=== PATIENT | female | born 1950 | race Caucasian/White ===

== ENCOUNTER 2017-08-29 08:32 | Inpatient (IN) | payer MEDICARE ==
[~2017-08-29] VITALS: Ht 152.4 cm; Wt 88.5 kg
[2017-08-29 08:55] LABS: BASOPHILS # (AUTO) 0.1 (0.0-0.1); EOSINOPHILS # (AUTO) 0.2 (0.0-0.4); EOSINOPHILS % 1.9 % (0.0-6.0); HEMATOCRIT 36.6 % (34.2-44.1); HEMOGLOBIN 11.7 g/dL (12.0-16.0); LYMPHOCYTES # (AUTO) 2.5 (1.0-3.2); LYMPHOCYTES % 21.9 % (18.0-39.1); MEAN CORPUSCULAR HEMOGLOBIN 31.5 pg (28-32); MEAN CORPUSCULAR VOLUME 98.7 fL (81-99); MONOCYTES # (AUTO) 0.8 (0.2-0.8); NEUTROPHILS # (AUTO) 7.7 (2.1-6.9); NEUTROPHILS % 67.8 % (38.7-80.0); PLATELET COUNT 370 x10e3/uL (140-360); RED BLOOD COUNT 3.71 x10e6/uL (3.6-5.1); RED CELL DISTRIBUTION WIDTH 12.9 % (11.7-14.4)
[2017-08-29] MEDS ORDERED: LORAZEPAM INJ 2 MG/ML VIAL IV ONE (09:00)
[2017-08-29 09:03] LABS: INR 0.92; PROTHROMBIN TIME 12.8 seconds (11.9-14.5)
[2017-08-29] MEDS ORDERED: XARELTO15 MG PO (09:10)
[2017-08-29] MEDS ORDERED: OMEPRAZOLE40 MG PO (09:10)
[2017-08-29] MEDS ORDERED: CARVEDILOL6.25 MG PO (09:10)
[2017-08-29] MEDS ORDERED: LISINOPRIL40 MG PO (09:10)
[2017-08-29] MEDS ORDERED: FERROUS SULFAT325 MG PO (09:10)
[2017-08-29] MEDS ORDERED: AMIODARONE HCL200 MG PO (09:10)
[2017-08-29] MEDS ORDERED: NITROGLYCERIN0.4 MG PO (09:10)
[2017-08-29] MEDS ORDERED: LOW DOSE ASPIRI81 MG PO (09:10)
[2017-08-29] MEDS ORDERED: PRAVASTATIN SOD10 MG PO (09:10)
[2017-08-29] MEDS ORDERED: DIGOXIN125 MCG PO (09:10)
[2017-08-29] MEDS ORDERED: AMLODIPINE BESY10 MG PO (09:10)
[2017-08-29] MEDS ORDERED: TRAZODONE HCL50 MG PO (09:10)
[2017-08-29 09:12] LABS: ALBUMIN 3.4 g/dL (3.5-5.0); ANION GAP 13.2 mmol/L (8-16); CALCIUM 9.1 mg/dL (8.4-10.2); CREATININE, SERUM 1.16 mg/dL (0.57-1.11); MAGNESIUM 2.1 MG/DL (1.3-2.1); PHOSPHORUS 2.8 MG/DL (2.3-4.7); POTASSIUM 4.2 mmol/L (3.5-5.1)
[2017-08-29 09:18] LABS: TROPONIN I 0.012 ng/mL (0-0.300)
--- NOTE | 2017-08-29 09:23 | Diagnostic Imaging Report ---
PROCEDURE: X-RAY CHEST, TWO VIEWS COMPARISON: None. INDICATIONS: RIGHT CHEST PAIN FINDINGS: LUNGS: No consolidations or edema. Calcified upper lobe granuloma is best visualized on the lateral view. PLEURA: No pneumothorax. Focal eventration anteriorly of the right hemidiaphragm. HEART \T\ MEDIASTINUM: The heart is within normal size-limits. BONES \T\ SOFT TISSUES: No acute findings. CONCLUSION: No acute thoracic abnormality. Edouard Mendoza D.O. Dictated by: Edouard Mendoza D.O. on 08/29/2017 at 9:31 Electronically approved by: Edouard Mendoza D.O. on 08/29/2017 at 9:31
[2017-08-29] MEDS ORDERED: NITROGLYCERIN 0.4 MG SUBL SL PRN ×2 (11:00→17:45)
[2017-08-29] MEDS ORDERED: ONDANSETRON HCL INJ 2 MG/ML VIAL IV PRN (11:00)
[2017-08-29] MEDS ORDERED: ASPIRIN 81 MG CHEW TAB PO ONE (11:00)
[2017-08-29] MEDS: FAMOTIDINE 20 MG TAB PO SCH ×2 (11:39→20:32)
[2017-08-29 14:42] LABS: CREATINE KINASE MB 0.9 ng/mL (0.00-5.00)
[2017-08-29 16:38] VITALS: BP 157/72
[2017-08-29] MEDS: ALPRAZOLAM 0.5 MG TAB PO SCH (17:27)
--- NOTE | 2017-08-29 19:36 | History and Physical ---
CHIEF COMPLAINT: A 67-year-old female patient of mine who presented with a complaint of recurrent chest pain. HISTORY OF PRESENT ILLNESS: Ms. Geovanni Hurtado is a 67-year-old female patient with a past history of atrial fibrillation, coronary artery disease, COPD, chronic bronchitis, atrial fibrillation, gastritis, hiatal hernia. She presented to the emergency room with complaint of recurrent chest pain. The patient was recently admitted at [facility] for chest pain. The patient had a nuclear stress test done which was negative and she was discharged, and after discharge the patient continued to have pain. The patient was also taking nitroglycerin for pressure type of chest pain radiating to the jaw and nitroglycerin helped with the pain, but pain kept on recurring and sometimes the nitroglycerin was not helping. ALLERGIES: PENICILLIN, SULFA, CODEINE, MORPHINE, . SOCIAL HISTORY: Denies smoking, denies any alcohol. PAST MEDICAL HISTORY: As per history of present illness. REVIEW OF SYSTEMS: Chest pain, shortness of breath, chest tightness, jaw pain. MEDICATIONS: See from the list. PHYSICAL EXAMINATION GENERAL: She is an elderly female patient lying in the bed not in any acute distress. VITAL SIGNS: Temperature 99, pulse 88, respirations 20, blood pressure 110/80. HEENT: Normocephalic atraumatic. NECK: No JVD, no lymphadenopathy. LUNGS: Bilateral equal air entry; no rales, no rhonchi. HEART: S1, S2, regular, systolic murmur. ABDOMEN: Soft, bowel sounds present. No organomegaly. NEUROLOGIC: Nonfocal. No neurologic deficit, except the patient has neck tremors. ADMITTING IMPRESSION/DIAGNOSES 1. Chest pain. 2. Unstable angina. 3. Atrial fibrillation. 4. Chronic obstructive pulmonary disease. 5. Hypertension. 6. Hypertensive heart disease. 7. Arthritis. 8. Gastroesophageal reflux disease. 9. Anxiety. PLAN: The patient will be admitted with the above diagnosis. Will do serial EKGs, cardiac enzymes and cardiology consultation. Dr. Wiseman requested. The patient will probably undergo cardiac catheterization. Job#: [id number]
[2017-08-29 20:00] VITALS: BP 141/78
[2017-08-29 20:47] LABS: TROPONIN I 0.055 ng/mL (0-0.300)
[2017-08-29] MEDS ORDERED: TRAZODONE HCL 50 MG TAB PO PRN (21:00)
[2017-08-29] MEDS ORDERED: PRAVASTATIN 20 MG TAB PO SCH (21:00)
[2017-08-30] VITALS (8 sets, daily range): BP systolic 109–138; BP diastolic 55–79
[2017-08-30] MEDS: ACETAMINOPHEN 325 MG TAB PO PRN ×2 (03:14→04:25)
[2017-08-30 05:55] LABS: BASOPHILS # (AUTO) 0.1 (0.0-0.1); BASOPHILS % 0.8 % (0.0-1.0); EOSINOPHILS # (AUTO) 0.2 (0.0-0.4); EOSINOPHILS % 2.4 % (0.0-6.0); HEMATOCRIT 34.8 % (34.2-44.1); HEMOGLOBIN 11.2 g/dL (12.0-16.0); LYMPHOCYTES # (AUTO) 3.1 (1.0-3.2); LYMPHOCYTES % 31.4 % (18.0-39.1); MEAN CORPUSCULAR HEMOGLOBIN 31.9 pg (28-32); MEAN CORPUSCULAR HGB CONC 32.2 g/dL (31-35); MEAN CORPUSCULAR VOLUME 99.1 fL (81-99); MONOCYTES # (AUTO) 0.9 (0.2-0.8); MONOCYTES % 9.2 % (4.4-11.3); NEUTROPHILS # (AUTO) 5.5 (2.1-6.9); NEUTROPHILS % 55.9 % (38.7-80.0); PLATELET COUNT 291 x10e3/uL (140-360); RED BLOOD COUNT 3.51 x10e6/uL (3.6-5.1); RED CELL DISTRIBUTION WIDTH 13.1 % (11.7-14.4)
[2017-08-30 06:19] LABS: ANION GAP 10.6 mmol/L (8-16); CALCIUM 8.8 mg/dL (8.4-10.2); CHOL/HDL RATIO 3.7 (3.0-3.6); CREATININE, SERUM 1.1 mg/dL (0.57-1.11); POTASSIUM 4.6 mmol/L (3.5-5.1)
[2017-08-30 06:28] LABS: CREATINE KINASE MB 0.9 ng/mL (0.00-5.00); TROPONIN I 0.016 ng/mL (0-0.300)
[2017-08-30] MEDS ORDERED: RIVAROXABAN 15 MG TABLET PO SCH (09:00)
[2017-08-30] MEDS ORDERED: CARVEDILOL 3.125 MG TAB PO SCH (09:00)
[2017-08-30] MEDS ORDERED: LISINOPRIL 20 MG TAB PO SCH (09:00)
[2017-08-30] MEDS ORDERED: ENOXAPARIN SOD INJ 60 MG/0.6 ML SYR SC SCH (09:00)
[2017-08-30] MEDS ORDERED: ASPIRIN 81 MG ENTERIC COATED PO SCH (09:00)
[2017-08-30] MEDS ORDERED: NON-FORMULARY MEDICATION (Pravastatin Sodium 10 MG) PO SCH (09:00)
[2017-08-30] MEDS ORDERED: NON-FORMULARY MEDICATION (Carvedilol 6.25 MG) PO SCH (09:00)
[2017-08-30] MEDS ORDERED: NON-FORMULARY MEDICATION (Lisinopril 40 MG) PO SCH (09:00)
[2017-08-30] MEDS: CARVEDILOL 3.125 MG TAB PO SCH ×2 (09:42→20:39)
[2017-08-30] MEDS: AMIODARONE HCL 200 MG TAB PO SCH ×2 (09:42→17:13)
[2017-08-30] MEDS: ASPIRIN 81 MG ENTERIC COATED PO SCH (09:42)
[2017-08-30] MEDS: LISINOPRIL 20 MG TAB PO SCH (09:43)
[2017-08-30] MEDS: DIGOXIN 0.125 MG TAB PO SCH (09:43)
[2017-08-30] MEDS: AMLODIPINE BESYLATE 10 MG TAB PO SCH (09:43)
[2017-08-30] MEDS: FERROUS SULFATE 325 MG TAB PO SCH (09:43)
[2017-08-30] MEDS: ATORVASTATIN 20 MG TAB PO SCH (09:43)
[2017-08-30] MEDS: PANTOPRAZOLE SOD 40 MG TABEC PO SCH (09:44)
[2017-08-30] MEDS: ALPRAZOLAM 0.5 MG TAB PO SCH ×2 (09:44→17:13)
--- NOTE | 2017-08-30 10:36 | Consultation ---
DATE OF CONSULTATION: August 29, 2017 CARDIOLOGY CONSULTATION REASON FOR CONSULTATION: Chest pain. HISTORY OF PRESENT ILLNESS: Ms. Hurtado is a pleasant 67-year-old woman with a history of atrial fibrillation, COPD, chronic bronchitis, gastritis, who presents to [facility] via the emergency department with the complaints of chest pain. Episodes are intermittent radiating to the neck and right shoulder and partially relieved with nitroglycerin. She had recent visit to [facility] with noninvasive tests performed at the time there. She presents again to the hospital with recurrent episode of chest pain. Currently, chest pain free. REVIEW OF SYSTEMS: A 12-system negative except for as noted above. ALLERGIES: SULFA, CODEINE, MORPHINE, PROMETHAZINE. PAST MEDICAL HISTORY: As per HPI. EKG shows normal sinus rhythm with left ventricular hypertrophy, QRS widening and repolarization abnormality. Her first 2 sets of troponins have been negative. White count mildly elevated at 11.4. Chest x-ray with no acute thoracic abnormality. Possible right upper lobe granuloma. Focal infiltration anteriorly of the right hemidiaphragm. Heart within normal size limits. SOCIAL HISTORY: Denies recent smoking, alcohol or drugs. FAMILY HISTORY: Noncontributory. PHYSICAL EXAMINATION VITALS: Temperature 96.9, heart rate 76, respiratory rate 20, blood pressure 138/73, and O2 sat 95% on room air. GENERAL: No acute distress. Alert and cooperative. HEENT: Anicteric sclerae. CHEST: Clear to auscultation. CARDIOVASCULAR: Regular rate and rhythm. Normal S1 and S2. No S3. No S4. Systolic ejection murmur of 1/6. ABDOMEN: Soft. EXTREMITIES: No edema. Warm distal extremities. STUDIES: X-ray and EKG as described above. Cardiac enzymes negative times 3. White blood cells 11.3 and platelets 11,700. Glucose 370. INR 0.9. Creatinine 1.1, potassium 4.2, bicarbonate 25, glucose 101, magnesium 2.1. Normal transaminases. ASSESSMENT 1. Chest pain, recurrent: Concern for unstable angina. 2. Atrial fibrillation, paroxysmal. 3. Chronic obstructive pulmonary disease. 4. Hypertension. 5. Gastroesophageal reflux disease. 6. Anxiety. RECOMMENDATIONS: Will consider coronary angiography and possible intervention. Please hold Xarelto for possible coronary angiography early next week. No LA per serial enzymes so far. Continue antihypertensives, aspirin, beta carlos manuel, and statin therapy. Keep on telemetry and echo. Further recommendations to follow. Job#: [id number] ISAC
--- NOTE | 2017-08-30 12:00 | Consultation ---
DATE OF CONSULTATION: August 30, 2017 CARDIOLOGY CONSULTATION REASON FOR CONSULTATION: Is chest pain. HISTORY OF PRESENT ILLNESS: Ms. Hurtado is a 67-year-old female with a history of atrial fibrillation, coronary artery disease with remote history of coronary angiography, COPD, chronic bronchitis, hiatal hernia, who was recently at [facility] with atypical exertional angina. She has been using nitroglycerin almost on a daily basis for the last several weeks. She had a nuclear stress test done at [facility] which was negative. She was discharged home. However, her anginal symptoms continued. She denies palpitations. DRUG ALLERGIES: ARE MULTIPLE. INCLUDE PENICILLIN, SULFONAMIDE, ANTIBIOTICS, CODEINE, MORPHINE, PROMETHAZINE. PAST MEDICAL HISTORY: As listed above. SOCIAL HISTORY: Patient does not smoke or drink alcohol. REVIEW OF SYSTEMS: Negative except as dictated in the history of present illness. PHYSICAL EXAMINATION: VITALS: Afebrile. Heart rate 68. Blood pressure 135/79. O2 sats 96%. CARDIOVASCULAR: Regular rhythm. Systolic murmur. S4 gallop. LUNGS: Clear to auscultation bilaterally. ABDOMEN: Soft. Bowel sounds heard adequately. Hemoglobin is 11.2. Serum creatinine is normal. Potassium 4.6. BNP is 400. Echocardiogram is pending. Cardiac troponin was 0.055. ASSESSMENT: Non ST segment elevation myocardial infarction. RECOMMENDATION: Continued medical therapy. Coronary angiography. Risks, benefits and alternatives were discussed with the patient. We will perform this procedure on the 01 of September. I thank Dr. Harish De Jesus for this consultation. Job#: [id number] EV
[2017-08-30] MEDS: FAMOTIDINE 20 MG TAB PO SCH ×2 (12:43→20:39)
[2017-08-30 15:04] LABS: CREATINE KINASE MB 0.7 ng/mL (0.00-5.00); TROPONIN I 0.017 ng/mL (0-0.300)
[2017-08-31] VITALS (7 sets, daily range): BP systolic 107–141; BP diastolic 57–70
[2017-08-31 07:20] LABS: CHOL/HDL RATIO 3.4 (3.0-3.6)
[2017-08-31 07:31] LABS: ANION GAP 8.6 mmol/L (8-16); CALCIUM 9.1 mg/dL (8.4-10.2); CREATININE, SERUM 1.13 mg/dL (0.57-1.11); POTASSIUM 4.6 mmol/L (3.5-5.1)
[2017-08-31] MEDS: CARVEDILOL 3.125 MG TAB PO SCH ×2 (08:30→21:00)
[2017-08-31] MEDS: ATORVASTATIN 20 MG TAB PO SCH (08:30)
[2017-08-31] MEDS: FERROUS SULFATE 325 MG TAB PO SCH (08:30)
[2017-08-31] MEDS: ASPIRIN 81 MG ENTERIC COATED PO SCH (08:30)
[2017-08-31] MEDS: AMLODIPINE BESYLATE 10 MG TAB PO SCH (08:30)
[2017-08-31] MEDS: AMIODARONE HCL 200 MG TAB PO SCH ×2 (08:30→17:00)
[2017-08-31] MEDS: ALPRAZOLAM 0.5 MG TAB PO SCH (08:30)
[2017-08-31] MEDS: DIGOXIN 0.125 MG TAB PO SCH (08:30)
[2017-08-31] MEDS: PANTOPRAZOLE SOD 40 MG TABEC PO SCH (08:30)
[2017-08-31] MEDS: LISINOPRIL 20 MG TAB PO SCH (08:30)
[2017-08-31] MEDS: SODIUM CHLORIDE 0.9% 1000ML 1,000 ML IV SCH (10:58)
[2017-08-31] MEDS: FAMOTIDINE 20 MG TAB PO SCH ×2 (10:58→23:00)
--- NOTE | 2017-08-31 12:03 | Progress Note ---
DATE: August 31, 2017 CARDIOLOGY PROGRESS NOTE SUBJECTIVE: Ms. Hurtado has had no further chest pain. OBJECTIVE VITAL SIGNS: Afebrile. Heart rate 60. Blood pressure 141/68. CARDIOVASCULAR: Regular rhythm. Systolic murmur. LUNGS: Clear to auscultation bilaterally. MEDICATIONS: Reviewed. TELEMETRY: Sinus rhythm/sinus bradycardia. LABS: Creatinine is slightly elevated at 1.13. Echocardiogram was reviewed. The patient has asymmetric septal hypertrophy with systolic anterior motion of the mitral valve consistent with hypertrophic cardiomyopathy. ASSESSMENT 1. Hypertrophic cardiomyopathy. 2. Vsw-GZ-kftrstl elevation myocardial infarction. RECOMMENDATIONS: Coronary angiography as well as insertable loop recorder will be placed tomorrow. The patient has significant palpitations. She is at high risk for tachy arrhythmias owing to her hypertrophic cardiomyopathy, and close monitoring on an outpatient basis through insertable loop recorder will be an important aspect of her care. This was discussed with the patient. Anticoagulation will be reinitiated prior to discharge. I thank Dr. De Jesus for this consultation. Job#: [id number]
[2017-09-01] VITALS: BP 149/83
[2017-09-01 04:00] VITALS: BP 139/78
[2017-09-01] MEDS: SODIUM CHLORIDE 0.9% 1000ML 1,000 ML IV SCH ×2 (06:27→19:50)
[2017-09-01 07:01] LABS: BASOPHILS # (AUTO) 0.1 (0.0-0.1); BASOPHILS % 0.7 % (0.0-1.0); EOSINOPHILS # (AUTO) 0.4 (0.0-0.4); EOSINOPHILS % 4.1 % (0.0-6.0); HEMOGLOBIN 11.7 g/dL (12.0-16.0); LYMPHOCYTES # (AUTO) 2.6 (1.0-3.2); LYMPHOCYTES % 30.1 % (18.0-39.1); MEAN CORPUSCULAR HEMOGLOBIN 31.6 pg (28-32); MEAN CORPUSCULAR HGB CONC 32.5 g/dL (31-35); MEAN CORPUSCULAR VOLUME 97.3 fL (81-99); MONOCYTES # (AUTO) 0.8 (0.2-0.8); MONOCYTES % 9.1 % (4.4-11.3); NEUTROPHILS # (AUTO) 4.8 (2.1-6.9); NEUTROPHILS % 55.8 % (38.7-80.0); PLATELET COUNT 274 x10e3/uL (140-360); RED CELL DISTRIBUTION WIDTH 12.6 % (11.7-14.4)
[2017-09-01] MEDS ORDERED: NITROGLYCERIN/D5W 200 MCG/ML 250 ML ONE (07:15)
[2017-09-01] MEDS ORDERED: HEPARIN SOD/SOD CHLORIDE 0 ML ONE (07:15)
[2017-09-01] MEDS ORDERED: IOPAMIDOL 370 MG/ML 200 ML INFUS..BTL INJ ONE ×3 (07:15→09:14)
[2017-09-01] MEDS ORDERED: LIDOCAINE HCL 2% LOCAL 20 ML VIAL ONE ×2 (07:15→08:12)
[2017-09-01] MEDS ORDERED: SODIUM CHLORIDE 0.9% 1000ML 1,000 ML ONE (07:15)
[2017-09-01] MEDS ORDERED: HEPARIN SOD (PORCINE) 1000 UNIT/ML 30ML ONE (07:15)
[2017-09-01 07:38] LABS: ANION GAP 13.6 mmol/L (8-16); BLOOD UREA NITROGEN 22 mg/dL (7-26); BUN/CREATININE RATIO 26 (6-25); CARBON DIOXIDE 24 mmol/L (22-29); CHLORIDE 109 mmol/L (98-107); CREATININE, SERUM 0.86 mg/dL (0.57-1.11); EST GLOMERULAR FILTRATION RATE > 60 ML/MIN (60-); GLUCOSE 103 mg/dL (74-118); POTASSIUM 4.6 mmol/L (3.5-5.1); SODIUM 142 mmol/L (136-145)
[2017-09-01 08:06] VITALS: BP 188/86
[2017-09-01] MEDS ORDERED: HEPARIN SOD/SOD CHLORIDE 2,000 ML ONE (08:13)
[2017-09-01] MEDS ORDERED: LIDOCAINE 1% W/EPINEPHRINE 20 ML VIAL ONE (08:23)
[2017-09-01] MEDS ORDERED: FENTANYL CITRATE/PF 100MCG/2 ML INJ ONE ×2 (08:27→08:57)
[2017-09-01] MEDS ORDERED: MIDAZOLAM HCL 2 MG/2 ML VIAL ONE ×3 (08:27→08:57)
[2017-09-01] MEDS ORDERED: SODIUM CHLORIDE 0.9% 50ML 50 ML ONE (09:01)
[2017-09-01] MEDS ORDERED: BIVALIRUDIN 250 MG/VIAL IV ONE (09:01)
[2017-09-01] MEDS ORDERED: PRASUGREL 10 MG TAB ONE (09:26)
[2017-09-01] MEDS ORDERED: ASPIRIN 81 MG CHEW TAB ONE (10:02)
[2017-09-01] MEDS: ASPIRIN 81 MG ENTERIC COATED PO SCH (10:32)
[2017-09-01] MEDS: FERROUS SULFATE 325 MG TAB PO SCH (10:40)
[2017-09-01] MEDS: FAMOTIDINE 20 MG TAB PO SCH ×2 (10:40→22:04)
[2017-09-01] MEDS: LISINOPRIL 20 MG TAB PO SCH (10:40)
[2017-09-01] MEDS: PANTOPRAZOLE SOD 40 MG TABEC PO SCH (10:40)
[2017-09-01] MEDS: ALPRAZOLAM 0.5 MG TAB PO SCH ×2 (10:40→16:13)
[2017-09-01] MEDS: ATORVASTATIN 20 MG TAB PO SCH (10:40)
[2017-09-01] MEDS: AMIODARONE HCL 200 MG TAB PO SCH ×2 (10:40→16:13)
[2017-09-01] MEDS: AMLODIPINE BESYLATE 10 MG TAB PO SCH (10:40)
[2017-09-01] MEDS: DIGOXIN 0.125 MG TAB PO SCH (10:40)
[2017-09-01] MEDS: CARVEDILOL 3.125 MG TAB PO SCH ×2 (10:40→22:04)
[2017-09-01 11:47] VITALS: BP 175/95
[2017-09-01 15:43] VITALS: BP 139/79
[2017-09-01 20:00] VITALS: BP 137/66
[2017-09-02] VITALS: BP 155/72
[2017-09-02] MEDS: SODIUM CHLORIDE 0.9% 1000ML 1,000 ML IV SCH (02:30)
[2017-09-02 04:00] VITALS: BP 104/58
[2017-09-02 06:44] LABS: BASOPHILS # (AUTO) 0.1 (0.0-0.1); BASOPHILS % 0.8 % (0.0-1.0); EOSINOPHILS # (AUTO) 0.4 (0.0-0.4); EOSINOPHILS % 3.6 % (0.0-6.0); HEMATOCRIT 34.5 % (34.2-44.1); HEMOGLOBIN 11.3 g/dL (12.0-16.0); LYMPHOCYTES # (AUTO) 3.2 (1.0-3.2); LYMPHOCYTES % 30.1 % (18.0-39.1); MEAN CORPUSCULAR HGB CONC 32.8 g/dL (31-35); MEAN CORPUSCULAR VOLUME 97.7 fL (81-99); MONOCYTES % 9.6 % (4.4-11.3); NEUTROPHILS % 55.6 % (38.7-80.0); PLATELET COUNT 259 x10e3/uL (140-360); RED BLOOD COUNT 3.53 x10e6/uL (3.6-5.1); RED CELL DISTRIBUTION WIDTH 12.5 % (11.7-14.4)
[2017-09-02 07:05] LABS: ALANINE AMINOTRANSFERASE 14 IU/L (0-55); ALKALINE PHOSPHATASE 153 IU/L (40-150); ANION GAP 11.3 mmol/L (8-16); BLOOD UREA NITROGEN 20 mg/dL (7-26); BUN/CREATININE RATIO 22 (6-25); CALCIUM 8.8 mg/dL (8.4-10.2); CARBON DIOXIDE 26 mmol/L (22-29); CHLORIDE 106 mmol/L (98-107); CREATININE, SERUM 0.89 mg/dL (0.57-1.11); EST GLOMERULAR FILTRATION RATE > 60 ML/MIN (60-); GLUCOSE 94 mg/dL (74-118); POTASSIUM 4.3 mmol/L (3.5-5.1); SODIUM 139 mmol/L (136-145)
[2017-09-02 08:37] VITALS: BP 177/70
[2017-09-02] MEDS: FERROUS SULFATE 325 MG TAB PO SCH (08:38)
[2017-09-02] MEDS: DIGOXIN 0.125 MG TAB PO SCH (08:38)
[2017-09-02] MEDS: AMIODARONE HCL 200 MG TAB PO SCH (08:38)
[2017-09-02] MEDS: ASPIRIN 81 MG ENTERIC COATED PO SCH (08:38)
[2017-09-02] MEDS: ATORVASTATIN 20 MG TAB PO SCH (08:38)
[2017-09-02] MEDS: CARVEDILOL 3.125 MG TAB PO SCH (08:38)
[2017-09-02] MEDS: PANTOPRAZOLE SOD 40 MG TABEC PO SCH (08:39)
[2017-09-02] MEDS: LISINOPRIL 20 MG TAB PO SCH (08:39)
[2017-09-02] MEDS: ALPRAZOLAM 0.5 MG TAB PO SCH (08:39)
[2017-09-02] MEDS: AMLODIPINE BESYLATE 10 MG TAB PO SCH (08:39)
--- NOTE | 2017-09-02 10:27 | Discharge Summary ---
Patient is a 67-year-old female patient of [address] presented to the emergency room with chest pain. ADMITTING IMPRESSION/DIAGNOSES 1. Angina pectoris and chest pain. 2. History of atrial fibrillation. 3. Hypertension. 4. Chronic obstructive pulmonary disease. 5. Diabetic. 6. Hypertrophic cardiomyopathy. Presented to the emergency room with chest pain. Patient had a recent stress test done which was negative, but patient has continued to have chest pain. Patient was taken to the rn labor delivery and she has multivessel disease. Patient has a 90% RCA lesion. Angioplasty was done. Patient has LAD 90% lesion, but right side is dominant; so, right side angioplasty was done and left one will be done on a later date. Patient had internal cardiac loop recorder placed. Patient is in a sinus rhythm; so, Xarelto was stopped. Patient will be discharged home on Plavix, amiodarone, and digoxin. Patient will be followed up as an outpatient. Cardiac procedure was done by Dr. Herrera. Patient will follow up with and isidro as outpatient. FLYNN CHAMPAGNE MD Job#: [id number] CF CATHI
[2017-09-02] MEDS ORDERED: CLOPIDOGREL BISULFATE 75 MG TAB PO SCH (10:30)
[2017-09-02] MEDS: FAMOTIDINE 20 MG TAB PO SCH (10:43)
--- NOTE | 2017-09-02 17:02 | Progress Note ---
DATE: September 02, 2017 CARDIOLOGY PROGRESS NOTE SUBJECTIVE: Patient denies chest pain or shortness of breath. OBJECTIVE VITAL SIGNS: Temperature 97.5 degrees, pulse 58, respiratory rate 18, blood pressure 177/70, oxygen saturation 96% on room air. GENERAL: Awake, alert, in no acute distress. LUNGS: Clear to auscultation bilaterally. No wheezes or crackles. CARDIOVASCULAR: Normal rate, regular rhythm. No murmur. Normal S1 and S2. ABDOMEN: Soft, nontender. EXTREMITIES: No edema. CARDIAC MEDICATIONS 1. Plavix 75 mg p.o. daily. 2. Lisinopril 20 mg p.o. daily. 3. Amlodipine 10 mg p.o. daily. 4. Atorvastatin 40 mg p.o. daily. 5. Carvedilol 12.5 mg p.o. q.12 h. 6. Amiodarone 200 mg p.o. b.i.d. 7. Aspirin 81 mg p.o. q.a.m. 8. Digoxin 0.125 mg p.o. daily. LABS: WBC 10.7, hemoglobin 11.3, hematocrit 34.5, platelets 259. Sodium 139, potassium 4.3, chloride 106, CO2 26, BUN 20, creatinine 0.89. TELEMETRY: Normal sinus rhythm. IMPRESSION 1. Kys-PY-ofvojtgao myocardial infarction with stenosis of the right coronary artery and status post drug-eluting stent as well as stenosis of the left anterior descending. 2. Hypertrophic cardiomyopathy. 3. History of atrial fibrillation. 4. Chronic obstructive pulmonary disease. 5. Hypertension. 6. Gastroesophageal reflux disease. 7. Anxiety. RECOMMENDATIONS: Patient was strongly counseled on the importance of adherence to dual antiplatelet therapy and the risk of in-stent thrombosis if she were to miss doses of her antiplatelet therapy. Patient is status post implantable loop recorder. Will have patient set up with the office. Continue current cardiac medications otherwise. We will have the patient follow up with us in the office to discuss initiation of triple therapy given her history of paroxysmal atrial fibrillation. Thank you for this consult. We will continue to follow. Job#: [id number] EV
== END 2017-09-02 11:03 | disposition home or self-care (01) | DRG 247 ==
LOC: ER 08:32 → ERHOLD 15:46 → IMCU 15:50 → OBSVTOIN 08-31 11:44
PROVIDERS: ADMIT Internal Medicine; ATTEND Internal Medicine
PROC: 027034Z Dilation of Coronary Artery, One Artery with Drug-eluting Intraluminal Device, Percutaneous Approach (ICD-10-PCS; principal; 2017-09-01)
PROC: 4A023N7 Measurement of Cardiac Sampling and Pressure, Left Heart, Percutaneous Approach (ICD-10-PCS; 2017-09-01)
PROC: B2111ZZ Fluoroscopy of Multiple Coronary Arteries using Low Osmolar Contrast (ICD-10-PCS; 2017-09-01)
PROC: 0JH602Z Insertion of Monitoring Device into Chest Subcutaneous Tissue and Fascia, Open Approach (ICD-10-PCS; 2017-09-01)
DX: I21.4 Non-ST elevation (NSTEMI) myocardial infarction (principal); I43 Cardiomyopathy in diseases classified elsewhere; I11.9 Hypertensive heart disease without heart failure; I25.110 Atherosclerotic heart disease of native coronary artery with unstable angina pectoris; I48.0 Paroxysmal atrial fibrillation; J44.9 Chronic obstructive pulmonary disease, unspecified; K44.9 Diaphragmatic hernia without obstruction or gangrene; F41.9 Anxiety disorder, unspecified; M19.90 Unspecified osteoarthritis, unspecified site; Z79.82 Long term (current) use of aspirin; Z79.02 Long term (current) use of antithrombotics/antiplatelets; Z88.2 Allergy status to sulfonamides; Z88.0 Allergy status to penicillin; Z88.1 Allergy status to other antibiotic agents; Z88.5 Allergy status to narcotic agent; Z88.8 Allergy status to other drugs, medicaments and biological substances; J42 Unspecified chronic bronchitis; K29.70 Gastritis, unspecified, without bleeding
CPT/HCPCS: 33282; 36140; 36415; 37197; 71020; 80048; 80053; 80061; 82550; 82553; 83735; 83880; 84100; 84484; 85025; 85610; 93005; 93306; 93458; 99284; C1764; C1769; G0378; J0583; J1644; J2001; J2060; J2250; J7030; Q9967

== ENCOUNTER 2017-10-27 19:28 | Observation (INO) | payer MEDICARE ==
[~2017-10-27] VITALS: Ht 152.4 cm; Wt 88.5 kg
[~2017-10-27 19:28] MED LIST: AMIODARONE HCL200 MG PO; AMLODIPINE BESY10 MG PO; CARVEDILOL6.25 MG PO; DIGOXIN125 MCG PO; FERROUS SULFAT325 MG PO; LISINOPRIL40 MG PO; LOW DOSE ASPIRI81 MG PO; NITROGLYCERIN0.4 MG PO; OMEPRAZOLE40 MG PO; PRAVASTATIN SOD10 MG PO; TRAZODONE HCL50 MG PO; XARELTO15 MG PO
--- OUTSIDE RECORDS SUMMARY | 2017-10-27 19:30 | XMS REPORT ---
Author [facility] Address Unknown Phone Unavailable Care Team Providers Care Environmental Aide Name Role Phone SUSAN ALY Unavailable Unavailable Problems This patient has no known problems. Allergies, Adverse Reactions, Alerts This patient has no known allergies or adverse reactions. Medications This patient has no known medications. Results Test Description Test Time Test Comments Text Results Atomic Results Result Comments CHEST 2 VIEWS [place] [address] Patient Name: OZZIE ALLEN MR #: [id number] : 1950 Age/Sex: 67/F Req #: [id number] Adm Physician: Ordered by: SUSAN ALY MD Report #: [id number] Location: ER Room/Bed: Procedure: [id number] DX/CHEST 2 VIEWS Exam Date: 08/29/17 Exam Time: 09 REPORT STATUS: Signed PROCEDURE: X-RAY CHEST, TWO VIEWS COMPARISON: None. INDICATIONS: RIGHT CHEST PAIN FINDINGS: LUNGS : No consolidations or edema. Calcified upper lobe granuloma is best visualized on the lateral view. PLEURA: No pneumothorax. Focal eventration anteriorly of the right hemidiaphragm. HEART T MEDIASTINUM: The heart is within normal size-limits. BONES T SOFT TISSUES: No acute findings. CONCLUSION: No acute thoracic abnormality. Vj Dodson D.O. Dictated by: Vj Dodson D.O. on 08/29/2017 at 9:31 Electronically approved by: Vj Dodson D.O. on 08/29/2017 at 9:31 Dictated By: VJ DODSON DO 0 Transcribed By: ZACH on 08/29/17930 COPY TO: SUSAN ALY MD
[2017-10-27] MEDS ORDERED: PANTOPRAZOLE 40 MG 10ML VIAL IV STA (19:49)
[2017-10-27 19:58] LABS: BASOPHILS # (AUTO) 0.1 (0.0-0.1); BASOPHILS % 0.5 % (0.0-1.0); EOSINOPHILS % 0.3 % (0.0-6.0); HEMATOCRIT 35.6 % (34.2-44.1); HEMOGLOBIN 11.7 g/dL (12.0-16.0); LYMPHOCYTES # (AUTO) 1.9 (1.0-3.2); LYMPHOCYTES % 16.4 % (18.0-39.1); MEAN CORPUSCULAR HEMOGLOBIN 32.1 pg (28-32); MEAN CORPUSCULAR HGB CONC 32.9 g/dL (31-35); MEAN CORPUSCULAR VOLUME 97.8 fL (81-99); MONOCYTES # (AUTO) 0.4 (0.2-0.8); MONOCYTES % 3.2 % (4.4-11.3); NEUTROPHILS # (AUTO) 9.1 (2.1-6.9); NEUTROPHILS % 79.2 % (38.7-80.0); PLATELET COUNT 334 x10e3/uL (140-360); RED BLOOD COUNT 3.64 x10e6/uL (3.6-5.1); RED CELL DISTRIBUTION WIDTH 12.6 % (11.7-14.4)
[2017-10-27] MEDS ORDERED: NITROGLYCERIN 2% OINT 1 GM PKT TOP ONE (20:00)
[2017-10-27] MEDS ORDERED: ASPIRIN 81 MG CHEW TAB PO ONE (20:00)
[2017-10-27 20:03] LABS: BILIRUBIN,URINE NEGATIVE (NEGATIVE); CLARITY,URINE CLEAR (CLEAR); COLOR,URINE YELLOW (YELLOW); KETONES,URINE NEGATIVE (NEGATIVE); LEUKOCYTE ESTERASE ,URINE NEGATIVE (NEGATIVE); NITRITE,URINE NEGATIVE (NEGATIVE); PROTEIN,URINE DIPSTICK NEGATIVE (NEGATIVE); URINE UROBILINOGEN 0.2 mg/dL (0.2 - 1)
[2017-10-27 20:06] LABS: INR 0.98; PROTHROMBIN TIME 12.2 seconds (11.9-14.5)
[2017-10-27 20:07] LABS: PARTIAL THROMBOPLASTIN TIME 25.5 seconds (23.8-35.5)
[2017-10-27 20:17] LABS: ALANINE AMINOTRANSFERASE 19 IU/L (0-55); ALBUMIN 3.9 g/dL (3.5-5.0); ALBUMIN/GLOBULIN RATIO 1.1 (0.8-2.0); ALKALINE PHOSPHATASE 220 IU/L (40-150); ANION GAP 11.4 mmol/L (8-16); BLOOD UREA NITROGEN 29 mg/dL (7-26); BUN/CREATININE RATIO 28 (6-25); CALCIUM 8.9 mg/dL (8.4-10.2); CARBON DIOXIDE 24 mmol/L (22-29); CHLORIDE 112 mmol/L (98-107); CREATINE KINASE 46 IU/L (29-168); CREATININE, SERUM 1.04 mg/dL (0.57-1.11); EST GLOMERULAR FILTRATION RATE 53 ML/MIN (60-); GLUCOSE 140 mg/dL (74-118); LIPASE 11 U/L (8-78); MAGNESIUM 2.3 MG/DL (1.3-2.1); POTASSIUM 4.4 mmol/L (3.5-5.1); SODIUM 143 mmol/L (136-145)
[2017-10-27 20:25] LABS: EPITHELIAL CELLS,URINE RARE /LPF; MUCUS,URINE MANY (RARE); RBC,URINE 0-5 /HPF (0-5); WBC,URINE (MAN) 0-5 /HPF (0-5)
--- NOTE | 2017-10-27 20:47 | Diagnostic Imaging Report ---
EXAMINATION: CHEST 2 VIEWS INDICATION: \S\CP \S\[id number] \S\1999 COMPARISON: None FINDINGS: PA and lateral views TUBES and LINES: None. LUNGS: Lungs are moderately inflated. Lungs are clear. There is no evidence of pneumonia or pulmonary edema. PLEURA: No pleural effusion or pneumothorax. HEART AND MEDIASTINUM: The cardiomediastinal silhouette is unremarkable. Loop recorder projects over the chest. BONES AND SOFT TISSUES: No acute osseous lesion. Soft tissues are unremarkable. UPPER ABDOMEN: No free air under the diaphragm. Elevated right hemidiaphragm. Surgical clips projecting over the abdomen on lateral view may represent cholecystectomy clips. IMPRESSION: No acute thoracic abnormality. Signed by: DR. Sharan Alarcon MD on 10/27/2017 8:43 PM
[2017-10-27] MEDS ORDERED: HYDROMORPHONE 1MG/1ML INJ IV STA (20:56)
[2017-10-27] MEDS ORDERED: ONDANSETRON HCL INJ 2 MG/ML VIAL IV PRN ×2 (21:00→21:30)
[2017-10-27] MEDS ORDERED: HYDROMORPHONE 1MG/1ML INJ IV PRN (21:30)
[2017-10-27] MEDS ORDERED: PLAVIX75 MG PO (21:42)
[2017-10-27] MEDS ORDERED: AMLODIPINE BESY10 MG PO (21:42)
[2017-10-27] MEDS ORDERED: CARVEDILOL12.5 MG PO (21:42)
[2017-10-27] MEDS ORDERED: AMIODARONE HCL200 MG PO (21:42)
[2017-10-27] MEDS: FAMOTIDINE 20 MG/2 ML VIAL IV SCH (22:06)
[2017-10-27] MEDS: ENOXAPARIN SODIUM INJ 100 MG/ML SYR SC SCH (22:06)
[2017-10-28] MEDS ORDERED: ULTRAM50 MG PO (00:40)
[2017-10-28 00:59] VITALS: BP 170/80
[2017-10-28 04:00] VITALS: BP 142/65
[2017-10-28 06:49] LABS: BASOPHILS # (AUTO) 0.1 (0.0-0.1); BASOPHILS % 0.7 % (0.0-1.0); EOSINOPHILS # (AUTO) 0.1 (0.0-0.4); EOSINOPHILS % 0.9 % (0.0-6.0); HEMATOCRIT 32.9 % (34.2-44.1); HEMOGLOBIN 10.7 g/dL (12.0-16.0); LYMPHOCYTES # (AUTO) 4.4 (1.0-3.2); LYMPHOCYTES % 33.2 % (18.0-39.1); MEAN CORPUSCULAR HEMOGLOBIN 31.9 pg (28-32); MEAN CORPUSCULAR HGB CONC 32.5 g/dL (31-35); MEAN CORPUSCULAR VOLUME 98.2 fL (81-99); MONOCYTES # (AUTO) 1.2 (0.2-0.8); NEUTROPHILS # (AUTO) 7.3 (2.1-6.9); NEUTROPHILS % 55.7 % (38.7-80.0); PLATELET COUNT 289 x10e3/uL (140-360); RED BLOOD COUNT 3.35 x10e6/uL (3.6-5.1); RED CELL DISTRIBUTION WIDTH 12.7 % (11.7-14.4)
[2017-10-28 07:31] LABS: ALBUMIN 3.3 g/dL (3.5-5.0); ALBUMIN/GLOBULIN RATIO 1.1 (0.8-2.0); ANION GAP 10.3 mmol/L (8-16); CALCIUM 8.8 mg/dL (8.4-10.2); CHOL/HDL RATIO 2.7 (3.0-3.6); CREATININE, SERUM 1.02 mg/dL (0.57-1.11); POTASSIUM 4.3 mmol/L (3.5-5.1)
[2017-10-28 07:43] VITALS: BP 140/61
[2017-10-28] MEDS ORDERED: ALBUTEROL/IPRATROPIUM 3 ML NEB NEB PRN (08:15)
[2017-10-28] MEDS ORDERED: NITROGLYCERIN 0.4 MG SUBL SL PRN (08:15)
[2017-10-28] MEDS ORDERED: TRAMADOL HCL 50 MG TAB PO PRN (08:15)
[2017-10-28] MEDS ORDERED: ACETAMINOPHEN 325 MG TAB PO PRN (08:15)
[2017-10-28] MEDS ORDERED: HYDROMORPHONE 1MG/1ML INJ IV PRN (08:15)
[2017-10-28] MEDS ORDERED: TRAZODONE HCL 50 MG TAB PO PRN (08:15)
[2017-10-28] MEDS ORDERED: ONDANSETRON HCL INJ 2 MG/ML VIAL IV PRN (08:15)
--- NOTE | 2017-10-28 08:45 | History and Physical ---
PRESENTING COMPLAINT: Sudden onset of substernal chest pain for 1 day. HISTORY OF PRESENT ILLNESS: A 67-year-old female was admitted from ER. The patient was brought to the ER from home by EMS. The patient states she was feeling weakness with shortness of breath on exertion since yesterday morning. The patient had some food prepared at home and took a nap after that in the afternoon. Upon waking up from sleep, she felt complicit chest pain localized over her substernal area intermittent along with shortness of breath and nausea. The patient described the pain as complicit and moderate in intensity without any radiation. The patient did not have any similar episode since her last stent placement more than a month ago as per her statement. She was having these symptoms persistent for minutes at that time. EMS was called by her daughter who brought her to the hospital. The patient denies any chest pain right now. She still feels weak and shortness of breath on exertion as per her statement. The patient denies any fever. She had a mild nonproductive cough. Denies any vomiting, diarrhea or dysuria. REVIEW OF SYSTEMS CONSTITUTIONAL: No fever, chills or rigors. HEENT: No nasal congestion. No sore throat. CARDIOVASCULAR: Chest pain with shortness of breath as per HPI. No palpitations. PULMONARY: Mild nonproductive cough. No hemoptysis. GI: No abdominal pain. Mild nausea. No vomiting. No diarrhea. : No dysuria. No hematuria. MUSCULOSKELETAL: Negative for any particular joint pain. No joint swelling. SKIN: No rash. NEUROLOGICAL: No loss of consciousness, seizure or headache. PAST MEDICAL HISTORY: CAD, status post stenting, hypertrophic cardiomyopathy, CHF, paroxysmal atrial fibrillation, hypertension, COPD, type 2 diabetes mellitus, GERD, gastritis. PAST SURGICAL HISTORY: Ventral herniorrhaphy. ALLERGIES: PENICILLIN, SULFA, CODEINE, MORPHINE, PROMETHAZINE, FAMILY HISTORY: Not known. Positive for hypertension. HOME MEDICATIONS: As per medicine reconciliation sheet. SOCIAL HISTORY: The patient lives at home with her boyfriend. She is in contact with her daughter. HABITS: Denies smoking, drinking or substance abuse history. PHYSICAL EXAMINATION VITALS: BP 140/74, pulse 58-61, temp 97.9, respirations 20, SpO2 97% on room air. GENERAL: Alert and not in acute distress now. HEENT: NCAT. No pallor. No icterus. Pupils equal, round and reactive. Oral mucosa moist. NECK: No JVD. No carotid bruits. No lymphadenopathy. No thyromegaly. HEART: S1 and S2 regular. Systolic murmur present over mitral area. CHEST: Air entry equal on both sides. No crackles. No rhonchi. ABDOMEN: Soft and nontender. No palpable masses. Bowel sounds active in all quadrants. EXTREMITIES: No edema, cyanosis or clubbing. NEUROLOGICAL: Motor grossly equal on both sides. LAB DATA: CBC: WBC 11.55, hemoglobin 11, hematocrit 35, and platelets 334,000. MCV 97, RDW 12, neutrophils 79, lymphocytes 16. Chemistry panel: Sodium 143, potassium 4.4, chloride 102, CO2 24. Anion gap 7. BUN 29, creatinine 1.04, glucose 140. Calcium 8.9. Magnesium 2.3. Total bilirubin 0.3, AST 17, ALT 19, alk phos 220. CK 46, CK-MB 0.9, and troponin 0.001 and 0.005. BNP 162. Total protein 7.3, albumin 3.9, globulin 3.4, total cholesterol 44, triglycerides 133, LDL 64, HDL 53, lipase 11. PT 12.2, INR 0.98, and PTT 25.5. Digoxin level 0.58. Urinalysis negative for protein, glucose, ketones, nitrates, leukocyte esterase, wbcs 0-5, rbcs 0-5, bacteria none. RADIOLOGICAL DATA: X-ray of the chest single view with no acute thoracic abnormality. EKG tracing shows normal sinus rhythm at a rate of 62 beats per minute. LVH restrained pattern in lateral leads. No significant S/T changes. Interpretation is within normal limits. ASSESSMENT AND PLAN 1. Chest pain: The patient had similar episodes in the past. She had a cardiac catheterization in August 2017 as per electronic medical record. The patient was scheduled for re-evaluation by Dr. Herrera, sandblast operator as per the patient's statement. Dr. De Leon was consulted from the emergency room. Will follow his recommendations. The patient's troponin level is within normal limits. Two sets done. The patient is status post drug-eluting stent. She is on Plavix. Will continue medical management. Continue telemetry. 2. Dyspnea on exertion, likely due to unstable angina and congestive heart failure: BNP is borderline elevated. The patient also has a history of hypertrophic cardiomyopathy. Will follow with sandblast operator. Continue regular medications. 3. Paroxysmal atrial fibrillation: The patient's electrocardiogram shows sinus rhythm now. Continue the patient on her regular medications. She has also loop as per statement. 4. Hypertension: Continue with medications. 5. Hyperlipidemia: Continue regular medications. 6. Chronic obstructive pulmonary disease: Continue nebulizers p.r.n. The patient's pulse ox is normal now. 7. Deep venous thrombosis prophylaxis: Continue the patient on Lovenox started from the emergency room. Discharge plan will depend upon the patient's response to treatment and sandblast operator's recommendations. Job#: [id number] ISAC WINKLER
[2017-10-28] MEDS ORDERED: CLOPIDOGREL BISULFATE 75 MG TAB PO SCH (09:00)
[2017-10-28] MEDS ORDERED: ASPIRIN 325 MG TAB EC PO SCH (09:00)
[2017-10-28] MEDS ORDERED: NON-FORMULARY MEDICATION (Pravastatin Sodium 10 MG) PO SCH (09:00)
[2017-10-28] MEDS ORDERED: NON-FORMULARY MEDICATION (Lisinopril 40 MG) PO SCH (09:00)
[2017-10-28] MEDS ORDERED: ASPIRIN 81 MG ENTERIC COATED PO SCH (09:00)
[2017-10-28] MEDS: CEFTRIAXONE SOD 1 GM VIAL IV SCH (09:07)
[2017-10-28] MEDS: ASPIRIN 81 MG ENTERIC COATED PO SCH (09:07)
[2017-10-28] MEDS: AMIODARONE HCL 200 MG TAB PO SCH (09:07)
[2017-10-28] MEDS: AZITHROMYCIN 500MG/NS 250 ML 250 ML IV SCH (09:07)
[2017-10-28] MEDS: DIGOXIN 0.125 MG TAB PO SCH (09:08)
[2017-10-28] MEDS: AMLODIPINE BESYLATE 10 MG TAB PO SCH (09:08)
[2017-10-28] MEDS: CLOPIDOGREL BISULFATE 75 MG TAB PO SCH (09:08)
[2017-10-28] MEDS: ENOXAPARIN SODIUM INJ 100 MG/ML SYR SC SCH ×2 (09:08→21:30)
[2017-10-28] MEDS: FAMOTIDINE 20 MG/2 ML VIAL IV SCH ×2 (09:08→21:30)
[2017-10-28] MEDS: LISINOPRIL 20 MG TAB PO SCH (09:08)
[2017-10-28] MEDS: CARVEDILOL 12.5 MG TAB PO SCH ×3 (09:08→17:32)
[2017-10-28] MEDS ORDERED: CARVEDILOL 12.5 MG TAB PO NR (10:00)
[2017-10-28] MEDS ORDERED: FUROSEMIDE INJ 10 MG/ML 4 ML VIAL IV ONE (10:15)
--- NOTE | 2017-10-28 10:49 | Consultation ---
DATE OF CONSULTATION: October 28, 2017 CARDIOLOGY CONSULTATION REQUESTING PHYSICIAN: Dr. De Jesus. REASON FOR CONSULTATION: Chest pain. HISTORY OF PRESENT ILLNESS: This is a 67-year-old woman with history of atrial fibrillation, coronary artery disease, status post RCA stent and ILR insertion, with moderate asymmetric septal hypertrophy and severe systolic anterior motion of the mitral leaflet who presented with complaint of chest pain. The patient reports she had been in her usual state of health until the last few days, and she began to feel poorly. She did describe feeling tired with dyspnea on exertion at approximately 20 feet. In addition, she endorses symptoms consistent with orthopnea and PND for the last 3 days. Yesterday, she developed chest heaviness around 4 p.m. It was 10/10 in severity associated with nausea and shortness of breath. There was no diaphoresis. She called the office and was instructed to present to the ER for further evaluation. She, therefore, called EMS and was taken to [facility]. REVIEW OF SYSTEMS: Negative, except as per HPI. PAST MEDICAL HISTORY 1. Atrial fibrillation. 2. Coronary artery disease with RCA stent in August 2017 with plan for staged LAD PCI next week. 3. Moderate asymmetric septal hypertrophy with severe systolic anterior motion of the mitral leaflet. 4. COPD. 5. Chronic bronchitis. 6. Gastritis. ALLERGIES: PLEASE SEE EMR. MEDICATIONS: Please see medication list. SOCIAL HISTORY: No tobacco, alcohol, or drugs. FAMILY HISTORY: Noncontributory. PHYSICAL EXAMINATION VITAL SIGNS: Temperature 96.9 degrees, pulse 61, respiratory rate 18, blood pressure 140/61, oxygen saturation 98% on room air. GENERAL: Obese woman in no acute distress. Well-developed, well-nourished. HEENT: Normocephalic and atraumatic. Pupils are equal. No scleral icterus. NECK: Supple. No thyromegaly or cervical lymphadenopathy. No carotid bruit. LUNGS: Clear to auscultation bilaterally. No wheezes or crackles. CARDIOVASCULAR: Normal rate, regular rhythm. Normal S1 and S2. Systolic murmur is noted. ABDOMEN: Soft. Nontender. EXTREMITIES: She has trace edema of bilateral lower extremities. NEURO: Nonfocal exam. CARDIAC MEDICATIONS 1. Lisinopril 40 mg p.o. daily. 2. Digoxin 0.125 mg p.o. daily. 3. Plavix 75 mg p.o. daily. 4. Carvedilol 12.5 mg p.o. b.i.d. 5. Amlodipine 10 mg p.o. daily. 6. Aspirin 81 mg p.o. daily. 7. Amiodarone 200 mg p.o. daily. LABS: WBC 13.17, hemoglobin 10.7, hematocrit 32.9, platelets 289. Sodium 143, potassium 4.2, chloride 111, CO2 26, BUN 28, creatinine 1.02. Troponin 0.005. BNP 162. Cholesterol 144, triglycerides 133, LDL 64, HDL 53. EKG: Sinus rhythm with left bundle-branch block. IMPRESSION 1. Chest pain. 2. Suspect fmvuf-os-vhbtjgm diastolic heart failure. 3. Coronary artery disease, status post right coronary artery stent, pending staged percutaneous coronary intervention of the left anterior descending. 4. Asymmetric septal thickening with severe systolic anterior motion of the mitral leaflet. 5. Atrial fibrillation. 6. Hypertension. 7. Diabetes mellitus. 8. Chronic obstructive pulmonary disease. 9. Gastritis. RECOMMENDATIONS: Trend cardiac enzymes. The patient has not had any evidence of myocardial infarction thus far. Suspect the patient's dyspnea on exertion is related to ocbul-ax-zfizdhj diastolic heart failure in the setting of hypertrophic cardiomyopathy. Blood pressure and heart rate control. Gentle diuresis. Continue monitoring the patient on telemetry. The patient also endorsed right lower extremity asymmetric swelling the day prior to her symptoms starting. Obtain venous Doppler as well as CTA of the chest. Thank you for this consult. We will continue to follow. Job#: [id number]
[2017-10-28 11:31] VITALS: BP 140/61
[2017-10-28 14:21] LABS: CREATINE KINASE 33 IU/L (29-168)
[2017-10-28 15:41] VITALS: BP 126/53
--- NOTE | 2017-10-28 16:23 | Diagnostic Imaging Report ---
Ventilation /Perfusion Lung Study Reason for exam: 67 F with acute onset SOB; history of PE 5 years ago. Report: Xenon-133 gas 12 mCi was administered via in relation. Dynamic images of the lungs in the posterior projection were obtained through single breath, equilibrium and washout phases. Distribution of tracer activity is irregular throughout the lungs. No segmental ventilation defects are present. Washout is diffusely delayed without air trapping Following intravenous administration of Tc-99m MAA 6.6 mCi, perfusion images of the lungs were obtained in multiple projections. Distribution of tracer activity appears physiologic throughout the lungs. No segmental perfusion defects are seen. The cardiomediastinal silhouette is unremarkable. Impression 1. Scan findings represent a VERY LOW probability for acute PE. 2. No lung infarcts are seen. 3. Scan findings are consistent with significant obstructive lung disease. Signed by: Dr. Daisy Champion M.D. on 10/28/2017 4:20 PM
[2017-10-28 20:00] VITALS: BP 147/69
[2017-10-28] MEDS ORDERED: PRAVASTATIN 20 MG TAB PO SCH (21:00)
[2017-10-29] VITALS: BP 120/65
[2017-10-29 04:00] VITALS: BP 168/71
[2017-10-29 06:51] LABS: BASOPHILS # (AUTO) 0.1 (0.0-0.1); BASOPHILS % 0.8 % (0.0-1.0); EOSINOPHILS # (AUTO) 0.4 (0.0-0.4); EOSINOPHILS % 3.2 % (0.0-6.0); HEMATOCRIT 36.3 % (34.2-44.1); HEMOGLOBIN 11.6 g/dL (12.0-16.0); LYMPHOCYTES % 37.2 % (18.0-39.1); MEAN CORPUSCULAR HEMOGLOBIN 31.4 pg (28-32); MEAN CORPUSCULAR VOLUME 98.1 fL (81-99); MONOCYTES % 9.3 % (4.4-11.3); NEUTROPHILS # (AUTO) 5.3 (2.1-6.9); NEUTROPHILS % 48.9 % (38.7-80.0); PLATELET COUNT 291 x10e3/uL (140-360); RED CELL DISTRIBUTION WIDTH 12.5 % (11.7-14.4)
[2017-10-29 07:13] LABS: ALBUMIN 3.2 g/dL (3.5-5.0); ANION GAP 11.3 mmol/L (8-16); CALCIUM 9.1 mg/dL (8.4-10.2); CREATININE, SERUM 0.97 mg/dL (0.57-1.11); POTASSIUM 4.3 mmol/L (3.5-5.1)
[2017-10-29] MEDS: AZITHROMYCIN 500MG/NS 250 ML 250 ML IV SCH ×3 (08:11→08:45)
[2017-10-29] MEDS: CEFTRIAXONE SOD 1 GM VIAL IV SCH (08:11)
[2017-10-29 08:19] VITALS: BP 159/65
[2017-10-29] MEDS: FAMOTIDINE 20 MG/2 ML VIAL IV SCH (08:27)
[2017-10-29] MEDS ORDERED: AZITHROMYCIN250 MG PO (08:30)
[2017-10-29] MEDS ORDERED: COREG12.5 MG PO (08:31)
[2017-10-29] MEDS: AMIODARONE HCL 200 MG TAB PO SCH (08:38)
[2017-10-29] MEDS: DIGOXIN 0.125 MG TAB PO SCH (08:38)
[2017-10-29] MEDS: ENOXAPARIN SODIUM INJ 100 MG/ML SYR SC SCH (08:39)
[2017-10-29] MEDS: LISINOPRIL 20 MG TAB PO SCH (08:46)
[2017-10-29] MEDS: CLOPIDOGREL BISULFATE 75 MG TAB PO SCH (08:46)
[2017-10-29] MEDS: AMLODIPINE BESYLATE 10 MG TAB PO SCH (08:46)
[2017-10-29] MEDS: CARVEDILOL 12.5 MG TAB PO SCH (08:46)
[2017-10-29] MEDS: ASPIRIN 81 MG ENTERIC COATED PO SCH (08:46)
--- NOTE | 2017-10-29 08:55 | Discharge Summary ---
CORRECTIONAL CASE MANAGER: Dr. Londono, chief legal officer. FINAL DIAGNOSIS: Anginal chest pain, ruled out acute myocardial infarction with serial cardiac enzymes and troponin. OTHER DIAGNOSES 1. Coronary artery disease, status post drug-eluting stenting by history. 2. Dyspnea on exertion, resolved. 3. Hypertrophic cardiomyopathy by history. 4. Paroxysmal atrial fibrillation. 5. Hypertension. 6. Hyperlipidemia. 7. Chronic obstructive pulmonary disease. 8. Leukocytosis, improved. 9. Mild normocytic anemia. HOSPITAL COURSE: This 67-year-old female was admitted from the ER with unremitting substernal chest pain with shortness of breath for 1 day. The patient had coronary artery stenting in the recent past by Dr. Herrera, chief legal officer. The patient's EKG was negative for any acute change. Troponin level was normal. The patient was kept on telemetry. Dr. Herrera was consulted. Dr. Londono was covering. She cleared the patient for discharge upon negative troponin level. The patient did not have any recurrence of chest pain. She has mildly elevated BNP level. The patient had also V/Q which had low probability of pulmonary embolism. The patient was cleared by the chief legal officer for discharge. She was to go home today. The patient had leukocytosis of 13,000, which came down to 10.8 today. She does not have any evidence of infection. The patient was empirically kept on IV ceftriaxone and azithromycin. Will give the patient oral azithromycin for 5 more days. The patient is hemodynamically stable at discharge. EXAM: Vitals: BP 160/71, pulse 56, temperature 96.5, respirations 20, SPO2 97% on room air. General: Not in acute distress. HEENT: No pallor. No icterus. Neck: No JVD. No carotid bruit. No lymphadenopathy. No thyromegaly. Heart: S1 and S2 regular. Systolic murmur about the mitral area. Lungs are clear to auscultation. Abdomen is soft and nontender. No palpable mass. Extremities: No edema, cyanosis or clubbing. Neurologic: Motor grossly equal on both sides. LAB DATA: CBC: WBC 10.86, hemoglobin 11.6, hematocrit 36, platelets 291, MCV 98, RDW 12, neutrophils 48, lymphocytes 37. PT 12.2, INR 0.9, PTT 25.5. Chemistry panel: Sodium 141, potassium 4.3, chloride 105, CO2 29, anion gap 7, BUN 27, creatinine 0.97, glucose 93, lactic acid 7.8, calcium 9.1, magnesium 2.3, total bilirubin 0.6, AST 17, ALT 17, alk phos 185. Troponin I 0.005 two sets. BNP 162. Total protein 6.4, albumin 3.2, globulin 3.2. Triglycerides 133, total cholesterol 144, LDL 64, HDL 53. Lipase 11. Urinalysis negative for protein, glucose, ketones, leukocyte esterase, WBCs 0-5, RBCs 0-5. Digoxin level 0.58. Blood cultures: No growth reported. RADIOLOGICAL DATA: X-ray of chest, single view: No abnormality detected. V/Q scan: Low probability of pulmonary embolism. Venous Doppler of lower extremities: Official report pending. Preliminary report: No DVT. MEDICATIONS AT DISCHARGE: Please refer to the medication reconciliation sheet. DIET: Heart healthy diet. ACTIVITY: As tolerated. INSTRUCTIONS AT DISCHARGE: Continue medications as per discharge recommendations. Follow up with cardiology as available. Follow up with PCP, Dr. Harish De Jesus, in 1 week. CBC and CMP in 1 week. Monitor BP and pulse at home. GUILLAUME YANES MD Job#: [id number]
[2017-10-29] MEDS ORDERED: FUROSEMIDE INJ 10 MG/ML 4 ML VIAL IV SCH (10:45)
[2017-10-29 11:01] VITALS: BP 159/65
[2017-10-29 11:56] VITALS: BP 135/60
--- NOTE | 2017-10-29 19:25 | Progress Note ---
DATE: October 29, 2017 CARDIOLOGY PROGRESS NOTE SUBJECTIVE: Patient denies chest pain. However, she does continue to endorse shortness of breath with exertion. In addition, she is short of breath with lying down for any significant amount of time. OBJECTIVE VITAL SIGNS: Temperature 96.9 degrees, pulse 54, respiratory rate 20, blood pressure 159/65, oxygen saturation 93% on room air. GENERAL: Awake, alert, in no acute distress. LUNGS: Clear to auscultation bilaterally. No wheezes or crackles. CARDIOVASCULAR: Normal rate, regular rhythm. Normal S1 and S2. Systolic murmur is present. ABDOMEN: Soft. EXTREMITIES: Trace edema. CARDIAC MEDICATIONS 1. Carvedilol 25 mg p.o. b.i.d. 2. Lisinopril 40 mg p.o. daily. 3. Aspirin 81 mg p.o. daily. 4. Plavix 75 mg p.o. daily. 5. Amlodipine 10 mg p.o. daily. 6. Digoxin 0.125 mg p.o. daily. 7. Amiodarone 200 mg p.o. daily. LABS: WBC 10.86, hemoglobin 11.6, hematocrit 36.3, platelets 291. Sodium 141, potassium 4.3, chloride 105, CO2 29, BUN 27, creatinine 0.97. TELEMETRY: Sinus bradycardia. IMPRESSION 1. Suspect [id number] diastolic heart failure. 2. Coronary artery disease, status post right coronary artery stent, pending staged percutaneous coronary intervention of the left anterior descending. 3. Asymmetric septal thickening with severe systolic anterior motion of the mitral leaflet. 4. Atrial fibrillation. 5. Hypertension. 6. Diabetes mellitus. 7. Chronic obstructive pulmonary disease. 8. Gastritis. RECOMMENDATIONS: The patient ruled out for myocardial infarction with serial cardiac biomarkers. V/Q scan and right lower extremity venous Doppler were without evidence of pulmonary embolism or DVT respectively. I increased carvedilol to improve blood pressure control, given the patient's asymmetric left ventricular hypertrophy. Give IV Lasix times 1 for diuresis given the patient's [id number] diastolic heart failure. Please have the patient follow up with us in the office. Thank you for this consult. We will continue to follow. Job#: [id number]
== END 2017-10-29 12:08 | disposition home or self-care (01) ==
LOC: ER 19:28 → ERHOLD 21:37 → IMCU 23:01 → MED/SURG 10-28 17:48
PROVIDERS: ADMIT Internal Medicine; ATTEND Internal Medicine
DX: I20.9 Angina pectoris, unspecified (principal); I25.10 Atherosclerotic heart disease of native coronary artery without angina pectoris; I11.0 Hypertensive heart disease with heart failure; I50.9 Heart failure, unspecified; I48.0 Paroxysmal atrial fibrillation; I42.2 Other hypertrophic cardiomyopathy; E78.5 Hyperlipidemia, unspecified; D64.9 Anemia, unspecified; D72.829 Elevated white blood cell count, unspecified; J44.9 Chronic obstructive pulmonary disease, unspecified; E11.9 Type 2 diabetes mellitus without complications; K29.70 Gastritis, unspecified, without bleeding; Z79.82 Long term (current) use of aspirin; Z79.02 Long term (current) use of antithrombotics/antiplatelets; Z95.5 Presence of coronary angioplasty implant and graft; Z82.49 Family history of ischemic heart disease and other diseases of the circulatory system
CPT/HCPCS: 36415 ×3; 71046; 78582; 80053 ×3; 80061; 80162; 81001; 82550 ×2; 82553 ×2; 83605; 83690; 83735; 83880; 84484 ×2; 85025 ×3; 85610; 85730; 87040; 93005; 93971; 99284; A9540; A9558; G0378 ×3; J0456 ×2; J0696 ×2; J1170; J1650 ×2; J1940 ×2

== ENCOUNTER 2018-01-29 11:10 | Observation (INO) | payer MEDICARE ==
[~2018-01-29] VITALS: Ht 152.4 cm; Wt 90.8 kg
[~2018-01-29 11:10] MED LIST changes: +AZITHROMYCIN250 MG PO; +CARVEDILOL12.5 MG PO; +COREG12.5 MG PO; +PLAVIX75 MG PO; +ULTRAM50 MG PO
[2018-01-29 11:59] VITALS: BP 151/64
[2018-01-29 12:19] LABS: BASOPHILS # (AUTO) 0.1 (0.0-0.1); BASOPHILS % 0.8 % (0.0-1.0); EOSINOPHILS # (AUTO) 0.2 (0.0-0.4); EOSINOPHILS % 2.2 % (0.0-6.0); HEMATOCRIT 35.5 % (34.2-44.1); HEMOGLOBIN 11.3 g/dL (12.0-16.0); LYMPHOCYTES # (AUTO) 3.4 (1.0-3.2); LYMPHOCYTES % 32.4 % (18.0-39.1); MEAN CORPUSCULAR HEMOGLOBIN 31.4 pg (28-32); MEAN CORPUSCULAR HGB CONC 31.8 g/dL (31-35); MEAN CORPUSCULAR VOLUME 98.6 fL (81-99); MONOCYTES % 9.3 % (4.4-11.3); NEUTROPHILS # (AUTO) 5.9 (2.1-6.9); NEUTROPHILS % 55.1 % (38.7-80.0); PLATELET COUNT 285 x10e3/uL (140-360); RED CELL DISTRIBUTION WIDTH 12.6 % (11.7-14.4)
[2018-01-29] MEDS ORDERED: DIATRIZOATE MEGL/DIATRIZOA SOD 30 ML BTL PO ONE (12:23)
[2018-01-29 12:28] LABS: INR 1.13; PROTHROMBIN TIME 13.6 seconds (11.9-14.5)
[2018-01-29 12:29] LABS: PARTIAL THROMBOPLASTIN TIME 28.6 seconds (23.8-35.5)
--- NOTE | 2018-01-29 12:36 | Diagnostic Imaging Report ---
PROCEDURE: A single AP view of the chest. COMPARISON: None. INDICATIONS: ABDOMINAL PAIN. NAUSEA FINDINGS: Lines/tubes: None. Lungs: Interval increase in elevation of the right hemidiaphragm when compared to the prior exam. Bibasilar subsegmental atelectasis. Pleura: There is no significant pleural effusion or pneumothorax. Heart and mediastinum: Enlarged cardiomediastinal silhouette on this AP view. Bones: No acute bony abnormality. IMPRESSION: Interval increase in elevation of the right hemidiaphragm when compared to the prior exam and decreased right lung volume. Bibasilar subsegmental atelectasis. Dictated by: Ron Perez M.D. on 01/29/2018 at 12:40 Electronically approved by: Ron Perez M.D. on 01/29/2018 at 12:40
[2018-01-29 12:37] LABS: ALBUMIN 3.4 g/dL (3.5-5.0); ALBUMIN/GLOBULIN RATIO 1.2 (0.8-2.0); ANION GAP 10.5 mmol/L (8-16); CALCIUM 9.3 mg/dL (8.4-10.2); CREATININE, SERUM 1.33 mg/dL (0.57-1.11); POTASSIUM 4.5 mmol/L (3.5-5.1)
[2018-01-29 12:57] LABS: THYROID STIMULATING HORMONE 2.879 uIU/mL (0.350-4.940)
[2018-01-29 13:10] VITALS: BP 151/64
[2018-01-29] MEDS: AMIODARONE HCL 200 MG TAB PO SCH (14:00)
[2018-01-29] MEDS: FUROSEMIDE 40 MG TAB PO SCH (14:00)
[2018-01-29] MEDS ORDERED: DIGOXIN 0.125 MG TAB PO SCH (14:00)
[2018-01-29] MEDS: LISINOPRIL 20 MG TAB PO SCH (14:00)
[2018-01-29] MEDS ORDERED: CLOPIDOGREL BISULFATE 75 MG TAB PO SCH (14:00)
[2018-01-29] MEDS: METRONIDAZOLE 500MG/NS 100ML 100 ML IV SCH ×2 (14:00→21:56)
[2018-01-29] MEDS: LEVOFLOXACIN 500MG/D5W 100ML 100 ML IV SCH (14:52)
[2018-01-29] MEDS: SODIUM CHLORIDE 0.9% 1000ML 1,000 ML IV SCH (14:52)
[2018-01-29 16:27] VITALS: BP 125/59
[2018-01-29] MEDS: CARVEDILOL 12.5 MG TAB PO SCH (16:53)
[2018-01-29] MEDS: HYDRALAZINE HCL 100 MG TABLET PO SCH (16:54)
[2018-01-29] MEDS ORDERED: TRAMADOL HCL 50 MG TAB PO PRN (17:30)
--- NOTE | 2018-01-29 17:32 | Consultation ---
DATE OF CONSULTATION: January 29, 2018 CARDIOLOGY CONSULTATION REQUESTING PHYSICIAN: Dr. Harish De Jesus. REASON FOR CONSULTATION: Coronary artery disease. HISTORY OF PRESENT ILLNESS: This is a 67-year-old woman with history of coronary artery disease, status post RCA and LAD PCI most recently performed November 04, 2017, history of atrial fibrillation, and COPD who was admitted by her primary care physician, Dr. De Jesus, due to GI bleeding. The patient reports she has been having abdominal pain and bloating for the last 4 or 5 days. She had significant stomach cramps yesterday followed by diarrhea. She took some Imodium with improvement in her diarrhea; however, later that afternoon she began to have the urge to defecate, but when went to the bathroom she defecated blood and mucus instead. She had multiple episodes of this and subsequently went to see Dr. De Jesus this morning who admitted her to the hospital for further evaluation. She denied any chest pain or shortness of breath, but does endorse lightheadedness and diaphoresis since yesterday evening. REVIEW OF SYSTEMS: Negative except for HPI. PAST MEDICAL HISTORY: 1. Coronary artery disease status post RCA and LAD PCI, most recent November 04, 2017. 2. History of atrial fibrillation. 3. COPD. 4. Gastritis. ALLERGIES: PLEASE SEE EMR. MEDICATIONS: Please see medication list. SOCIAL HISTORY: No tobacco, alcohol or drugs. FAMILY HISTORY: Noncontributory. PHYSICAL EXAMINATION VITAL SIGNS: Temperature 97.5 degrees, pulse 47, respiratory rate 16, blood pressure 151/64, oxygen saturation 98% on 2 liters nasal cannula. GENERAL: A well-nourished, well-developed woman in no acute distress. HEENT: Normocephalic, atraumatic. Pupils are equal. No scleral icterus. NECK: Supple. No thyromegaly or cervical lymphadenopathy. No carotid bruits. LUNGS: Clear to auscultation bilaterally. No wheezes or crackles. CARDIOVASCULAR: Normal rate, regular rhythm. Normal S1 and S2. Systolic murmur. ABDOMEN: Soft and nontender. EXTREMITIES: No edema. NEUROLOGIC: Nonfocal exam. LABORATORY DATA: WBC 10.62, hemoglobin 11.3, hematocrit 35.5, platelet count 285,000, sodium 140, potassium 4.5, chloride 107, CO2 of 27, BUN 34, creatinine 1.33. EKG sinus rhythm with 1st-degree AV block and PACs, left bundle branch block. IMPRESSION: 1. Gastrointestinal bleeding. 2. Acute kidney injury. 3. History of atrial fibrillation. 4. Diabetes mellitus. 5. Hypertension. 6. Chronic obstructive pulmonary disease. 7. Gastritis. RECOMMENDATIONS: Continue the patient's home cardiac medications including dual anti-platelet therapy as the patient only had her most recent stent placed less than 3 months prior. Gentle fluid challenge given acute bleeding as well as acute kidney injury. Given bradycardia, we will discontinue digoxin. Continue home cardiac medications otherwise. Thank you for this consult. We will continue to follow. Job#: [id number]
[2018-01-29 18:44] LABS: BILIRUBIN,URINE NEGATIVE (NEGATIVE); CLARITY,URINE CLEAR (CLEAR); COLOR,URINE YELLOW (YELLOW); KETONES,URINE NEGATIVE (NEGATIVE); LEUKOCYTE ESTERASE ,URINE NEGATIVE (NEGATIVE); NITRITE,URINE NEGATIVE (NEGATIVE); PROTEIN,URINE DIPSTICK NEGATIVE (NEGATIVE); URINE UROBILINOGEN 0.2 mg/dL (0.2 - 1)
--- NOTE | 2018-01-29 18:51 | Diagnostic Imaging Report ---
EXAM: CT Abdomen and Pelvis WITH contrast INDICATION: \S\GI BLEED \S\[id number] \S\1821 \S\Y COMPARISON: CT dated 12/16/2013 TECHNIQUE: Abdomen and pelvis were scanned utilizing a multidetector helical scanner from the lung base to the pubic symphysis after administration of IV contrast. Coronal and sagittal reformations were obtained. Routine protocol was performed. Scan was performed when during portal venous phase. IV CONTRAST: 100 mL of Isovue-370 ORAL CONTRAST: Gastroview COMPLICATIONS: None RADIATION DOSE: Total DLP: 791.56 mGy*cm Estimated effective dose: (DLP x 0.015 x size factor) mSv CTDIvol has been reviewed. It is below the limits set by the Radiation Protocol Committee (RPC). FINDINGS: LINES and TUBES: None. LOWER THORAX: Unremarkable. Posterior right base calcified granuloma. HEPATOBILIARY: No focal hepatic lesions. Intra and extrahepatic biliary dilatation. Common bile duct measures up to 1.4 cm. GALLBLADDER: Surgically absent. SPLEEN: No splenomegaly. PANCREAS: No focal masses or ductal dilatation. ADRENALS: No adrenal nodules KIDNEYS/URETERS: Kidneys enhance symmetrically. No hydronephrosis. No renal mass. 2.4 cm right upper pole cyst. 3.3 cm posterior left upper pole cyst with internal attenuation greater than simple fluid, likely hemorrhagic cyst. No stones. GI TRACT: No abnormal distention, wall thickening, or evidence of bowel obstruction. There are diverticula within the colon without evidence of diverticulitis. Small paraesophageal hernia. Appendix is normal. PELVIC ORGANS/BLADDER: Hysterectomy. A nondependent air bubble within bladder, could be due to recent instrumentation. LYMPH NODES: No lymphadenopathy. VESSELS: Unremarkable. PERITONEUM / RETROPERITONEUM: No free air or fluid. BONES: Unremarkable. SOFT TISSUES: Small fat-containing supraumbilical ventral 1hernias. Mildly elevated right hemidiaphragm. IMPRESSION: 1. No acute inflammatory process in the abdomen/pelvis. 2. Colonic diverticulosis without evidence of diverticulitis. 3. No CT evidence of GI bleeding. Please note that CT is not a sensitive modality to detect GI bleeding. Nuclear medicine tagged RBC scan is more sensitive to detect GI bleeding. 4. Intra extrahepatic biliary dilatation could be partially due to postcholecystectomy reservoir effect. If clinically indicated, MRCP can be obtained for further evaluation. Signed by: Dr. Ron Perez MD on 01/29/2018 6:48 PM
[2018-01-29 18:56] LABS: BACTERIA,URINE MODERATE /HPF; EPITHELIAL CELLS,URINE MODERATE /LPF; HYALINE CASTS 0-1 (0-1); MUCUS,URINE FEW (RARE); TRANSITIONAL EPI CELLS,URINE FEW
[2018-01-29] MEDS ORDERED: SODIUM CHLORIDE 0.9% 50ML 50 ML ONE (19:02)
[2018-01-29] MEDS ORDERED: IOPAMIDOL 370 MG/ML 200 ML INFUS..BTL INJ ONE (19:03)
[2018-01-29 20:00] VITALS: BP 121/57
[2018-01-29] MEDS: PRAVASTATIN 20 MG TAB PO SCH (21:56)
[2018-01-29 23:21] VITALS: BP 121/57
[2018-01-30] VITALS (8 sets, daily range): BP systolic 120–141; BP diastolic 53–65
[2018-01-30] MEDS ORDERED: ONDANSETRON HCL INJ 2 MG/ML VIAL IV STA (02:43)
[2018-01-30] MEDS ORDERED: ONDANSETRON HCL INJ 2 MG/ML VIAL IV PRN (02:45)
[2018-01-30] MEDS ORDERED: BISACODYL 5 MG TAB EC PO ONE ×4 (03:30→10:15)
[2018-01-30] MEDS: SODIUM CHLORIDE 0.9% 1000ML 1,000 ML IV SCH (03:40)
[2018-01-30] MEDS ORDERED: PANTOPRAZOLE 40 MG 10ML VIAL IV STA (04:25)
[2018-01-30] MEDS ORDERED: CITRATE OF MAGNESIA 300ML BOTTLE PO ONE (05:00)
[2018-01-30] MEDS ORDERED: PANTOPRAZOLE 40 MG 10ML VIAL ONE (05:12)
[2018-01-30] MEDS ORDERED: SODIUM CHLORIDE 0.9% 250ML 250 ML ONE (05:13)
[2018-01-30] MEDS: METRONIDAZOLE 500MG/NS 100ML 100 ML IV SCH ×3 (05:27→21:10)
[2018-01-30] MEDS: PANTOPRAZOL 40MG/SOD CHL 0.9% 250 ML IV SCH (06:22)
[2018-01-30 06:26] LABS: BASOPHILS # (AUTO) 0.1 (0.0-0.1); BASOPHILS % 0.7 % (0.0-1.0); EOSINOPHILS # (AUTO) 0.1 (0.0-0.4); EOSINOPHILS % 1.1 % (0.0-6.0); HEMATOCRIT 34.7 % (34.2-44.1); HEMOGLOBIN 11.1 g/dL (12.0-16.0); LYMPHOCYTES # (AUTO) 1.3 (1.0-3.2); LYMPHOCYTES % 17.8 % (18.0-39.1); MEAN CORPUSCULAR HEMOGLOBIN 31.8 pg (28-32); MEAN CORPUSCULAR VOLUME 99.4 fL (81-99); MONOCYTES # (AUTO) 0.6 (0.2-0.8); MONOCYTES % 7.8 % (4.4-11.3); NEUTROPHILS # (AUTO) 5.4 (2.1-6.9); NEUTROPHILS % 72.3 % (38.7-80.0); PLATELET COUNT 246 x10e3/uL (140-360); RED BLOOD COUNT 3.49 x10e6/uL (3.6-5.1); RED CELL DISTRIBUTION WIDTH 12.5 % (11.7-14.4)
[2018-01-30 06:42] LABS: ALBUMIN 3.1 g/dL (3.5-5.0); ALBUMIN/GLOBULIN RATIO 1.1 (0.8-2.0); ANION GAP 11.4 mmol/L (8-16); CALCIUM 8.7 mg/dL (8.4-10.2); CREATININE, SERUM 1.02 mg/dL (0.57-1.11); POTASSIUM 4.4 mmol/L (3.5-5.1)
[2018-01-30] MEDS: LISINOPRIL 20 MG TAB PO SCH (09:00)
[2018-01-30] MEDS: HYDRALAZINE HCL 100 MG TABLET PO SCH ×2 (09:00→17:00)
[2018-01-30] MEDS: CARVEDILOL 12.5 MG TAB PO SCH ×3 (09:00→20:09)
[2018-01-30] MEDS: FUROSEMIDE 40 MG TAB PO SCH (09:00)
[2018-01-30] MEDS: AMIODARONE HCL 200 MG TAB PO SCH ×2 (09:00→20:09)
[2018-01-30] MEDS ORDERED: METOCLOPRAMIDE HCL 10 MG/2ML VIAL IV NR (10:30)
[2018-01-30] MEDS ORDERED: BISACODYL 5 MG TAB EC PO NR (11:20)
--- NOTE | 2018-01-30 11:44 | Progress Note ---
DATE: January 30, 2018 CARDIOLOGY PROGRESS NOTE SUBJECTIVE: Patient denies chest pain or shortness of breath. She, however, reports that she is throwing up. GI plans to perform an EGD and colonoscopy later this afternoon. OBJECTIVE VITAL SIGNS: Temperature 96.9 degrees, pulse 65, respiratory rate 18, blood pressure 135/64, oxygen saturation 91% on room air. GENERAL: Awake, alert, in no acute distress. LUNGS: Clear to auscultation bilaterally. No wheezes or crackles. CARDIOVASCULAR: Normal rate, regular rhythm. Normal S1 and S2. Systolic murmur. ABDOMEN: Soft and nontender. EXTREMITIES: No edema. CARDIAC MEDICATIONS 1. Carvedilol 12.5 mg p.o. b.i.d. 2. Lisinopril 40 mg p.o. daily. 3. Furosemide 40 mg p.o. daily. 4. Amiodarone 100 mg p.o. daily. LABS: WBC 7.42, hemoglobin 11.1, hematocrit 34.7, platelets 246. Sodium 138, potassium 4.4, chloride 108, CO2 of 23, BUN 25, creatinine 1.02. AST 224, ALT 139, alk phos 314. TELEMETRY: Normal sinus rhythm. IMPRESSION 1. Gastrointestinal bleeding. 2. Acute kidney injury, improved. 3. History of atrial fibrillation. 4. Diabetes mellitus. 5. Hypertension. 6. Chronic obstructive pulmonary disease. 7. Gastritis. 8. Coronary artery disease, status post recent left anterior descending and right coronary artery percutaneous coronary intervention. RECOMMENDATIONS: Continue the current cardiac medications. Add back aspirin as the patient had both stents placed quite recently, with last stent to the LAD placed less than 3 months prior. Monitor the patient on telemetry for any evidence of atrial fibrillation. Further evaluation of the patient's bleeding and nausea per GI. Thank you for this consult. We will continue to follow. Job#: [id number]
[2018-01-30] MEDS ORDERED: D5.45%NS/KCL 20MEQ 1,000 ML IV ONE (12:15)
[2018-01-30] MEDS: METOCLOPRAMIDE HCL 10 MG/2ML VIAL IV SCH ×2 (12:43→18:32)
[2018-01-30] MEDS: LEVOFLOXACIN 500MG/D5W 100ML 100 ML IV SCH (12:43)
--- NOTE | 2018-01-30 13:38 | History and Physical ---
PATIENT LOCATION: Room 289. PRESENTING COMPLAINT: Rectal bleeding with nausea, vomiting for 1 day. HISTORY OF PRESENT ILLNESS: A 67-year-old female with past medical history of hypertension, CAD status post recent drug-eluting stenting was admitted directly from the office of Dr. Harish De Jesus, her PCP, for complaints of rectal bleeding with nausea and vomiting. Patient tells that she had midabdominal diffuse pain along with this is a fresh bleeding with stool for 1 day. She also had nausea and vomiting. Since she came to the hospital, did not have any rectal bleeding but her nausea, vomiting is persisting. She had more than 2 times vomiting this morning. Vomitus did not contain any blood. Patient denied any similar episode in the past. She had coronary angiography with drug-eluting stenting by Dr. Herrera, her regular hazardous materials waste technician, less than 3 months ago as per her statement. Patient denied any chest pain, shortness of breath, palpitation, fever at the present time. REVIEW OF SYSTEMS CONSTITUTIONAL: No fever, chills, rigor. ENT: No nasal congestion, no sore throat. CARDIOVASCULAR: No chest pain, shortness of breath, palpitation. PULMONARY: No cough, no hemoptysis. GI: Diffuse upper abdominal pain with rectal bleeding as per HPI. Nausea, vomiting today. No passage of blood with vomitus. : No dysuria, no hematuria. MUSCULOSKELETAL, SKIN, LYMPHORETICULAR: No joint pain. No joint swelling. No skin rash. No swollen glands. NEUROLOGICAL: No loss of consciousness, seizure or headache. HISTORY OF PAST MEDICAL ILLNESS: CAD status post recent drug-eluting stenting, hypertrophic cardiomyopathy, CHF, paroxysmal atrial fibrillation, hypertension, COPD, type 2 diabetes mellitus, GERD, gastritis. HISTORY OF PAST SURGERY: Ventral herniorrhaphy. Coronary artery stenting, drug-eluting stent less than 3 months ago. Cholecystectomy. ALLERGIES: TO PENICILLIN, SULFA, CODEINE, MORPHINE, PROMETHAZINE. EXACT REACTION NOT KNOWN. SOCIAL HISTORY: Patient lives at home with her boyfriend. She is in contact with her daughter. FAMILY HISTORY: Positive for hypertension. HABITS: No smoking, drinking, substance abuse history. HOME MEDICATION: As per reconciliation medication. Patient was on Plavix, estrogen. She was not on any NSAID as per her statement. VITALS TODAY: BP 126/61, pulse 65, temp 97.4, respiration 18, SpO2 91% to 98% at room air. PHYSICAL EXAMINATION GENERAL: Alert, not in acute distress now. Complains of nausea. HENT: No pallor. No icterus. NECK: No JVD, no carotid bruits. HEART: S1 and S2 regular. No murmur. LUNGS: Clear to auscultation. ABDOMEN: Soft. Mild diffuse tenderness. No rebound tenderness. No palpable mass. Bowel sounds active in all quadrants. EXTREMITIES: No edema, cyanosis or clubbing. NEUROLOGICAL: Motor grossly equal on both sides. LAB DATA: CBC: WBC 7.4, hemoglobin 11.4, hematocrit 34.7, platelet 246, MCV 99, RDW 12.5, neutrophils 72, lymphocytes 17. PT 13.6, INR 1.13, PTT 28.6. Chemistry panel: Sodium 138, potassium 4.4, chloride 108, CO2 23, anion gap 7, BUN 25, creatinine 1.02, glucose 90, calcium 8.7. Total bilirubin 1.0, AST 224, ALT 139, alk phos 314. Total protein 5.3, albumin 3.1, globulin 2.7. TSH 2.87. Lipase 7, amylase 27. Urinalysis negative for glucose, ketone, protein, leukocyte esterase, WBC 0, RBC 0. MICROBIOLOGICAL DATA: Urine culture in progress. RADIOLOGICAL DATA: X-ray of chest, single view: Bibasilar subsegmental atelectasis. CT abdomen and pelvis with contrast: No acute inflammatory process in the abdomen or pelvis. Colonic diverticulosis without evidence of diverticulitis. No evidence of GI bleeding. Intrahepatic biliary dilatation due to post cholecystectomy. EKG: Sinus bradycardia with a rate of 55 beats per minute. First-degree AV block and left bundle branch block. No significant ST-T changes. ASSESSMENT AND PLAN 1. Rectal bleeding. Exact etiology not clear. Patient was on dual antiplatelet medication for drug-eluting stenting. She did not have any history of rectal bleeding. Patient had a colonoscopy in the remote past as per her statement. She also denied any history of upper GI bleeding in the past. Would continue patient on PPI. Get GI consult as requested with Dr. Sarah. Patient did not have any significant drop in her hemoglobin/hematocrit. Monitor hemoglobin/hematocrit and follow up gastroenterology recommendation. She is scheduled for EGD and colonoscopy as per nursing report. 2. Status post recent coronary angiography with a drug-eluting stent. Continue dual antiplatelet therapy as per hazardous materials waste technician's recommendation. Dr. Londono had evaluated the patient yesterday, recommended continuation of medication in view of her risk and benefit. 3. Paroxysmal atrial fibrillation by history. Continue patient on telemetry. Patient's EKG shows sinus bradycardia now. 4. Hypertension. Continue regular medication. 5. Hyperlipidemia. Continue regular medication. 6. Chronic obstructive pulmonary disease by history. Patient does not have any shortness of breath. Monitor for now. DISCHARGE PLAN: Would depend upon patient's response to treatment and her hospital course. ADVANCED DIRECTIVE: Patient is full code. Job#: [id number] EV
[2018-01-30] MEDS: ATORVASTATIN 20 MG TAB PO SCH (20:55)
[2018-01-30] MEDS: PRAVASTATIN 20 MG TAB PO SCH (20:56)
[2018-01-31] VITALS (7 sets, daily range): BP systolic 116–178; BP diastolic 61–70
[2018-01-31] MEDS ORDERED: BISACODYL 5 MG TAB EC PO ONE ×3 (00:15→01:00)
[2018-01-31] MEDS: METOCLOPRAMIDE HCL 10 MG/2ML VIAL IV SCH ×5 (00:38→23:25)
[2018-01-31] MEDS ORDERED: CLOPIDOGREL BISULFATE 75 MG TAB PO ONE (02:45)
[2018-01-31] MEDS: PANTOPRAZOL 40MG/SOD CHL 0.9% 250 ML IV SCH (02:51)
[2018-01-31] MEDS: METRONIDAZOLE 500MG/NS 100ML 100 ML IV SCH ×3 (05:46→22:03)
[2018-01-31 06:47] LABS: BASOPHILS % 0.4 % (0.0-1.0); EOSINOPHILS # (AUTO) 0.1 (0.0-0.4); EOSINOPHILS % 0.9 % (0.0-6.0); HEMATOCRIT 34.5 % (34.2-44.1); HEMOGLOBIN 11.2 g/dL (12.0-16.0); LYMPHOCYTES # (AUTO) 2.1 (1.0-3.2); LYMPHOCYTES % 22.5 % (18.0-39.1); MEAN CORPUSCULAR HEMOGLOBIN 31.3 pg (28-32); MEAN CORPUSCULAR HGB CONC 32.5 g/dL (31-35); MEAN CORPUSCULAR VOLUME 96.4 fL (81-99); MONOCYTES # (AUTO) 0.7 (0.2-0.8); MONOCYTES % 7.6 % (4.4-11.3); NEUTROPHILS # (AUTO) 6.3 (2.1-6.9); NEUTROPHILS % 68.2 % (38.7-80.0); PLATELET COUNT 228 x10e3/uL (140-360); RED BLOOD COUNT 3.58 x10e6/uL (3.6-5.1)
[2018-01-31 07:05] LABS: ALBUMIN 3.2 g/dL (3.5-5.0); ALBUMIN/GLOBULIN RATIO 1.2 (0.8-2.0); ANION GAP 12.9 mmol/L (8-16); CREATININE, SERUM 0.98 mg/dL (0.57-1.11); POTASSIUM 3.9 mmol/L (3.5-5.1)
[2018-01-31 07:29] LABS: FERRITIN 87.31 ng/mL (4.63-204.00)
[2018-01-31 07:42] LABS: FOLATE 17.8 ng/mL (7.0-15.4)
[2018-01-31] MEDS: FUROSEMIDE 40 MG TAB PO SCH (09:00)
[2018-01-31] MEDS: LISINOPRIL 20 MG TAB PO SCH (09:00)
[2018-01-31] MEDS ORDERED: BISACODYL 5 MG TAB EC PO SCH (09:00)
[2018-01-31] MEDS: ASPIRIN 81 MG ENTERIC COATED PO SCH (09:00)
[2018-01-31] MEDS: HYDRALAZINE HCL 100 MG TABLET PO SCH ×2 (09:00→17:00)
[2018-01-31] MEDS: CLOPIDOGREL BISULFATE 75 MG TAB PO SCH (12:00)
[2018-01-31] MEDS: LEVOFLOXACIN 500MG/D5W 100ML 100 ML IV SCH (12:41)
[2018-01-31] MEDS ORDERED: PANTOPRAZOL 40MG/SOD CHL 0.9% 50 ML IV SCH (15:00)
[2018-01-31] MEDS ORDERED: PANTOPRAZOL 40MG/SOD CHL 0.9% 250 ML IV SCH (15:00)
[2018-01-31] MEDS: PANTOPRAZOL 40MG/SOD CHL 0.9% 50 ML IV SCH (16:00)
[2018-01-31] MEDS ORDERED: LIDOCAINE HCL 2% LOCAL INJ 5 ML SDV VIAL INJ ONE (17:37)
[2018-01-31] MEDS ORDERED: PROPOFOL IV EMULSION 10 MG/ML 50 ML VIAL ONE (17:37)
[2018-01-31] MEDS: ATORVASTATIN 20 MG TAB PO SCH (21:00)
[2018-01-31 21:19] LABS: WBC,FECAL (FECAL LACTOFERRIN) NEGATIVE (NEGATIVE)
[2018-01-31] MEDS: PRAVASTATIN 20 MG TAB PO SCH (22:03)
[2018-01-31] MEDS: CARVEDILOL 12.5 MG TAB PO SCH (22:03)
--- NOTE | 2018-01-31 23:54 | Progress Note ---
DATE: January 31, 2018 CARDIOLOGY PROGRESS NOTE SUBJECTIVE: Patient denies chest pain or shortness of breath. She reports she did not get her EGD and colonoscopy yesterday and scheduled for the procedures today instead. OBJECTIVE: VITAL SIGNS: Temperature 99.4 degrees, pulse 70, respiratory rate 18, blood pressure 116/64, oxygen saturation 94% on room air. GENERAL: Awake and alert, in no acute distress. LUNGS: Clear to auscultation bilaterally. No wheezes or crackles. CARDIOVASCULAR: Normal rate, regular rhythm. Normal S1 and S2. Systolic murmur. ABDOMEN: Soft, nontender. EXTREMITIES: No edema. CARDIAC MEDICATIONS: 1. Plavix 75 mg p.o. daily. 2. Carvedilol 12.5 mg p.o. b.i.d. 3. Amiodarone 100 mg p.o. daily. 4. Atorvastatin 20 mg p.o. nightly. 5. Aspirin 81 mg p.o. daily. 6. Lisinopril 40 mg p.o. daily. 7. Furosemide 40 mg p.o. daily. LABS: WBC 9.18, hemoglobin 11.2, hematocrit 34.5, platelets 228,000. Sodium 141, potassium 3.9, chloride 108, CO2 24, BUN 19, creatinine 0.98. BNP 693. TELEMETRY: Normal sinus rhythm. IMPRESSION: 1. Gastrointestinal bleeding. 2. Acute kidney injury, improved. 3. History of atrial fibrillation. 4. Diabetes mellitus. 5. Hypertension. 6. Chronic obstructive pulmonary disease. 7. Gastritis. 8. Coronary artery disease, status post recent left anterior descending artery and right coronary artery stent. RECOMMENDATIONS: Continue current cardiac medications, specifically dual antiplatelet therapy. Her stents were placed very recently with stent to the LAD placed less than 3 months prior. Monitor patient on telemetry for any evidence of atrial fibrillation. Evaluation of patient's bleeding and nausea per GI. Given elevated BNP, will change to intravenous furosemide after EGD and colonoscopy are done. Thank you for this consult. We will continue to follow. Job#: [id number]
[2018-02-01] VITALS (8 sets, daily range): BP systolic 106–184; BP diastolic 60–79
--- NOTE | 2018-02-01 06:02 | Operative Report ---
DATE OF PROCEDURE: January 31, 2018 PROCEDURES PERFORMED: Esophagogastroduodenoscopy with biopsies and a colonoscopy. REFERRING PHYSICIAN: Dr. Hank Champagne INDICATIONS FOR EGD: Upper abdominal pain, nausea. INDICATIONS FOR COLONOSCOPY: Rectal bleeding. MEDICATION: Patient was done under MAC. Please see anesthesiologist note. PROCEDURE IN DETAIL: With the patient in left lateral decubitus position, flexible fiberoptic Olympus gastroscope was introduced into the esophagus under direct visualization without any difficulty. There was some patchy erythema noted in distal esophagus. The scope was then advanced with ease into her stomach traversing a small hiatal hernia. Mucosa overlying the antrum and the body revealed some diffuse erythema and mild to moderate edema, and biopsies were obtained and sent to stain for H. pylori. Pylorus appeared to be of normal contour and shape. It was intubated with ease and the scope was advanced all the way to the second portion of the duodenum. The scope was then withdrawn slowly. Mucosa overlying the proximal second portion and the duodenal bulb appeared to be within normal limits. The scope was then withdrawn back into the stomach and retroflexed, and previously described hiatal hernia was also noted in the retroflexed position. Mucosa overlying the fundus grossly appeared to be within normal limits. The scope was then straightened out. The stomach was decompressed. The scope was subsequently withdrawn. Patient tolerated the procedure well. IMPRESSION: 1. Distal esophagitis. 2. Hiatal hernia. 3. Gastritis, biopsied. Biopsy sent to stain for Helicobacter pylori. PLAN: Follow up histology. Continue PPI therapy. Patient was then turned around, and after adequate lubrication of the anal canal, flexible fiberoptic Olympus colonoscope was inserted into the rectum with ease and advanced all the way to the cecum. The ileocecal valve was intubated and the scope was advanced into her terminal ileum. Biopsies were obtained. The scope was then withdrawn back into the colon. It was then withdrawn slowly. Mucosa overlying the ascending and the transverse revealed some patchy mild erythema. The mucosa overlying the left colon revealed some patchy mild inflammatory changes. Multiple random biopsies were obtained. Diverticular disease was noted to involve the sigmoid colon. One polyp was hot biopsied from the rectum. The scope was then retroflexed into the distal rectum and small internal hemorrhoids were noted, none of which was actively bleeding. The scope was then straightened out. The scope was subsequently withdrawn after securing an adequate stool specimen that was sent for the appropriate stool studies. Patient tolerated the procedure well. IMPRESSION: 1. Colitis, primarily left-sided, random biopsies obtained. 2. Diverticulosis. 3. Rectal polyp. 4. Internal hemorrhoids, none actively bleeding. PLAN: Follow up histology. Follow up stool studies. Initiate GI soft diet. Patient might benefit from a followup colonoscopy in 3 to 5 years. Job#: [id number] cc:FLYNN CHAMPAGNE MD
[2018-02-01] MEDS: METRONIDAZOLE 500MG/NS 100ML 100 ML IV SCH ×3 (06:10→22:40)
[2018-02-01] MEDS: METOCLOPRAMIDE HCL 10 MG/2ML VIAL IV SCH ×3 (06:10→17:15)
[2018-02-01 06:55] LABS: BASOPHILS # (AUTO) 0.1 (0.0-0.1); BASOPHILS % 0.5 % (0.0-1.0); EOSINOPHILS # (AUTO) 0.1 (0.0-0.4); EOSINOPHILS % 1.4 % (0.0-6.0); HEMATOCRIT 33.3 % (34.2-44.1); HEMOGLOBIN 11.1 g/dL (12.0-16.0); LYMPHOCYTES % 20.3 % (18.0-39.1); MEAN CORPUSCULAR HEMOGLOBIN 31.4 pg (28-32); MEAN CORPUSCULAR HGB CONC 33.3 g/dL (31-35); MEAN CORPUSCULAR VOLUME 94.1 fL (81-99); MONOCYTES # (AUTO) 1.1 (0.2-0.8); NEUTROPHILS # (AUTO) 6.6 (2.1-6.9); NEUTROPHILS % 66.4 % (38.7-80.0); PLATELET COUNT 229 x10e3/uL (140-360); RED BLOOD COUNT 3.54 x10e6/uL (3.6-5.1); RED CELL DISTRIBUTION WIDTH 12.3 % (11.7-14.4)
[2018-02-01 07:25] LABS: ALANINE AMINOTRANSFERASE 72 IU/L (0-55); ALBUMIN 3.1 g/dL (3.5-5.0); ALBUMIN/GLOBULIN RATIO 1.1 (0.8-2.0); ALKALINE PHOSPHATASE 275 IU/L (40-150); ANION GAP 12.4 mmol/L (8-16); BLOOD UREA NITROGEN 10 mg/dL (7-26); BUN/CREATININE RATIO 12 (6-25); CALCIUM 8.9 mg/dL (8.4-10.2); CARBON DIOXIDE 26 mmol/L (22-29); CHLORIDE 107 mmol/L (98-107); CREATININE, SERUM 0.83 mg/dL (0.57-1.11); EST GLOMERULAR FILTRATION RATE > 60 ML/MIN (60-); GLUCOSE 93 mg/dL (74-118); POTASSIUM 3.4 mmol/L (3.5-5.1); SODIUM 142 mmol/L (136-145)
[2018-02-01] MEDS ORDERED: POTASSIUM CHLORIDE 20 MEQ TAB CR PO NR (09:00)
[2018-02-01] MEDS: HYDRALAZINE HCL 100 MG TABLET PO SCH (09:00)
[2018-02-01] MEDS: FUROSEMIDE 40 MG TAB PO SCH (09:42)
[2018-02-01] MEDS: CARVEDILOL 12.5 MG TAB PO SCH ×2 (09:42→17:15)
[2018-02-01] MEDS: AMIODARONE HCL 200 MG TAB PO SCH (09:42)
[2018-02-01] MEDS: ASPIRIN 81 MG ENTERIC COATED PO SCH (09:42)
[2018-02-01] MEDS: LISINOPRIL 20 MG TAB PO SCH (09:43)
[2018-02-01] MEDS: CLOPIDOGREL BISULFATE 75 MG TAB PO SCH (09:43)
[2018-02-01] MEDS: LEVOFLOXACIN 500MG/D5W 100ML 100 ML IV SCH (12:09)
[2018-02-01 14:10] LABS: C DIFFICILE TOXIN A&B AMP PROB NEGATIVE (NEGATIVE)
[2018-02-01] MEDS: PANTOPRAZOL 40MG/SOD CHL 0.9% 50 ML IV SCH (17:14)
[2018-02-01] MEDS: PRAVASTATIN 20 MG TAB PO SCH (20:30)
[2018-02-01] MEDS: ATORVASTATIN 20 MG TAB PO SCH (20:30)
[2018-02-01] MEDS: AMLODIPINE BESYLATE 10 MG TAB PO SCH (20:30)
--- NOTE | 2018-02-01 21:30 | Progress Note ---
DATE: February 01, 2018 CARDIOLOGY PROGRESS NOTE SUBJECTIVE: The patient denies chest pain or shortness of breath. She is upset she is unable to go home due to low-grade fever overnight. OBJECTIVE: VITAL SIGNS: Temperature 97.5 degrees, pulse 62, respiratory rate 18, blood pressure 184/79, oxygen saturation 97%. GENERAL: Awake, alert, in no acute distress. LUNGS: Clear to auscultation bilaterally. No wheezes or crackles. CARDIOVASCULAR: Normal rate, regular rhythm. Normal S1, S2. Systolic murmur. ABDOMEN: Soft, nontender. EXTREMITIES: No edema. CARDIAC MEDICATIONS: 1. Carvedilol 25 mg p.o. b.i.d. 2. Plavix 75 mg p.o. daily. 3. Aspirin 81 mg p.o. daily. 4. Lisinopril 40 mg p.o. daily. 5. Furosemide 40 mg p.o. daily. 6. Amiodarone 100 mg p.o. daily. 7. Atorvastatin 20 mg p.o. nightly. 8. Amlodipine 10 mg p.o. daily. LABS: WBC 10, hemoglobin 11.1, hematocrit 33.3, platelets 229,000. Sodium 142, potassium 3.4, chloride 107, CO2 26, BUN 10, creatinine 0.83. AST 49, ALT 72, alk phos 275. TELEMETRY: Normal sinus rhythm. EGD: Revealed distal esophagitis, hiatal hernia, gastritis, left-sided colitis, diverticulosis, internal hemorrhoids without active bleeding and a rectal polyp. IMPRESSION: 1. Gastrointestinal bleeding. 2. Acute kidney injury, improved. 3. History of atrial fibrillation. 4. Diabetes mellitus. 5. Hypertension. 6. Chronic obstructive pulmonary disease. 7. Coronary artery disease, status post recent left anterior descending artery and right coronary artery stent. RECOMMENDATIONS: Continue current cardiac medications including dual antiplatelet therapy. Monitor patient on telemetry for any evidence of atrial fibrillation. Evaluation of bleeding and nausea per GI. Now that colonoscopy is done, will change patient to intravenous furosemide while she is admitted. Thank you for this consult. We will continue to follow. Job#: [id number]
[2018-02-01] MEDS ORDERED: SODIUM CHLORIDE 0.9% 500ML 500 ML ONE (22:29)
[2018-02-02] MEDS: METOCLOPRAMIDE HCL 10 MG/2ML VIAL IV SCH ×2 (00:24→05:38)
[2018-02-02 01:38] VITALS: BP 118/64
[2018-02-02 05:20] VITALS: BP 126/58
[2018-02-02] MEDS: METRONIDAZOLE 500MG/NS 100ML 100 ML IV SCH (05:38)
[2018-02-02 06:10] LABS: BASOPHILS # (AUTO) 0.1 (0.0-0.1); BASOPHILS % 0.7 % (0.0-1.0); EOSINOPHILS # (AUTO) 0.2 (0.0-0.4); EOSINOPHILS % 2.1 % (0.0-6.0); HEMATOCRIT 34.7 % (34.2-44.1); HEMOGLOBIN 11.5 g/dL (12.0-16.0); LYMPHOCYTES # (AUTO) 2.2 (1.0-3.2); LYMPHOCYTES % 25.5 % (18.0-39.1); MEAN CORPUSCULAR HEMOGLOBIN 31.7 pg (28-32); MEAN CORPUSCULAR HGB CONC 33.1 g/dL (31-35); MEAN CORPUSCULAR VOLUME 95.6 fL (81-99); MONOCYTES % 11.6 % (4.4-11.3); NEUTROPHILS # (AUTO) 5.1 (2.1-6.9); NEUTROPHILS % 59.7 % (38.7-80.0); PLATELET COUNT 204 x10e3/uL (140-360); RED BLOOD COUNT 3.63 x10e6/uL (3.6-5.1); RED CELL DISTRIBUTION WIDTH 12.5 % (11.7-14.4)
[2018-02-02 06:35] LABS: ALANINE AMINOTRANSFERASE 51 IU/L (0-55); ALBUMIN 3.1 g/dL (3.5-5.0); ALBUMIN/GLOBULIN RATIO 1.1 (0.8-2.0); ALKALINE PHOSPHATASE 236 IU/L (40-150); ANION GAP 12.3 mmol/L (8-16); BLOOD UREA NITROGEN 11 mg/dL (7-26); BUN/CREATININE RATIO 12 (6-25); CARBON DIOXIDE 29 mmol/L (22-29); CHLORIDE 105 mmol/L (98-107); CREATININE, SERUM 0.89 mg/dL (0.57-1.11); EST GLOMERULAR FILTRATION RATE > 60 ML/MIN (60-); GLUCOSE 108 mg/dL (74-118); MAGNESIUM 1.3 MG/DL (1.3-2.1); POTASSIUM 3.3 mmol/L (3.5-5.1); SODIUM 143 mmol/L (136-145)
[2018-02-02 08:00] VITALS: BP 140/77
[2018-02-02] MEDS ORDERED: MAGNESIUM SULFATE 2GM/50ML 50 ML IV ONE (08:15)
[2018-02-02] MEDS ORDERED: POTASSIUM CHLORIDE 20 MEQ TAB CR PO NR (08:30)
[2018-02-02] MEDS: AMLODIPINE BESYLATE 10 MG TAB PO SCH (08:32)
[2018-02-02] MEDS: LISINOPRIL 20 MG TAB PO SCH (08:32)
[2018-02-02] MEDS: CLOPIDOGREL BISULFATE 75 MG TAB PO SCH (08:32)
[2018-02-02] MEDS: ASPIRIN 81 MG ENTERIC COATED PO SCH (08:42)
[2018-02-02] MEDS: CARVEDILOL 12.5 MG TAB PO SCH (08:42)
[2018-02-02] MEDS: AMIODARONE HCL 200 MG TAB PO SCH (08:42)
[2018-02-02] MEDS ORDERED: MAGNESIUM SULF 1GRAM/DEXTROSE 200 ML IV ONE (08:45)
[2018-02-02] MEDS ORDERED: FUROSEMIDE INJ 10 MG/ML 4 ML VIAL IV SCH (09:00)
[2018-02-02 11:07] VITALS: BP 140/77
[2018-02-02] MEDS ORDERED: PANTOPRAZOLE SO40 MG PO (12:59)
[2018-02-02] MEDS ORDERED: METRONIDAZOLE500 MG PO (12:59)
[2018-02-02] MEDS ORDERED: FUROSEMIDE40 MG PO (13:00)
--- NOTE | 2018-02-02 15:05 | Progress Note ---
DATE: February 02, 2018 CARDIOLOGY PROGRESS NOTE SUBJECTIVE: The patient denies chest pain or shortness of breath. She is waiting to be discharged. OBJECTIVE VITAL SIGNS: Temperature 97.6 degrees, pulse 61, respiratory rate 18, blood pressure 140/77, oxygen saturation 95% on 2 L nasal cannula. GENERAL: Awake, alert, in no acute distress. LUNGS: Clear to auscultation bilaterally. No wheezes or crackles. CARDIOVASCULAR: Normal rate, regular rhythm. Normal S1, S2. Systolic murmur. ABDOMEN: Soft, nontender. EXTREMITIES: No edema. CARDIAC MEDICATIONS 1. Furosemide 40 mg IV daily. 2. Carvedilol 25 mg p.o. b.i.d. 3. Aspirin 81 mg p.o. daily. 4. Amiodarone 100 mg p.o. daily. 5. Amlodipine 10 mg p.o. daily. 6. Plavix 75 mg p.o. daily. 7. Lisinopril 40 mg p.o. daily. 8. Atorvastatin 20 mg p.o. nightly. LABS: WBC 8.46, hemoglobin 11.5, hematocrit 34.7, platelets 204. Sodium 143, potassium 3.3, chloride 105, CO2 29, BUN 11, creatinine 0.89. TELEMETRY: Normal sinus rhythm. IMPRESSION 1. Gastrointestinal bleeding. 2. Distal esophagitis, gastritis, diverticulosis, left-sided colitis and internal hemorrhoids without active bleeding. 3. Acute kidney injury, improved. 4. History of atrial fibrillation. 5. Diabetes mellitus. 6. Hypertension. 7. Chronic obstructive pulmonary disease. 8. Coronary artery disease, status post recent left anterior descending artery and right coronary artery stents. RECOMMENDATIONS: Continue current cardiac medications including dual antiplatelet therapy. Monitor on telemetry for any evidence of atrial fibrillation. Monitor for signs and symptoms of bleeding now that aspirin and Plavix have been restarted. Please have the patient follow up with us in the office in 1 to 2 weeks. Thank you for this consult. We will continue to follow. Job#: [id number]
--- NOTE | 2018-02-02 17:11 | Discharge Summary ---
[address] Londono, environmental services tech. 2. Dr. Morris Sarah, lan specialist. PROCEDURE: Colonoscopy done by Dr. Sarah on 01/31/2018. FINAL DIAGNOSIS: Rectal bleeding due to colitis, resolved. OTHER DIAGNOSES 1. Internal hemorrhoids. 2. Diverticulosis. 3. Gastritis. 4. Coronary artery disease status post drug-eluting stenting less than 3 months ago. 5. Paroxysmal atrial fibrillation by history. 6. Hypertension. 7. Hyperlipidemia. 8. Chronic obstructive pulmonary disease. 9. Hyperkalemia, depleted. 10. Hypomagnesemia, repleted. 11. Abnormal liver function test, improved. BRIEF HOSPITAL COURSE: A 67-year-old female was admitted directly by her PCP, Dr. Harish De Jesus, for rectal bleeding. Patient was on double antiplatelet medication for drug-eluting stenting as per her environmental services tech's recommendation. Patient did not have any significant drop in hemoglobin or hematocrit. She was monitored for bleeding. She did not have any occurrence of bleeding. Pneumatic System Conveyor Operator, Dr. Londono, consulted. She recommended continuation of double antiplatelet medication. Dr. Sarah, lan specialist, was consulted. He did a colonoscopy after bowel preparation which showed patient has mild colitis affecting ascending colon. Patient was continued on levofloxacin/metronidazole. She did not have any diarrhea. Patient is clear by the lan specialist and environmental services tech for discharge. She is continued on Plavix and estrogen. Patient has stable hemoglobin and hematocrit. She will be discharged with instructions and followup with lan specialist and environmental services tech. VITALS TODAY: BP 140/77, pulse 61, temp 97.6, respirations 18, SPO2 95% on room air. PHYSICAL EXAMINATION GENERAL: Alert, not in acute distress. HEENT: No pallor. No icterus. NECK: No JVD. No carotid bruit. HEART: S1, S2 regular. No murmur. LUNGS: Clear to auscultation. ABDOMEN: Soft, nontender. No palpable mass. EXTREMITIES: No edema, cyanosis or clubbing. NEUROLOGIC: Motor grossly equal on both sides. LABS: CBC, WBC 8.46, hemoglobin 11, hematocrit 34, platelets 204. MCV 95, RDW 12, neutrophil 59, lymphocytes 25. PT 13.6, INR 1.2, PTT 28.6. Chemistry panel, sodium 143, potassium 3.3, chloride 105, CO2 29, anion gap 9, BUN 11, creatinine 0.89, glucose 108, calcium 9.0, magnesium 1.3, iron 72, TIBC 281, ferritin 87, total bilirubin 0.6, AST 27, ALT 51, alk phos 236. BNP 690. Total protein 5.3, albumin 3.9, globulin 2.7. Vitamin B12 486. Folate 17.8. TSH 2.87. Lipase 7, amylase 27. Urinalysis negative for glucose, ketones, protein. Leukocyte esterase negative. WBC none, RBC none. Stool for lactoferrin negative. Hepatitis C antibody negative. Hepatitis B core antibody IgM negative. Hepatitis B surface antigen negative. Stool for C-diff negative to sample. MICROBIOLOGICAL DATA: Urine culture mixed priscilla. Stool for ova and parasite pending. RADIOLOGICAL DATA: CT of the abdomen and pelvis done at presentation with contrast, no acute inflammatory process, colonic diverticulosis without evidence of diverticulitis. No CT venous evidence of GI bleeding and hepatic biliary dilatation could be partially related to post cholecystectomy effect. X-RAY OF CHEST: Single view done at presentation, elevation of the right hemidiaphragm when compared to the prior exam, decreased right lung volume, bibasilar subsegmental atelectasis. No infiltrate or effusion. MEDICATIONS AT DISCHARGE: Please refer to the medication reconciliation sheet. DIET: Heart healthy diet. ACTIVITY: As tolerated. INSTRUCTIONS AT DISCHARGE: Continue medication as per discharge recommendations. Monitor BP, pulse at home. Resume Plavix and aspirin. Follow up with environmental services tech and lan specialist as available. Follow up with PCP, Dr. Harish De Jesus in 1 week. Repeat CBC and CMP in 1 week. GUILLAUME YANES MD Job#: [id number] VLAD
== END 2018-02-02 14:40 | disposition home or self-care (01) ==
LOC: INTOOBSV 11:10 → MED/SURG3 11:10
PROVIDERS: ADMIT Internal Medicine; ATTEND Internal Medicine
DX: K51.511 Left sided colitis with rectal bleeding (principal); I25.10 Atherosclerotic heart disease of native coronary artery without angina pectoris; I10 Essential (primary) hypertension; Z95.5 Presence of coronary angioplasty implant and graft; I48.0 Paroxysmal atrial fibrillation; E78.5 Hyperlipidemia, unspecified; J44.9 Chronic obstructive pulmonary disease, unspecified; Z88.5 Allergy status to narcotic agent; Z88.0 Allergy status to penicillin; Z88.2 Allergy status to sulfonamides; Z88.8 Allergy status to other drugs, medicaments and biological substances; E11.9 Type 2 diabetes mellitus without complications; K21.0 Gastro-esophageal reflux disease with esophagitis; K44.9 Diaphragmatic hernia without obstruction or gangrene; K29.70 Gastritis, unspecified, without bleeding; K57.30 Diverticulosis of large intestine without perforation or abscess without bleeding; K62.1 Rectal polyp; K64.8 Other hemorrhoids; N17.9 Acute kidney failure, unspecified; D64.9 Anemia, unspecified; E87.6 Hypokalemia
CPT/HCPCS: 36415; 43239; 45380; 71045; 74177; 80053; 81001; 82150; 82607; 82728; 82746; 82948; 83540; 83630; 83690; 83735; 83880; 83993; 84080; 84443; 84466; 85025; 85610; 85730; 87045; 87086; 87177; 87328; 87493; 88305; 88312; 93005; G0378; J1940; J1956; J2001; J2405; J2765; J3475; J7030; J7040; J7050; Q9967

== ENCOUNTER 2018-02-13 07:18 | Observation (INO) | payer MEDICARE ==
[~2018-02-13] VITALS: Ht 152.4 cm; Wt 91.0 kg
[~2018-02-13 07:18] MED LIST changes: +FUROSEMIDE40 MG PO; +METRONIDAZOLE500 MG PO; +PANTOPRAZOLE SO40 MG PO
[2018-02-13] MEDS ORDERED: NITROGLYCERIN 0.4 MG SUBL SL PRN ×2 (07:45→10:45)
[2018-02-13 08:16] LABS: BASOPHILS # (AUTO) 0.1 (0.0-0.1); BASOPHILS % 0.9 % (0.0-1.0); EOSINOPHILS # (AUTO) 0.2 (0.0-0.4); EOSINOPHILS % 2.2 % (0.0-6.0); HEMATOCRIT 38.3 % (34.2-44.1); HEMOGLOBIN 12.6 g/dL (12.0-16.0); LYMPHOCYTES # (AUTO) 3.2 (1.0-3.2); MEAN CORPUSCULAR HEMOGLOBIN 31.7 pg (28-32); MEAN CORPUSCULAR HGB CONC 32.9 g/dL (31-35); MEAN CORPUSCULAR VOLUME 96.2 fL (81-99); MONOCYTES % 9.2 % (4.4-11.3); NEUTROPHILS # (AUTO) 6.1 (2.1-6.9); NEUTROPHILS % 57.4 % (38.7-80.0); PLATELET COUNT 337 x10e3/uL (140-360); RED BLOOD COUNT 3.98 x10e6/uL (3.6-5.1); RED CELL DISTRIBUTION WIDTH 12.7 % (11.7-14.4)
[2018-02-13] MEDS: SODIUM CHLORIDE 0.9% 1000ML 1,000 ML IV SCH ×2 (08:17→13:41)
[2018-02-13] MEDS ORDERED: ONDANSETRON HCL INJ 2 MG/ML VIAL IV STA (08:19)
[2018-02-13 08:25] LABS: INR 0.97; PROTHROMBIN TIME 12.1 seconds (11.9-14.5)
[2018-02-13 08:26] LABS: PARTIAL THROMBOPLASTIN TIME 28.6 seconds (23.8-35.5)
[2018-02-13 08:35] LABS: ALANINE AMINOTRANSFERASE 14 IU/L (0-55); ALBUMIN 3.7 g/dL (3.5-5.0); ALBUMIN/GLOBULIN RATIO 1.1 (0.8-2.0); ALKALINE PHOSPHATASE 158 IU/L (40-150); ANION GAP 13.6 mmol/L (8-16); BLOOD UREA NITROGEN 24 mg/dL (7-26); BUN/CREATININE RATIO 23 (6-25); CALCIUM 9.9 mg/dL (8.4-10.2); CARBON DIOXIDE 25 mmol/L (22-29); CHLORIDE 105 mmol/L (98-107); CREATINE KINASE 37 IU/L (29-168); CREATININE, SERUM 1.05 mg/dL (0.57-1.11); EST GLOMERULAR FILTRATION RATE 52 ML/MIN (60-); GLUCOSE 100 mg/dL (74-118); POTASSIUM 4.6 mmol/L (3.5-5.1); SODIUM 139 mmol/L (136-145)
[2018-02-13] MEDS ORDERED: KETOROLAC TROMETHAMINE 30 MG/ML VIAL IV STA (08:43)
--- NOTE | 2018-02-13 08:45 | Diagnostic Imaging Report ---
PROCEDURE: CHEST SINGLE (PORTABLE) COMPARISON: 01/29/2018. INDICATIONS: CHEST PAIN, SHORTNESS OF BREATH FINDINGS: Unchanged right hemidiaphragmatic elevation. Linear opacity in the lung bases compatible with subsegmental atelectasis. No new consolidation, pleural effusion, or pneumothorax. Stable cardiomediastinal contour with mild tortuosity of the thoracic aorta. No osseous structure lesions. CONCLUSION: Bibasilar atelectasis. Otherwise no acute cardiopulmonary abnormality. Dictated by: Nolan Tamez M.D. on 02/13/2018 at 8:49 Electronically approved by: Nolan Tamez M.D. on 02/13/2018 at 8:49
[2018-02-13] MEDS ORDERED: SODIUM CHLORIDE FLUSH 10 ML SYR INJ PRN (10:45)
[2018-02-13] MEDS ORDERED: ONDANSETRON HCL INJ 2 MG/ML VIAL IV PRN (10:45)
[2018-02-13] MEDS: NITROGLYCERIN 2% OINT 1 GM PKT TOP SCH ×2 (11:10→18:24)
[2018-02-13] MEDS: FAMOTIDINE 20 MG TAB PO SCH ×2 (11:10→16:38)
[2018-02-13 12:35] VITALS: BP 107/59
[2018-02-13 12:53] VITALS: BP 107/59
[2018-02-13 15:59] LABS: CREATINE KINASE 29 IU/L (29-168)
[2018-02-13 16:32] VITALS: BP 116/62
--- NOTE | 2018-02-13 17:23 | Diagnostic Imaging Report ---
EXAM: CT Chest WITH contrast 02/13/2018 1:53 PM INDICATION: \S\DYSPNEA \[id number] \S\[id number] COMPARISON: Ventilation/perfusion scan dated 10/28/2017 TECHNIQUE: Chest was scanned utilizing a multidetector helical scanner from the lung apex through the level of the adrenal glands without administration of IV contrast. Coronal and sagittal reformations were obtained. PE protocol was performed. IV CONTRAST: 100 mL of Isovue-370 COMPLICATIONS: None RADIATION DOSE: Total DLP: 494.87 mGy*cm Estimated effective dose: (DLP x 0.014 x size factor) mSv CTDIvol has been reviewed. It is below the limits set by the Radiation Protocol Committee (RPC). FINDINGS: LINES/ TUBES: None. LUNGS AND AIRWAYS: No filling defects visualized within pulmonary arteries to the subsegmental level. Evaluation of the lungs are limited by respiratory motion. Posterior right base calcified granuloma. There is also anterior left upper lobe calcified granuloma. Airways are normal. PLEURA: The pleural spaces are clear. HEART AND MEDIASTINUM: The thyroid gland is normal. No mediastinal, hilar or axillary lymphadenopathy. Nonspecific subcentimeter mediastinal and bilateral axillary lymph nodes. Mild cardiomegaly. There is no pericardial effusion. Main pulmonary artery measures 2.7 cm. Atherosclerotic calcification of coronary arteries. UPPER ABDOMEN: Cholecystectomy. Fat-containing supraumbilical ventral hernia. Small hiatal hernia. Partially imaged probably left renal cyst. BONES: The visualized bony thorax is within normal limits. SOFT TISSUES: Unremarkable. IMPRESSION: No evidence of pulmonary embolism. Ancillary findings as above. Signed by: Dr. Ron Perez MD on 02/13/2018 5:19 PM
[2018-02-13] MEDS ORDERED: KETOROLAC TROMETHAMINE 30 MG/ML VIAL IV PRN (17:45)
[2018-02-13] MEDS ORDERED: NITROGLYCERIN 0.4 MG SUBL SL SCH (17:45)
--- NOTE | 2018-02-13 17:50 | Consultation ---
DATE OF CONSULTATION: February 13, 2018 REQUESTING PHYSICIAN: Dr. De Jesus. REASON FOR CONSULTATION: Chest pain. HISTORY OF PRESENT ILLNESS: This is a 67-year-old woman with history of atrial fibrillation, coronary artery disease, status post RCA and LAD stents, COPD, and gastritis who presented with complaints of chest pain and shortness of breath. She indicates that she woke up this morning 4 a.m. with shortness of breath and chest heaviness that radiated to the back. This is associated with nausea and lightheadedness. The pain was 10/10 in severity and lasted several hours. There was no improvement with sublingual nitroglycerin, but improved with Toradol. Of note, she indicates this pain is different from the pain she had before her prior stent insertion. REVIEW OF SYSTEMS: Negative except as per HPI. PAST MEDICAL HISTORY: Coronary artery disease, status post RCA and LAD PCI, most recent October 2017, history of atrial fibrillation, COPD, gastritis. ALLERGIES: PLEASE SEE EMR. MEDICATIONS: Please see medication list. SOCIAL HISTORY: No tobacco, alcohol or drugs. FAMILY HISTORY: Noncontributory. PHYSICAL EXAMINATION VITAL SIGNS: Temperature 96.3 degrees, pulse 50, respiratory rate 22, blood pressure 144/71, oxygen saturation 100% on 3 liters nasal cannula. GENERAL: Awake, alert and in no acute distress. A well-nourished, well-developed woman. HEENT: Normocephalic, atraumatic. Pupils equal with no scleral icterus. NECK: Supple. No thyromegaly or cervical lymphadenopathy. No carotid bruits. LUNGS: Clear to auscultation bilaterally. No wheezes or crackles. CARDIOVASCULAR: Normal rate, regular rhythm. Normal S1 and S2. A systolic murmur. ABDOMEN: Soft and nontender. EXTREMITIES: No edema. NEUROLOGIC: Nonfocal exam. LABORATORY DATA: WBC 10.68, hemoglobin 12.6, hematocrit 38.3, platelets 337,000, sodium 139, potassium 4.6, chloride 105, CO2 of 25, BUN 24, creatinine 1.05, BNP 237, troponin less than 0.001. EKG: Sinus bradycardia, left axis deviation, incomplete left bundle branch block. LVH with repolarization abnormality. Chest x-ray: Bibasilar atelectasis, otherwise no acute cardiopulmonary abnormality. IMPRESSION 1. Chest pain. 2. Dyspnea. 3. Atrial fibrillation. 4. Coronary artery disease, status post recent LAD and RCA PCI. 5. Hypertension. 6. Diabetes mellitus. 7. Recent gastrointestinal bleeding. 8. Chronic obstructive pulmonary disease. RECOMMENDATIONS: Trend cardiac enzymes to rule out myocardial infarction, although her symptoms are different from prior cardiac chest pain. The patient's echo from the office was reviewed with normal LV function. order CTA of the chest for further evaluation in order to rule out PE. Continue current cardiac medications otherwise. Monitor on telemetry. Thank you for this consult. We will continue to follow. Job#: [id number] GH CATHI
[2018-02-13 17:55] LABS: AMYLASE 29 U/L (25-125); LIPASE 8 U/L (8-78)
[2018-02-13] MEDS ORDERED: SODIUM CHLORIDE 0.9% 50ML 50 ML ONE (18:00)
[2018-02-13] MEDS ORDERED: IOPAMIDOL 370 MG/ML 200 ML INFUS..BTL INJ ONE (18:00)
--- NOTE | 2018-02-13 18:11 | History and Physical ---
She is a 67-year-old female patient that presented to the emergency room with the complaint of retrosternal chest tightness. HISTORY OF PRESENT ILLNESS: Ms. Hurtado is a 67-year-old female patient with significant history of acute coronary syndrome, recent angioplasty 3-4 months ago, who was admitted here with chest pain. The patient had an angioplasty done by Dr. Herrera. The patient was complaining of retrosternal chest tightness that is going to the back. The patient has a feeling more like a heaviness in the chest, and also feeling shortness of breath and difficulty with breathing. The patient stated that she woke up like that. The patient denies having any abdominal pain, nausea, vomiting. The patient was also recently admitted with colitis in January. PAST MEDICAL HISTORY: The patient had a RCA stent placed in August of 2017, and then 2nd stent was put in LAD. Significant medical history is chronic bronchitis, chronic gastritis, AFib, GERD. ALLERGIES: THE PATIENT IS ALLERGIC TO PENICILLIN, SULFA, CODEINE, HYDRALAZINE, MILK, MORPHINE, MUSHROOMS, PROMETHAZINE. MEDICATIONS: See from the list. SOCIAL HISTORY: Denies smoking. Denies using alcohol. FAMILY HISTORY: Hypertension and diabetes mellitus. REVIEW OF SYSTEMS: As per history of present illness. Chest tightness, chest pressure, pain, and shortness of breath. PHYSICAL EXAMINATION GENERAL: She is a middle-aged female patient lying in bed. She is anxious, apprehensive and not in any acute distress, but complains of chest tightness and pain. VITALS: Temperature 98, pulse rate 88, respirations 15, blood pressure 130/80 mmHg. HEENT: Normocephalic and atraumatic. No JVD. No lymphadenopathy. LUNGS: Bilateral fair equal air entry. HEART: S1 and S2 regular. Systolic murmur present. ABDOMEN: Soft. Bowel sounds are present. NEUROLOGICAL: No focal neurological deficit. ADMITTING IMPRESSION/DIAGNOSES 1. Unstable angina: Rule out myocardial infarction. 2. Chest pain. 3. Coronary artery disease with recent 2 stents to left anterior descending and right coronary artery. 4. Atrial fibrillation. 5. Hypertension. 6. Chronic bronchitis. 7. Chronic gastritis. 8. Gastroesophageal reflux disease. 9. Hyperlipidemia. PLAN: The patient will be admitted with the above diagnoses. Will do serial EKGs, cardiac enzymes and cardiology evaluation with Dr. Javier. Treat the patient with nitro, Toradol and beta carlos manuel. Will monitor the patient in the observation unit. Further treatment course depends on the results of the testing. Job#: [id number] ISAC
[2018-02-13 20:00] VITALS: BP 140/65
[2018-02-13] MEDS: PRAVASTATIN 20 MG TAB PO SCH (22:09)
[2018-02-14] VITALS (7 sets, daily range): BP systolic 114–158; BP diastolic 58–65
[2018-02-14] MEDS: SODIUM CHLORIDE 0.9% 1000ML 1,000 ML IV SCH (00:30)
[2018-02-14] MEDS: NITROGLYCERIN 2% OINT 1 GM PKT TOP SCH ×4 (05:49→18:10)
[2018-02-14 07:37] LABS: BASOPHILS # (AUTO) 0.1 (0.0-0.1); BASOPHILS % 0.6 % (0.0-1.0); EOSINOPHILS # (AUTO) 0.3 (0.0-0.4); EOSINOPHILS % 2.6 % (0.0-6.0); HEMATOCRIT 34.5 % (34.2-44.1); HEMOGLOBIN 11.1 g/dL (12.0-16.0); LYMPHOCYTES # (AUTO) 2.4 (1.0-3.2); LYMPHOCYTES % 24.3 % (18.0-39.1); MEAN CORPUSCULAR HEMOGLOBIN 31.6 pg (28-32); MEAN CORPUSCULAR HGB CONC 32.2 g/dL (31-35); MEAN CORPUSCULAR VOLUME 98.3 fL (81-99); MONOCYTES # (AUTO) 0.8 (0.2-0.8); MONOCYTES % 7.7 % (4.4-11.3); NEUTROPHILS # (AUTO) 6.3 (2.1-6.9); NEUTROPHILS % 64.5 % (38.7-80.0); PLATELET COUNT 287 x10e3/uL (140-360); RED BLOOD COUNT 3.51 x10e6/uL (3.6-5.1); RED CELL DISTRIBUTION WIDTH 12.9 % (11.7-14.4)
[2018-02-14 07:54] LABS: CHOL/HDL RATIO 3.8 (3.0-3.6)
[2018-02-14 07:58] LABS: ALBUMIN 3.2 g/dL (3.5-5.0); ALBUMIN/GLOBULIN RATIO 1.1 (0.8-2.0); ANION GAP 10.5 mmol/L (8-16); CREATININE, SERUM 1.02 mg/dL (0.57-1.11); POTASSIUM 4.5 mmol/L (3.5-5.1)
[2018-02-14] MEDS: FAMOTIDINE 20 MG TAB PO SCH ×2 (08:00→17:30)
[2018-02-14] MEDS: CARVEDILOL 12.5 MG TAB PO SCH ×2 (08:05→17:00)
[2018-02-14] MEDS: AMLODIPINE BESYLATE 10 MG TAB PO SCH (08:05)
[2018-02-14] MEDS: ASPIRIN 81 MG ENTERIC COATED PO SCH (08:05)
[2018-02-14] MEDS: AMIODARONE HCL 200 MG TAB PO SCH (08:05)
[2018-02-14] MEDS: CLOPIDOGREL BISULFATE 75 MG TAB PO SCH (08:05)
[2018-02-14] MEDS: PANTOPRAZOLE SOD 40 MG TABEC PO SCH (08:05)
[2018-02-14] MEDS: DIGOXIN 0.125 MG TAB PO SCH (08:05)
[2018-02-14] MEDS: LISINOPRIL 20 MG TAB PO SCH (08:05)
[2018-02-14 08:09] LABS: CREATINE KINASE 23 IU/L (29-168)
[2018-02-14] MEDS ORDERED: CLOPIDOGREL BISULFATE 75 MG TAB PO SCH ×2 (09:00→10:15)
[2018-02-14] MEDS ORDERED: NON-FORMULARY MEDICATION (Lisinopril 40 MG) PO SCH (09:00)
[2018-02-14] MEDS ORDERED: ASPIRIN 81 MG ENTERIC COATED PO SCH (09:00)
[2018-02-14] MEDS ORDERED: NON-FORMULARY MEDICATION (Pravastatin Sodium 10 MG) PO SCH (09:00)
--- NOTE | 2018-02-14 10:55 | Progress Note ---
DATE: February 14, 2018 CARDIOLOGY PROGRESS NOTE: SUBJECTIVE: Patient denies any shortness of breath, chest pain or palpitations. She states that she feels a lot better compared to yesterday. However, she does endorse a cough that is new this morning. OBJECTIVE VITAL SIGNS: Temperature 96.2, pulse 68, respiratory rate 20. Blood pressure 148/65, oxygen saturation 98% on 2 liters nasal cannula. CARDIOVASCULAR MEDICATIONS 1. Lisinopril 40 mg p.o. daily. 2. Digoxin 0.125 mg p.o. daily. 3. Coreg 25 p.o. b.i.d. 4. Amlodipine 10 p.o. daily. 5. Amiodarone 100 p.o. daily. LABS: WBC 9.69, hemoglobin 11.1, hematocrit 34.5, platelets 287. Sodium 140, potassium 4.5, BUN 27, creatinine 1.02. AST 15, ALT 11, alkaline phosphatase 33. CT scan of the chest from yesterday with no evidence of pulmonary emboli. Chest x-ray with bibasilar atelectasis, otherwise no cardiopulmonary abnormalities noted. TELEMETRY: Sinus rhythm. PHYSICAL EXAMINATION GENERAL: Alert and oriented times 3, resting comfortably in bed, does not appear to be in any acute distress. CARDIOVASCULAR: Regular rate and rhythm. Systolic murmur noted, 3/6. LUNGS: Clear to auscultation throughout. No wheezing. No rhonchi or crackles. ABDOMEN: Rounded, soft, nontender. LOWER EXTREMITIES: No edema, 2+ pedal pulses. IMPRESSION 1. Atypical chest pain. 2. Dyspnea. 3. Atrial fibrillation, paroxysmal. 4. Coronary artery disease, status post recent left anterior descending and right coronary artery percutaneous coronary intervention. 5. Hypertension. 6. Diabetes mellitus. 7. Recent gastrointestinal bleed. 8. Chronic obstructive pulmonary disease. RECOMMENDATIONS AND PLAN: Cardiac enzymes have ruled out myocardial infarction. On loop recorder monitoring in the office, patient was noted to go into AFib around the same time that she started having symptoms that brought her in. However, the patient has been in normal sinus rhythm during the hospitalization. Due to recent GI bleed, unable to anticoagulate for now. Initiate aspirin for now. Will discuss the case with GI. Refer to EP for PVI given history of symptomatic paroxysmal atrial fibrillation. We will continue to monitor this patient closely. Dictated by Yumi Ojeda NP. Job#: [id number] MANUELA
[2018-02-14] MEDS: PRAVASTATIN 20 MG TAB PO SCH (20:15)
[2018-02-15] VITALS: BP 130/64
[2018-02-15 04:00] VITALS: BP 140/74
[2018-02-15 06:08] LABS: BASOPHILS # (AUTO) 0.1 (0.0-0.1); BASOPHILS % 0.8 % (0.0-1.0); EOSINOPHILS # (AUTO) 0.3 (0.0-0.4); EOSINOPHILS % 2.6 % (0.0-6.0); HEMOGLOBIN 10.8 g/dL (12.0-16.0); LYMPHOCYTES # (AUTO) 2.8 (1.0-3.2); LYMPHOCYTES % 26.7 % (18.0-39.1); MEAN CORPUSCULAR HEMOGLOBIN 31.7 pg (28-32); MEAN CORPUSCULAR HGB CONC 32.7 g/dL (31-35); MEAN CORPUSCULAR VOLUME 96.8 fL (81-99); MONOCYTES # (AUTO) 0.9 (0.2-0.8); MONOCYTES % 8.6 % (4.4-11.3); NEUTROPHILS # (AUTO) 6.3 (2.1-6.9); PLATELET COUNT 276 x10e3/uL (140-360); RED BLOOD COUNT 3.41 x10e6/uL (3.6-5.1); RED CELL DISTRIBUTION WIDTH 12.6 % (11.7-14.4)
[2018-02-15 06:27] LABS: ANION GAP 10.4 mmol/L (8-16); CALCIUM 9.2 mg/dL (8.4-10.2); CREATININE, SERUM 0.96 mg/dL (0.57-1.11); POTASSIUM 4.4 mmol/L (3.5-5.1)
[2018-02-15] MEDS: NITROGLYCERIN 2% OINT 1 GM PKT TOP SCH ×3 (06:28→12:00)
[2018-02-15 06:50] LABS: FREE T4 (FREE THYROXINE) 1.01 ng/dL (0.9-1.8); THYROID STIMULATING HORMONE 1.112 uIU/mL (0.350-4.940)
[2018-02-15 08:00] VITALS: BP 136/73
[2018-02-15] MEDS: AMLODIPINE BESYLATE 10 MG TAB PO SCH (09:00)
[2018-02-15] MEDS: ASPIRIN 81 MG ENTERIC COATED PO SCH (09:18)
[2018-02-15] MEDS: CLOPIDOGREL BISULFATE 75 MG TAB PO SCH (09:18)
[2018-02-15] MEDS: AMIODARONE HCL 200 MG TAB PO SCH (09:18)
[2018-02-15] MEDS: DIGOXIN 0.125 MG TAB PO SCH (09:18)
[2018-02-15] MEDS: FAMOTIDINE 20 MG TAB PO SCH (09:18)
[2018-02-15] MEDS: CARVEDILOL 12.5 MG TAB PO SCH (09:18)
[2018-02-15] MEDS: PANTOPRAZOLE SOD 40 MG TABEC PO SCH (09:22)
[2018-02-15] MEDS: LISINOPRIL 20 MG TAB PO SCH (09:23)
--- NOTE | 2018-02-15 10:21 | Progress Note ---
DATE: February 15, 2018 CARDIOLOGY PROGRESS NOTE SUBJECTIVE: Patient is without any complaint this morning. She denies any chest pain, shortness of breath or palpitations. OBJECTIVE VITAL SIGNS: Temperature 97.7, pulse 66, respiratory rate 16. Blood pressure 136/73, oxygen saturation 96% on room air. CARDIOVASCULAR MEDICATIONS 1. Nitroglycerin 1 gram topical q.6 h. 2. Lisinopril 40 mg p.o. daily. 3. Plavix 75 p.o. daily. 4. Digoxin 0.125 p.o. daily. 5. Amlodipine 10 mg p.o. daily. 6. Amiodarone 100 p.o. daily. 7. Coreg 25 p.o. b.i.d. LABS: WBC 10.29, hemoglobin 10.8, hematocrit 33.0, platelets 276, sodium 143, potassium 4.4, BUN 25, creatinine 0.96, GFR 56, BNP 291.8. PHYSICAL EXAMINATION GENERAL: Alert and oriented times 3, resting comfortably in bed, does not appear to be in any acute distress. NECK: Supple. No JVD noted. CARDIOVASCULAR: Regular rate and rhythm. Systolic murmur 3/6 noted. LUNGS: Clear to auscultation throughout. No wheezing, rhonchi or crackles. ABDOMEN: Rounded, soft, nontender. LOWER EXTREMITIES: No edema, 2+ pedal pulses. IMPRESSION 1. Atypical chest pain. 2. Dyspnea with cough. 3. Paroxysmal atrial fibrillation. 4. Coronary artery disease, status post left anterior descending and right coronary artery percutaneous coronary intervention. Right coronary artery stent placed in October 2017. 5. Hypertension. 6. Diabetes mellitus. 7. Recent positive occult stool; however, colonoscopy done approximately 3 weeks ago with no internal bleeding noted. Colitis only noted. 8. Chronic obstructive pulmonary disease. RECOMMENDATIONS: Cardiac enzymes have been negative so far. Symptoms that brought the patient in coincide with atrial fibrillation noted on loop recorder in office monitoring. For now, reinitiate anticoagulation with Xarelto. Continue aspirin as outpatient. Discontinue Plavix at this point. Monitor hemoglobin closely. We will see this patient in the coming weeks as outpatient and evaluate for possible PVI. Okay to discharge from a cardiology standpoint. Dictated by Yumi Ojeda NP. Job#: [id number]
[2018-02-15 12:00] VITALS: BP 164/72
[2018-02-15] MEDS ORDERED: XARELTO20 MG PO (14:08)
[2018-02-15] MEDS ORDERED: RIVAROXABAN 20 MG TABLET PO SCH (17:00)
== END 2018-02-15 14:58 | disposition home or self-care (01) ==
LOC: ER 07:18 → ERHOLD 10:53 → IMCU 12:10
PROVIDERS: ADMIT Internal Medicine; ATTEND Internal Medicine
DX: R07.89 Other chest pain (principal); R06.00 Dyspnea, unspecified; I25.10 Atherosclerotic heart disease of native coronary artery without angina pectoris; J44.9 Chronic obstructive pulmonary disease, unspecified; Z95.5 Presence of coronary angioplasty implant and graft; I48.0 Paroxysmal atrial fibrillation; Z79.02 Long term (current) use of antithrombotics/antiplatelets; Z79.82 Long term (current) use of aspirin; I10 Essential (primary) hypertension; E78.5 Hyperlipidemia, unspecified; K21.9 Gastro-esophageal reflux disease without esophagitis; K29.50 Unspecified chronic gastritis without bleeding; Z88.2 Allergy status to sulfonamides; Z88.5 Allergy status to narcotic agent; Z91.018 Allergy to other foods; Z88.0 Allergy status to penicillin; Z91.011 Allergy to milk products; Z88.8 Allergy status to other drugs, medicaments and biological substances
CPT/HCPCS: 36415 ×3; 71045; 71260; 80048; 80053 ×2; 80061; 80162; 82150; 82550 ×2; 82553 ×2; 83690; 83880 ×2; 84439; 84443; 84484 ×2; 85025 ×3; 85379; 85610; 85730; 93005; 99285; G0378 ×3; J1885; J2405; J7030; Q9967; S0164 ×2

== ENCOUNTER 2018-06-23 13:43 | Observation (INO) | payer MEDICARE ==
[2018-06-22 15:04] LABS: BASOPHILS # (AUTO) 0.1 (0.0-0.1); EOSINOPHILS # (AUTO) 0.3 (0.0-0.4); EOSINOPHILS % 4.1 % (0.0-6.0); HEMATOCRIT 39.6 % (34.2-44.1); HEMOGLOBIN 12.6 g/dL (12.0-16.0); LYMPHOCYTES # (AUTO) 3.2 (1.0-3.2); LYMPHOCYTES % 41.8 % (18.0-39.1); MEAN CORPUSCULAR HEMOGLOBIN 31.5 pg (28-32); MEAN CORPUSCULAR HGB CONC 31.8 g/dL (31-35); MONOCYTES # (AUTO) 0.7 (0.2-0.8); MONOCYTES % 8.5 % (4.4-11.3); NEUTROPHILS # (AUTO) 3.4 (2.1-6.9); NEUTROPHILS % 44.2 % (38.7-80.0); PLATELET COUNT 294 x10e3/uL (140-360); RED CELL DISTRIBUTION WIDTH 12.6 % (11.7-14.4)
[2018-06-22 15:17] LABS: INR 0.85; PROTHROMBIN TIME 12.4 seconds (11.9-14.5)
[2018-06-22 15:24] LABS: ANION GAP 15.5 mmol/L (8-16); CALCIUM 9.9 mg/dL (8.4-10.2); CREATININE, SERUM 1.37 mg/dL (0.57-1.11); POTASSIUM 4.5 mmol/L (3.5-5.1)
[~2018-06-23] VITALS: Ht 152.4 cm; Wt 88.9 kg
[~2018-06-23 13:43] MED LIST changes: +XARELTO20 MG PO
[2018-06-23] MEDS ORDERED: BACITRACIN 50,000 UNIT VIAL ONE (17:47)
[2018-06-23] MEDS ORDERED: SODIUM CHLORIDE 0.9% 500ML 500 ML ONE (17:48)
[2018-06-23] MEDS ORDERED: SODIUM CHLORIDE 0.9% 1000ML 1,000 ML ONE ×2 (17:48→17:49)
[2018-06-23] MEDS ORDERED: LIDOCAINE HCL 2% LOCAL 20 ML VIAL ONE (17:49)
[2018-06-23] MEDS ORDERED: FENTANYL CITRATE/PF 100MCG/2 ML INJ ONE (17:49)
[2018-06-23] MEDS ORDERED: MIDAZOLAM HCL 2 MG/2 ML VIAL ONE ×5 (17:49→20:37)
[2018-06-23] MEDS ORDERED: ONDANSETRON HCL INJ 2 MG/ML VIAL ONE (19:24)
[2018-06-23 21:36] VITALS: BP 151/71
[2018-06-23 21:43] VITALS: BP 151/71
[2018-06-23] MEDS ORDERED: NITROGLYCERIN 0.4 MG SUBL SL PRN (22:00)
[2018-06-23] MEDS ORDERED: TRAMADOL HCL 50 MG TAB PO PRN (22:00)
[2018-06-23] MEDS ORDERED: MORPHINE SULFATE 2 MG/ML SYR IV PRN (22:00)
[2018-06-23] MEDS ORDERED: ZOLPIDEM TARTRATE 5 MG TAB PO PRN (22:00)
--- NOTE | 2018-06-23 23:06 | Diagnostic Imaging Report ---
EXAMINATION: CHEST SINGLE (PORTABLE) INDICATION: ^post pacemaker placement ^[id number] ^[id number] COMPARISON: Chest CT 02/13/2018 FINDINGS: AP view TUBES and LINES: Left chest wall cardiac pacer with lead tips overlying the right atrium and right ventricle. LUNGS: Lungs are well inflated. Central pulmonary venous congestion. There is no evidence of pneumonia. PLEURA: Mild blunting of the right costophrenic sulcus. No left pleural effusion. No pneumothorax. HEART AND MEDIASTINUM: The cardiomediastinal silhouette is unremarkable. BONES AND SOFT TISSUES: No acute osseous lesion. Soft tissues are unremarkable. UPPER ABDOMEN: No free air under the diaphragm. IMPRESSION: Interval placement of a cardiac pacer. No pneumothorax. Central pulmonary venous congestion and small right pleural effusion. Signed by: DR. Sharan Alarcon MD on 06/23/2018 11:03 PM
[2018-06-24] VITALS: BP 111/53
--- NOTE | 2018-06-24 00:16 | Operative Report ---
DATE OF PROCEDURE: June 23, 2018 PREPROCEDURE DIAGNOSES: 1. Sick sinus syndrome, symptomatic bradycardia with sinus pauses, on loop recorder. 2. Presence of loop recorder. POSTPROCEDURE DIAGNOSES: 1. Sick sinus syndrome, symptomatic bradycardia with sinus pauses, on loop recorder. 2. Presence of loop recorder. ESTIMATED BLOOD LOSS: 5 mL. COMPLICATIONS: None. PROCEDURES PERFORMED: 1. Dual-chamber pacemaker placement. 2. Removal of a loop recorder. 3. Moderate sedation. Moderate conscious sedation was provided under my direct supervision by a sedation-trained nurse. Sedation approximate time 30 minutes, Versed and Fentanyl. There were no complications. See report for details. DESCRIPTION OF PROCEDURE: After informed consent was obtained, patient was brought to the electrophysiology laboratory in a fasting, nonsedated state. Area over her chest was prepped and draped in the usual sterile fashion. Moderate sedation and prophylactic antibiotic were given, 1% lidocaine was used as a local anesthetic, and a 3-cm skin incision was made in the left subclavicular area. Electrocautery, sharp and blunt dissection were used to reach the muscular fascia, and a pocket was created for eventual implantation of the device. Vascular access was obtained x2 in the left axillary vein using the modified Seldinger technique under fluoroscopic guidance. Two 6-Slovenian sheaths were placed. The ventricular lead was advanced to the RV apex, R-wave 18, pacing 0.4 at 0.5, impedance 1200; the atrial lead to the right atrial appendage, P-wave 2.7, pacing 0.5 at 0.5, impedance 700. The sheaths were removed from the body. Leads were secured to fascia using #0 silk. Pocket was irrigated with antibiotic solution using the pulse camp cook. Hemostasis was meticulous. Leads were connected to the device, and entire pacemaker system placed in the pocket. Incision was closed using Vicryl and Dermabond. Patient tolerated the procedure well. Procedure was deemed complete. SUMMARY OF HARDWARE IMPLANTED: 1. The new pacemaker is [employer], model #L311, [id number]. 2. The atrial lead is [employer], 7790, [id number]. 3. Ventricular lead is [employer], 7741, [id number]. We then prepped and draped the area of the loop recorder. 1% lidocaine was used as a local anesthetic. A 1-cm skin incision was made and the loop recorder was removed from the body using the hemostat. The incision was closed using Vicryl and Dermabond. Patient tolerated the procedure well. Procedure was deemed complete. IMPRESSION: 1. Successful dual-chamber pacemaker implant via left axillary vein. 2. Successful removal of a loop recorder. PLAN: 1. Routine postoperative monitoring on telemetry bed. 2. Chest x-ray. 3. Follow up in 2 weeks. Job#: [id number]
[2018-06-24 06:25] VITALS: BP 127/60
[2018-06-24] MEDS: ONDANSETRON HCL INJ 2 MG/ML VIAL IV PRN ×2 (08:03→11:08)
[2018-06-24] MEDS ORDERED: HYDROMORPHONE 2MG/ML 2 MG/ML ML IV ONE (08:10)
[2018-06-24 08:28] VITALS: BP 115/56
[2018-06-24] MEDS ORDERED: AMIODARONE HCL 200 MG TAB PO SCH (09:00)
[2018-06-24] MEDS ORDERED: PANTOPRAZOLE SOD 40 MG TABEC PO SCH (09:00)
[2018-06-24] MEDS ORDERED: CLOPIDOGREL BISULFATE 75 MG TAB PO SCH (09:00)
[2018-06-24] MEDS ORDERED: AMLODIPINE BESYLATE 10 MG TAB PO SCH (09:00)
[2018-06-24 09:46] VITALS: BP 115/56
[2018-06-24] MEDS ORDERED: MINOCYCLINE HCL50 MG PO (10:20)
[2018-06-24] MEDS ORDERED: ULTRAM50 MG PO (10:20)
[2018-06-24 12:27] VITALS: BP 114/54
== END 2018-06-24 12:34 | disposition home or self-care (01) ==
LOC: CATH LAB 13:43 → MED/SURG 18:24 → CATH LAB 20:03
PROVIDERS: ADMIT Internal Medicine; ATTEND Internal Medicine
DX: I48.0 Paroxysmal atrial fibrillation (principal); I42.0 Dilated cardiomyopathy; Z95.818 Presence of other cardiac implants and grafts; I25.118 Atherosclerotic heart disease of native coronary artery with other forms of angina pectoris; I49.5 Sick sinus syndrome; Z88.5 Allergy status to narcotic agent; Z88.0 Allergy status to penicillin; Z88.2 Allergy status to sulfonamides; Z88.8 Allergy status to other drugs, medicaments and biological substances; Z79.01 Long term (current) use of anticoagulants; Z01.812 Encounter for preprocedural laboratory examination; Z01.811 Encounter for preprocedural respiratory examination
CPT/HCPCS: 33208; 33284; 36415; 71045; 80048; 85025; 85610; C1785; C1898 ×2; G0378 ×2; J1170; J2001; J2250; J2405 ×2; J7030; J7040; S0164

== ENCOUNTER → 2019-10-11 | Outpatient (CLI) | payer MEDICARE ==
[~2019-10-11] MED LIST changes: +ASPIRIN81 MG PO; +DICYCLOMINE HCL10 MG PO; +LASIX20 MG PO; +METOPROLOL SUCC25 MG PO; +MINOCYCLINE HCL50 MG PO; +SUCRALFATE1 GM PO; +ZESTORETIC 20-1 EAC1 PO
== END ==
LOC: MAMMO 11:36
PROVIDERS: ATTEND Internal Medicine
DX: Z12.31 Encounter for screening mammogram for malignant neoplasm of breast (principal)
CPT/HCPCS: 77067

== ENCOUNTER 2019-10-12 13:36 | Observation (INO) | payer MEDICARE ==
[~2019-10-12] VITALS: Ht 152.4 cm; Wt 77.6 kg
[~2019-10-12 13:36] MED LIST changes: -ASPIRIN81 MG PO; -DICYCLOMINE HCL10 MG PO; -LASIX20 MG PO; -METOPROLOL SUCC25 MG PO; -SUCRALFATE1 GM PO; -ZESTORETIC 20-1 EAC1 PO
[2019-10-12] MEDS ORDERED: ASPIRIN 325 MG TAB PO ONE (13:45)
--- NOTE | 2019-10-12 14:20 | Diagnostic Imaging Report ---
Exam: Chest one view Comparison: June 23, 2018 Clinical history: Pressure in chest Findings: There is no evidence of pulmonary consolidation, pleural effusion, or pneumothorax. The cardiac size is within normal limits. The left subclavian dual-lead transvenous pacemaker is again noted without interval change in position. The regional osseous structures are unremarkable. Impression: 1. No radiographic evidence of acute cardiorespiratory disease. Signed by: Dr. Mauri Cobos MD on 10/12/2019 2:17 PM
[2019-10-12 14:29] LABS: CLARITY,URINE CLEAR (CLEAR); COLOR,URINE YELLOW (YELLOW); LEUKOCYTE ESTERASE ,URINE NEGATIVE (NEGATIVE); NITRITE,URINE NEGATIVE (NEGATIVE); PROTEIN,URINE DIPSTICK NEGATIVE (NEGATIVE)
[2019-10-12 14:30] LABS: BILIRUBIN,URINE NEGATIVE (NEGATIVE); KETONES,URINE NEGATIVE (NEGATIVE); URINE UROBILINOGEN 0.2 mg/dL (0.2 - 1)
[2019-10-12 14:52] LABS: EPITHELIAL CELLS,URINE RARE /LPF
[2019-10-12 14:56] LABS: BASOPHILS # (AUTO) 0.1 (0.0-0.1); BASOPHILS % 0.5 % (0.0-1.0); EOSINOPHILS # (AUTO) 0.4 (0.0-0.4); EOSINOPHILS % 3.2 % (0.0-6.0); HEMATOCRIT 35.3 % (34.2-44.1); HEMOGLOBIN 11.3 g/dL (12.0-16.0); LYMPHOCYTES # (AUTO) 4.7 (1.0-3.2); LYMPHOCYTES % 36.4 % (18.0-39.1); MONOCYTES # (AUTO) 1.2 (0.2-0.8); MONOCYTES % 9.1 % (4.4-11.3); NEUTROPHILS # (AUTO) 6.5 (2.1-6.9); NEUTROPHILS % 50.4 % (38.7-80.0); PLATELET COUNT 339 x10e3/uL (140-360); RED BLOOD COUNT 3.64 x10e6/uL (3.6-5.1); RED CELL DISTRIBUTION WIDTH 13.2 % (11.7-14.4)
[2019-10-12 15:05] LABS: INR 2.35; PARTIAL THROMBOPLASTIN TIME 37.4 seconds (23.8-35.5); PROTHROMBIN TIME 27.5 seconds (11.9-14.5)
[2019-10-12 15:16] LABS: ALBUMIN 3.7 g/dL (3.5-5.0); ALBUMIN/GLOBULIN RATIO 1.2 (0.8-2.0); ANION GAP 10.5 mmol/L (8-16); CREATININE, SERUM 1.26 mg/dL (0.57-1.11); POTASSIUM 4.5 mmol/L (3.5-5.1)
[2019-10-12 15:35] LABS: CREATINE KINASE MB 1.6 ng/mL (0-5.0); THYROID STIMULATING HORMONE 1.673 uIU/mL (0.350-4.940)
[2019-10-12] MEDS ORDERED: MORPHINE SULFATE 2 MG/ML SYR 1ML IV PRN (16:15)
[2019-10-12] MEDS ORDERED: SODIUM CHLORIDE FLUSH 10 ML SYR INJ PRN (16:15)
[2019-10-12] MEDS ORDERED: NITROGLYCERIN 0.4 MG SUBL SL PRN (16:15)
[2019-10-12] MEDS ORDERED: ASPIRIN 81 MG CHEW TAB PO ONE (16:15)
[2019-10-12] MEDS: FAMOTIDINE 20 MG/2 ML VIAL IV SCH (17:00)
[2019-10-12 17:30] VITALS: BP 96/54
[2019-10-12 18:18] VITALS: BP 96/54
[2019-10-12] MEDS ORDERED: XARELTO15 MG PO (18:28)
[2019-10-12] MEDS ORDERED: LASIX20 MG PO (18:34)
[2019-10-12] MEDS ORDERED: SUCRALFATE1 GM PO (18:34)
[2019-10-12] MEDS ORDERED: OMEPRAZOLE40 MG PO (18:34)
[2019-10-12] MEDS ORDERED: ASPIRIN81 MG PO (18:34)
[2019-10-12] MEDS ORDERED: ZESTORETIC 20-1 EAC1 PO (18:34)
[2019-10-12] MEDS ORDERED: DICYCLOMINE HCL10 MG PO (18:34)
[2019-10-12] MEDS ORDERED: METOPROLOL SUCC25 MG PO (18:34)
[2019-10-12 18:50] VITALS: BP 96/54
--- NOTE | 2019-10-12 19:00 | NUR ---
Received the patient in report.lyeing in the bed.no pain voiced.no resp.distress.stable condition.aaox3.ambulates independently.bed locked an din lowest position.phone and call light within reach.instructed to call for assistance as needed.
[2019-10-12 20:00] VITALS: BP 119/81
[2019-10-12 20:22] VITALS: BP 119/81
[2019-10-12 21:02] LABS: CREATINE KINASE MB 1.3 ng/mL (0-5.0)
[2019-10-12 21:22] LABS: ANISOCYTOSIS SLIGHT; EOSINOPHILS % (MANUAL) 3 % (0-7); HYPOCHROMASIA SLIGHT; LYMPHOCYTES % (MANUAL) 40 % (19-48); MONOCYTES % (MANUAL) 8 % (3.4-9.0); NEUTROPHILS % (MANUAL) 42 % (40-74); PLATELET ESTIMATE ADEQUATE; RBC MORPHOLOGY COMMENT NORMAL
[2019-10-12 21:23] LABS: PLATELET MORPHOLOGY COMMENT NORMAL
[2019-10-13] VITALS (11 sets, daily range): BP systolic 95–122; BP diastolic 51–56
[2019-10-13] MEDS: FAMOTIDINE 20 MG/2 ML VIAL IV SCH ×2 (05:21→17:15)
[2019-10-13 05:46] LABS: BASOPHILS # (AUTO) 0.1 (0.0-0.1); BASOPHILS % 0.5 % (0.0-1.0); EOSINOPHILS # (AUTO) 0.4 (0.0-0.4); EOSINOPHILS % 4.3 % (0.0-6.0); HEMATOCRIT 31.9 % (34.2-44.1); HEMOGLOBIN 10.1 g/dL (12.0-16.0); LYMPHOCYTES # (AUTO) 3.9 (1.0-3.2); LYMPHOCYTES % 38.5 % (18.0-39.1); MEAN CORPUSCULAR HEMOGLOBIN 30.6 pg (28-32); MEAN CORPUSCULAR HGB CONC 31.7 g/dL (31-35); MEAN CORPUSCULAR VOLUME 96.7 fL (81-99); MONOCYTES % 9.7 % (4.4-11.3); NEUTROPHILS # (AUTO) 4.7 (2.1-6.9); NEUTROPHILS % 46.7 % (38.7-80.0); PLATELET COUNT 286 x10e3/uL (140-360); RED CELL DISTRIBUTION WIDTH 13.2 % (11.7-14.4)
[2019-10-13 06:11] LABS: CREATINE KINASE MB 3.4 ng/mL (0-5.0)
[2019-10-13 06:25] LABS: ANION GAP 9.7 mmol/L (8-16); CALCIUM 8.8 mg/dL (8.4-10.2); CHOL/HDL RATIO 3.5 (3.0-3.6); CREATININE, SERUM 1.21 mg/dL (0.57-1.11); PHOSPHORUS 3.8 MG/DL (2.3-4.7); POTASSIUM 4.7 mmol/L (3.5-5.1)
--- NOTE | 2019-10-13 07:00 | NUR ---
BED SIDE SHIFT REPORT GIVEN TO ONCOMING RN.STABLE CONDITION.
[2019-10-13] MEDS ORDERED: ASPIRIN 325 MG TAB EC PO SCH (09:00)
[2019-10-13] MEDS ORDERED: NITROGLYCERIN 0.4 MG SUBL SL SCH (10:30)
[2019-10-13] MEDS ORDERED: DICYCLOMINE HCL 10 MG CAP PO PRN (10:30)
[2019-10-13] MEDS ORDERED: LEVALBUTEROL 15 GM AERO IH PRN (10:30)
--- NOTE | 2019-10-13 11:59 | NUR ---
Nutrition Screen Note RD Recommendation for Physician: -Continue current diet per MD. Plan of Care: RD following, monitoring for tolerance and adequacy. Pt verified her allergy to broccoli, mushrooms and intolerance to lactose (she can self select) Nutrition reason for involvement: (MST- 4 and allergies) Primary Diagnose(s): Chest pain PMH: Hypertension Asthma WI A-Fib Anemia Ht: 60 in Wt: 171 lb BMI:33.4kg/m2 IBW: [address] Assessment: (10/13): 69 YOF admitted for chest pain with PMH listed above. The pt was seen resting in bed. She reported her appetite was jeremías poor and she reported losing about 6 lbs in the past couple of days. Pt appeared well-nourished. Pt denied N/V/C/D/chewing or swallowing issues. Pt confirmed her allergies and intolerance and stated she can self-select from the menu. They are documented within and [employer]. Pt denied education and ONS. Pt had no other questions or concerns. Chart reviewed. Labs and meds reviewed. Pt is consuming 75% of her meals per FS. Pt was here in 2018 where she was 196 lbs at that time suggesting a 13% weight loss within 2 years which is not significant enough to meet ASPEN criteria, fluid fluctuations may also be a cause of weight loss. Will continue to monitor. Current Diet: cardiac Malnutrition Evaluation 10/13 The patient does not meet criteria for a specified degree of malnutrition at this time. Will re-evaluate at follow-up as appropriate. Diet Education Needs Assessment: Diet education indicated, pt denied. Diet Adequacy: (Meeting calorie needs, Meeting protein needs Nutrition Care Level: low Signed: Mari Parham, RICHELLE, LD
[2019-10-13] MEDS: FUROSEMIDE 20 MG TAB PO SCH (13:02)
[2019-10-13 15:13] LABS: CREATINE KINASE MB 2.9 ng/mL (0-5.0)
[2019-10-13] MEDS ORDERED: LISINOPRIL PO SCH (17:00)
[2019-10-13] MEDS ORDERED: [UNRECOGNIZED DRUG - OTHER] PO SCH (17:00)
[2019-10-13] MEDS: GUAIFENESIN 600MG/DEXTROMETHORPHAN 30MG TABSR PO SCH ×2 (17:00→17:16)
[2019-10-13] MEDS ORDERED: RIVAROXABAN 15 MG TABLET PO SCH (17:00)
[2019-10-13] MEDS: HYDROCHLOROTHIAZIDE 25 MG TAB PO SCH (17:00)
[2019-10-13] MEDS ORDERED: HYDROCHLOROTHIAZIDE PO SCH (17:00)
[2019-10-13] MEDS ORDERED: METOPROLOL SUCCINATE 25 MG TAB XL PO SCH (17:00)
[2019-10-13] MEDS ORDERED: LISINOPRIL 20 MG TAB PO SCH (17:00)
[2019-10-13] MEDS: ASPIRIN 81 MG CHEW TAB PO SCH (17:13)
[2019-10-13] MEDS: SUCRALFATE 1 GM TAB PO SCH (17:13)
[2019-10-13] MEDS: PANTOPRAZOLE SOD 40 MG TABEC PO SCH (17:13)
--- NOTE | 2019-10-13 19:10 | NUR ---
Received the patient in report.ambulates independently.no pain voiced.no resp.distress.allert oriented.bed locked and in lowest position.refused to put bed alarm on.phone and call light within reach.instructed to call for assistance as needed.
--- NOTE | 2019-10-13 19:14 | Consultation ---
DATE OF CONSULTATION: Cardiology consultation. REASON FOR CONSULTATION: Chest pain. HISTORY OF PRESENT ILLNESS: This is a 69-year-old woman with a history of diverticulitis and multiple abdominal comorbidities, coronary artery disease, status post prior percutaneous coronary intervention, permanent pacemaker implantation due to sick sinus syndrome, who presented to the emergency department with chest pain. The patient states that she has been treated for bronchitis however prior to admission, she developed severe chest discomfort, located throughout the precordium that lasted 2 hours, relieved with nitroglycerin, not worse with deep inspiration or cough, worse than her prior coronary episodes. Upon arrival here, she was noted to be hemodynamically stable with negative troponins. She is currently feeling better. REVIEW OF SYSTEMS: A 12-point review of system was conducted, is negative except as stated above in the HPI. PAST MEDICAL HISTORY: As stated above in the HPI. PAST SURGICAL HISTORY: Percutaneous coronary intervention and permanent pacemaker. PAST FAMILY HISTORY: Noncontributory to current illness. ALLERGIES: MULTIPLE, SEE CHART. MEDICATIONS: See medications reconciliation form. SOCIAL HISTORY: No illicit drug, alcohol, or tobacco use. PHYSICAL EXAMINATION: VITAL SIGNS: Temperature is 97.9, heart rate 71, respirations are 18, blood pressure is 115/56, oxygen saturation 97% on room air. GENERAL: Well appearing, no apparent distress. Alert and orient x3. HEAD: Normocephalic and atraumatic. EYES: Extraocular muscles intact, conjunctivae clear. NECK: No JVD. No bruits. CARDIOVASCULAR: She has regular rate and rhythm. Systolic murmur at the left sternal border and apex. LUNGS: Clear to auscultation. ABDOMEN: Soft, nontender, nondistended. EXTREMITIES: No clubbing, cyanosis, edema. VASCULAR: 2+ pulses. SKIN: Warm, dry, intact. NEUROLOGIC: No focal deficits noted. LABORATORY DATA: Reviewed, creatinine 1.2. Cardiac enzymes negative x3. BNP is 329. A 12-lead electrocardiogram showed normal sinus rhythm, anterior infarct, age undetermined, left ventricular hypertrophy with QRS widening and repolarization abnormalities. Chest x-ray shows no acute cardiopulmonary abnormality. IMPRESSION: 1. Precordial pain. 2. Abnormal electrocardiogram. 3. Coronary artery disease, status post prior percutaneous coronary intervention. 4. History of sick sinus syndrome status post permanent pacemaker. 5. Diverticulitis. 6. Hypertension. 7. Paroxysmal atrial fibrillation. 8. Chronic kidney disease. RECOMMENDATIONS: The patient is ruled out for acute myocardial infarction. Her symptoms are concerning due to the fact that they are more severe than prior episodes and they were completely relieved with nitroglycerin. She has an abnormal electrocardiogram. We will check a 2D echocardiogram and a cardiac stress test. Otherwise, resume all other home cardiovascular medications. DO EUNICE Luque/KECIAL /[id number]
--- NOTE | 2019-10-13 20:10 | History and Physical ---
This is a 69-year-old female patient, presented to the emergency room with a complaint of chest pain. HISTORY OF PRESENT ILLNESS: Ms. Bryant Galarza is a 69-year-old female patient, who has a frequent emergency room visit and hospitalization. The patient stated she woke up last night with chest pain and anterior chest wall pain. The patient had to get out of bed and then the patient was also feeling short of breath and the patient was unsteady and so subsequently, the patient had called ambulance and came to the emergency room. In the emergency room, the patient was evaluated and then was admitted. REVIEW OF SYSTEMS: The patient has cough, chest pain, shortness of breath, wheezing, and mucoid phlegm. PAST MEDICAL HISTORY: The patient has a history of asthma, hypertensive heart disease, PA, atrial fibrillation, anemia, coronary artery disease, permanent pacemaker placement, AICD placement, angioplasty, and stent placement. PAST SURGICAL HISTORY: The patient had multiple surgeries. The patient had cholecystectomy, appendectomy, hysterectomy, pacemaker, AICD placement, and five times hernia repair, and right knee laparoscopic surgery. ALLERGIES: THE PATIENT IS ALLERGIC TO PENICILLIN, SULFA, CODEINE, HYDRALAZINE, MORPHINE, MUSHROOM, AND PROMETHAZINE. REVIEW OF SYSTEMS: As per history of present illness. SOCIAL HISTORY: Denies smoking. Denies using alcohol. FAMILY HISTORY: Hypertension. LABORATORY DATA: Laboratory exam and imaging examination had been reviewed. The patient had a BNP of 329 and creatinine of 1.56. ADMITTING IMPRESSION DIAGNOSES: Chest pain, unstable angina, rule out myocardial infarction, acute asthma exacerbation acceleration, bronchitis, coronary artery disease, permanent pacemaker placement, permanent atrial fibrillation, and congestive heart failure. The patient has a diastolic and mild systolic congestive heart failure, which is [id number] and present on admission. PLAN: The patient will be admitted with above diagnosis. We will do serial EKG cardiac enzymes and obtain Cardiology consultation, Dr. Herrera, he is primary wall taper helper. We will also give the patient IV Solu-Medrol and Mucinex and bronchodilator for her asthma. MD JEFFREY Garsia/ASHLEY /[id number]
[2019-10-13] MEDS: METHYLPREDNISOLONE SOD SUCC 125 MG/2ML VIAL IV SCH (20:48)
[2019-10-13] MEDS ORDERED: PRAVASTATIN 20 MG TAB PO SCH (21:00)
[2019-10-13] MEDS ORDERED: NON-FORMULARY MEDICATION (Pravastatin Sodium 10 MG) PO SCH (21:00)
--- NOTE | 2019-10-14 00:08 | NUR ---
Npo advised.consent signed for stress test.
[2019-10-14 01:18] VITALS: BP 111/67
[2019-10-14 05:18] VITALS: BP 107/64
[2019-10-14] MEDS: FAMOTIDINE 20 MG/2 ML VIAL IV SCH (05:33)
[2019-10-14 06:20] LABS: BASOPHILS % 0.1 % (0.0-1.0); HEMATOCRIT 37.3 % (34.2-44.1); HEMOGLOBIN 11.8 g/dL (12.0-16.0); LYMPHOCYTES # (AUTO) 1.4 (1.0-3.2); LYMPHOCYTES % 18.2 % (18.0-39.1); MEAN CORPUSCULAR HEMOGLOBIN 30.5 pg (28-32); MEAN CORPUSCULAR HGB CONC 31.6 g/dL (31-35); MEAN CORPUSCULAR VOLUME 96.4 fL (81-99); MONOCYTES # (AUTO) 0.1 (0.2-0.8); MONOCYTES % 0.7 % (4.4-11.3); NEUTROPHILS % 80.6 % (38.7-80.0); PLATELET COUNT 314 x10e3/uL (140-360); RED BLOOD COUNT 3.87 x10e6/uL (3.6-5.1)
[2019-10-14 06:48] LABS: ALBUMIN 3.6 g/dL (3.5-5.0); ALBUMIN/GLOBULIN RATIO 1.1 (0.8-2.0); ANION GAP 9.6 mmol/L (8-16); CALCIUM 9.4 mg/dL (8.4-10.2); CREATININE, SERUM 1.16 mg/dL (0.57-1.11); POTASSIUM 4.6 mmol/L (3.5-5.1)
--- NOTE | 2019-10-14 06:55 | NUR ---
BED SIDE SHIFT REPORT GIVEN TO ONCOMING RN.STABLE CONDITION.
[2019-10-14] MEDS: SUCRALFATE 1 GM TAB PO SCH ×2 (08:00→17:19)
[2019-10-14] MEDS: PANTOPRAZOLE SOD 40 MG TABEC PO SCH ×2 (08:00→17:18)
[2019-10-14 08:20] VITALS: BP 115/56
[2019-10-14 08:37] VITALS: BP 115/56
[2019-10-14] MEDS: GUAIFENESIN 600MG/DEXTROMETHORPHAN 30MG TABSR PO SCH ×2 (08:46→17:19)
[2019-10-14] MEDS: ASPIRIN 81 MG CHEW TAB PO SCH (08:46)
[2019-10-14] MEDS: HYDROCHLOROTHIAZIDE 25 MG TAB PO SCH (08:46)
[2019-10-14] MEDS: FUROSEMIDE 20 MG TAB PO SCH (08:46)
[2019-10-14] MEDS: METHYLPREDNISOLONE SOD SUCC 125 MG/2ML VIAL IV SCH (08:47)
[2019-10-14] MEDS ORDERED: REGADENOSON 0.4 MG/5 ML SYR IV ONE (09:02)
[2019-10-14 16:57] VITALS: BP 114/57
[2019-10-14] MEDS ORDERED: XOPENEX0.31 MG/3 (17:52)
[2019-10-14] MEDS ORDERED: PREDNISONE10 MG PO (17:53)
--- NOTE | 2019-10-14 18:26 | Progress Note ---
DATE: Cardiology Progress Note SUBJECTIVE: The patient is feeling better. Denies any chest pain. OBJECTIVE: VITAL SIGNS: Temperature is 96.3, heart rate is 81, respirations are 18, blood pressure is 115/56, ox saturation 96% on room air. GENERAL: Well appearing, no apparent distress. CARDIOVASCULAR: Regular rate and rhythm. LUNGS: Clear to auscultation. ABDOMEN: Soft, nontender, nondistended. EXTREMITIES: No clubbing, cyanosis, or edema. CARDIOVASCULAR MEDICATIONS: Reviewed. LABORATORY DATA: Reviewed. Stress test showed normal myocardial perfusion imaging. Echocardiogram showed normal left ventricular systolic function. IMPRESSION: 1. Precordial pain. 2. Abnormal electrocardiogram. 3. Coronary artery disease. 4. History of sick sinus syndrome, status post permanent pacemaker. 5. Hypertension. 6. Paroxysmal atrial fibrillation. 7. Coronary artery disease. RECOMMENDATIONS: The patient ruled out for acute myocardial infarction. Her echocardiogram and nuclear stress test were both normal. Resume cardiac home medications. She may be discharged from a cardiovascular standpoint. Brian Sandoval DO BM/MODL /[id number]
--- NOTE | 2019-10-15 16:31 | Discharge Summary ---
IDENTIFICATION: This is a 69-year-old female patient presented to the emergency room with a complaint of chest pain and shortness of breath. ADMITTING IMPRESSION DIAGNOSES: 1. Chest pain and unstable angina, rule out myocardial infarction. 2. Bronchial asthma with exacerbation. 3. Shortness of breath. 4. Coronary artery disease. The patient has a chronic atrial fibrillation. The patient has a permanent pacemaker placement. HOSPITAL COURSE SUMMARY: The patient was admitted with the above diagnosis. A chest x-ray was done which was negative. The patient has nuclear stress test done by Cardiology and 2D echocardiogram was done. The patient was monitored in the telemetry unit. The patient was also given IV Solu-Medrol for her bronchial asthma. Now upon stabilization, the patient is being discharged home and the patient will be followed up as an outpatient. The patient was advised to continue her metoprolol, lisinopril, pravastatin, Xarelto, and Lasix and also given a prescription for the Xopenex inhaler. The patient was advised to follow up with me as well as Cardiology as outpatient. DISCHARGE DIAGNOSES: 1. Chest pain. 2. Unstable angina, myocardial infarction ruled out. 3. Coronary artery disease. 4. Bronchial asthma with exacerbation. 5. Hypertension. 6. Chronic atrial fibrillation and permanent pacemaker placement. MD JEFFREY Garsia/KECIAL /[id number]
== END 2019-10-14 18:17 | disposition home or self-care (01) ==
LOC: ER 13:36 → ERHOLD 16:12 → MED/SURG 17:30
PROVIDERS: ADMIT Internal Medicine; ATTEND Internal Medicine
DX: I11.0 Hypertensive heart disease with heart failure (principal); I50.43 Acute on chronic combined systolic (congestive) and diastolic (congestive) heart failure; J45.901 Unspecified asthma with (acute) exacerbation; I48.21 Permanent atrial fibrillation; N18.9 Chronic kidney disease, unspecified; K57.92 Diverticulitis of intestine, part unspecified, without perforation or abscess without bleeding; I25.110 Atherosclerotic heart disease of native coronary artery with unstable angina pectoris; Z98.61 Coronary angioplasty status; Z95.810 Presence of automatic (implantable) cardiac defibrillator; Z88.0 Allergy status to penicillin; Z88.2 Allergy status to sulfonamides; Z88.8 Allergy status to other drugs, medicaments and biological substances; Z88.5 Allergy status to narcotic agent
CPT/HCPCS: 36415 ×3; 71045; 78452; 80048; 80053 ×2; 80061; 81001; 82550 ×2; 82553 ×2; 83735; 83880; 84100; 84443; 84484 ×2; 85025 ×3; 85610; 85730; 87086; 93005; 93017; 93306; 99284; A9502; G0378 ×3; J2785; J2930; S0164 ×2

== ENCOUNTER 2019-12-04 11:42 | Inpatient (IN) | payer MEDICARE ==
[~2019-12-04] VITALS: Ht 152.4 cm; Wt 80.9 kg
[~2019-12-04 11:42] MED LIST changes: +ASPIRIN81 MG PO; +DICYCLOMINE HCL10 MG PO; +LASIX20 MG PO; +METOPROLOL SUCC25 MG PO; +PREDNISONE10 MG PO; +SUCRALFATE1 GM PO; +XOPENEX0.31 MG/3; +ZESTORETIC 20-1 EAC1 PO
--- OUTSIDE RECORDS SUMMARY | 2019-12-04 11:48 | XMS REPORT ---
Author Author [facility] Organization [facility] Address Unknown Phone Unavailable Care Team Providers Care Prints And Drawings Curator Name Role Phone Gardenia CHAMPAGNE MD PP Gardenia CHAMPAGNE Unavailable Unavailable CECILIA MEZA Unavailable Unavailable Jeniffer ALY Unavailable Unavailable Payers Payer Name Policy Type Policy Number Effective Date Expiration Date [facility] [id number] 2019 00:00:00 [facility] [id number] 2019 00:00:00 [facility] [id number] 2017 00:00:00 [employer] [id number] 2017 00:00:00 [employer] [id number] 2017 00:00:00 [employer] [id number] 2017 00:00:00 Problems Condition Name Condition Details Condition Category Status Onset Date Resolution Date Last Treatment Date Treating Clinician Comments Chest pain in adult Chest pain in adult Problem Active Unstable angina pectoris Unstable angina Problem Active Allergies, Adverse Reactions, Alerts Allergy Name Allergy Type Status Severity Reaction(s) Onset Date Inactive Date Treating Clinician Comments Penicillins DA Active 2019-09-21 00:00:00 Sulfa (Sulfonamide Antibiotics) DA Active OK 2019-09-21 00:00:00 morphine DA Active U 2019-09-21 00:00:00 codeine DA Active 2019-09-21 00:00:00 hydrochlorothiazide DA Active 2019-09-21 00:00:00 sulfamethoxazole DA Active 2019-09-21 00:00:00 promethazine DA Active OK 2019-09-21 00:00:00 hydralazine DA Active U 2019-09-21 00:00:00 Penicillins DA Active 2019-04-07 00:00:00 Sulfa (Sulfonamide Antibiotics) DA Active OK 2019-04-07 00:00:00 morphine DA Active U 2019-04-07 00:00:00 codeine DA Active 2019-04-07 00:00:00 hydrochlorothiazide DA Active 2019-04-07 00:00:00 sulfamethoxazole DA Active 2019-04-07 00:00:00 promethazine DA Active OK 2019-04-07 00:00:00 hydralazine DA Active U 2019-04-07 00:00:00 Penicillins DA Active 2019-02-10 00:00:00 Sulfa (Sulfonamide Antibiotics) DA Active OK 2019-02-10 00:00:00 morphine DA Active U 2019-02-10 00:00:00 codeine DA Active 2019-02-10 00:00:00 hydrochlorothiazide DA Active 2019-02-10 00:00:00 sulfamethoxazole DA Active 2019-02-10 00:00:00 promethazine DA Active OK 2019-02-10 00:00:00 hydralazine DA Active U 2019-02-10 00:00:00 codeine DA Active 2018-11-27 00:00:00 hydrochlorothiazide DA Active 2018-11-27 00:00:00 Penicillins DA Active 2018-09-06 00:00:00 Sulfa (Sulfonamide Antibiotics) DA Active OK 2018-09-06 00:00:00 morphine DA Active U 2018-09-06 00:00:00 codeine DA Active OK 2018-09-06 00:00:00 sulfamethoxazole DA Active 2018-09-06 00:00:00 promethazine DA Active OK 2018-09-06 00:00:00 hydralazine DA Active U 2018-09-06 00:00:00 Penicillins DA Active 2018-08-12 00:00:00 Sulfa (Sulfonamide Antibiotics) DA Active OK 2018-08-12 00:00:00 morphine DA Active U 2018-08-12 00:00:00 codeine DA Active OK 2018-08-12 00:00:00 sulfamethoxazole DA Active 2018-08-12 00:00:00 promethazine DA Active OK 2018-08-12 00:00:00 hydralazine DA Active U 2018-08-12 00:00:00 Penicillins DA Active 2018-08-07 00:00:00 Sulfa (Sulfonamide Antibiotics) DA Active OK 2018-08-07 00:00:00 morphine DA Active U 2018-08-07 00:00:00 codeine DA Active OK 2018-08-07 00:00:00 sulfamethoxazole DA Active 2018-08-07 00:00:00 promethazine DA Active OK 2018-08-07 00:00:00 hydralazine DA Active U 2018-08-07 00:00:00 Hydralazine Propensity to adverse reactions Active Unknown VOMITING, ABDOMINAL CRAMPS, SYNCOPE 2018-02-01 00:00:00 broccoli Allergy to Substance Active Unknown 2018-01-29 00:00:00 Milk Allergy to Substance Active Unknown 2017-08-31 00:00:00 mushroom Allergy to Substance Active Unknown 2017-08-31 00:00:00 Penicillin Allergy to Substance Active Severe THROAT CLOSES 2017-08-29 00:00:00 Sulfa (Sulfonamide Antibiotics) Allergy to Substance Active Moderate ITCHING 2017-08-29 00:00:00 Morphine Allergy to Substance Active Unknown ITCHING 2017-08-29 00:00:00 Codeine Propensity to adverse reactions Active Moderate VOMITING 2017-08-29 00:00:00 Promethazine Allergy to Substance Active Moderate SHAKING 2017-08-29 00:00:00 Penicillins DA Active SV 2017-02-17 00:00:00 Sulfa (Sulfonamide Antibiotics) DA Active OK 2017-02-17 00:00:00 morphine DA Active U 2017-02-17 00:00:00 codeine DA Active OK 2017-02-17 00:00:00 sulfamethoxazole DA Active SV 2017-02-17 00:00:00 promethazine DA Active OK 2017-02-17 00:00:00 Medications Ordered Medication Name Filled Medication Name Start Date Stop Date Current Medication? Ordering Clinician Indication Dosage Frequency Signature (SIG) Comments Components Aspirin 81 Mg Tab.chew Aspirin 81 Mg Tab.chew Yes 81 Daily@1700 Dicyclomine Hcl 10 Mg Capsule Dicyclomine Hcl 10 Mg Capsule Yes 10 Three Times A Day as needed for Abdominal Pain Furosemide (Lasix) 20 Mg Tablet Furosemide (Lasix) 20 Mg Tablet Yes 20 Daily Levalbuterol Hcl (Xopenex) 0.31 Mg/3 Ml Vial.neb Levalbuterol Hcl (Xopenex) 0.31 Mg/3 Ml Vial.neb Yes Lisinopril/Hydrochlorothiazide (Zestoretic 20-25 Mg Tablet) 1 Each Tablet Lisinopril/Hydrochlorothiazide (Zestoretic 20-25 Mg Tablet) 1 Each Tablet Yes 1 Daily@1700 Metoprolol Succinate 25 Mg Tab.er.24h Metoprolol Succinate 25 Mg Tab.er.24h Yes 25 Daily@1700 Nitroglycerin 0.4 Mg Tab.subl Nitroglycerin 0.4 Mg Tab.subl Yes .4 As Needed Omeprazole 40 Mg Capsule. Omeprazole 40 Mg Capsule. Yes 40 Twice Daily With Meals Pravastatin Sodium 10 Mg Tablet Pravastatin Sodium 10 Mg Tablet Yes 10 Bedtime Prednisone 10 Mg Tab Prednisone 10 Mg Tab Yes 10 Twice A Day Rivaroxaban (Xarelto) 15 Mg Tablet Rivaroxaban (Xarelto) 15 Mg Tablet Yes 15 Daily@1700 Sucralfate 1 Gm Tablet Sucralfate 1 Gm Tablet Yes 1 Twice Daily With Meals Amiodarone Hcl 200 Mg Tablet, 100 Mg Oral Amiodarone Hcl 200 Mg Tablet, 100 Mg Oral 2019-10-12 00:00:00 No 100 Daily Amlodipine Besylate 10 Mg Tablet, 10 Mg Oral Amlodipine Besylate 10 Mg Tablet, 10 Mg Oral 2019-10-12 00:00:00 No 10 Daily Clopidogrel Bisulfate (Plavix) 75 Mg Tablet, 75 Mg Oral Clopidogrel Bisulfate (Plavix) 75 Mg Tablet, 75 Mg Oral 2019-10-12 00:00:00 No 75 Daily Lisinopril 40 Mg Tablet, 40 Mg Oral Lisinopril 40 Mg Tablet, 40 Mg Oral 2019-10-12 00:00:00 No 40 Daily Minocycline Hcl 50 Mg Capsule, 100 Mg Oral Minocycline Hcl 50 Mg Capsule, 100 Mg Oral 2019-10-12 00:00:00 No 100 Twice A Day Pantoprazole Sodium (Protonix) 40 Mg Tablet.dr, 40 Mg Oral Pantoprazole Sodium (Protonix) 40 Mg Tablet.dr, 40 Mg Oral 2019-10-12 00:00:00 No 40 Daily Rivaroxaban (Xarelto) 20 Mg Tablet, 20 Mg Oral Rivaroxaban (Xarelto) 20 Mg Tablet, 20 Mg Oral 2019-10-12 00:00:00 No 20 Daily Tramadol Hcl (Ultram) 50 Mg Tablet, 50 Mg Oral Tramadol Hcl (Ultram) 50 Mg Tablet, 50 Mg Oral 2019-10-12 00:00:00 No 50 As Needed as needed for Pain Tramadol Hcl (Ultram) 50 Mg Tablet, 50 Mg Oral Tramadol Hcl (Ultram) 50 Mg Tablet, 50 Mg Oral 2019-10-12 00:00:00 No 50 Every 8 Hours as needed for Pain Aspirin (Low Dose Aspirin Ec) 81 Mg Tablet.dr, 8 Mg Oral Aspirin (Low Dose Aspirin Ec) 81 Mg Tablet.dr, 8 Mg Oral 2018-06-22 00:00:00 No 8 Daily Carvedilol (Coreg) 12.5 Mg Tab, 25 Mg Oral Carvedilol (Coreg) 12.5 Mg Tab, 25 Mg Oral 2018-06-22 00:00:00 No 25 Twice A Day Digoxin 125 Mcg Tablet, 125 Mcg Oral Digoxin 125 Mcg Tablet, 125 Mcg Oral 2018-06-22 00:00:00 No 125 Daily Azithromycin (Z-Jonathan) 250 Mg Tablet, 500 Mg Oral Azithromycin (Z-Jonathan) 250 Mg Tablet, 500 Mg Oral 2018-02-13 00:00:00 No 500 Daily Furosemide 40 Mg Tablet, 20 Mg Oral Furosemide 40 Mg Tablet, 20 Mg Oral 2018-02-13 00:00:00 No 20 Daily Metronidazole 500 Mg Tablet, 500 Mg Oral Metronidazole 500 Mg Tablet, 500 Mg Oral 2018-02-13 00:00:00 No 500 Three Times A Day Tramadol Hcl (Ultram) 50 Mg Tablet, 50 Mg Oral Tramadol Hcl (Ultram) 50 Mg Tablet, 50 Mg Oral 2018-02-13 00:00:00 No 50 Three Times A Day as needed for Pain Trazodone Hcl 50 Mg Tablet, 50 Mg Oral Trazodone Hcl 50 Mg Tablet, 50 Mg Oral 2018-02-13 00:00:00 No 50 Bedtime as needed for Insomnia Carvedilol 12.5 Mg Tablet, 12.5 Mg Oral Carvedilol 12.5 Mg Tablet, 12.5 Mg Oral 2017-10-29 00:00:00 No 12.5 Twice A Day Amiodarone Hcl 200 Mg Tablet, 200 Mg Oral Amiodarone Hcl 200 Mg Tablet, 200 Mg Oral 2017-10-27 00:00:00 No 200 Every 12 Hours Amlodipine Besylate 10 Mg Tablet, 10 Mg Oral Amlodipine Besylate 10 Mg Tablet, 10 Mg Oral 2017-10-27 00:00:00 No 10 Daily Carvedilol 6.25 Mg Tablet, 6.25 Mg Oral Carvedilol 6.25 Mg Tablet, 6.25 Mg Oral 2017-10-27 00:00:00 No 6.25 Twice A Day Ferrous Sulfate 325 Mg Tablet, 325 Mg Oral Ferrous Sulfate 325 Mg Tablet, 325 Mg Oral 2017-10-27 00:00:00 No 325 Daily Omeprazole 40 Mg Capsule.dr, 40 Mg Oral Omeprazole 40 Mg Capsule.dr, 40 Mg Oral 2017-10-27 00:00:00 No 40 Daily Rivaroxaban (Xarelto) 15 Mg Tablet, 15 Mg Oral Rivaroxaban (Xarelto) 15 Mg Tablet, 15 Mg Oral 2017-09-02 00:00:00 No 15 Daily Encounters Start Date/Time End Date/Time Encounter Type Admission Type Attending [facility] Care Facility Care Department Encounter ID 2019-10-12 16:12:00 2019-10-14 18:17:00 Discharged Inpatient (obs) 1 FLYNN CHAMPAGNE [facility] [id number] 2019-10-11 11:36:00 2019-10-11 11:36:00 Registered Clinic 3 FLYNN CHAMPAGNE [facility] [id number] 2018-02-13 10:53:00 2018-02-15 14:58:00 Discharged Inpatient (obs) 1 MAHI FLYNN [facility] [id number] 2018-01-29 11:10:00 2018-02-02 14:40:00 Discharged Inpatient (obs) 3 FLYNN CHAMPAGNE [facility] [id number] 2017-10-27 21:37:00 2017-10-29 12:08:00 Discharged Inpatient (obs) ER FLYNN CHAMPAGNE [facility] [id number] 2017-08-31 11:44:00 2017-09-02 11:03:00 Discharged Inpatient ER SUSAN ALY [facility] [id number] Results Test Description Test Time Test Comments Text Results Atomic Results Result Comments - XR CHEST 2 V 2019-11-13 10:29:00 FAX: Eric Steele MD [place]: [place] [address]: PRE Name: OZZIE ALLEN [facility] FSED : 1950 Age/S: 69/F [address] Unit #: [id number] [facility] Phys: Eric Steele MD [place], [place] [address] Acct: [id number] Dis Date: Status: PRE ER PHONE #: Exam Date: 11/13/2019 1027 FAX #: Reason: cough EXAMS: CPT CODE: [id number] XR CHEST 2 V 27096 HISTORY: Cough. COMPARISON: September 21, 2019. Location: . AP and lateral view of the chest: Left ICD is un changed. No acute infiltrates, effusion or congestion. Cardiac silhouette is mildly enlarged. DJD of the dorsal spine. IMPRESSION: No acute infiltrates, effusion or congestion. at 1029 Reported and signed by: Ike Hopper M.D. CC: Eric Steele MD Technologist: SANDIP CALIX(R)(CT) Trnscrd Date/Time/By: 11/13/2019 (1029) : By: [email or web address] Orig Print D/T: S: 11/13/2019 (9274) PAGE 1 Signed Report Stress Test - Treadmill ONLY 2019-10-21 11:16:00 [place] [address] Patient Name : OZZIE ALLEN MR #: [id number] : 1950 Age/Sex: 69/F Adm Physician : FLYNN CHAMPAGNE MD Admit Date : 10/12/19 Location : MED/SURG Room/Bed : [facility] _ REPORT: Myoview Stress Test DATE OF STUDY: 10/13/2019 12:03:00 Stress Test - Treadmill ONLY PROCEDURE TITLE: Rest/stress single isotope SPECT imaging with pharmacologic stress and gated SPECT imaging. INDICATION: Chest pain. PROCEDURE IN DETAIL: Pharmacologic stress testing was performed with regadenoson per protocol. The heart rate was 82 beats per minute at rest and increased to 117 beats per minute during regadenoson infusion. The resting blood pressure was 135/75 mmHg and decreased to 103/73 mmHg, which was a normal response. The resting electrocardiogram demonstrated normal sinus rhythm. There were no ST-segment changes suggestive of myocardial ischemia. PVCs were observed during recovery. Next, myocardial perfusion imaging was performed at rest following the injection of 10.7 mCi of tetrofosmin. At peak pharmacologic effect, the patient was injected with 27 mCi of tetrofosmin. Gated post- stress tomographic imaging was performed. FINDINGS: The overall quality of study is fair. Left ventricular cavity is noted to be normal size on the rest and stress studies. Gated SPECT imaging reveals a small mild perfusion defect in the basal inferior wall and gated SPECT imaging reveals normal myocardial thickening and wall motion. Left ventricular ejection fraction was greater than 50% by visual estimate. IMPRESSION: Myocardial perfusion imaging is abnormal. There is a small mild area of ischemia in the inferior wall, cannot rule out attenuation artifact. Overall left ventricular systolic function was normal without regional wall motion abnormalities. Renee Washington MD ABS/ASHLEY /[id number] Signature Date Dictated By: RENEE WASHINGTON MD Transcribed By: ASHLEY on 10/21/19 <Electronically signed by RENEE WASHINGTON MD><<Signature on File>>11/16/19 3378 COPY TO: Sodium Level 2019-10-14 06:49:00 Sodium Level (test btag=9193-1) 134 136-145 Potassium Vbdpc8875-20-99 06:49:00* Test Item Value Reference Range Comments Potassium Level (test wwbl=3216-2) 4.6 3.5-5.1 Chloride Kykrr6672-23-70 06:49:00* Test Item Value Reference Range Comments Chloride Level (test mllv=2881-7) 102 98-107 Carbon Dioxide Efmdf4269-57-18 06:49:00* Test Item Value Reference Range Comments Carbon Dioxide Level (test avrt=5910-1) 27 22-29 Anion Zwc2338-93-79 06:49:00* Test Item Value Reference Range Comments Anion Gap (test euar=68306-2) 9.6 8-16 Blood Urea Ufhnncdj1323-03-28 06:49:00* Test Item Value Reference Range Comments Blood Urea Nitrogen (test mknx=3335-4) 41 7-26 Mjtaalmedh2956-02-39 06:49:00* Test Item Value Reference Range Comments Creatinine (test xfsx=0165-9) 1.16 0.57-1.11 BUN/Creatinine Tiupl4154-06-35 06:49:00* Test Item Value Reference Range Comments BUN/Creatinine Ratio (test rizg=8316-1) 35 6-25 Estimat Glomerular Filtration Yqoo7508-98-53 06:49:00* Test Item Value Reference Range Comments Estimat Glomerular Filtration Rate (test fhqa=093484178) 46 >60 Ranges were taken from the National Kidney Disease Education Program and the [facility] Kidney Foundation literature.Reference ranges:60 or greater: Yjjtfo27-96 ( for 3 consecutive months): Chronic kidney disease 15 or less: Kidney failure Glucose Adozm3990-38-43 06:49:00* Test Item Value Reference Range Comments Glucose Level (test topl=YEQ1295) 169 74-118 Calcium Pzjfi9889-28-80 06:49:00* Test Item Value Reference Range Comments Calcium Level (test vlrl=91685-0) 9.4 8.4-10.2 Total Ngtdjopxx7552-64-10 06:49:00* Test Item Value Reference Range Comments Total Bilirubin (test itfm=0751-6) 0.3 0.2-1.2 Aspartate Amino Transf (AST/SGOT)2019-10-14 06:49:00* Test Item Value Reference Range Comments Aspartate Amino Transf (AST/SGOT) (test code=Aspartate Amino Transf (AST/SGOT)) 12 5-34 Alanine Aminotransferase (ALT/SGPT)2019-10-14 06:49:00* Test Item Value Reference Range Comments Alanine Aminotransferase (ALT/SGPT) (test avle=1787-6) 10 0-55 Total Slcjzuo3776-50-49 06:49:00* Test Item Value Reference Range Comments Total Protein (test hlxf=0375-6) 6.8 6.5-8.1 Yumhxzm1095-17-27 06:49:00* Test Item Value Reference Range Comments Albumin (test bbfo=8066-9) 3.6 3.5-5.0 Igxgbbbr4839-13-69 06:49:00* Test Item Value Reference Range Comments Globulin (test wtub=57519-6) 3.2 2.3-3.5 Albumin/Globulin Oseau3604-18-85 06:49:00* Test Item Value Reference Range Comments Albumin/Globulin Ratio (test bvvk=3403-6) 1.1 0.8-2.0 Alkaline Siqialfjgwa2753-35-50 06:49:00* Test Item Value Reference Range Comments Alkaline Phosphatase (test cauk=7834-8) 122 40-150 White Blood Ysrha6551-64-03 06:20:00* Test Item Value Reference Range Comments White Blood Count (test liok=7384-9) 7.41 4.8-10.8 Red Blood Vuxtd3591-31-28 06:20:00* Test Item Value Reference Range Comments Red Blood Count (test xxtg=421-2) 3.87 3.6-5.1 Qcajvuiubq6277-10-93 06:20:00* Test Item Value Reference Range Comments Hemoglobin (test xhuh=87147-1) 11.8 12.0-16.0 Xsdhkixfui7943-23-54 06:20:00* Test Item Value Reference Range Comments Hematocrit (test btqz=0500-0) 37.3 34.2-44.1 Mean Corpuscular Fulhxv1643-13-76 06:20:00* Test Item Value Reference Range Comments Mean Corpuscular Volume (test gckp=017-8) 96.4 81-99 Mean Corpuscular Purvtdamln3202-75-66 06:20:00* Test Item Value Reference Range Comments Mean Corpuscular Hemoglobin (test lmsc=949-2) 30.5 28-32 Mean Corpuscular Hemoglobin Cfjrbos9901-86-82 06:20:00* Test Item Value Reference Range Comments Mean Corpuscular Hemoglobin Concent (test veoy=070-0) 31.6 31-35 Red Cell Distribution Fjbxz3085-72-18 06:20:00* Test Item Value Reference Range Comments Red Cell Distribution Width (test xfbk=49120-9) 13.0 11.7-14.4 Platelet Wxhxt1332-95-88 06:20:00* Test Item Value Reference Range Comments Platelet Count (test rkod=785-1) 314 140-360 Neutrophils (%) (Auto)2019-10-14 06:20:00* Test Item Value Reference Range Comments Neutrophils (%) (Auto) (test epjf=99950-6) 80.6 38.7-80.0 Lymphocytes (%) (Auto)2019-10-14 06:20:00* Test Item Value Reference Range Comments Lymphocytes (%) (Auto) (test epkw=772-3) 18.2 18.0-39.1 Monocytes (%) (Auto)2019-10-14 06:20:00* Test Item Value Reference Range Comments Monocytes (%) (Auto) (test bczy=9786-5) 0.7 4.4-11.3 Eosinophils (%) (Auto)2019-10-14 06:20:00* Test Item Value Reference Range Comments Eosinophils (%) (Auto) (test ewhy=109-4) 0.0 0.0-6.0 Basophils (%) (Auto)2019-10-14 06:20:00* Test Item Value Reference Range Comments Basophils (%) (Auto) (test mzki=458-4) 0.1 0.0-1.0 IM GRANULOCYTES %2019-10-14 06:20:00* Test Item Value Reference Range Comments IM GRANULOCYTES % (test code=IM GRANULOCYTES %) 0.4 0.0-1.0 Neutrophils # (Auto)2019-10-14 06:20:00* Test Item Value Reference Range Comments Neutrophils # (Auto) (test qang=029-8) 6.0 2.1-6.9 Lymphocytes # (Auto)2019-10-14 06:20:00* Test Item Value Reference Range Comments Lymphocytes # (Auto) (test bthd=51101-6) 1.4 1.0-3.2 Monocytes # (Auto)2019-10-14 06:20:00* Test Item Value Reference Range Comments Monocytes # (Auto) (test prwa=471-7) 0.1 0.2-0.8 Eosinophils # (Auto)2019-10-14 06:20:00* Test Item Value Reference Range Comments Eosinophils # (Auto) (test exny=663-6) 0.0 0.0-0.4 Basophils # (Auto)2019-10-14 06:20:00* Test Item Value Reference Range Comments Basophils # (Auto) (test mtvr=192-5) 0.0 0.0-0.1 Absolute Immature Granulocyte (hllg3348-32-58 06:20:00* Test Item Value Reference Range Comments Absolute Immature Granulocyte (auto (test code=Absolute Immature Granulocyte (auto) 0.03 0-0.1 Creatine Kinase TJ8601-17-33 15:14:00* Test Item Value Reference Range Comments Creatine Kinase MB (test ebpy=64761-1) 2.90 0-5.0 Troponin D7877-81-95 15:14:00* Test Item Value Reference Range Comments Troponin I (test oahl=IWV1832) 0.009 0-0.300 Creatine Pupeuc3057-70-92 15:04:00* Test Item Value Reference Range Comments Creatine Kinase (test kxao=1106-4) 26 29-168 Phosphorus Sfyzj2098-41-14 06:26:00* Test Item Value Reference Range Comments Phosphorus Level (test zdul=EQV5039) 3.8 2.3-4.7 Magnesium Izyxb9001-50-74 06:26:00* Test Item Value Reference Range Comments Magnesium Level (test luky=41343-9) 2.0 1.3-2.1 Triglycerides Flljp1482-47-96 06:26:00* Test Item Value Reference Range Comments Triglycerides Level (test shde=0036-0) 137 0-149 Cholesterol Wfgmb3345-53-91 06:26:00* Test Item Value Reference Range Comments Cholesterol Level (test gdoc=2821-6) 145 0-199 Less than 200 mg/dL Low Hxep894 - 239 mg/dL Borderline Aeud360 m g/dl and greater High Risk LDL Didmhpdkaos0757-62-93 06:26:00* Test Item Value Reference Range Comments LDL Cholesterol (test jwir=2953-7) 77 60-130 HDL Znwmoopgvri6988-92-92 06:26:00* Test Item Value Reference Range Comments HDL Cholesterol (test vuqa=0077-0) 41 40-60 Cholesterol/HDL Qbmub6701-42-62 06:26:00* Test Item Value Reference Range Comments Cholesterol/HDL Ratio (test ftmx=0237-2) 3.5 3.0-3.6 Differential Total Cells Qqxdvhj8170-76-90 21:23:00* Test Item Value Reference Range Comments Differential Total Cells Counted (test code=Differential Total Cells Counted) 100 Neutrophils % (Manual)2019-10-12 21:23:00* Test Item Value Reference Range Comments Neutrophils % (Manual) (test uygq=76452-4) 42 40-74 Lymphocytes % (Manual)2019-10-12 21:23:00* Test Item Value Reference Range Comments Lymphocytes % (Manual) (test zhep=551-7) 40 19-48 Monocytes % (Manual)2019-10-12 21:23:00* Test Item Value Reference Range Comments Monocytes % (Manual) (test wytz=932-0) 8 3.4-9.0 Eosinophils % (Manual)2019-10-12 21:23:00* Test Item Value Reference Range Comments Eosinophils % (Manual) (test jpkt=461-4) 3 0-7 Basophils % (Manual)2019-10-12 21:23:00* Test Item Value Reference Range Comments Basophils % (Manual) (test lgob=95334-1) 1 0-1.5 Reactive Okcftgpzver3348-49-18 21:23:00* Test Item Value Reference Range Comments Reactive Lymphocytes (test sgje=93899-4) 6 Platelet Nkjnhvri6231-98-09 21:23:00* Test Item Value Reference Range Comments Platelet Estimate (test cslc=03885-3) ADEQUATE Platelet Morphology Brckaxr0908-20-65 21:23:00* Test Item Value Reference Range Comments Platelet Morphology Comment (test zhul=07462-7) NORMAL Ybvgmoszpefct3569-54-23 21:23:00* Test Item Value Reference Range Comments Hypochromasia (test khwk=032-3) SLIGHT Yelpxiskngpt1795-27-98 21:23:00* Test Item Value Reference Range Comments Anisocytosis (test hbed=546-1) SLIGHT Red Cell Morphology Modzezj8162-19-70 21:23:00* Test Item Value Reference Range Comments Red Cell Morphology Comment (test qucb=0542-1) NORMAL Thyroid Stimulating Hormone (TSH)2019-10-12 15:36:00* Test Item Value Reference Range Comments Thyroid Stimulating Hormone (TSH) (test jpuc=89327-2) 1.673 0.350-4.940 B-Type Natriuretic Ycfgcgc2481-81-92 15:21:00* Test Item Value Reference Range Comments B-Type Natriuretic Peptide (test rfdn=00685-4) 329.0 0-100 Prothrombin Akjj3045-91-12 15:07:00* Test Item Value Reference Range Comments Prothrombin Time (test mzmy=2683-9) 27.5 11.9-14.5 Prothromb Time International Ggpww0739-60-90 15:07:00* Test Item Value Reference Range Comments Prothromb Time International Ratio (test mzoo=9325-4) 2.35 Oral Anticoagulant Therapy INR Values:1. Low Intensity Therapy 1.5 - 2.02 . Moderate Intensity Therapy 2.0 - 3.03. High Intensity Therapy(1) 2.5 - 3. 54. High Intensity Therapy(2) 3.0 - 4.05. Panic Value INR > 5.0 Activated Partial Thromboplast Jaxi4206-15-10 15:07:00* Test Item Value Reference Range Comments Activated Partial Thromboplast Time (test oqgb=21872-3) 37.4 23.8-35.5 Urine BJM3399-72-00 14:52:00* Test Item Value Reference Range Comments Urine WBC (test zzev=5400-5) NONE 0-5 Urine RFW7707-73-34 14:52:00* Test Item Value Reference Range Comments Urine RBC (test mlpo=55724-1) NONE 0-5 Urine Efjsytmd2210-08-28 14:52:00* Test Item Value Reference Range Comments Urine Bacteria (test ticj=29581-8) NONE NONE Urine Epithelial Enrzx7055-60-37 14:52:00* Test Item Value Reference Range Comments Urine Epithelial Cells (test mtqz=26820-4) RARE NONE Urine Bcfyq1234-01-43 14:30:00* Test Item Value Reference Range Comments Urine Color (test thxk=4659-2) YELLOW YELLOW Urine Ghrckwh8370-34-34 14:30:00* Test Item Value Reference Range Comments Urine Clarity (test suqg=59750-8) CLEAR CLEAR Urine Specific Oaohiyg2320-53-07 14:30:00* Test Item Value Reference Range Comments Urine Specific [place] (test czyo=9034-3) 1.025 1.010-1.025 Urine bH6926-71-63 14:30:00* Test Item Value Reference Range Comments Urine pH (test tcgx=80054-5) 7 5-7 Urine Leukocyte Klgeufcw7216-44-93 14:30:00* Test Item Value Reference Range Comments Urine Leukocyte Esterase (test qgou=3798-5) NEGATIVE NEGATIVE Urine Ncptxkp0428-79-86 14:30:00* Test Item Value Reference Range Comments Urine Nitrite (test oyfl=93958-8) NEGATIVE NEGATIVE Urine Vdclqht0495-70-03 14:30:00* Test Item Value Reference Range Comments Urine Protein (test rrgw=4102-7) NEGATIVE NEGATIVE Urine Glucose (UA)2019-10-12 14:30:00* Test Item Value Reference Range Comments Urine Glucose (UA) (test ybwx=4470-6) NEGATIVE NEGATIVE Urine Tvirtrz6287-89-39 14:30:00* Test Item Value Reference Range Comments Urine Ketones (test cpqb=93566-1) NEGATIVE NEGATIVE Urine Auhtwgyxifzz0698-05-01 14:30:00* Test Item Value Reference Range Comments Urine Urobilinogen (test eura=69199-9) 0.2 0.2-1 Urine Npbawoxwr5762-62-49 14:30:00* Test Item Value Reference Range Comments Urine Bilirubin (test cisb=1336-9) NEGATIVE NEGATIVE Urine [id number] 14:30:00* Test Item Value Reference Range Comments Urine Blood (test cbba=96513-8) NEGATIVE NEGATIVE CHEST SINGLE (PORTABLE)2019-10-12 14:16:00 [place] [address] Patient Name: OZZIE ALLEN MR #: [id number] : 1950 Age/Sex: 69/F Req #: [id number] Adm Physician: Ordered by: DOM MARTINS 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 The cardiac size is within normal limits. The left subclavian dual-lead transvenous pacemaker is again noted without interva l change in position. The regional osseous structures are unremarkable. I mpression: 1. No radiographic evidence of acute cardiorespiratory disease. Signed by: Dr. Mauri Cobos MD on 10/12/2019 2:17 PM Dictated By: OSCAR COBOS MD 16 Trans cribed By: KATARINA on 10/12/191416 COPY TO: DOM MARTINS NP MAMMOGRAPHY DIGITAL SCR [id number] 12:39:00 [place] [address] Patient Name: OZZIE ALLEN MR #: [id number] : 1950 Age/Sex: 69/F Req #: [id number] Adm Physician: Ordered by: FLYNN CHAMPAGNE MD Report #: [id number] Location: MAMMO Room/Bed: Procedure: [id number] MG/LINA MOGRAPHY DIGITAL SCR BILAT Exam Date: 10/11/19 Exam Time: 1142 REPORT STATUS: Signed #[id number] - [id number] #BILATERAL FIRST EVER DIGITAL SCREENING MAMMOGRAM WITH CAD: 10/11/2019 CLINICAL: Routine screening. Baseline exam. No p rior exams were available for comparison. The tissue of both breasts is pred ominantly fatty. Current study was also evaluated with a Computer Aided Dete ction (CAD) system. There is an oval equal density mass with a circumscribed margin in the left breast at 1 o'clock middle depth. Scattered bilateral va scular calcifications. No other significant masses, calcifications, or other f indings are seen in either breast. IMPRESSION: INCOMPLETE: NEEDS ADDITION AL IMAGING EVALUATION The oval equal density mass in the left breast is indete rminate. Additional views as well as an ultrasound are recommended. T he patient will be contacted by the Mammography Department to schedule this appo intment. THERESA RODRIGUEZ M.D. kw/:10/19/2019 11:31:51 Imag ing Technologist: Daisy VALENZUELA)([place]), [facility] letter sent: Additional Imaging Needed Mammogram BI-RADS: 0 Indeterminate Dictated By: THERESA RODRIGUEZ MD 1131 Transcribed By: ROGELIO on 10/19/19 1131 COPY TO: FLYNN CHAMPAGNE MD [id number] 15:35:00* Test Item Value Reference Range Comments GLYCOSYLATED HEMOGLOBIN (HA1C) (test code=GLYHGB) 5.4 % HbA1 SUGGESTED DIAGNOSIS: HbA1C (%) Diabetic >6.4Prediabetes 5.7 - 6.4Normal <5.7 ESTIMATED AVERAGE GLUCOSE (test code=EAG) 108 MG/DL LIPID PROFILE (CORONARY RISK)2019-09-22 14:01:00* Test Item Value Reference Range Comments TRIGLYCERIDES (test code=TRIG) 81 mg/dL 20-150 CHOLESTEROL (test code=CHOL) 150 mg/dL 0-200 CHOLESTEROL/HDL RATIO (test code=CHOLHDL) 2.0 RATIO 0-4.9 RISK ASSOCIATED WITH CHOL/HDL RATIOS: Risk Male Female1/2 AVERAGE 3.43 3.27AVERAGE 4.97 4.442X AVERAGE 9.55 7.053X AVERAGE 23.39 11.04 REFERENCE VALUE IS RELATED TO RISK LEVELS ASRECOMMENDED BY THE [facility]. HEART, LUNG, AND BLOOD INST. HDL CHOLESTEROL (test code=HDL) 56 mg/dL 40-60 LIPOPROTEIN LDL (test code=LDL) 81 mg/dL 100-129 Reference Interval: mg/dL mmol/L Optimal <100 <2.6Near/above optimal 100-129 2.6- 3.3Borderline High 130-159 3.4-4.1High 160-189 4.1-4.9Very High >=190 >=4.9=========This LDL result is a direct measurement.========= THYROID STIMULATING [id number] 14:01:00* Test Item Value Reference Range Comments THYROID STIMULATING HORMONE (test code=TSH) 0.925 uIU/mL 0.36-3.74 TSH REFERENCE RANGES: EUTHYROID: 0.35 - 4.3 mIU/mL HYPO : > 5.5 mIU/mL HYPER : < 0.35 mIU/mL [id number] 11:56:00* Test Item Value Reference Range Comments TROPONIN-I (test code=TROPI) <0.015 ng/mL 0-0.045 COMMENTS TO ARC TRIMMER: COLLECT 3 HOURS AFTER PREVIOUS [id number] 10:59:00* Test Item Value Reference Range Comments TROPONIN-I (test code=TROPI) <0.015 ng/mL 0-0.045 COMMENTS TO ARC TRIMMER: COLLECT 3 HOURS AFTER PREVIOUS SAMPLEURINALYSIS [id number] 00:31:00* Test Item Value Reference Range Comments UA COLOR (test code=COLU) YELLOW YELLOW UA APPEARANCE (test code=APPU) SLIGHT HAZY CLEAR UA GLUCOSE DIPSTICK (test code=DGLUU) NEGATIVE mg/dL NEGATIVE UA BILIRUBIN DIPSTICK (test code=BILU) NEGATIVE NEGATIVE UA KETONE DIPSTICK (test code=KETU) NEGATIVE mg/dL NEGATIVE UA SPECIFIC GRAVITY (test code=SGU) 1.010 1.001-1.035 UA BLOOD DIPSTICK (test code=KARO) NEGATIVE NEGATIVE UA PH DIPSTICK (test code=JOEL) 6.0 5.0-8.0 UA PROTEIN DIPSTICK (test code=PROU) NEGATIVE mg/dL Neg-15 UA UROBILINIOGEN DIPSTICK (test code=URO) 0.2 mg/dL 0.0-0.2 UA NITRITE DIPSTICK (test code=KARLEY) POSITIVE NEGATIVE UA LEUKOCYTE ESTERASE DIPSTICK (test code=LEUU) TRACE uL NEGATIVE UA MICROSCOPIC NEEDED? (test code=UAMICRO) YES UA WBC (test code=WBCU) 10-20 per HPF 0-5 UA RBC (test code=RBCU) 0-3 per HPF 0-5 UA EPITHELIAL CELLS (test code=EPIU) Few (2-5/hpf) per HPF Few UA BACTERIA (test code=BACU) MODERATE per HPF NONE Urine Source? Clean CatchURINALYSIS [id number] 00:27:00* Test Item Value Reference Range Comments UA COLOR (test code=COLU) YELLOW YELLOW UA APPEARANCE (test code=APPU) SLIGHT HAZY CLEAR UA GLUCOSE DIPSTICK (test code=DGLUU) NEGATIVE mg/dL NEGATIVE UA BILIRUBIN DIPSTICK (test code=BILU) NEGATIVE NEGATIVE UA KETONE DIPSTICK (test code=KETU) NEGATIVE mg/dL NEGATIVE UA SPECIFIC GRAVITY (test code=SGU) 1.010 1.001-1.035 UA BLOOD DIPSTICK (test code=KARO) NEGATIVE NEGATIVE UA PH DIPSTICK (test code=JOEL) 6.0 5.0-8.0 UA PROTEIN DIPSTICK (test code=PROU) NEGATIVE mg/dL Neg-15 UA UROBILINIOGEN DIPSTICK (test code=URO) 0.2 mg/dL 0.0-0.2 UA NITRITE DIPSTICK (test code=KARLEY) POSITIVE NEGATIVE UA LEUKOCYTE ESTERASE DIPSTICK (test code=LEUU) TRACE uL NEGATIVE UA MICROSCOPIC NEEDED? (test code=UAMICRO) UA WBC (test code=WBCU) per HPF 0-5 UA RBC (test code=RBCU) per HPF 0-5 UA EPITHELIAL CELLS (test code=EPIU) per HPF Few UA BACTERIA (test code=BACU) per HPF NONE Urine Source? Clean CatchLACTIC [id number] 22:16:00* Test Item Value Reference Range Comments LACTIC ACID (test code=LACT) 0.8 MMOL/L 0.4-1.9 COMPREHENSIVE METABOLIC [id number] 22:12:00* Test Item Value Reference Range Comments SODIUM (test code=NA) 141 mmol/L 128-145 POTASSIUM (test code=K) 3.6 mmol/L 3.5-5.1 CHLORIDE (test code=CL) 105.0 mmol/L 98-107 CARBON DIOXIDE (test code=CO2) 27.5 mmol/L 22-29 ANION GAP (test code=GAP) 12 mmol/L 10-20 GLUCOSE (test code=GLU) 106 mg/dL 70-110 BLOOD UREA NITROGEN (test code=BUN) 24 mg/dL 7-22 CREATININE (test code=CREAT) 1.14 mg/dL 0.55-1.3 BUN/CREATININE RATIO (test code=BUN/CREA) 21.1 10-20 TOTAL PROTEIN (test code=PROT) 6.8 gram/dL 6.1-7.8 ALBUMIN (test code=ALB) 3.2 g/dL 3.3-4.4 GLOBULIN (test code=GLOB) 3.6 G/DL 1-10 ALBUMIN/GLOBULIN RATIO (test code=A/G) 0.9 0.75-1.50 CALCIUM (test code=CA) 8.8 mg/dL 8.0-10.5 BILIRUBIN TOTAL (test code=BILT) 0.30 mg/dL 0.2-1.2 SGOT/AST (test code=AST) 13 U/L 10-39 SGPT/ALT (test code=ALT) 29 U/L 10-69 ALKALINE PHOSPHATASE TOTAL (test code=ALKP) 148 U/L 50-139 COMPREHENSIVE METABOLIC [id number] 22:07:00* Test Item Value Reference Range Comments SODIUM (test code=NA) 141 mmol/L 128-145 POTASSIUM (test code=K) 3.6 mmol/L 3.5-5.1 CHLORIDE (test code=CL) 105.0 mmol/L 98-107 CARBON DIOXIDE (test code=CO2) 27.5 mmol/L 22-29 ANION GAP (test code=GAP) 12 mmol/L 10-20 GLUCOSE (test code=GLU) 106 mg/dL 70-110 BLOOD UREA NITROGEN (test code=BUN) 24 mg/dL 7-22 CREATININE (test code=CREAT) 1.14 mg/dL 0.55-1.3 BUN/CREATININE RATIO (test code=BUN/CREA) 21.1 10-20 TOTAL PROTEIN (test code=PROT) gram/dL 6.4-8.2 ALBUMIN (test code=ALB) g/dL 3.4-5.0 GLOBULIN (test code=GLOB) G/DL 1-10 ALBUMIN/GLOBULIN RATIO (test code=A/G) 0.75-1.50 CALCIUM (test code=CA) 8.8 mg/dL 8.0-10.5 BILIRUBIN TOTAL (test code=BILT) mg/dL 0.0-1.0 SGOT/AST (test code=AST) IUnit/L 15-37 SGPT/ALT (test code=ALT) IUnit/L 12-78 ALKALINE PHOSPHATASE TOTAL (test code=ALKP) IUnit/L 45-117 CBC W/AUTO [id number] 21:57:00* Test Item Value Reference Range Comments WHITE BLOOD CELL (test code=WBC) 12.8 K/mm3 4.5-12.5 RED BLOOD CELL (test code=RBC) 3.51 mill/mm3 3.7-5.2 HEMOGLOBIN (test code=HGB) 10.7 gram/dL 11.5-15.5 HEMATOCRIT (test code=HCT) 33.8 % 36.0-46.0 MEAN CELL VOLUME (test code=MCV) 96.3 fL 80-98 MEAN CELL HGB (test code=MCH) 30.5 picogram 27.0-33.0 MEAN CELL HGB CONCETRATION (test code=MCHC) 31.7 gram/dL 33.0-36.0 RED CELL DISTRIBUTION WIDTH (test code=RDW) 12.9 % 11.6-16.2 RED CELL DISTRIBUTION WIDTH SD (test code=RDW-SD) 46.5 fL 37.0-51.0 PLATELET COUNT (test code=PLT) 292 K/mm3 150-450 MEAN PLATELET VOLUME (test code=MPV) 9.9 fL 6.7-11.0 NEUTROPHIL % (test code=NT%) 64.3 % 39.0-69.0 LYMPHOCYTE % (test code=LY%) 22.4 % 25.0-55.0 MONOCYTE % (test code=MO%) 9.1 % 0.0-10.0 EOSINOPHIL % (test code=EO%) 3.5 % 0.0-5.0 BASOPHIL % (test code=BA%) 0.5 % 0.0-1.0 NEUTROPHIL # (test code=NT#) 8.22 K/mm3 1.8-7.7 LYMPHOCYTE # (test code=LY#) 2.87 K/mm3 1.0-5.0 MONOCYTE # (test code=MO#) 1.17 K/mm3 0-0.8 EOSINOPHIL # (test code=EO#) 0.45 K/mm3 0.0-0.5 BASOPHIL # (test code=BA#) 0.07 K/mm3 0.0-0.2 MANUAL DIFF REQUIRED (test code=MDIFF) NO - XR CHEST 2 [id number] 21:54:00 FAX: Yasir Munson MD [phone] [place]: [place] St: REG Name: [facility] : [birth year] Age/S: 69/F [address] [facility] [address] Unit #: [id number] Loc: [facility] [address] Phys: Yasir Mcclellan MD [place], [place] [address] Acct: [id number] Dis Date: Status: REG ER PHONE #: Exam Date: 09/21/2019 2146 FAX #: Reason: infection?? EXAMS: CPT CODE: [id number] XR CHEST 2 V [id number] REASON FOR EXAM: infection?? Exam Order Date: 09/21/2019 9:36 PM Ordering: Yasir Mcclellan MD Attending:Yasir Mcclellan MD Location:[facility] ROCEDURE: - XR CHEST 2 V COMPARISON: 04/07/2019 FIND INGS: PA and lateral views of the chest show clear lungs without evidence of consolidation. No evidence of effusion. The heart size is minimally en larged. Stable appearance of the left subclavian pacemaker. Pulmonary vas culatures are unremarkable. The osseous structures are grossly intact. IMPRESSION: No active disease. at 2153 Reported and signed by: Jose Juarez M.D. CC: Yasir Mcclellan MD Technologist: Sandy Ybarra Trnscrd Date/Time/By: 09/21/2019 (2153) : By: CalvinVTL Orig Print D/T: S: 09/21/2019 (2156) PAGE 1 Signed Report FECES OVA [id number] 09:09:00* Test Item Value Reference Range Comments CONCENTRATE RESULT (test code=CONC) Final report () These results were obtained using wet preparation(s) andtrichrome stained smear. This test does not include testingfor Cryptosporidium parvum, Cyclospora, or Microsporidia. TRICHROME RESULT (test code=TRIC) SOURCE: STOOLSPECIMEN DESCRIPTION: RANDOMFECES OVA [id number] 09:09:00* Test Item Value Reference Range Comments CONCENTRATE RESULT (test code=CONC) Final report () These results were obtained using wet preparation(s) andtrichrome stained smear. This test does not include testingfor Cryptosporidium parvum, Cyclospora, or Microsporidia. TRICHROME RESULT (test code=TRIC) () No ova, cysts, or parasites seen.One negative specimen does not rule out the possibility ofa parasitic infection.Performed At: [facility] [address] [place], [place] [id number] Manolo Roberts MD Ph:[phone] SOURCE: STOOLSPECIMEN DESCRIPTION: RANDOMCOMPREHENSIVE METABOLIC PANEL 2019-05-12 14:22:00* Test Item Value Reference Range Comments SODIUM (test code=NA) 140 mmol/L 136-145 POTASSIUM (test code=K) 4.3 mmol/L 3.5-5.1 CHLORIDE (test code=CL) 107.0 mmol/L 98-107 CARBON DIOXIDE (test code=CO2) 26.0 mmol/L 21-32 ANION GAP (test code=GAP) 11.3 10-20 GLUCOSE (test code=GLU) 120 mg/dL 74-106 BLOOD UREA NITROGEN (test code=BUN) 24 mg/dL 7-18 GLOMERULAR FILTRATION RATE (test code=GFR) > 60 mL/min >=60 Estimated GFR by using Modified MDRD formula.Chronic kidney disease is defined as either kidney damageor GFR <60 mL/min/1.73 m2 for >3 months. CREATININE (test code=CREAT) 0.90 mg/dL 0.55-1.02 Note change in reference range due to change in reagent. BUN/CREATININE RATIO (test code=BUN/CREA) 26.0 10-20 TOTAL PROTEIN (test code=PROT) 7.3 gram/dL 6.4-8.2 ALBUMIN (test code=ALB) 3.5 g/dL 3.4-5.0 GLOBULIN (test code=GLOB) 3.8 gram/dL 2.7-4.2 ALBUMIN/GLOBULIN RATIO (test code=A/G) 0.9 0.75-1.50 CALCIUM (test code=CA) 9.5 mg/dL 8.5-10.1 BILIRUBIN TOTAL (test code=BILT) 0.40 mg/dL 0.0-1.0 SGOT/AST (test code=AST) 41 IUnit/L 15-37 SGPT/ALT (test code=ALT) 199 IUnit/L 12-78 ALKALINE PHOSPHATASE TOTAL (test code=ALKP) 450 IUnit/L 45-117 Note change in reference range due to change in reagent. PT LEONOR BRAR [id number] METABOLIC [id number] 14:12:00 * Test Item Value Reference Range Comments SODIUM (test code=NA) 140 mmol/L 136-145 POTASSIUM (test code=K) 4.3 mmol/L 3.5-5.1 CHLORIDE (test code=CL) 107.0 mmol/L 98-107 CARBON DIOXIDE (test code=CO2) mmol/L 21-32 ANION GAP (test code=GAP) 10-20 GLUCOSE (test code=GLU) mg/dL 74-106 BLOOD UREA NITROGEN (test code=BUN) mg/dL 7-18 GLOMERULAR FILTRATION RATE (test code=GFR) mL/min >=60 CREATININE (test code=CREAT) mg/dL 0.55-1.02 BUN/CREATININE RATIO (test code=BUN/CREA) 10-20 TOTAL PROTEIN (test code=PROT) gram/dL 6.4-8.2 ALBUMIN (test code=ALB) g/dL 3.4-5.0 GLOBULIN (test code=GLOB) gram/dL 2.7-4.2 ALBUMIN/GLOBULIN RATIO (test code=A/G) 0.75-1.50 CALCIUM (test code=CA) mg/dL 8.5-10.1 BILIRUBIN TOTAL (test code=BILT) mg/dL 0.0-1.0 SGOT/AST (test code=AST) IUnit/L 15-37 SGPT/ALT (test code=ALT) IUnit/L 12-78 ALKALINE PHOSPHATASE TOTAL (test code=ALKP) IUnit/L 45-117 PT LEONOR BRAR [id number] [id number] 13:10:00* Test Item Value Reference Range Comments LACTIC ACID (test code=LACT) 0.7 mmol/L 0.4-1.9 HEPATITIS C BY [id number] 13:10:00* Test Item Value Reference Range Comments HEPATITIS C RNA BY PCR (QUAL) (test code=HCVRNAPCR) Negative Negative Negative: HCV RNA Not DetectedPerformed At: [facility] [id number] Parra MD Ph:[phone] HEPATITIS B [id number] 05:09:00* Test Item Value Reference Range Comments AB HEPATITIS B SURFACE (test code=HBSAB) Reactive () Non Reactive: Inconsistent with immunity, less than 10 mIU/mL Reactive: Consistent with immunity, greater than 9.9 mIU/mLPerformed At: [facility] [address] [id number] Roberts MD Ph:[phone] At: [facility] [id number] Parra MD P h:[phone] AG HEPAT B SURF (test code=HBSAG) Negative Negative HEPATITIS B CORE ANTIBODY,TOT (test code=HBCAB) Negative Negative HEPATITIS B CORE ANTIBODY,IGM (test code=HBCMAB) Negative Negative AG HEPATITIS BE (test code=HBEAG) Negative Negative AB HEPATITIS BE (test code=HBEAB) Negative Negative CBC W/O [id number] 13:34:00* Test Item Value Reference Range Comments WHITE BLOOD CELL (test code=WBC) 11.2 K/mm3 4.5-12.5 RED BLOOD CELL (test code=RBC) 4.00 mill/mm3 3.7-5.2 HEMOGLOBIN (test code=HGB) 12.3 gram/dL 11.5-15.5 HEMATOCRIT (test code=HCT) 37.9 % 36.0-46.0 MEAN CELL VOLUME (test code=MCV) 94.8 fL 80-98 MEAN CELL HGB (test code=MCH) 30.8 picogram 27.0-33.0 MEAN CELL HGB CONCETRATION (test code=MCHC) 32.5 gram/dL 33.0-36.0 RED CELL DISTRIBUTION WIDTH (test code=RDW) 13.2 % 11.6-16.2 PLATELET COUNT (test code=PLT) 314 K/mm3 150-450 MEAN PLATELET VOLUME (test code=MPV) 10.7 fL 6.7-11.0 COMPREHENSIVE METABOLIC [id number] 18:00:00* Test Item Value Reference Range Comments SODIUM (test code=NA) 143 mmol/L 136-145 POTASSIUM (test code=K) 3.8 mmol/L 3.5-5.1 CHLORIDE (test code=CL) 109.0 mmol/L 98-107 CARBON DIOXIDE (test code=CO2) 23.0 mmol/L 21-32 ANION GAP (test code=GAP) 14.8 10-20 GLUCOSE (test code=GLU) 123 mg/dL 74-106 BLOOD UREA NITROGEN (test code=BUN) 22 mg/dL 7-18 RESULT VERIFIED BY REPEAT ANALYSIS GLOMERULAR FILTRATION RATE (test code=GFR) 40 mL/min >=60 Estimated GFR by using Modified MDRD formula.Chronic kidney disease is defined as either kidney damageor GFR <60 mL/min/1.73 m2 for >3 months. CREATININE (test code=CREAT) 1.30 mg/dL 0.55-1.02 Note change in reference range due to change in reagent. BUN/CREATININE RATIO (test code=BUN/CREA) 16.9 10-20 TOTAL PROTEIN (test code=PROT) 6.2 gram/dL 6.4-8.2 ALBUMIN (test code=ALB) 3.3 g/dL 3.4-5.0 GLOBULIN (test code=GLOB) 2.9 gram/dL 2.7-4.2 ALBUMIN/GLOBULIN RATIO (test code=A/G) 1.1 0.75-1.50 CALCIUM (test code=CA) 9.4 mg/dL 8.5-10.1 BILIRUBIN TOTAL (test code=BILT) 0.40 mg/dL 0.0-1.0 SGOT/AST (test code=AST) 141 IUnit/L 15-37 SGPT/ALT (test code=ALT) 367 IUnit/L 12-78 ALKALINE PHOSPHATASE TOTAL (test code=ALKP) 539 IUnit/L 45-117 Note change in reference range due to change in reagent. COMPREHENSIVE METABOLIC [id number] 17:45:00* Test Item Value Reference Range Comments SODIUM (test code=NA) 143 mmol/L 136-145 POTASSIUM (test code=K) 3.8 mmol/L 3.5-5.1 CHLORIDE (test code=CL) 109.0 mmol/L 98-107 CARBON DIOXIDE (test code=CO2) mmol/L 21-32 ANION GAP (test code=GAP) 10-20 GLUCOSE (test code=GLU) mg/dL 74-106 BLOOD UREA NITROGEN (test code=BUN) mg/dL 7-18 GLOMERULAR FILTRATION RATE (test code=GFR) mL/min >=60 CREATININE (test code=CREAT) mg/dL 0.55-1.02 BUN/CREATININE RATIO (test code=BUN/CREA) 10-20 TOTAL PROTEIN (test code=PROT) gram/dL 6.4-8.2 ALBUMIN (test code=ALB) g/dL 3.4-5.0 GLOBULIN (test code=GLOB) gram/dL 2.7-4.2 ALBUMIN/GLOBULIN RATIO (test code=A/G) 0.75-1.50 CALCIUM (test code=CA) mg/dL 8.5-10.1 BILIRUBIN TOTAL (test code=BILT) mg/dL 0.0-1.0 SGOT/AST (test code=AST) IUnit/L 15-37 SGPT/ALT (test code=ALT) IUnit/L 12-78 ALKALINE PHOSPHATASE TOTAL (test code=ALKP) IUnit/L 45-117 COMPREHENSIVE METABOLIC [id number] 12:52:00* Test Item Value Reference Range Comments SODIUM (test code=NA) 142 mmol/L 136-145 POTASSIUM (test code=K) 4.0 mmol/L 3.5-5.1 CHLORIDE (test code=CL) 108.0 mmol/L 98-107 CARBON DIOXIDE (test code=CO2) 27.0 mmol/L 21-32 ANION GAP (test code=GAP) 11.0 10-20 GLUCOSE (test code=GLU) 129 mg/dL 74-106 BLOOD UREA NITROGEN (test code=BUN) 18 mg/dL 7-18 GLOMERULAR FILTRATION RATE (test code=GFR) 55 mL/min >=60 Estimated GFR by using Modified MDRD formula.Chronic kidney disease is defined as either kidney damageor GFR <60 mL/min/1.73 m2 for >3 months. CREATININE (test code=CREAT) 1.00 mg/dL 0.55-1.02 Note change in reference range due to change in reagent. BUN/CREATININE RATIO (test code=BUN/CREA) 17.5 10-20 TOTAL PROTEIN (test code=PROT) 6.4 gram/dL 6.4-8.2 ALBUMIN (test code=ALB) 3.3 g/dL 3.4-5.0 GLOBULIN (test code=GLOB) 3.1 gram/dL 2.7-4.2 ALBUMIN/GLOBULIN RATIO (test code=A/G) 1.1 0.75-1.50 CALCIUM (test code=CA) 9.4 mg/dL 8.5-10.1 BILIRUBIN TOTAL (test code=BILT) 0.40 mg/dL 0.0-1.0 SGOT/AST (test code=AST) 179 IUnit/L 15-37 SGPT/ALT (test code=ALT) 407 IUnit/L 12-78 ALKALINE PHOSPHATASE TOTAL (test code=ALKP) 594 IUnit/L 45-117 Note change in reference range due to change in reagent. PT WAS A HARD STICK NOTIFIED NURSE MARIA FERNANDA-[id number] V.LAB.05/10/19 1057 COMPREHENSIVE METABOLIC [id number] 12:44:00* Test Item Value Reference Range Comments SODIUM (test code=NA) 142 mmol/L 136-145 POTASSIUM (test code=K) 4.0 mmol/L 3.5-5.1 CHLORIDE (test code=CL) 108.0 mmol/L 98-107 CARBON DIOXIDE (test code=CO2) mmol/L 21-32 ANION GAP (test code=GAP) 10-20 GLUCOSE (test code=GLU) mg/dL 74-106 BLOOD UREA NITROGEN (test code=BUN) mg/dL 7-18 GLOMERULAR FILTRATION RATE (test code=GFR) mL/min >=60 CREATININE (test code=CREAT) mg/dL 0.55-1.02 BUN/CREATININE RATIO (test code=BUN/CREA) 10-20 TOTAL PROTEIN (test code=PROT) gram/dL 6.4-8.2 ALBUMIN (test code=ALB) g/dL 3.4-5.0 GLOBULIN (test code=GLOB) gram/dL 2.7-4.2 ALBUMIN/GLOBULIN RATIO (test code=A/G) 0.75-1.50 CALCIUM (test code=CA) mg/dL 8.5-10.1 BILIRUBIN TOTAL (test code=BILT) mg/dL 0.0-1.0 SGOT/AST (test code=AST) IUnit/L 15-37 SGPT/ALT (test code=ALT) IUnit/L 12-78 ALKALINE PHOSPHATASE TOTAL (test code=ALKP) IUnit/L 45-117 PT WAS A HARD STICK NOTIFIED NURSE MARIA [id number] V.LAB.05/10/19 1057 COMPREHENSIVE METABOLIC [id number] 14:41:00* Test Item Value Reference Range Comments SODIUM (test code=NA) 139 mmol/L 136-145 POTASSIUM (test code=K) 3.7 mmol/L 3.5-5.1 CHLORIDE (test code=CL) 106.0 mmol/L 98-107 CARBON DIOXIDE (test code=CO2) 23.0 mmol/L 21-32 ANION GAP (test code=GAP) 13.7 10-20 GLUCOSE (test code=GLU) 146 mg/dL 74-106 BLOOD UREA NITROGEN (test code=BUN) 16 mg/dL 7-18 GLOMERULAR FILTRATION RATE (test code=GFR) > 60 mL/min >=60 Estimated GFR by using Modified MDRD formula.Chronic kidney disease is defined as either kidney damageor GFR <60 mL/min/1.73 m2 for >3 months. CREATININE (test code=CREAT) 0.90 mg/dL 0.55-1.02 Note change in reference range due to change in reagent. BUN/CREATININE RATIO (test code=BUN/CREA) 16.9 10-20 TOTAL PROTEIN (test code=PROT) 7.0 gram/dL 6.4-8.2 ALBUMIN (test code=ALB) 3.3 g/dL 3.4-5.0 GLOBULIN (test code=GLOB) 3.7 gram/dL 2.7-4.2 ALBUMIN/GLOBULIN RATIO (test code=A/G) 0.9 0.75-1.50 CALCIUM (test code=CA) 9.3 mg/dL 8.5-10.1 BILIRUBIN TOTAL (test code=BILT) 0.50 mg/dL 0.0-1.0 SGOT/AST (test code=AST) 521 IUnit/L 15-37 SGPT/ALT (test code=ALT) 639 IUnit/L 12-78 ALKALINE PHOSPHATASE TOTAL (test code=ALKP) 688 IUnit/L 45-117 Note change in reference range due to change in reagent. COMPREHENSIVE METABOLIC [id number] 14:32:00* Test Item Value Reference Range Comments SODIUM (test code=NA) 139 mmol/L 136-145 POTASSIUM (test code=K) 3.7 mmol/L 3.5-5.1 CHLORIDE (test code=CL) 106.0 mmol/L 98-107 CARBON DIOXIDE (test code=CO2) mmol/L 21-32 ANION GAP (test code=GAP) 10-20 GLUCOSE (test code=GLU) mg/dL 74-106 BLOOD UREA NITROGEN (test code=BUN) mg/dL 7-18 GLOMERULAR FILTRATION RATE (test code=GFR) mL/min >=60 CREATININE (test code=CREAT) mg/dL 0.55-1.02 BUN/CREATININE RATIO (test code=BUN/CREA) 10-20 TOTAL PROTEIN (test code=PROT) gram/dL 6.4-8.2 ALBUMIN (test code=ALB) g/dL 3.4-5.0 GLOBULIN (test code=GLOB) gram/dL 2.7-4.2 ALBUMIN/GLOBULIN RATIO (test code=A/G) 0.75-1.50 CALCIUM (test code=CA) mg/dL 8.5-10.1 BILIRUBIN TOTAL (test code=BILT) mg/dL 0.0-1.0 SGOT/AST (test code=AST) IUnit/L 15-37 SGPT/ALT (test code=ALT) IUnit/L 12-78 ALKALINE PHOSPHATASE TOTAL (test code=ALKP) IUnit/L 45-117 COMPREHENSIVE METABOLIC [id number] 11:50:00* Test Item Value Reference Range Comments SODIUM (test code=NA) 141 mmol/L 136-145 POTASSIUM (test code=K) 3.7 mmol/L 3.5-5.1 CHLORIDE (test code=CL) 109.0 mmol/L 98-107 CARBON DIOXIDE (test code=CO2) 24.0 mmol/L 21-32 ANION GAP (test code=GAP) 11.7 10-20 GLUCOSE (test code=GLU) 92 mg/dL 74-106 BLOOD UREA NITROGEN (test code=BUN) 18 mg/dL 7-18 GLOMERULAR FILTRATION RATE (test code=GFR) > 60 mL/min >=60 Estimated GFR by using Modified MDRD formula.Chronic kidney disease is defined as either kidney damageor GFR <60 mL/min/1.73 m2 for >3 months. CREATININE (test code=CREAT) 0.80 mg/dL 0.55-1.02 Note change in reference range due to change in reagent. BUN/CREATININE RATIO (test code=BUN/CREA) 21.9 10-20 TOTAL PROTEIN (test code=PROT) 6.4 gram/dL 6.4-8.2 ALBUMIN (test code=ALB) 3.1 g/dL 3.4-5.0 GLOBULIN (test code=GLOB) 3.3 gram/dL 2.7-4.2 ALBUMIN/GLOBULIN RATIO (test code=A/G) 0.9 0.75-1.50 CALCIUM (test code=CA) 9.2 mg/dL 8.5-10.1 BILIRUBIN TOTAL (test code=BILT) 0.60 mg/dL 0.0-1.0 SGOT/AST (test code=AST) 562 IUnit/L 15-37 SGPT/ALT (test code=ALT) 630 IUnit/L 12-78 ALKALINE PHOSPHATASE TOTAL (test code=ALKP) 658 IUnit/L 45-117 Note change in reference range due to change in reagent. [id number] 11:50:00* Test Item Value Reference Range Comments MAGNESIUM (test code=MAG) 2.0 mg/dL 1.8-2.4 COMPREHENSIVE METABOLIC [id number] 11:45:00* Test Item Value Reference Range Comments SODIUM (test code=NA) 141 mmol/L 136-145 POTASSIUM (test code=K) 3.7 mmol/L 3.5-5.1 CHLORIDE (test code=CL) 109.0 mmol/L 98-107 CARBON DIOXIDE (test code=CO2) mmol/L 21-32 ANION GAP (test code=GAP) 10-20 GLUCOSE (test code=GLU) mg/dL 74-106 BLOOD UREA NITROGEN (test code=BUN) mg/dL 7-18 GLOMERULAR FILTRATION RATE (test code=GFR) mL/min >=60 CREATININE (test code=CREAT) mg/dL 0.55-1.02 BUN/CREATININE RATIO (test code=BUN/CREA) 10-20 TOTAL PROTEIN (test code=PROT) gram/dL 6.4-8.2 ALBUMIN (test code=ALB) g/dL 3.4-5.0 GLOBULIN (test code=GLOB) gram/dL 2.7-4.2 ALBUMIN/GLOBULIN RATIO (test code=A/G) 0.75-1.50 CALCIUM (test code=CA) mg/dL 8.5-10.1 BILIRUBIN TOTAL (test code=BILT) mg/dL 0.0-1.0 SGOT/AST (test code=AST) IUnit/L 15-37 SGPT/ALT (test code=ALT) IUnit/L 12-78 ALKALINE PHOSPHATASE TOTAL (test code=ALKP) IUnit/L 45-117 [id number] 11:45:00* Test Item Value Reference Range Comments MAGNESIUM (test code=MAG) mg/dL 1.8-2.4 CBC W/AUTO [id number] 11:21:00* Test Item Value Reference Range Comments WHITE BLOOD CELL (test code=WBC) 7.9 K/mm3 4.5-12.5 RED BLOOD CELL (test code=RBC) 3.50 mill/mm3 3.7-5.2 HEMOGLOBIN (test code=HGB) 10.8 gram/dL 11.5-15.5 HEMATOCRIT (test code=HCT) 33.6 % 36.0-46.0 MEAN CELL VOLUME (test code=MCV) 96.0 fL 80-98 MEAN CELL HGB (test code=MCH) 30.9 picogram 27.0-33.0 MEAN CELL HGB CONCETRATION (test code=MCHC) 32.1 gram/dL 33.0-36.0 RED CELL DISTRIBUTION WIDTH (test code=RDW) 13.0 % 11.6-16.2 RED CELL DISTRIBUTION WIDTH SD (test code=RDW-SD) 46.0 fL 37.0-51.0 PLATELET COUNT (test code=PLT) 251 K/mm3 150-450 RESULT VERIFIED BY REPEAT ANALYSIS MEAN PLATELET VOLUME (test code=MPV) 10.8 fL 6.7-11.0 NEUTROPHIL % (test code=NT%) 65.9 % 39.0-69.0 IMMATURE GRANULOCYTE % (test code=IG%) 0.4 % 0.0-5.0 LYMPHOCYTE % (test code=LY%) 21.1 % 25.0-55.0 MONOCYTE % (test code=MO%) 7.7 % 0.0-10.0 EOSINOPHIL % (test code=EO%) 4.0 % 0.0-5.0 BASOPHIL % (test code=BA%) 0.9 % 0.0-1.0 NUCLEATED RBC % (test code=NRBC%) 0.0 % 0-0 NEUTROPHIL # (test code=NT#) 5.23 K/mm3 1.8-7.7 IMMATURE GRANULOCYTE # (test code=IG#) 0.03 x10 3/uL 0-0.03 LYMPHOCYTE # (test code=LY#) 1.67 K/mm3 1.0-5.0 MONOCYTE # (test code=MO#) 0.61 K/mm3 0-0.8 EOSINOPHIL # (test code=EO#) 0.32 K/mm3 0.0-0.5 BASOPHIL # (test code=BA#) 0.07 K/mm3 0.0-0.2 NUCLEATED RBC # (test code=NRBC#) 0.00 K/mm3 0.0-0.1 MANUAL DIFF REQUIRED (test code=MDIFF) NO HEPATIC FUNCTION [id number] 09:43:00* Test Item Value Reference Range Comments TOTAL PROTEIN (test code=PROT) 6.2 gram/dL 6.4-8.2 ALBUMIN (test code=ALB) 3.1 g/dL 3.4-5.0 GLOBULIN (test code=GLOB) 3.1 gram/dL 2.7-4.2 ALBUMIN/GLOBULIN RATIO (test code=A/G) 1.0 0.75-1.50 BILIRUBIN TOTAL (test code=BILT) 0.80 mg/dL 0.0-1.0 BILIRUBIN DIRECT (test code=BILD) 0.43 mg/dL 0.0-0.20 SGOT/AST (test code=AST) 1393 IUnit/L 15-37 SGPT/ALT (test code=ALT) 793 IUnit/L 12-78 ALKALINE PHOSPHATASE TOTAL (test code=ALKP) 690 IUnit/L 45-117 Note change in reference range due to change in reagent. [id number] 09:30:00* Test Item Value Reference Range Comments ACETAMINOPHEN (test code=ACET) < 10 mcg/mL 10-30 A RANGE OF 10-30 mcg/mL IS A THERAPEUTIC RANGE. TOXIC CONCENTRATIONS: >150 mcg/mL AT 4 HOURS AFTER INGESTION >=50 mcg/mL AT 12 HOURS AFTER INGESTION LACTIC [id number] 09:29:00* Test Item Value Reference Range Comments LACTIC ACID (test code=LACT) 0.7 mmol/L 0.4-1.9 HEPATITIS C BY [id number] 09:29:00* Test Item Value Reference Range Comments HEPATITIS C RNA BY PCR (QUAL) (test code=HCVRNAPCR) Notdetected PROTHROMBIN [id number] 08:52:00* Test Item Value Reference Range Comments PROTHROMBIN TIME PATIENT (test code=PTP) 11.4 seconds 9.0-14.0 INTERNATIONAL NORMAL RATIO (test code=INR) 1.0 0.8-1.2 The therapeutic range for oral anticoagulant therapy formost indications is an international normalized ratio (INR)of between 2.0 and 3.0. The recommended therapeutic INRrange for various clinical situations is listed below: Clinical Situation INR range Pulmonary e mbolism treatment (2.0-3.0)Venous thrombosis treatmentVenous thrombosis prophylaxis (high risk surgery)Prevention of systemic embolism from: Acute myocardial infarction Valvular heart disease Atrial fibrillation Mechanical prosthetic heart valves (2.5-3.5) IS PATIENT ON ANTICOAGULANTS? YLIST ANTICOAGULANTS New PROTHROMBIN TIME 2019-05-08 00:24:00* Test Item Value Reference Range Comments PROTHROMBIN TIME PATIENT (test code=PTP) 9.8 seconds 9.0-14.0 INTERNATIONAL NORMAL RATIO (test code=INR) 1.0 0.8-1.2 The therapeutic range for oral anticoagulant therapy formost indications is an international normalized ratio (INR)of between 2.0 and 3.0. The recommended therapeutic INRrange for various clinical situations is listed below: Clinical Situation INR range Pulmonary e mbolism treatment (2.0-3.0)Venous thrombosis treatmentVenous thrombosis prophylaxis (high risk surgery)Prevention of systemic embolism from: Acute myocardial infarction Valvular heart disease Atrial fibrillation Mechanical prosthetic heart valves (2.5-3.5) IS PATIENT ON ANTICOAGULANTS? NTHROMBOPLASTIN TIME [id number] 00:24:00* Test Item Value Reference Range Comments THROMBOPLASTIN TIME PARTIAL (test code=PTT) 24.6 seconds 25.0-36.5 IS PATIENT ON ANTICOAGULANTS? N- CT ABD PELVIS [id number] 21:05:00 Name: OZZIE ALLEN [facility] FSED : 1950 Age/S: 69 / F [address] [facility] [address] Unit #: [id number] Loc: [address] Phys: Christopher Moon MD [place], [place] [address] Acct: [id number] Di s Date: Status: REG ER PHONE #: Exam Date: 05/07/20192046 FAX #: Reason: abd pain EXAMS: CPT CODE: [id number] CT ABD PELVIS W/CONT 81941 REASON FOR EXAM: abd pain EXAM ORDER DATE: 05/07/2019 7:40 PM Ordering MKatrin: Rikki Moon MD PROCEDURE: - CT ABD PELVIS W/CONT COMPARISON: FINDINGS: CT images of the abdomen and pelvis were obtained with IV and without oral contrast at 5mm. Dose modulation, i terative reconstruction, and/or weight based adjustment of the MA/KV was utilized to reduce the radiation dose to as low as reasonably achieva ble. Intravenous contrast: 100cc of Omnipaque 370. The liver, spleen, pancreas are grossly within normal limits. The patient is status post cholecystectomy Bilateral renal cysts (3.5 cm) The urinary bladder is unremarkable. The colon, small bowel, and sto mach are within normal limits without evidence of obstruction. 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 The patient is status post hysterectomy IMPRESSION: 2 small midline ventral hernias with herniation of mesenteric fat through the he rnia neck. No evidence of bowel entrapment or obstruction E lectronically Signed by David Juarez on 05/07/2019 at 2105 Reported and signed by: Jose Juarez M.D. PAGE 1 Signed Report (CONTINUED) Name: OZZIE ALLEN [facility] FSED : 1950 Age/S: 69 / F [address] [facility] [address] Unit #: [id number] Loc: [address] Phys: Rikki Moon MD [place], [facility] [address] Acct: [id number] Dis Date: Status: REG ER PHONE #: Exam Date: 572 6 FAX #: Reason: abd pain EXAMS: CPT CODE: [id number] CT ABD PELVIS W/CONT 62935 <Continued> CC: Rikki Moon MD Technologist:Misha Cardenas CTDI: DLP: Trnscb Date/Time: 05/07/2019 (2104) [email or web address] Orig Print D/T: S: 05/07/2019 (2107) PAGE 2 Signed Report BASIC METABOLIC PANEL 2019-05-07 20:02:00* Test Item Value Reference Range Comments SODIUM (test code=NA) 143 mmol/L 128-145 POTASSIUM (test code=K) 4.1 mmol/L 3.5-5.1 CHLORIDE (test code=CL) 107.0 mmol/L 98-107 CARBON DIOXIDE (test code=CO2) 27.8 mmol/L 22-29 ANION GAP (test code=GAP) 12 mmol/L 10-20 GLUCOSE (test code=GLU) 104 mg/dL 70-110 BLOOD UREA NITROGEN (test code=BUN) 28 mg/dL 7-22 GLOMERULAR FILTRATION RATE (test code=GFR) 46 mL/min >=60 Estimated GFR by using Modified MDRD formula.Chronic kidney disease is defined as either kidney damageor GFR <60 mL/min/1.73 m2 for >3 months. CREATININE (test code=CREAT) 1.16 mg/dL 0.55-1.3 BUN/CREATININE RATIO (test code=BUN/CREA) 24.1 10-20 CALCIUM (test code=CA) 9.3 mg/dL 8.0-10.5 HEPATIC FUNCTION [id number] 20:02:00* Test Item Value Reference Range Comments TOTAL PROTEIN (test code=PROT) 7.5 gram/dL 6.1-7.8 ALBUMIN (test code=ALB) 3.6 g/dL 3.3-4.4 GLOBULIN (test code=GLOB) 3.9 G/DL 1-10 ALBUMIN/GLOBULIN RATIO (test code=A/G) 0.9 0.75-1.50 BILIRUBIN TOTAL (test code=BILT) 1.10 mg/dL 0.2-1.2 BILIRUBIN DIRECT (test code=BILD) 0.80 mg/dL 0.0-0.30 SGOT/AST (test code=AST) 901 U/L 10-39 SGPT/ALT (test code=ALT) 359 U/L 10-69 ALKALINE PHOSPHATASE TOTAL (test code=ALKP) 681 U/L 50-139 [id number] 20:02:00* Test Item Value Reference Range Comments LIPASE (test code=LIP) 47 Unit/L 144-286 BASIC METABOLIC [id number] 19:58:00* Test Item Value Reference Range Comments SODIUM (test code=NA) 143 mmol/L 128-145 POTASSIUM (test code=K) 4.1 mmol/L 3.5-5.1 CHLORIDE (test code=CL) 107.0 mmol/L 98-107 CARBON DIOXIDE (test code=CO2) 27.8 mmol/L 22-29 ANION GAP (test code=GAP) 12 mmol/L 10-20 GLUCOSE (test code=GLU) 104 mg/dL 70-110 BLOOD UREA NITROGEN (test code=BUN) 28 mg/dL 7-22 GLOMERULAR FILTRATION RATE (test code=GFR) 46 mL/min >=60 Estimated GFR by using Modified MDRD formula.Chronic kidney disease is defined as either kidney damageor GFR <60 mL/min/1.73 m2 for >3 months. CREATININE (test code=CREAT) 1.16 mg/dL 0.55-1.3 BUN/CREATININE RATIO (test code=BUN/CREA) 24.1 10-20 CALCIUM (test code=CA) 9.3 mg/dL 8.0-10.5 HEPATIC FUNCTION [id number] 19:58:00* Test Item Value Reference Range Comments TOTAL PROTEIN (test code=PROT) gram/dL 6.4-8.2 ALBUMIN (test code=ALB) g/dL 3.4-5.0 GLOBULIN (test code=GLOB) G/DL 1-10 ALBUMIN/GLOBULIN RATIO (test code=A/G) 0.75-1.50 BILIRUBIN TOTAL (test code=BILT) mg/dL 0.0-1.0 BILIRUBIN DIRECT (test code=BILD) mg/dL 0.0-0.20 SGOT/AST (test code=AST) IUnit/L 15-37 SGPT/ALT (test code=ALT) IUnit/L 12-78 ALKALINE PHOSPHATASE TOTAL (test code=ALKP) IUnit/L 45-117 [id number] 19:58:00* Test Item Value Reference Range Comments LIPASE (test code=LIP) U/L 73.0-393.0 URINALYSIS [id number] 19:55:00* Test Item Value Reference Range Comments UA COLOR (test code=COLU) YELLOW YELLOW UA APPEARANCE (test code=APPU) HAZY CLEAR UA GLUCOSE DIPSTICK (test code=DGLUU) NEGATIVE mg/dL NEGATIVE UA BILIRUBIN DIPSTICK (test code=BILU) 1+ (Small 0.5-1.0) NEGATIVE UA KETONE DIPSTICK (test code=KETU) NEGATIVE mg/dL NEGATIVE UA SPECIFIC GRAVITY (test code=SGU) 1.020 1.001-1.035 UA BLOOD DIPSTICK (test code=KARO) 1+ (Small) NEGATIVE UA PH DIPSTICK (test code=JOEL) 6.0 5.0-8.0 UA PROTEIN DIPSTICK (test code=PROU) TRACE (15) mg/dL Neg-15 UA UROBILINIOGEN DIPSTICK (test code=URO) 0.2 mg/dL 0.0-0.2 UA NITRITE DIPSTICK (test code=KARLEY) NEGATIVE NEGATIVE UA LEUKOCYTE ESTERASE DIPSTICK (test code=LEUU) 1+ uL NEGATIVE UA MICROSCOPIC NEEDED? (test code=UAMICRO) YES UA WBC (test code=WBCU) 10-20 per HPF 0-5 UA RBC (test code=RBCU) 0-3 per HPF 0-5 UA EPITHELIAL CELLS (test code=EPIU) Moderate (5-10/hpf) per HPF Few UA BACTERIA (test code=BACU) MANY per HPF NONE Urine Source? Clean CatchURINALYSIS [id number] 19:48:00* Test Item Value Reference Range Comments UA COLOR (test code=COLU) YELLOW YELLOW UA APPEARANCE (test code=APPU) HAZY CLEAR UA GLUCOSE DIPSTICK (test code=DGLUU) NEGATIVE mg/dL NEGATIVE UA BILIRUBIN DIPSTICK (test code=BILU) 1+ (Small 0.5-1.0) NEGATIVE UA KETONE DIPSTICK (test code=KETU) NEGATIVE mg/dL NEGATIVE UA SPECIFIC GRAVITY (test code=SGU) 1.020 1.001-1.035 UA BLOOD DIPSTICK (test code=KARO) 1+ (Small) NEGATIVE UA PH DIPSTICK (test code=JOEL) 6.0 5.0-8.0 UA PROTEIN DIPSTICK (test code=PROU) TRACE (15) mg/dL Neg-15 UA UROBILINIOGEN DIPSTICK (test code=URO) 0.2 mg/dL 0.0-0.2 UA NITRITE DIPSTICK (test code=KARLEY) NEGATIVE NEGATIVE UA LEUKOCYTE ESTERASE DIPSTICK (test code=LEUU) 1+ uL NEGATIVE UA MICROSCOPIC NEEDED? (test code=UAMICRO) UA WBC (test code=WBCU) per HPF 0-5 UA RBC (test code=RBCU) per HPF 0-5 UA EPITHELIAL CELLS (test code=EPIU) per HPF Few UA BACTERIA (test code=BACU) per HPF NONE Urine Source? Clean CatchCBC W/O [id number] 19:43:00* Test Item Value Reference Range Comments WHITE BLOOD CELL (test code=WBC) 11.9 K/mm3 4.5-12.5 RED BLOOD CELL (test code=RBC) 4.06 mill/mm3 3.7-5.2 HEMOGLOBIN (test code=HGB) 12.4 gram/dL 11.5-15.5 HEMATOCRIT (test code=HCT) 38.4 % 36.0-46.0 MEAN CELL VOLUME (test code=MCV) 94.6 fL 80-98 MEAN CELL HGB (test code=MCH) 30.5 picogram 27.0-33.0 MEAN CELL HGB CONCETRATION (test code=MCHC) 32.3 gram/dL 33.0-36.0 RED CELL DISTRIBUTION WIDTH (test code=RDW) 12.9 % 11.6-16.2 RED CELL DISTRIBUTION WIDTH SD (test code=RDW-SD) 45.6 fL 37.0-51.0 PLATELET COUNT (test code=PLT) 324 K/mm3 150-450 MEAN PLATELET VOLUME (test code=MPV) 10.1 fL 6.7-11.0 CBC W/AUTO [id number] 19:50:00* Test Item Value Reference Range Comments WHITE BLOOD CELL (test code=WBC) 9.5 K/mm3 4.5-12.5 RED BLOOD CELL (test code=RBC) 3.09 mill/mm3 3.7-5.2 HEMOGLOBIN (test code=HGB) 9.7 gram/dL 11.5-15.5 HEMATOCRIT (test code=HCT) 29.8 % 36.0-46.0 MEAN CELL VOLUME (test code=MCV) 96.4 fL 80-98 MEAN CELL HGB (test code=MCH) 31.4 picogram 27.0-33.0 MEAN CELL HGB CONCETRATION (test code=MCHC) 32.6 gram/dL 33.0-36.0 RED CELL DISTRIBUTION WIDTH (test code=RDW) 12.6 % 11.6-16.2 RED CELL DISTRIBUTION WIDTH SD (test code=RDW-SD) 44.4 fL 37.0-51.0 PLATELET COUNT (test code=PLT) 304 K/mm3 150-450 RESULT VERIFIED BY REPEAT ANALYSIS MEAN PLATELET VOLUME (test code=MPV) 10.3 fL 6.7-11.0 NEUTROPHIL % (test code=NT%) 61.0 % 39.0-69.0 IMMATURE GRANULOCYTE % (test code=IG%) 0.7 % 0.0-5.0 LYMPHOCYTE % (test code=LY%) 25.6 % 25.0-55.0 MONOCYTE % (test code=MO%) 9.6 % 0.0-10.0 EOSINOPHIL % (test code=EO%) 2.6 % 0.0-5.0 BASOPHIL % (test code=BA%) 0.5 % 0.0-1.0 NUCLEATED RBC % (test code=NRBC%) 0.0 % 0-0 NEUTROPHIL # (test code=NT#) 5.76 K/mm3 1.8-7.7 IMMATURE GRANULOCYTE # (test code=IG#) 0.07 x10 3/uL 0-0.03 LYMPHOCYTE # (test code=LY#) 2.42 K/mm3 1.0-5.0 MONOCYTE # (test code=MO#) 0.91 K/mm3 0-0.8 EOSINOPHIL # (test code=EO#) 0.25 K/mm3 0.0-0.5 BASOPHIL # (test code=BA#) 0.05 K/mm3 0.0-0.2 NUCLEATED RBC # (test code=NRBC#) 0.00 K/mm3 0.0-0.1 CBC W/AUTO [id number] 04:58:00* Test Item Value Reference Range Comments WHITE BLOOD CELL (test code=WBC) 8.8 K/mm3 4.5-12.5 RED BLOOD CELL (test code=RBC) 2.88 mill/mm3 3.7-5.2 HEMOGLOBIN (test code=HGB) 8.8 gram/dL 11.5-15.5 HEMATOCRIT (test code=HCT) 27.6 % 36.0-46.0 MEAN CELL VOLUME (test code=MCV) 95.8 fL 80-98 MEAN CELL HGB (test code=MCH) 30.6 picogram 27.0-33.0 MEAN CELL HGB CONCETRATION (test code=MCHC) 31.9 gram/dL 33.0-36.0 RED CELL DISTRIBUTION WIDTH (test code=RDW) 12.5 % 11.6-16.2 RED CELL DISTRIBUTION WIDTH SD (test code=RDW-SD) 44.1 fL 37.0-51.0 PLATELET COUNT (test code=PLT) 243 K/mm3 150-450 MEAN PLATELET VOLUME (test code=MPV) 10.6 fL 6.7-11.0 NEUTROPHIL % (test code=NT%) 53.7 % 39.0-69.0 IMMATURE GRANULOCYTE % (test code=IG%) 0.3 % 0.0-5.0 LYMPHOCYTE % (test code=LY%) 31.5 % 25.0-55.0 MONOCYTE % (test code=MO%) 9.6 % 0.0-10.0 EOSINOPHIL % (test code=EO%) 4.3 % 0.0-5.0 BASOPHIL % (test code=BA%) 0.6 % 0.0-1.0 NUCLEATED RBC % (test code=NRBC%) 0.0 % 0-0 NEUTROPHIL # (test code=NT#) 4.71 K/mm3 1.8-7.7 IMMATURE GRANULOCYTE # (test code=IG#) 0.03 x10 3/uL 0-0.03 LYMPHOCYTE # (test code=LY#) 2.77 K/mm3 1.0-5.0 MONOCYTE # (test code=MO#) 0.84 K/mm3 0-0.8 EOSINOPHIL # (test code=EO#) 0.38 K/mm3 0.0-0.5 BASOPHIL # (test code=BA#) 0.05 K/mm3 0.0-0.2 NUCLEATED RBC # (test code=NRBC#) 0.00 K/mm3 0.0-0.1 MANUAL DIFF REQUIRED (test code=MDIFF) NO - XR FOREARM 2 VIEWS [id number] 14:19:00 FAX: Mason Diego MD [phone] [place]: St: [facility] FAX: Owen Carson [phone] Name: OZZIE ALLEN [facility] : 1950 Age/S: 68/F [address] [facility] [address] #: [id number] Loc: V[address] [place] [address] Phys: Owen Carosn MD Acct: [id number] Dis Date: Status: ADM IN PHONE #: [phone] Exam Date: 04/13/2019 1350 FAX #: [phone] Reason: PAIN EXAMS: CPT CODE: [id number] XR FOREARM [address] [place] [id number] REASON FOR EXAM: wrist swelling EXAM ORDER DATE: 04/13/2019 1:27 PM Ordering M.D.: Owen Carson MD PROCEDURE: - XR WRIST 3 + V LT, - XR FOREARM 2 VIEWS LT Comp arison:None FINDINGS: No evidence of fracture. The joint spaces are maintained and the arcs of Gilula are intact. The carpal and metacarpal bones are unremarkable. There is normal alignment of the radiocarpal joint space. The visualized bones o f the hand are within normal limits. Soft tissues are within normal limit s. Elbow joint appear appropriately aligned with no joint effusion . IMPRESSION: No fracture or malalignment in the visualized left upper extremity. at 1411 Reported and signed by: Stuart Yanez MD CC: Mason Diego MD; Owen Carson MD Tech nologist: Leandra Zazueta RT(R) Trnscrd Date/Ti me/By: 04/13/2019 (9846) : By: [email or web address] Orig Print D/T: S: 04/13/2019 (6187) PAGE 1 Signed Report - XR WRIST 3 + V [id number] 14:19:00 FAX: Mason Diego MD [phone] [place]: St: ADM FAX: Owen Carson [phone] Name: OZZIE ALLEN [facility] : 1950 Age/S: 68/F [address] [facility] Unit #: [id number] Loc: [place] [address] Phys: Owen Carson MD Acct: [id number] Dis Date: Status: ADM IN PHONE #: [phone] Exam Date: 04/13/2019 1345 FAX #: [phone] Reason: wrist swelling EXAMS: CPT CODE: [id number] XR WRIST 3 + [place] [address] REASON FOR EXAM: wrist swelling EXAM ORDER DATE: 04/13/2019 1:27 PM Ordering M.DAdbon: Owen Carson MD PROCEDURE: - XR WRIST 3 + V LT, - XR FOREARM 2 VIEWS LT Comp arison:None FINDINGS: No evidence of fracture. The joint spaces are maintained and the arcs of Gilula are intact. The carpal and metacarpal bones are unremarkable. There is normal alignment of the radiocarpal joint space. The visualized bones o f the hand are within normal limits. Soft tissues are within normal limit s. Elbow joint appear appropriately aligned with no joint effusion . IMPRESSION: No fracture or malalignment in the visualized left upper extremity. at 1419 Reported and signed by: Stuart Yanez MD CC: Mason Diego MD; Owen Carson MD Tech nologist: Leandra Zazueta RT(R) Trnscrd Date/Ti me/By: 04/13/2019 (7024) : By: [email or web address] Orig Print D/T: S: 04/13/2019 (8829) PAGE 1 Signed Report BASIC METABOLIC [id number] 06:00:00* Test Item Value Reference Range Comments SODIUM (test code=NA) 145 mmol/L 136-145 POTASSIUM (test code=K) 3.6 mmol/L 3.5-5.1 CHLORIDE (test code=CL) 112.0 mmol/L 98-107 CARBON DIOXIDE (test code=CO2) 25.0 mmol/L 21-32 ANION GAP (test code=GAP) 11.6 10-20 GLUCOSE (test code=GLU) 99 mg/dL 74-106 BLOOD UREA NITROGEN (test code=BUN) 9 mg/dL 7-18 GLOMERULAR FILTRATION RATE (test code=GFR) > 60 mL/min >=60 Estimated GFR by using Modified MDRD formula.Chronic kidney disease is defined as either kidney damageor GFR <60 mL/min/1.73 m2 for >3 months. CREATININE (test code=CREAT) 0.80 mg/dL 0.55-1.02 Note change in reference range due to change in reagent. BUN/CREATININE RATIO (test code=BUN/CREA) 11.2 10-20 CALCIUM (test code=CA) 8.9 mg/dL 8.5-10.1 HEPATIC FUNCTION [id number] 06:00:00* Test Item Value Reference Range Comments TOTAL PROTEIN (test code=PROT) 5.4 gram/dL 6.4-8.2 ALBUMIN (test code=ALB) 2.4 g/dL 3.4-5.0 GLOBULIN (test code=GLOB) 3.0 gram/dL 2.7-4.2 ALBUMIN/GLOBULIN RATIO (test code=A/G) 0.8 0.75-1.50 BILIRUBIN TOTAL (test code=BILT) 0.30 mg/dL 0.0-1.0 BILIRUBIN DIRECT (test code=BILD) 0.11 mg/dL 0.0-0.20 SGOT/AST (test code=AST) 16 IUnit/L 15-37 SGPT/ALT (test code=ALT) 26 IUnit/L 12-78 ALKALINE PHOSPHATASE TOTAL (test code=ALKP) 165 IUnit/L 45-117 Note change in reference range due to change in reagent. [id number] 06:00:00* Test Item Value Reference Range Comments AMYLASE (test code=KARRIE) 20 Unit/L 25-115 [id number] 06:00:00* Test Item Value Reference Range Comments LIPASE (test code=LIP) 51 U/L 73.0-393.0 BASIC METABOLIC [id number] 05:49:00* Test Item Value Reference Range Comments SODIUM (test code=NA) 145 mmol/L 136-145 POTASSIUM (test code=K) 3.6 mmol/L 3.5-5.1 CHLORIDE (test code=CL) 112.0 mmol/L 98-107 CARBON DIOXIDE (test code=CO2) mmol/L 21-32 ANION GAP (test code=GAP) 10-20 GLUCOSE (test code=GLU) mg/dL 74-106 BLOOD UREA NITROGEN (test code=BUN) mg/dL 7-18 GLOMERULAR FILTRATION RATE (test code=GFR) mL/min >=60 CREATININE (test code=CREAT) mg/dL 0.55-1.02 BUN/CREATININE RATIO (test code=BUN/CREA) 10-20 CALCIUM (test code=CA) mg/dL 8.5-10.1 HEPATIC FUNCTION [id number] 05:49:00* Test Item Value Reference Range Comments TOTAL PROTEIN (test code=PROT) gram/dL 6.4-8.2 ALBUMIN (test code=ALB) g/dL 3.4-5.0 GLOBULIN (test code=GLOB) gram/dL 2.7-4.2 ALBUMIN/GLOBULIN RATIO (test code=A/G) 0.75-1.50 BILIRUBIN TOTAL (test code=BILT) mg/dL 0.0-1.0 BILIRUBIN DIRECT (test code=BILD) mg/dL 0.0-0.20 SGOT/AST (test code=AST) IUnit/L 15-37 SGPT/ALT (test code=ALT) IUnit/L 12-78 ALKALINE PHOSPHATASE TOTAL (test code=ALKP) IUnit/L 45-117 [id number] 05:49:00* Test Item Value Reference Range Comments AMYLASE (test code=KARRIE) Unit/L 25-115 [id number] 05:49:00* Test Item Value Reference Range Comments LIPASE (test code=LIP) U/L 73.0-393.0 CBC W/AUTO [id number] 05:33:00* Test Item Value Reference Range Comments WHITE BLOOD CELL (test code=WBC) 7.5 K/mm3 4.5-12.5 RED BLOOD CELL (test code=RBC) 3.00 mill/mm3 3.7-5.2 HEMOGLOBIN (test code=HGB) 9.2 gram/dL 11.5-15.5 HEMATOCRIT (test code=HCT) 29.1 % 36.0-46.0 MEAN CELL VOLUME (test code=MCV) 97.0 fL 80-98 MEAN CELL HGB (test code=MCH) 30.7 picogram 27.0-33.0 MEAN CELL HGB CONCETRATION (test code=MCHC) 31.6 gram/dL 33.0-36.0 RED CELL DISTRIBUTION WIDTH (test code=RDW) 12.5 % 11.6-16.2 RED CELL DISTRIBUTION WIDTH SD (test code=RDW-SD) 43.8 fL 37.0-51.0 PLATELET COUNT (test code=PLT) 211 K/mm3 150-450 MEAN PLATELET VOLUME (test code=MPV) 10.9 fL 6.7-11.0 NEUTROPHIL % (test code=NT%) 53.7 % 39.0-69.0 IMMATURE GRANULOCYTE % (test code=IG%) 0.3 % 0.0-5.0 LYMPHOCYTE % (test code=LY%) 27.0 % 25.0-55.0 MONOCYTE % (test code=MO%) 12.3 % 0.0-10.0 EOSINOPHIL % (test code=EO%) 5.9 % 0.0-5.0 BASOPHIL % (test code=BA%) 0.8 % 0.0-1.0 NUCLEATED RBC % (test code=NRBC%) 0.0 % 0-0 NEUTROPHIL # (test code=NT#) 4.00 K/mm3 1.8-7.7 IMMATURE GRANULOCYTE # (test code=IG#) 0.02 x10 3/uL 0-0.03 LYMPHOCYTE # (test code=LY#) 2.01 K/mm3 1.0-5.0 MONOCYTE # (test code=MO#) 0.92 K/mm3 0-0.8 EOSINOPHIL # (test code=EO#) 0.44 K/mm3 0.0-0.5 BASOPHIL # (test code=BA#) 0.06 K/mm3 0.0-0.2 NUCLEATED RBC # (test code=NRBC#) 0.00 K/mm3 0.0-0.1 MANUAL DIFF REQUIRED (test code=MDIFF) NO BASIC METABOLIC [id number] 07:08:00* Test Item Value Reference Range Comments SODIUM (test code=NA) 143 mmol/L 136-145 POTASSIUM (test code=K) 3.7 mmol/L 3.5-5.1 CHLORIDE (test code=CL) 113.0 mmol/L 98-107 CARBON DIOXIDE (test code=CO2) 24.0 mmol/L 21-32 ANION GAP (test code=GAP) 9.7 10-20 GLUCOSE (test code=GLU) 87 mg/dL 74-106 BLOOD UREA NITROGEN (test code=BUN) 11 mg/dL 7-18 GLOMERULAR FILTRATION RATE (test code=GFR) > 60 mL/min >=60 Estimated GFR by using Modified MDRD formula.Chronic kidney disease is defined as either kidney damageor GFR <60 mL/min/1.73 m2 for >3 months. CREATININE (test code=CREAT) 0.80 mg/dL 0.55-1.02 Note change in reference range due to change in reagent. BUN/CREATININE RATIO (test code=BUN/CREA) 14.2 10-20 CALCIUM (test code=CA) 8.9 mg/dL 8.5-10.1 CBC W/O [id number] 06:47:00* Test Item Value Reference Range Comments WHITE BLOOD CELL (test code=WBC) 7.0 K/mm3 4.5-12.5 RED BLOOD CELL (test code=RBC) 2.92 mill/mm3 3.7-5.2 HEMOGLOBIN (test code=HGB) 9.1 gram/dL 11.5-15.5 HEMATOCRIT (test code=HCT) 28.5 % 36.0-46.0 MEAN CELL VOLUME (test code=MCV) 97.6 fL 80-98 MEAN CELL HGB (test code=MCH) 31.2 picogram 27.0-33.0 MEAN CELL HGB CONCETRATION (test code=MCHC) 31.9 gram/dL 33.0-36.0 RED CELL DISTRIBUTION WIDTH (test code=RDW) 12.5 % 11.6-16.2 PLATELET COUNT (test code=PLT) 199 K/mm3 150-450 MEAN PLATELET VOLUME (test code=MPV) 10.8 fL 6.7-11.0 - CT ABD PELVIS [id number] 21:19:00 Name: OZZIE ALLEN [facility] : 1950 Age/S: 68 / F [address] [facility] Unit #: [id number] Loc: [place] [address] Phys: Derek Noe MD Acct: [id number] Dis Date: Status: ADM IN PHONE #: [phone] Exam Date: 04/10/2019 1755 FAX #: [phone] Reason: ABDOMINAL PAIN EXAMS: CPT CODE: [id number] CT ABD PELVIS W/CONT [id number] HISTORY: Abdominal pain. COMPARISON: Scan from April 07, 2019. CT of abdomen and pelvis with IV contrast: 100 mL of Isovue- 370. Automated exposure control. CT of abdomen: The lung bases demonstrating small bibasal effusions and scarring. Dependent changes. Calcified granuloma on the right side. The liver is enhancing homogeneously without parenchymal mass or nodules. Patient is post cholecystectomy. Prominent intra and extrahepatic ducts likely sequela of cholecystectomy. Liver measured 18.7 cm in length. Spleen is not enlarged. The stomach distended incompletely but it is normal in appearance. Dilated and thickened esophagus. Pancreas is enhancing homogeneously. Unremarkable adrenals. Kidneys are free from hydroureteronephrosis. Homogeneous enhancement. Bilateral excretion is noted. Bosniak 1 lesion in the right upper pole Bosniak 2 lesion measuring 2.5 cm in the left lower pole with average Hounsfield unit measurement ranging up to 21. No pathologic adenopathy. Unremarkable well-opacified abdominal and pelvic vasculature. No bowel obstruction or colitis or diverticulitis or enteritis. CT PELVIS: Appendix is not visible but no inflammatory changes are noted. Sigmoid diverticulitis noted again with circumferential wall thickening. Pericolonic inflammation. This pattern appears unchanged. No diverticular abscess is visible. Unremarkable urinary bladder. Patient is post hysterectomy. No free fluid or free air. Subcutaneous tissues and the musculature are n ormal in appearance. Scattered mesenteric fat herniation into the anterio r abdominal wall PAGE 1 Signed Report (CONTINUED) Name: OZZIE ALLEN [facility] : 1950 Age/S: 68 / F [address] [facility] #: [id number] Loc: [place] [address] Phys: Derek Noe MD Acct: [id number] Dis Date: Status: ADM IN PHONE #: [phone] Exam Date: 04/10/2019 175 FAX #: [phone] Reason: ABDOMINAL PAIN EXAMS: CPT CODE: [id number] CT ABD PELVIS W/CONT [id number] <Continued> in the supraumbilical location. No incarceration and no loops of bowel noted. No lytic or blastic lesions are noted within the bony skelet on. DJD. IMPRESSION: Diverticulitis of the si gmoid colon demonstrating no change. Persistent inflammation without ab scess or free fluid or free air. at 2118 Reported and signed by: Raul Hopper M.D. CC: Mason Diego MD; Derek Navarrete MD Technologist:Norma Salas RT(R),CT; CTDI: DLP: Trnscb Date/Time: 04/10/2019 (2118) [email or web address] Orig Print D/T: S: 04/10/2019 (2121) PAGE 2 Signed Report BLOOD UREA [id number] 07:15:00* Test Item Value Reference Range Comments BLOOD UREA NITROGEN (test code=BUN) 17 mg/dL 7-18 [id number] 07:15:00* Test Item Value Reference Range Comments CREATININE (test code=CREAT) 0.90 mg/dL 0.55-1.02 Note change in reference range due to change in reagent. CBC W/AUTO [id number] 07:01:00* Test Item Value Reference Range Comments WHITE BLOOD CELL (test code=WBC) 8.4 K/mm3 4.5-12.5 RED BLOOD CELL (test code=RBC) 3.00 mill/mm3 3.7-5.2 HEMOGLOBIN (test code=HGB) 9.3 gram/dL 11.5-15.5 HEMATOCRIT (test code=HCT) 29.4 % 36.0-46.0 MEAN CELL VOLUME (test code=MCV) 98.0 fL 80-98 MEAN CELL HGB (test code=MCH) 31.0 picogram 27.0-33.0 MEAN CELL HGB CONCETRATION (test code=MCHC) 31.6 gram/dL 33.0-36.0 RED CELL DISTRIBUTION WIDTH (test code=RDW) 12.9 % 11.6-16.2 RED CELL DISTRIBUTION WIDTH SD (test code=RDW-SD) 46.3 fL 37.0-51.0 PLATELET COUNT (test code=PLT) 171 K/mm3 150-450 MEAN PLATELET VOLUME (test code=MPV) 11.3 fL 6.7-11.0 NEUTROPHIL % (test code=NT%) 63.9 % 39.0-69.0 IMMATURE GRANULOCYTE % (test code=IG%) 0.4 % 0.0-5.0 LYMPHOCYTE % (test code=LY%) 20.8 % 25.0-55.0 MONOCYTE % (test code=MO%) 9.8 % 0.0-10.0 EOSINOPHIL % (test code=EO%) 4.5 % 0.0-5.0 BASOPHIL % (test code=BA%) 0.6 % 0.0-1.0 NUCLEATED RBC % (test code=NRBC%) 0.0 % 0-0 NEUTROPHIL # (test code=NT#) 5.39 K/mm3 1.8-7.7 IMMATURE GRANULOCYTE # (test code=IG#) 0.03 x10 3/uL 0-0.03 LYMPHOCYTE # (test code=LY#) 1.75 K/mm3 1.0-5.0 MONOCYTE # (test code=MO#) 0.83 K/mm3 0-0.8 EOSINOPHIL # (test code=EO#) 0.38 K/mm3 0.0-0.5 BASOPHIL # (test code=BA#) 0.05 K/mm3 0.0-0.2 NUCLEATED RBC # (test code=NRBC#) 0.00 K/mm3 0.0-0.1 MANUAL DIFF REQUIRED (test code=MDIFF) NO BLOOD UREA [id number] 07:00:00* Test Item Value Reference Range Comments BLOOD UREA NITROGEN (test code=BUN) 17 mg/dL 7-18 [id number] 07:00:00* Test Item Value Reference Range Comments CREATININE (test code=CREAT) mg/dL 0.55-1.02 CBC W/O [id number] 06:20:00* Test Item Value Reference Range Comments WHITE BLOOD CELL (test code=WBC) 12.4 K/mm3 4.5-12.5 RED BLOOD CELL (test code=RBC) 2.89 mill/mm3 3.7-5.2 HEMOGLOBIN (test code=HGB) 9.1 gram/dL 11.5-15.5 RESULT VERIFIED BY REPEAT ANALYSIS HEMATOCRIT (test code=HCT) 29.5 % 36.0-46.0 MEAN CELL VOLUME (test code=MCV) 102.1 fL 80-98 MEAN CELL HGB (test code=MCH) 31.5 picogram 27.0-33.0 MEAN CELL HGB CONCETRATION (test code=MCHC) 30.8 gram/dL 33.0-36.0 RED CELL DISTRIBUTION WIDTH (test code=RDW) 13.2 % 11.6-16.2 PLATELET COUNT (test code=PLT) 185 K/mm3 150-450 RESULT VERIFIED BY REPEAT ANALYSIS MEAN PLATELET VOLUME (test code=MPV) 11.3 fL 6.7-11.0 BASIC METABOLIC [id number] 06:09:00* Test Item Value Reference Range Comments SODIUM (test code=NA) 143 mmol/L 136-145 POTASSIUM (test code=K) 4.3 mmol/L 3.5-5.1 CHLORIDE (test code=CL) 112.0 mmol/L 98-107 CARBON DIOXIDE (test code=CO2) 24.0 mmol/L 21-32 ANION GAP (test code=GAP) 11.3 10-20 GLUCOSE (test code=GLU) 86 mg/dL 74-106 BLOOD UREA NITROGEN (test code=BUN) 29 mg/dL 7-18 GLOMERULAR FILTRATION RATE (test code=GFR) 44 mL/min >=60 Estimated GFR by using Modified MDRD formula.Chronic kidney disease is defined as either kidney damageor GFR <60 mL/min/1.73 m2 for >3 months. CREATININE (test code=CREAT) 1.20 mg/dL 0.55-1.02 Note change in reference range due to change in reagent. BUN/CREATININE RATIO (test code=BUN/CREA) 24.2 10-20 CALCIUM (test code=CA) 8.2 mg/dL 8.5-10.1 BASIC METABOLIC [id number] 06:02:00* Test Item Value Reference Range Comments SODIUM (test code=NA) 143 mmol/L 136-145 POTASSIUM (test code=K) 4.3 mmol/L 3.5-5.1 CHLORIDE (test code=CL) 112.0 mmol/L 98-107 CARBON DIOXIDE (test code=CO2) mmol/L 21-32 ANION GAP (test code=GAP) 10-20 GLUCOSE (test code=GLU) mg/dL 74-106 BLOOD UREA NITROGEN (test code=BUN) mg/dL 7-18 GLOMERULAR FILTRATION RATE (test code=GFR) mL/min >=60 CREATININE (test code=CREAT) mg/dL 0.55-1.02 BUN/CREATININE RATIO (test code=BUN/CREA) 10-20 CALCIUM (test code=CA) mg/dL 8.5-10.1 COMPREHENSIVE METABOLIC [id number] 03:11:00* Test Item Value Reference Range Comments SODIUM (test code=NA) 148 mmol/L 136-145 RESULT VERIFIED BY REPEAT ANALYSIS POTASSIUM (test code=K) 4.3 mmol/L 3.5-5.1 CHLORIDE (test code=CL) 118.0 mmol/L 98-107 CARBON DIOXIDE (test code=CO2) 21.0 mmol/L 21-32 ANION GAP (test code=GAP) 13.3 10-20 GLUCOSE (test code=GLU) 97 mg/dL 74-106 BLOOD UREA NITROGEN (test code=BUN) 39 mg/dL 7-18 GLOMERULAR FILTRATION RATE (test code=GFR) 32 mL/min >=60 Estimated GFR by using Modified MDRD formula.Chronic kidney disease is defined as either kidney damageor GFR <60 mL/min/1.73 m2 for >3 months. CREATININE (test code=CREAT) 1.60 mg/dL 0.55-1.02 Note change in reference range due to change in reagent. BUN/CREATININE RATIO (test code=BUN/CREA) 24.4 10-20 TOTAL PROTEIN (test code=PROT) 5.3 gram/dL 6.4-8.2 ALBUMIN (test code=ALB) 2.4 g/dL 3.4-5.0 GLOBULIN (test code=GLOB) 2.9 gram/dL 2.7-4.2 ALBUMIN/GLOBULIN RATIO (test code=A/G) 0.8 0.75-1.50 CALCIUM (test code=CA) 8.1 mg/dL 8.5-10.1 BILIRUBIN TOTAL (test code=BILT) 0.50 mg/dL 0.0-1.0 SGOT/AST (test code=AST) 115 IUnit/L 15-37 SGPT/ALT (test code=ALT) 83 IUnit/L 12-78 ALKALINE PHOSPHATASE TOTAL (test code=ALKP) 273 IUnit/L 45-117 Note change in reference range due to change in reagent. CBC W/O [id number] 02:47:00* Test Item Value Reference Range Comments WHITE BLOOD CELL (test code=WBC) 18.3 K/mm3 4.5-12.5 RED BLOOD CELL (test code=RBC) 3.62 mill/mm3 3.7-5.2 HEMOGLOBIN (test code=HGB) 11.2 gram/dL 11.5-15.5 RESULT VERIFIED BY REPEAT ANALYSIS HEMATOCRIT (test code=HCT) 35.9 % 36.0-46.0 MEAN CELL VOLUME (test code=MCV) 99.2 fL 80-98 MEAN CELL HGB (test code=MCH) 30.9 picogram 27.0-33.0 MEAN CELL HGB CONCETRATION (test code=MCHC) 31.2 gram/dL 33.0-36.0 RED CELL DISTRIBUTION WIDTH (test code=RDW) 13.0 % 11.6-16.2 PLATELET COUNT (test code=PLT) 237 K/mm3 150-450 RESULT VERIFIED BY REPEAT ANALYSIS MEAN PLATELET VOLUME (test code=MPV) 11.3 fL 6.7-11.0 CBC W/MANUAL [id number] 21:38:00* Test Item Value Reference Range Comments WHITE BLOOD CELL (test code=WBC) 14.8 K/mm3 4.5-12.5 RED BLOOD CELL (test code=RBC) 4.62 mill/mm3 3.7-5.2 HEMOGLOBIN (test code=HGB) 14.2 gram/dL 11.5-15.5 RESULT VERIFIED BY REPEAT ANALYSIS HEMATOCRIT (test code=HCT) 44.6 % 36.0-46.0 MEAN CELL VOLUME (test code=MCV) 96.5 fL 80-98 MEAN CELL HGB (test code=MCH) 30.7 picogram 27.0-33.0 MEAN CELL HGB CONCETRATION (test code=MCHC) 31.8 gram/dL 33.0-36.0 RED CELL DISTRIBUTION WIDTH (test code=RDW) 13.0 % 11.6-16.2 RED CELL DISTRIBUTION WIDTH SD (test code=RDW-SD) 46.3 fL 37.0-51.0 PLATELET COUNT (test code=PLT) 380 K/mm3 150-450 RESULT VERIFIED BY REPEAT ANALYSIS MEAN PLATELET VOLUME (test code=MPV) 11.3 fL 6.7-11.0 IMMATURE GRANULOCYTE % (test code=IG%) 0.5 % 0.0-5.0 NUCLEATED RBC % (test code=NRBC%) 0.0 % 0-0 NEUTROPHIL # (test code=NT#) 9.54 K/mm3 1.8-7.7 IMMATURE GRANULOCYTE # (test code=IG#) 0.08 x10 3/uL 0-0.03 LYMPHOCYTE # (test code=LY#) 4.36 K/mm3 1.0-5.0 MONOCYTE # (test code=MO#) 0.35 K/mm3 0-0.8 EOSINOPHIL # (test code=EO#) 0.40 K/mm3 0.0-0.5 BASOPHIL # (test code=BA#) 0.10 K/mm3 0.0-0.2 NUCLEATED RBC # (test code=NRBC#) 0.00 K/mm3 0.0-0.1 MANUAL DIFF REQUIRED (test code=MDIFF) YES STAIN ACCEPTABILITY (test code=STN ACCEPTABLE) STAIN ACCEPTABLE TOTAL CELLS COUNTED (test code=TCC) 112 #CELLS SEGMENTED NEUTROPHILS (test code=SEG) 61.4 % 39-69 BAND NEUTROPHIL (test code=BAND) 0 % 0-10 LYMPHOCYTE (test code=LYMPH) 34.2 % 25-55 REACTIVE LYMPH (test code=RELYMPH) 0 % MONOCYTE (test code=MON) 1.7 % 0-10 EOSINOPHIL (test code=EOS) 0.9 % 0.0-5.0 BASOPHIL (test code=BASO) 0.9 % 0-1.0 METAMYELOCYTE (test code=META) 0.9 % 0-0 MYELOCYTE (test code=MYELO) 0 % 0.0-0.0 PROMYELOCYTE (test code=PROM) 0 % 0-0 MORPHOLOGY COMMENT (test code=MOC) NORMAL PLATELET ESTIMATE (test code=PLTEST) ADEQUATE PLATELET MORPHOLOGY (test code=PLTMORPH) NORMAL IMMATURE FORMS (test code=IMMAT) 0 % 0-0 - CT ABD PELVIS W/O [id number] 19:11:00 Name: OZZIE ALLEN [facility] : 1950 Age/S: 68 / F [address] [facility] Unit #: [id number] Loc: [place] [address] Phys: Effie Mata MD Acct: [id number] Dis Date: Status: ADM IN PHONE #: [phone] Exam Date: 04/07/2019 1809 FAX #: [phone] Reason: gastroenteritis EXAMS: CPT CODE: [id number] CT ABD PELVIS W/O CONT [id number] REASON FOR EXAM: gastroenteritis EXAM ORDER DATE: 04/07/2019 5:23 PM Ordering M.D.: Effie Mata MD PROCEDURE: - CT ABD PELVIS W/O CONT noncontrast axial CT images were acquired through the abdomen/pelvis at 5 mm intervals. Sagittal and coronal reformatted images were generated. Au tomated exposure control was utilized for this reduction. Ph ases of contrast: None COMPARISON: CT of the abdomen and pelvis Ma 2018 FINDINGS: The absence of IV contrast santamaria its sensitivity of this exam for the detection of soft tissue pathology Visualized thorax: There is subsegmental atelectasis versus pa renchymal scarring in the lung bases. Calcified granuloma in the right kathy g base is unchanged. Leads from a cardiac device terminate in the right at rium and right ventricle. Three-vessel coronary atherosclerosis. Hepatobiliary system: Prior cholecystectomy. Dilation of the intra and extrahepatic biliary tree, likely representing biliary reservoir effect, is redemonstrated. Pancreas: Atrophic. Spleen: Isrrael sly normal. Adrenal glands: Grossly normal. Genitour inary system: 3.6 cm cortical cyst in the superior pole of the right kidne y and 3.4 cm cortical cyst in the mid to upper pole of the left kidney are unchanged. Urinary bladder is within normal limits. Prior hysterectomy. Gastrointestinal tract and appendix: There is diverticular disease of the sigmoid and descending colon. There is also stranding of the mesenteric fat in the lower abdomen and in the pelvis adjacent to the desc ending and sigmoid colon. Appendix is not clearly visualized. PAGE 1 Signed Report (CONTINUED) Name: OZZIE ALLEN [facility] : 1950 Age/S: 68 / F [address] [facility] Unit #: [id number] Loc: [place] [address] Phys: Effie Mata MD Acct: [id number] Dis Date: Status: ADM IN PHONE #: [phone] Exam Date: 04/07/2019 1808 FAX #: [phone] Reason: ga stroenteritis EXAMS: CPT CODE: [id number] CT ABD PELVIS W/O CONT [id number] <Continued> Small hiatal hernia is present. Small bowel is within normal limits. Abdominal vascular structures: Trace atherosclerotic disease is present in the aorta and iliac arteries. Peritoneum and retroperitoneum: Stranding of the mesenteric fat adjacent to the sigmoid and descending colon. No free air or organized fluid collection is appreciated however. Musculoskeletal structures and abdominal wall: Mild degenerative changes are present in the spine. Degenerative changes are present in the hips and pubic symphysis as well. There are a few fat-containing ventral hernias (2/44 and 2/57) but no stranding or fluid in the hernia sacs. IMPRESSION: Inflammatory changes involving the descending and sigmoid colon. Given the presence of diverticular disease, this likely represents diverticulitis. No perforation or intra-abdominal free fluid is seen at this time. at 1911 Reported and signed by: Stuart Yanez MD CC: Effie Mata MD Technologist:Sindhu Galvan RT(R); NELLI Tavarez CTDI: DLP: Trnscb Date/Time: 04/07/2019 (1910) [email or web address] Orig Print D/T: S: 04/07/2019 (1913) PAGE 2 Signed Report URINALYSIS [id number] 18:17:00* Test Item Value Reference Range Comments UA COLOR (test code=COLU) YELLOW YELLOW UA APPEARANCE (test code=APPU) TURBID CLEAR UA GLUCOSE DIPSTICK (test code=DGLUU) NEGATIVE mg/dL NEGATIVE UA BILIRUBIN DIPSTICK (test code=BILU) NEGATIVE mg/dL NEGATIVE UA KETONE DIPSTICK (test code=KETU) NEGATIVE mg/dL NEGATIVE UA SPECIFIC GRAVITY (test code=SGU) 1.018 1.001-1.035 UA BLOOD DIPSTICK (test code=KARO) 0.2 mg/dL (2+) mg/dL NEGATIVE UA PH DIPSTICK (test code=JOEL) 5.5 5.0-8.0 UA PROTEIN DIPSTICK (test code=PROU) 300 (3+) mg/dL NEGATIVE UA UROBILINIOGEN DIPSTICK (test code=URO) Normal mg/dL NEGATIVE UA NITRITE DIPSTICK (test code=KARLEY) NEGATIVE NEGATIVE UA LEUKOCYTE ESTERASE W REFLEX (test code=LEUUR) 500 Patrizia/uL (3+) Patrizia/uL NEGATIVE UA WBC (test code=WBCU) >200 per HPF 0-5 UA RBC (test code=RBCU) 21-50 #/HPF 0-5 UA WBC CLUMPS (test code=WBCUCL) >10 /HPF NONE UA EPITHELIAL CELLS (test code=EPIU) FEW per HPF FEW UA BACTERIA (test code=BACU) FEW #/HPF NONE UA MUCUS (test code=MUCU) FEW #/LPF FEW Urine Source? Clean CatchB-TYPE NATRIURETIC [id number] 16:53:00* Test Item Value Reference Range Comments B-TYPE NATRIURETIC PEPTIDE (test code=BNP) 234.50 pgram/mL 0-100 BASIC METABOLIC [id number] 16:22:00* Test Item Value Reference Range Comments SODIUM (test code=NA) 141 mmol/L 136-145 POTASSIUM (test code=K) 5.2 mmol/L 3.5-5.1 CHLORIDE (test code=CL) 108.0 mmol/L 98-107 CARBON DIOXIDE (test code=CO2) 20.0 mmol/L 21-32 ANION GAP (test code=GAP) 18.2 10-20 GLUCOSE (test code=GLU) 131 mg/dL 74-106 BLOOD UREA NITROGEN (test code=BUN) 39 mg/dL 7-18 GLOMERULAR FILTRATION RATE (test code=GFR) 30 mL/min >=60 Estimated GFR by using Modified MDRD formula.Chronic kidney disease is defined as either kidney damageor GFR <60 mL/min/1.73 m2 for >3 months. CREATININE (test code=CREAT) 1.70 mg/dL 0.55-1.02 Note change in reference range due to change in reagent. BUN/CREATININE RATIO (test code=BUN/CREA) 22.9 10-20 CALCIUM (test code=CA) 9.7 mg/dL 8.5-10.1 HEPATIC FUNCTION [id number] 16:22:00* Test Item Value Reference Range Comments TOTAL PROTEIN (test code=PROT) 6.8 gram/dL 6.4-8.2 ALBUMIN (test code=ALB) 3.3 g/dL 3.4-5.0 GLOBULIN (test code=GLOB) 3.5 gram/dL 2.7-4.2 ALBUMIN/GLOBULIN RATIO (test code=A/G) 0.9 0.75-1.50 BILIRUBIN TOTAL (test code=BILT) 0.70 mg/dL 0.0-1.0 BILIRUBIN DIRECT (test code=BILD) 0.12 mg/dL 0.0-0.20 SGOT/AST (test code=AST) 41 IUnit/L 15-37 SGPT/ALT (test code=ALT) 43 IUnit/L 12-78 ALKALINE PHOSPHATASE TOTAL (test code=ALKP) 285 IUnit/L 45-117 Note change in reference range due to change in reagent. [id number] 16:22:00* Test Item Value Reference Range Comments LIPASE (test code=LIP) 280 U/L 73.0-393.0 [id number] 16:22:00* Test Item Value Reference Range Comments TROPONIN-I (test code=TROPI) <0.015 ng/mL 0-0.045 LACTIC [id number] 16:14:00* Test Item Value Reference Range Comments LACTIC ACID (test code=LACT) 1.5 mmol/L 0.4-1.9 SPECIMEN COMMENTS: repeat if >2 repeat in 3 hours.BASIC METABOLIC PANEL 2019-04-07 16:13:00* Test Item Value Reference Range Comments SODIUM (test code=NA) 141 mmol/L 136-145 POTASSIUM (test code=K) 5.2 mmol/L 3.5-5.1 CHLORIDE (test code=CL) 108.0 mmol/L 98-107 CARBON DIOXIDE (test code=CO2) mmol/L 21-32 ANION GAP (test code=GAP) 10-20 GLUCOSE (test code=GLU) mg/dL 74-106 BLOOD UREA NITROGEN (test code=BUN) mg/dL 7-18 GLOMERULAR FILTRATION RATE (test code=GFR) mL/min >=60 CREATININE (test code=CREAT) mg/dL 0.55-1.02 BUN/CREATININE RATIO (test code=BUN/CREA) 10-20 CALCIUM (test code=CA) mg/dL 8.5-10.1 HEPATIC FUNCTION [id number] 16:13:00* Test Item Value Reference Range Comments TOTAL PROTEIN (test code=PROT) gram/dL 6.4-8.2 ALBUMIN (test code=ALB) g/dL 3.4-5.0 GLOBULIN (test code=GLOB) gram/dL 2.7-4.2 ALBUMIN/GLOBULIN RATIO (test code=A/G) 0.75-1.50 BILIRUBIN TOTAL (test code=BILT) mg/dL 0.0-1.0 BILIRUBIN DIRECT (test code=BILD) mg/dL 0.0-0.20 SGOT/AST (test code=AST) IUnit/L 15-37 SGPT/ALT (test code=ALT) IUnit/L 12-78 ALKALINE PHOSPHATASE TOTAL (test code=ALKP) IUnit/L 45-117 [id number] 16:13:00* Test Item Value Reference Range Comments LIPASE (test code=LIP) U/L 73.0-393.0 [id number] 16:13:00* Test Item Value Reference Range Comments TROPONIN-I (test code=TROPI) ng/mL 0-0.045 CHEMISTRY 8 [id number] 16:09:00* Test Item Value Reference Range Comments ISTAT-SODIUM (test code=NAP) mmol/L 135-148 ISTAT-POTASSIUM (test code=KP) mmol/L 3.5-5.5 ISTAT-CHLORIDE (test code=CLP) mmol/L 101-109 ISTAT CARBON DIOXIDE (test code=ISTAT-CO2) mmol/L 21-32 ISTAT CALCIUM IONIZED (test code=ISTAT-JEFF) mg/dL 1.12-1.32 ISTAT-ANION GAP (test code=GAPP) MEQ/L 10-20 ISTAT-GLUCOSE (test code=GLUP) mg/dL 74-106 ISTAT-BUN (test code=BUNP) mg/dL 3-21 BEDSIDE CREATININE (test code=CREATBED) mg/dL 0.7-1.3 GLOMERULAR FILTRATION RATE POC (test code=GFRBED) 34 >60 CHEMISTRY 8 [id number] 16:09:00* Test Item Value Reference Range Comments ISTAT-SODIUM (test code=NAP) 140 mmol/L 135-148 ISTAT-POTASSIUM (test code=KP) 4.5 mmol/L 3.5-5.5 ISTAT-CHLORIDE (test code=CLP) 109 mmol/L 101-109 ISTAT CARBON DIOXIDE (test code=ISTAT-CO2) 20.0 mmol/L 21-32 ISTAT CALCIUM IONIZED (test code=ISTAT-JEFF) 1.18 mg/dL 1.12-1.32 ISTAT-ANION GAP (test code=GAPP) 16.0 MEQ/L 10-20 ISTAT-GLUCOSE (test code=GLUP) 121 mg/dL 74-106 ISTAT-BUN (test code=BUNP) 40 mg/dL 3-21 BEDSIDE CREATININE (test code=CREATBED) 1.5 mg/dL 0.7-1.3 GLOMERULAR FILTRATION RATE POC (test code=GFRBED) 34 >60 - XR CHEST 1 [id number] 16:09:00 FAX: Effie Arriola [phone] [place]: St: REG Name: OZZIE VILLAVICENCIO [facility] : [birth year] Age/S: 68/F [address] [facility] Unit #: [id number] Loc: [place] [address] Phys: Effie Mata MD Acct: [id number] Dis Date: Status: REG ER PHONE #: [phone] Exam Date: 04/07/2019 1528 FAX #: [phone] Reason: CODE SEPSIS EXAMS: CPT CODE: [id number] XR CHEST 1 V [id number] REASON FOR EXAM: CODE SEPSIS Exam Order Date: 04/07/2019 3:03 PM Ordering M.D.: Effie Mata MD PROCEDURE: - XR CHEST 1 V CO MPARISON: CT scan of the chest April 04, 2019 FINDINGS: L sam volumes are diminished. There is also an opacity in the right lung bas e with elevation of the right hemidiaphragm which may represent any combin ation of subsegmental atelectasis, small pleural effusion, and consolidati on. Left subclavian dual-lead pacemaker is present with leads term inating in the right atrium and right ventricle. Cardiomedia stinal silhouette is normal in size for technique. The mediastinal contour s are within normal limits. Musculoskeletal structures are within normal limits. Prior cholecystectomy. IMPR ESSION: Diminished volume of the right lung with elevation of the right hemidiaphragm may represent any combination of atelectasis, cons olidation, and small pleural effusion. at 1609 Reported and signed by: Stuart Yanez MD CC: Effie Mata MD Technologist: MELANIE LINCOLN RT(R) Trnscrd Date/Time/By: 04/07/2019 (3032) : By: [email or web address] Orig Print D/T: S: (1669) PAGE 1 Signed Repo rt PROTHROMBIN [id number] 15:52:00* Test Item Value Reference Range Comments PROTHROMBIN TIME PATIENT (test code=PTP) 21.0 seconds 9.0-14.0 INTERNATIONAL NORMAL RATIO (test code=INR) 1.8 0.8-1.2 The therapeutic range for oral anticoagulant therapy formost indications is an international normalized ratio (INR)of between 2.0 and 3.0. The recommended therapeutic INRrange for various clinical situations is listed below: Clinical Situation INR range Pulmonary e mbolism treatment (2.0-3.0)Venous thrombosis treatmentVenous thrombosis prophylaxis (high risk surgery)Prevention of systemic embolism from: Acute myocardial infarction Valvular heart disease Atrial fibrillation Mechanical prosthetic heart valves (2.5-3.5) IS PATIENT ON ANTICOAGULANTS? NTHROMBOPLASTIN TIME [id number] 15:52:00* Test Item Value Reference Range Comments THROMBOPLASTIN TIME PARTIAL (test code=PTT) 65.8 seconds 25.0-36.5 IS PATIENT ON ANTICOAGULANTS? NCBC W/MANUAL [id number] 15:39:00* Test Item Value Reference Range Comments WHITE BLOOD CELL (test code=WBC) 14.8 K/mm3 4.5-12.5 RED BLOOD CELL (test code=RBC) 4.62 mill/mm3 3.7-5.2 HEMOGLOBIN (test code=HGB) 14.2 gram/dL 11.5-15.5 RESULT VERIFIED BY REPEAT ANALYSIS HEMATOCRIT (test code=HCT) 44.6 % 36.0-46.0 MEAN CELL VOLUME (test code=MCV) 96.5 fL 80-98 MEAN CELL HGB (test code=MCH) 30.7 picogram 27.0-33.0 MEAN CELL HGB CONCETRATION (test code=MCHC) 31.8 gram/dL 33.0-36.0 RED CELL DISTRIBUTION WIDTH (test code=RDW) 13.0 % 11.6-16.2 RED CELL DISTRIBUTION WIDTH SD (test code=RDW-SD) 46.3 fL 37.0-51.0 PLATELET COUNT (test code=PLT) 380 K/mm3 150-450 RESULT VERIFIED BY REPEAT ANALYSIS MEAN PLATELET VOLUME (test code=MPV) 11.3 fL 6.7-11.0 IMMATURE GRANULOCYTE % (test code=IG%) 0.5 % 0.0-5.0 NUCLEATED RBC % (test code=NRBC%) 0.0 % 0-0 NEUTROPHIL # (test code=NT#) 9.54 K/mm3 1.8-7.7 IMMATURE GRANULOCYTE # (test code=IG#) 0.08 x10 3/uL 0-0.03 LYMPHOCYTE # (test code=LY#) 4.36 K/mm3 1.0-5.0 MONOCYTE # (test code=MO#) 0.35 K/mm3 0-0.8 EOSINOPHIL # (test code=EO#) 0.40 K/mm3 0.0-0.5 BASOPHIL # (test code=BA#) 0.10 K/mm3 0.0-0.2 NUCLEATED RBC # (test code=NRBC#) 0.00 K/mm3 0.0-0.1 MANUAL DIFF REQUIRED (test code=MDIFF) YES STAIN ACCEPTABILITY (test code=STN ACCEPTABLE) TOTAL CELLS COUNTED (test code=TCC) #CELLS SEGMENTED NEUTROPHILS (test code=SEG) % 39-69 LYMPHOCYTE (test code=LYMPH) % 25-55 MONOCYTE (test code=MON) % 0-10 EOSINOPHIL (test code=EOS) % 0.0-5.0 CABOT RINGS (test code=CAB) MORPHOLOGY COMMENT (test code=MOC) PLATELET ESTIMATE (test code=PLTEST) PLATELET MORPHOLOGY (test code=PLTMORPH) CBC W/MANUAL [id number] 15:39:00* Test Item Value Reference Range Comments WHITE BLOOD CELL (test code=WBC) 14.8 K/mm3 4.5-12.5 RED BLOOD CELL (test code=RBC) 4.62 mill/mm3 3.7-5.2 HEMOGLOBIN (test code=HGB) 14.2 gram/dL 11.5-15.5 RESULT VERIFIED BY REPEAT ANALYSIS HEMATOCRIT (test code=HCT) 44.6 % 36.0-46.0 MEAN CELL VOLUME (test code=MCV) 96.5 fL 80-98 MEAN CELL HGB (test code=MCH) 30.7 picogram 27.0-33.0 MEAN CELL HGB CONCETRATION (test code=MCHC) 31.8 gram/dL 33.0-36.0 RED CELL DISTRIBUTION WIDTH (test code=RDW) 13.0 % 11.6-16.2 RED CELL DISTRIBUTION WIDTH SD (test code=RDW-SD) 46.3 fL 37.0-51.0 PLATELET COUNT (test code=PLT) 380 K/mm3 150-450 RESULT VERIFIED BY REPEAT ANALYSIS MEAN PLATELET VOLUME (test code=MPV) 11.3 fL 6.7-11.0 IMMATURE GRANULOCYTE % (test code=IG%) 0.5 % 0.0-5.0 NUCLEATED RBC % (test code=NRBC%) 0.0 % 0-0 NEUTROPHIL # (test code=NT#) 9.54 K/mm3 1.8-7.7 IMMATURE GRANULOCYTE # (test code=IG#) 0.08 x10 3/uL 0-0.03 LYMPHOCYTE # (test code=LY#) 4.36 K/mm3 1.0-5.0 MONOCYTE # (test code=MO#) 0.35 K/mm3 0-0.8 EOSINOPHIL # (test code=EO#) 0.40 K/mm3 0.0-0.5 BASOPHIL # (test code=BA#) 0.10 K/mm3 0.0-0.2 NUCLEATED RBC # (test code=NRBC#) 0.00 K/mm3 0.0-0.1 MANUAL DIFF REQUIRED (test code=MDIFF) YES STAIN ACCEPTABILITY (test code=STN ACCEPTABLE) TOTAL CELLS COUNTED (test code=TCC) #CELLS SEGMENTED NEUTROPHILS (test code=SEG) % 39-69 LYMPHOCYTE (test code=LYMPH) % 25-55 MONOCYTE (test code=MON) % 0-10 EOSINOPHIL (test code=EOS) % 0.0-5.0 CABOT RINGS (test code=CAB) MORPHOLOGY COMMENT (test code=MOC) PLATELET ESTIMATE (test code=PLTEST) PLATELET MORPHOLOGY (test code=PLTMORPH) CBC W/MANUAL [id number] 15:39:00* Test Item Value Reference Range Comments WHITE BLOOD CELL (test code=WBC) 14.8 K/mm3 4.5-12.5 RED BLOOD CELL (test code=RBC) 4.62 mill/mm3 3.7-5.2 HEMOGLOBIN (test code=HGB) 14.2 gram/dL 11.5-15.5 RESULT VERIFIED BY REPEAT ANALYSIS HEMATOCRIT (test code=HCT) 44.6 % 36.0-46.0 MEAN CELL VOLUME (test code=MCV) 96.5 fL 80-98 MEAN CELL HGB (test code=MCH) 30.7 picogram 27.0-33.0 MEAN CELL HGB CONCETRATION (test code=MCHC) 31.8 gram/dL 33.0-36.0 RED CELL DISTRIBUTION WIDTH (test code=RDW) 13.0 % 11.6-16.2 RED CELL DISTRIBUTION WIDTH SD (test code=RDW-SD) 46.3 fL 37.0-51.0 PLATELET COUNT (test code=PLT) 380 K/mm3 150-450 RESULT VERIFIED BY REPEAT ANALYSIS MEAN PLATELET VOLUME (test code=MPV) 11.3 fL 6.7-11.0 IMMATURE GRANULOCYTE % (test code=IG%) 0.5 % 0.0-5.0 NUCLEATED RBC % (test code=NRBC%) 0.0 % 0-0 NEUTROPHIL # (test code=NT#) 9.54 K/mm3 1.8-7.7 IMMATURE GRANULOCYTE # (test code=IG#) 0.08 x10 3/uL 0-0.03 LYMPHOCYTE # (test code=LY#) 4.36 K/mm3 1.0-5.0 MONOCYTE # (test code=MO#) 0.35 K/mm3 0-0.8 EOSINOPHIL # (test code=EO#) 0.40 K/mm3 0.0-0.5 BASOPHIL # (test code=BA#) 0.10 K/mm3 0.0-0.2 NUCLEATED RBC # (test code=NRBC#) 0.00 K/mm3 0.0-0.1 MANUAL DIFF REQUIRED (test code=MDIFF) YES STAIN ACCEPTABILITY (test code=STN ACCEPTABLE) TOTAL CELLS COUNTED (test code=TCC) #CELLS SEGMENTED NEUTROPHILS (test code=SEG) % 39-69 LYMPHOCYTE (test code=LYMPH) % 25-55 MONOCYTE (test code=MON) % 0-10 EOSINOPHIL (test code=EOS) % 0.0-5.0 MORPHOLOGY COMMENT (test code=MOC) PLATELET ESTIMATE (test code=PLTEST) PLATELET MORPHOLOGY (test code=PLTMORPH) CBC W/MANUAL [id number] 15:39:00* Test Item Value Reference Range Comments WHITE BLOOD CELL (test code=WBC) 14.8 K/mm3 4.5-12.5 RED BLOOD CELL (test code=RBC) 4.62 mill/mm3 3.7-5.2 HEMOGLOBIN (test code=HGB) 14.2 gram/dL 11.5-15.5 RESULT VERIFIED BY REPEAT ANALYSIS HEMATOCRIT (test code=HCT) 44.6 % 36.0-46.0 MEAN CELL VOLUME (test code=MCV) 96.5 fL 80-98 MEAN CELL HGB (test code=MCH) 30.7 picogram 27.0-33.0 MEAN CELL HGB CONCETRATION (test code=MCHC) 31.8 gram/dL 33.0-36.0 RED CELL DISTRIBUTION WIDTH (test code=RDW) 13.0 % 11.6-16.2 RED CELL DISTRIBUTION WIDTH SD (test code=RDW-SD) 46.3 fL 37.0-51.0 PLATELET COUNT (test code=PLT) 380 K/mm3 150-450 RESULT VERIFIED BY REPEAT ANALYSIS MEAN PLATELET VOLUME (test code=MPV) 11.3 fL 6.7-11.0 IMMATURE GRANULOCYTE % (test code=IG%) 0.5 % 0.0-5.0 NUCLEATED RBC % (test code=NRBC%) 0.0 % 0-0 NEUTROPHIL # (test code=NT#) 9.54 K/mm3 1.8-7.7 IMMATURE GRANULOCYTE # (test code=IG#) 0.08 x10 3/uL 0-0.03 LYMPHOCYTE # (test code=LY#) 4.36 K/mm3 1.0-5.0 MONOCYTE # (test code=MO#) 0.35 K/mm3 0-0.8 EOSINOPHIL # (test code=EO#) 0.40 K/mm3 0.0-0.5 BASOPHIL # (test code=BA#) 0.10 K/mm3 0.0-0.2 NUCLEATED RBC # (test code=NRBC#) 0.00 K/mm3 0.0-0.1 MANUAL DIFF REQUIRED (test code=MDIFF) YES STAIN ACCEPTABILITY (test code=STN ACCEPTABLE) TOTAL CELLS COUNTED (test code=TCC) #CELLS SEGMENTED NEUTROPHILS (test code=SEG) % 39-69 LYMPHOCYTE (test code=LYMPH) % 25-55 MONOCYTE (test code=MON) % 0-10 MORPHOLOGY COMMENT (test code=MOC) PLATELET ESTIMATE (test code=PLTEST) PLATELET MORPHOLOGY (test code=PLTMORPH) CBC W/MANUAL [id number] 15:39:00* Test Item Value Reference Range Comments WHITE BLOOD CELL (test code=WBC) 14.8 K/mm3 4.5-12.5 RED BLOOD CELL (test code=RBC) 4.62 mill/mm3 3.7-5.2 HEMOGLOBIN (test code=HGB) 14.2 gram/dL 11.5-15.5 RESULT VERIFIED BY REPEAT ANALYSIS HEMATOCRIT (test code=HCT) 44.6 % 36.0-46.0 MEAN CELL VOLUME (test code=MCV) 96.5 fL 80-98 MEAN CELL HGB (test code=MCH) 30.7 picogram 27.0-33.0 MEAN CELL HGB CONCETRATION (test code=MCHC) 31.8 gram/dL 33.0-36.0 RED CELL DISTRIBUTION WIDTH (test code=RDW) 13.0 % 11.6-16.2 RED CELL DISTRIBUTION WIDTH SD (test code=RDW-SD) 46.3 fL 37.0-51.0 PLATELET COUNT (test code=PLT) 380 K/mm3 150-450 RESULT VERIFIED BY REPEAT ANALYSIS MEAN PLATELET VOLUME (test code=MPV) 11.3 fL 6.7-11.0 IMMATURE GRANULOCYTE % (test code=IG%) 0.5 % 0.0-5.0 NUCLEATED RBC % (test code=NRBC%) 0.0 % 0-0 NEUTROPHIL # (test code=NT#) 9.54 K/mm3 1.8-7.7 IMMATURE GRANULOCYTE # (test code=IG#) 0.08 x10 3/uL 0-0.03 LYMPHOCYTE # (test code=LY#) 4.36 K/mm3 1.0-5.0 MONOCYTE # (test code=MO#) 0.35 K/mm3 0-0.8 EOSINOPHIL # (test code=EO#) 0.40 K/mm3 0.0-0.5 BASOPHIL # (test code=BA#) 0.10 K/mm3 0.0-0.2 NUCLEATED RBC # (test code=NRBC#) 0.00 K/mm3 0.0-0.1 MANUAL DIFF REQUIRED (test code=MDIFF) YES STAIN ACCEPTABILITY (test code=STN ACCEPTABLE) TOTAL CELLS COUNTED (test code=TCC) #CELLS SEGMENTED NEUTROPHILS (test code=SEG) % 39-69 LYMPHOCYTE (test code=LYMPH) % 25-55 MONOCYTE (test code=MON) % 0-10 EOSINOPHIL (test code=EOS) % 0.0-5.0 CABOT RINGS (test code=CAB) MORPHOLOGY COMMENT (test code=MOC) PLATELET ESTIMATE (test code=PLTEST) PLATELET MORPHOLOGY (test code=PLTMORPH) POC LACTIC [id number] 15:17:00* Test Item Value Reference Range Comments POC LACTIC ACID (test code=POCLAC) 1.77 MMOL/L 0.4-2.2 B-TYPE NATRIURETIC [id number] 07:40:00* Test Item Value Reference Range Comments B-TYPE NATRIURETIC PEPTIDE (test code=BNP) 394.98 pgram/mL 0-100 BASIC METABOLIC [id number] 07:02:00* Test Item Value Reference Range Comments SODIUM (test code=NA) 144 mmol/L 136-145 POTASSIUM (test code=K) 4.5 mmol/L 3.5-5.1 CHLORIDE (test code=CL) 108.0 mmol/L 98-107 CARBON DIOXIDE (test code=CO2) 30.0 mmol/L 21-32 ANION GAP (test code=GAP) 10.5 10-20 GLUCOSE (test code=GLU) 108 mg/dL 74-106 BLOOD UREA NITROGEN (test code=BUN) 30 mg/dL 7-18 GLOMERULAR FILTRATION RATE (test code=GFR) 32 mL/min >=60 Estimated GFR by using Modified MDRD formula.Chronic kidney disease is defined as either kidney damageor GFR <60 mL/min/1.73 m2 for >3 months. CREATININE (test code=CREAT) 1.60 mg/dL 0.55-1.02 Note change in reference range due to change in reagent. BUN/CREATININE RATIO (test code=BUN/CREA) 19.1 10-20 CALCIUM (test code=CA) 9.4 mg/dL 8.5-10.1 BASIC METABOLIC [id number] 06:54:00* Test Item Value Reference Range Comments SODIUM (test code=NA) 144 mmol/L 136-145 POTASSIUM (test code=K) 4.5 mmol/L 3.5-5.1 CHLORIDE (test code=CL) 108.0 mmol/L 98-107 CARBON DIOXIDE (test code=CO2) mmol/L 21-32 ANION GAP (test code=GAP) 10-20 GLUCOSE (test code=GLU) mg/dL 74-106 BLOOD UREA NITROGEN (test code=BUN) mg/dL 7-18 GLOMERULAR FILTRATION RATE (test code=GFR) mL/min >=60 CREATININE (test code=CREAT) mg/dL 0.55-1.02 BUN/CREATININE RATIO (test code=BUN/CREA) 10-20 CALCIUM (test code=CA) 9.4 mg/dL 8.5-10.1 CBC W/AUTO [id number] 06:47:00* Test Item Value Reference Range Comments WHITE BLOOD CELL (test code=WBC) 9.7 K/mm3 4.5-12.5 RED BLOOD CELL (test code=RBC) 3.33 mill/mm3 3.7-5.2 HEMOGLOBIN (test code=HGB) 10.5 gram/dL 11.5-15.5 HEMATOCRIT (test code=HCT) 33.1 % 36.0-46.0 MEAN CELL VOLUME (test code=MCV) 99.4 fL 80-98 MEAN CELL HGB (test code=MCH) 31.5 picogram 27.0-33.0 MEAN CELL HGB CONCETRATION (test code=MCHC) 31.7 gram/dL 33.0-36.0 RED CELL DISTRIBUTION WIDTH (test code=RDW) 12.9 % 11.6-16.2 RED CELL DISTRIBUTION WIDTH SD (test code=RDW-SD) 46.5 fL 37.0-51.0 PLATELET COUNT (test code=PLT) 217 K/mm3 150-450 MEAN PLATELET VOLUME (test code=MPV) 10.9 fL 6.7-11.0 NEUTROPHIL % (test code=NT%) 64.8 % 39.0-69.0 IMMATURE GRANULOCYTE % (test code=IG%) 0.6 % 0.0-5.0 LYMPHOCYTE % (test code=LY%) 22.6 % 25.0-55.0 MONOCYTE % (test code=MO%) 9.0 % 0.0-10.0 EOSINOPHIL % (test code=EO%) 2.4 % 0.0-5.0 BASOPHIL % (test code=BA%) 0.6 % 0.0-1.0 NUCLEATED RBC % (test code=NRBC%) 0.0 % 0-0 NEUTROPHIL # (test code=NT#) 6.27 K/mm3 1.8-7.7 IMMATURE GRANULOCYTE # (test code=IG#) 0.06 x10 3/uL 0-0.03 LYMPHOCYTE # (test code=LY#) 2.19 K/mm3 1.0-5.0 MONOCYTE # (test code=MO#) 0.87 K/mm3 0-0.8 EOSINOPHIL # (test code=EO#) 0.23 K/mm3 0.0-0.5 BASOPHIL # (test code=BA#) 0.06 K/mm3 0.0-0.2 NUCLEATED RBC # (test code=NRBC#) 0.00 K/mm3 0.0-0.1 MANUAL DIFF REQUIRED (test code=MDIFF) NO BASIC METABOLIC [id number] 13:12:00* Test Item Value Reference Range Comments SODIUM (test code=NA) 143 mmol/L 136-145 POTASSIUM (test code=K) 4.3 mmol/L 3.5-5.1 CHLORIDE (test code=CL) 109.0 mmol/L 98-107 CARBON DIOXIDE (test code=CO2) 24.0 mmol/L 21-32 ANION GAP (test code=GAP) 14.3 10-20 GLUCOSE (test code=GLU) 116 mg/dL 74-106 BLOOD UREA NITROGEN (test code=BUN) 31 mg/dL 7-18 GLOMERULAR FILTRATION RATE (test code=GFR) 32 mL/min >=60 Estimated GFR by using Modified MDRD formula.Chronic kidney disease is defined as either kidney damageor GFR <60 mL/min/1.73 m2 for >3 months. CREATININE (test code=CREAT) 1.60 mg/dL 0.55-1.02 Note change in reference range due to change in reagent. BUN/CREATININE RATIO (test code=BUN/CREA) 19.7 10-20 CALCIUM (test code=CA) 8.9 mg/dL 8.5-10.1 - PULM VENT PERF [id number] 13:12:00 FAX: Erendira Dinh MD [place]: [address] St: ADM FAX: Ephraim Barbosa NP [phone] Name: OZZIE ALLEN [facility] : 1950 Age/S: 68/F [address] [facility] Unit #: [id number] Loc: V.4036 [place] [address] Phys: Ephraim Lindo NP Acct: [id number] Dis Date: Status: ADM IN PHONE #: [phone] Exam Date: 04/05/2019 1200 FAX #: [phone] Reason: SOB EXAMS: CPT CODE: [id number] PULM VENT PERF IMAG [id number] HISTORY: Shortness of breath. COMPARISON: CT chest from April 04, 2019. VQ scan: 10.1 mCi of xenon-133 gas and 5.6 mCi of technetium 99m MAA. Ventilation study: Good wash in and good washout. No retention. No defects. Perfusion study: No segmental or subsegmental defects. IMPRESSION: FINDINGS suggest low probability for pulmonary embolism. at 1312 Reported and signed by: Ike Hopper M.D. CC: Erendira Dinh MD; Ephraim Lindo NP Technologist: DANTE BEAN Trnscrd Date/Time/By: 04/05/2019 ([id number]) : By: [email or web address] Orig Print D/T: S: 04/05/2019 (4607) PAGE 1 Signed Report CBC W/AUTO DIFF 2019-04-05 12:48:00* Test Item Value Reference Range Comments WHITE BLOOD CELL (test code=WBC) 8.1 K/mm3 4.5-12.5 RED BLOOD CELL (test code=RBC) 3.45 mill/mm3 3.7-5.2 HEMOGLOBIN (test code=HGB) 10.7 gram/dL 11.5-15.5 HEMATOCRIT (test code=HCT) 33.9 % 36.0-46.0 MEAN CELL VOLUME (test code=MCV) 98.3 fL 80-98 MEAN CELL HGB (test code=MCH) 31.0 picogram 27.0-33.0 MEAN CELL HGB CONCETRATION (test code=MCHC) 31.6 gram/dL 33.0-36.0 RED CELL DISTRIBUTION WIDTH (test code=RDW) 12.8 % 11.6-16.2 RED CELL DISTRIBUTION WIDTH SD (test code=RDW-SD) 45.5 fL 37.0-51.0 PLATELET COUNT (test code=PLT) 221 K/mm3 150-450 MEAN PLATELET VOLUME (test code=MPV) 10.9 fL 6.7-11.0 NEUTROPHIL % (test code=NT%) 67.6 % 39.0-69.0 IMMATURE GRANULOCYTE % (test code=IG%) 0.4 % 0.0-5.0 LYMPHOCYTE % (test code=LY%) 21.8 % 25.0-55.0 MONOCYTE % (test code=MO%) 8.0 % 0.0-10.0 EOSINOPHIL % (test code=EO%) 1.6 % 0.0-5.0 BASOPHIL % (test code=BA%) 0.6 % 0.0-1.0 NUCLEATED RBC % (test code=NRBC%) 0.0 % 0-0 NEUTROPHIL # (test code=NT#) 5.46 K/mm3 1.8-7.7 IMMATURE GRANULOCYTE # (test code=IG#) 0.03 x10 3/uL 0-0.03 LYMPHOCYTE # (test code=LY#) 1.76 K/mm3 1.0-5.0 MONOCYTE # (test code=MO#) 0.65 K/mm3 0-0.8 EOSINOPHIL # (test code=EO#) 0.13 K/mm3 0.0-0.5 BASOPHIL # (test code=BA#) 0.05 K/mm3 0.0-0.2 NUCLEATED RBC # (test code=NRBC#) 0.00 K/mm3 0.0-0.1 CBC W/MANUAL [id number] 22:27:00* Test Item Value Reference Range Comments WHITE BLOOD CELL (test code=WBC) 8.1 K/mm3 4.5-12.5 RED BLOOD CELL (test code=RBC) 3.37 mill/mm3 3.7-5.2 HEMOGLOBIN (test code=HGB) 10.5 gram/dL 11.5-15.5 HEMATOCRIT (test code=HCT) 32.4 % 36.0-46.0 MEAN CELL VOLUME (test code=MCV) 96.1 fL 80-98 MEAN CELL HGB (test code=MCH) 31.2 picogram 27.0-33.0 MEAN CELL HGB CONCETRATION (test code=MCHC) 32.4 gram/dL 33.0-36.0 RED CELL DISTRIBUTION WIDTH (test code=RDW) 12.8 % 11.6-16.2 RED CELL DISTRIBUTION WIDTH SD (test code=RDW-SD) 45.1 fL 37.0-51.0 PLATELET COUNT (test code=PLT) 238 K/mm3 150-450 MEAN PLATELET VOLUME (test code=MPV) 10.8 fL 6.7-11.0 IMMATURE GRANULOCYTE % (test code=IG%) 0.2 % 0.0-5.0 NUCLEATED RBC % (test code=NRBC%) 0.0 % 0-0 NEUTROPHIL # (test code=NT#) 4.27 K/mm3 1.8-7.7 IMMATURE GRANULOCYTE # (test code=IG#) 0.02 x10 3/uL 0-0.03 LYMPHOCYTE # (test code=LY#) 2.82 K/mm3 1.0-5.0 MONOCYTE # (test code=MO#) 0.72 K/mm3 0-0.8 EOSINOPHIL # (test code=EO#) 0.23 K/mm3 0.0-0.5 BASOPHIL # (test code=BA#) 0.04 K/mm3 0.0-0.2 NUCLEATED RBC # (test code=NRBC#) 0.00 K/mm3 0.0-0.1 MANUAL DIFF REQUIRED (test code=MDIFF) YES STAIN ACCEPTABILITY (test code=STN ACCEPTABLE) STAIN ACCEPTABLE TOTAL CELLS COUNTED (test code=TCC) 114 #CELLS SEGMENTED NEUTROPHILS (test code=SEG) 62.3 % 39-69 BAND NEUTROPHIL (test code=BAND) 0 % 0-10 LYMPHOCYTE (test code=LYMPH) 31.6 % 25-55 REACTIVE LYMPH (test code=RELYMPH) 0 % MONOCYTE (test code=MON) 3.5 % 0-10 EOSINOPHIL (test code=EOS) 2.6 % 0.0-5.0 BASOPHIL (test code=BASO) 0 % 0-1.0 METAMYELOCYTE (test code=META) 0 % 0-0 MYELOCYTE (test code=MYELO) 0 % 0.0-0.0 PROMYELOCYTE (test code=PROM) 0 % 0-0 PLATELET ESTIMATE (test code=PLTEST) ADEQUATE PLATELET MORPHOLOGY (test code=PLTMORPH) NORMAL IMMATURE FORMS (test code=IMMAT) 0 % 0-0 HARD STICK CS 1205, RN DESTINY ([id number]) IS AWARE V.LAB.108 1227LIPID PROFILE (CORONARY RISK)2019-04-04 15:14:00* Test Item Value Reference Range Comments TRIGLYCERIDES (test code=TRIG) 163 mg/dL 20-150 CHOLESTEROL (test code=CHOL) 152 mg/dL 0-200 CHOLESTEROL/HDL RATIO (test code=CHOLHDL) 3.0 RATIO 0-4.9 RISK ASSOCIATED WITH CHOL/HDL RATIOS: Risk Male Female1/2 AVERAGE 3.43 3.27AVERAGE 4.97 4.442X AVERAGE 9.55 7.053X AVERAGE 23.39 11.04 REFERENCE VALUE IS RELATED TO RISK LEVELS ASRECOMMENDED BY THE [facility]. HEART, LUNG, AND BLOOD INST. HDL CHOLESTEROL (test code=HDL) 44 mg/dL 40-60 LIPOPROTEIN LDL (test code=LDL) 89 mg/dL 100-129 Reference Interval: mg/dL mmol/L Optimal <100 <2.6Near/above optimal 100-129 2.6- 3.3Borderline High 130-159 3.4-4.1High 160-189 4.1-4.9Very High >=190 >=4.9=========This LDL result is a direct measurement.========= HARD STICK-NO FLOW, DIDN'T WANT TO BE STUCK AGAIN VALENTÍN 120DARIEL Wong ([id number]) IS AWARE V.LAB.CS1 04/04/931533VFVQR METABOLIC [id number] 15:13:00* Test Item Value Reference Range Comments SODIUM (test code=NA) 142 mmol/L 136-145 POTASSIUM (test code=K) 4.4 mmol/L 3.5-5.1 CHLORIDE (test code=CL) 111.0 mmol/L 98-107 CARBON DIOXIDE (test code=CO2) 24.0 mmol/L 21-32 ANION GAP (test code=GAP) 11.4 10-20 GLUCOSE (test code=GLU) 127 mg/dL 74-106 BLOOD UREA NITROGEN (test code=BUN) 34 mg/dL 7-18 GLOMERULAR FILTRATION RATE (test code=GFR) 30 mL/min >=60 Estimated GFR by using Modified MDRD formula.Chronic kidney disease is defined as either kidney damageor GFR <60 mL/min/1.73 m2 for >3 months. CREATININE (test code=CREAT) 1.70 mg/dL 0.55-1.02 Note change in reference range due to change in reagent. BUN/CREATININE RATIO (test code=BUN/CREA) 19.8 10-20 CALCIUM (test code=CA) 9.1 mg/dL 8.5-10.1 HARD STICK DARIEL MATTHEWS ([id number]) IS AWARE V.LAB.CS108/18/19 1227BASIC METABOLIC [id number] 15:06:00* Test Item Value Reference Range Comments SODIUM (test code=NA) 142 mmol/L 136-145 POTASSIUM (test code=K) 4.4 mmol/L 3.5-5.1 CHLORIDE (test code=CL) 111.0 mmol/L 98-107 CARBON DIOXIDE (test code=CO2) mmol/L 21-32 ANION GAP (test code=GAP) 10-20 GLUCOSE (test code=GLU) mg/dL 74-106 BLOOD UREA NITROGEN (test code=BUN) mg/dL 7-18 GLOMERULAR FILTRATION RATE (test code=GFR) mL/min >=60 CREATININE (test code=CREAT) mg/dL 0.55-1.02 BUN/CREATININE RATIO (test code=BUN/CREA) 10-20 CALCIUM (test code=CA) 9.1 mg/dL 8.5-10.1 HARD STICK VALENTÍN 1205DARIEL ([id number]) IS AWARE V.LAB.[facility] 1227CBC W/MANUAL [id number] 14:57:00* Test Item Value Reference Range Comments WHITE BLOOD CELL (test code=WBC) 8.1 K/mm3 4.5-12.5 RED BLOOD CELL (test code=RBC) 3.37 mill/mm3 3.7-5.2 HEMOGLOBIN (test code=HGB) 10.5 gram/dL 11.5-15.5 HEMATOCRIT (test code=HCT) 32.4 % 36.0-46.0 MEAN CELL VOLUME (test code=MCV) 96.1 fL 80-98 MEAN CELL HGB (test code=MCH) 31.2 picogram 27.0-33.0 MEAN CELL HGB CONCETRATION (test code=MCHC) 32.4 gram/dL 33.0-36.0 RED CELL DISTRIBUTION WIDTH (test code=RDW) 12.8 % 11.6-16.2 RED CELL DISTRIBUTION WIDTH SD (test code=RDW-SD) 45.1 fL 37.0-51.0 PLATELET COUNT (test code=PLT) 238 K/mm3 150-450 MEAN PLATELET VOLUME (test code=MPV) 10.8 fL 6.7-11.0 IMMATURE GRANULOCYTE % (test code=IG%) 0.2 % 0.0-5.0 NUCLEATED RBC % (test code=NRBC%) 0.0 % 0-0 NEUTROPHIL # (test code=NT#) 4.27 K/mm3 1.8-7.7 IMMATURE GRANULOCYTE # (test code=IG#) 0.02 x10 3/uL 0-0.03 LYMPHOCYTE # (test code=LY#) 2.82 K/mm3 1.0-5.0 MONOCYTE # (test code=MO#) 0.72 K/mm3 0-0.8 EOSINOPHIL # (test code=EO#) 0.23 K/mm3 0.0-0.5 BASOPHIL # (test code=BA#) 0.04 K/mm3 0.0-0.2 NUCLEATED RBC # (test code=NRBC#) 0.00 K/mm3 0.0-0.1 MANUAL DIFF REQUIRED (test code=MDIFF) YES STAIN ACCEPTABILITY (test code=STN ACCEPTABLE) TOTAL CELLS COUNTED (test code=TCC) #CELLS SEGMENTED NEUTROPHILS (test code=SEG) % 39-69 LYMPHOCYTE (test code=LYMPH) % 25-55 MONOCYTE (test code=MON) % 0-10 EOSINOPHIL (test code=EOS) % 0.0-5.0 CABOT RINGS (test code=CAB) MORPHOLOGY COMMENT (test code=MOC) PLATELET ESTIMATE (test code=PLTEST) PLATELET MORPHOLOGY (test code=PLTMORPH) HARD STICK CS 1205, RN DESTINY ([id number]) IS AWARE V.LAB.CS108 1227CBC W/MANUAL [id number] 14:57:00* Test Item Value Reference Range Comments WHITE BLOOD CELL (test code=WBC) 8.1 K/mm3 4.5-12.5 RED BLOOD CELL (test code=RBC) 3.37 mill/mm3 3.7-5.2 HEMOGLOBIN (test code=HGB) 10.5 gram/dL 11.5-15.5 HEMATOCRIT (test code=HCT) 32.4 % 36.0-46.0 MEAN CELL VOLUME (test code=MCV) 96.1 fL 80-98 MEAN CELL HGB (test code=MCH) 31.2 picogram 27.0-33.0 MEAN CELL HGB CONCETRATION (test code=MCHC) 32.4 gram/dL 33.0-36.0 RED CELL DISTRIBUTION WIDTH (test code=RDW) 12.8 % 11.6-16.2 RED CELL DISTRIBUTION WIDTH SD (test code=RDW-SD) 45.1 fL 37.0-51.0 PLATELET COUNT (test code=PLT) 238 K/mm3 150-450 MEAN PLATELET VOLUME (test code=MPV) 10.8 fL 6.7-11.0 IMMATURE GRANULOCYTE % (test code=IG%) 0.2 % 0.0-5.0 NUCLEATED RBC % (test code=NRBC%) 0.0 % 0-0 NEUTROPHIL # (test code=NT#) 4.27 K/mm3 1.8-7.7 IMMATURE GRANULOCYTE # (test code=IG#) 0.02 x10 3/uL 0-0.03 LYMPHOCYTE # (test code=LY#) 2.82 K/mm3 1.0-5.0 MONOCYTE # (test code=MO#) 0.72 K/mm3 0-0.8 EOSINOPHIL # (test code=EO#) 0.23 K/mm3 0.0-0.5 BASOPHIL # (test code=BA#) 0.04 K/mm3 0.0-0.2 NUCLEATED RBC # (test code=NRBC#) 0.00 K/mm3 0.0-0.1 MANUAL DIFF REQUIRED (test code=MDIFF) YES STAIN ACCEPTABILITY (test code=STN ACCEPTABLE) TOTAL CELLS COUNTED (test code=TCC) #CELLS SEGMENTED NEUTROPHILS (test code=SEG) % 39-69 LYMPHOCYTE (test code=LYMPH) % 25-55 MONOCYTE (test code=MON) % 0-10 EOSINOPHIL (test code=EOS) % 0.0-5.0 MORPHOLOGY COMMENT (test code=MOC) PLATELET ESTIMATE (test code=PLTEST) PLATELET MORPHOLOGY (test code=PLTMORPH) HARD STICK CS 1205, RN DESTINY ([id number]) IS AWARE V.LAB.CS108 1227CBC W/MANUAL [id number] 14:57:00* Test Item Value Reference Range Comments WHITE BLOOD CELL (test code=WBC) 8.1 K/mm3 4.5-12.5 RED BLOOD CELL (test code=RBC) 3.37 mill/mm3 3.7-5.2 HEMOGLOBIN (test code=HGB) 10.5 gram/dL 11.5-15.5 HEMATOCRIT (test code=HCT) 32.4 % 36.0-46.0 MEAN CELL VOLUME (test code=MCV) 96.1 fL 80-98 MEAN CELL HGB (test code=MCH) 31.2 picogram 27.0-33.0 MEAN CELL HGB CONCETRATION (test code=MCHC) 32.4 gram/dL 33.0-36.0 RED CELL DISTRIBUTION WIDTH (test code=RDW) 12.8 % 11.6-16.2 RED CELL DISTRIBUTION WIDTH SD (test code=RDW-SD) 45.1 fL 37.0-51.0 PLATELET COUNT (test code=PLT) 238 K/mm3 150-450 MEAN PLATELET VOLUME (test code=MPV) 10.8 fL 6.7-11.0 IMMATURE GRANULOCYTE % (test code=IG%) 0.2 % 0.0-5.0 NUCLEATED RBC % (test code=NRBC%) 0.0 % 0-0 NEUTROPHIL # (test code=NT#) 4.27 K/mm3 1.8-7.7 IMMATURE GRANULOCYTE # (test code=IG#) 0.02 x10 3/uL 0-0.03 LYMPHOCYTE # (test code=LY#) 2.82 K/mm3 1.0-5.0 MONOCYTE # (test code=MO#) 0.72 K/mm3 0-0.8 EOSINOPHIL # (test code=EO#) 0.23 K/mm3 0.0-0.5 BASOPHIL # (test code=BA#) 0.04 K/mm3 0.0-0.2 NUCLEATED RBC # (test code=NRBC#) 0.00 K/mm3 0.0-0.1 MANUAL DIFF REQUIRED (test code=MDIFF) YES STAIN ACCEPTABILITY (test code=STN ACCEPTABLE) TOTAL CELLS COUNTED (test code=TCC) #CELLS SEGMENTED NEUTROPHILS (test code=SEG) % 39-69 LYMPHOCYTE (test code=LYMPH) % 25-55 MONOCYTE (test code=MON) % 0-10 MORPHOLOGY COMMENT (test code=MOC) PLATELET ESTIMATE (test code=PLTEST) PLATELET MORPHOLOGY (test code=PLTMORPH) HARD STICK CS 1205, RN DESTINY ([id number]) IS AWARE V.LAB.CS108/ 1227CBC W/MANUAL [id number] 14:56:00* Test Item Value Reference Range Comments WHITE BLOOD CELL (test code=WBC) 8.1 K/mm3 4.5-12.5 RED BLOOD CELL (test code=RBC) 3.37 mill/mm3 3.7-5.2 HEMOGLOBIN (test code=HGB) 10.5 gram/dL 11.5-15.5 HEMATOCRIT (test code=HCT) 32.4 % 36.0-46.0 MEAN CELL VOLUME (test code=MCV) 96.1 fL 80-98 MEAN CELL HGB (test code=MCH) 31.2 picogram 27.0-33.0 MEAN CELL HGB CONCETRATION (test code=MCHC) 32.4 gram/dL 33.0-36.0 RED CELL DISTRIBUTION WIDTH (test code=RDW) 12.8 % 11.6-16.2 RED CELL DISTRIBUTION WIDTH SD (test code=RDW-SD) 45.1 fL 37.0-51.0 PLATELET COUNT (test code=PLT) 238 K/mm3 150-450 MEAN PLATELET VOLUME (test code=MPV) 10.8 fL 6.7-11.0 IMMATURE GRANULOCYTE % (test code=IG%) 0.2 % 0.0-5.0 NUCLEATED RBC % (test code=NRBC%) 0.0 % 0-0 NEUTROPHIL # (test code=NT#) 4.27 K/mm3 1.8-7.7 IMMATURE GRANULOCYTE # (test code=IG#) 0.02 x10 3/uL 0-0.03 LYMPHOCYTE # (test code=LY#) 2.82 K/mm3 1.0-5.0 MONOCYTE # (test code=MO#) 0.72 K/mm3 0-0.8 EOSINOPHIL # (test code=EO#) 0.23 K/mm3 0.0-0.5 BASOPHIL # (test code=BA#) 0.04 K/mm3 0.0-0.2 NUCLEATED RBC # (test code=NRBC#) 0.00 K/mm3 0.0-0.1 MANUAL DIFF REQUIRED (test code=MDIFF) YES STAIN ACCEPTABILITY (test code=STN ACCEPTABLE) TOTAL CELLS COUNTED (test code=TCC) #CELLS SEGMENTED NEUTROPHILS (test code=SEG) % 39-69 LYMPHOCYTE (test code=LYMPH) % 25-55 MONOCYTE (test code=MON) % 0-10 EOSINOPHIL (test code=EOS) % 0.0-5.0 CABOT RINGS (test code=CAB) MORPHOLOGY COMMENT (test code=MOC) PLATELET ESTIMATE (test code=PLTEST) PLATELET MORPHOLOGY (test code=PLTMORPH) HARD STICK VALENTÍN 1205, RN DESTINY ([id number]) IS AWARE V.LAB.CS108 1227CBC W/MANUAL [id number] 14:56:00* Test Item Value Reference Range Comments WHITE BLOOD CELL (test code=WBC) 8.1 K/mm3 4.5-12.5 RED BLOOD CELL (test code=RBC) 3.37 mill/mm3 3.7-5.2 HEMOGLOBIN (test code=HGB) 10.5 gram/dL 11.5-15.5 HEMATOCRIT (test code=HCT) 32.4 % 36.0-46.0 MEAN CELL VOLUME (test code=MCV) 96.1 fL 80-98 MEAN CELL HGB (test code=MCH) 31.2 picogram 27.0-33.0 MEAN CELL HGB CONCETRATION (test code=MCHC) 32.4 gram/dL 33.0-36.0 RED CELL DISTRIBUTION WIDTH (test code=RDW) 12.8 % 11.6-16.2 RED CELL DISTRIBUTION WIDTH SD (test code=RDW-SD) 45.1 fL 37.0-51.0 PLATELET COUNT (test code=PLT) 238 K/mm3 150-450 MEAN PLATELET VOLUME (test code=MPV) 10.8 fL 6.7-11.0 IMMATURE GRANULOCYTE % (test code=IG%) 0.2 % 0.0-5.0 NUCLEATED RBC % (test code=NRBC%) 0.0 % 0-0 NEUTROPHIL # (test code=NT#) 4.27 K/mm3 1.8-7.7 IMMATURE GRANULOCYTE # (test code=IG#) 0.02 x10 3/uL 0-0.03 LYMPHOCYTE # (test code=LY#) 2.82 K/mm3 1.0-5.0 MONOCYTE # (test code=MO#) 0.72 K/mm3 0-0.8 EOSINOPHIL # (test code=EO#) 0.23 K/mm3 0.0-0.5 BASOPHIL # (test code=BA#) 0.04 K/mm3 0.0-0.2 NUCLEATED RBC # (test code=NRBC#) 0.00 K/mm3 0.0-0.1 MANUAL DIFF REQUIRED (test code=MDIFF) YES STAIN ACCEPTABILITY (test code=STN ACCEPTABLE) TOTAL CELLS COUNTED (test code=TCC) #CELLS SEGMENTED NEUTROPHILS (test code=SEG) % 39-69 LYMPHOCYTE (test code=LYMPH) % 25-55 MONOCYTE (test code=MON) % 0-10 EOSINOPHIL (test code=EOS) % 0.0-5.0 CABOT RINGS (test code=CAB) MORPHOLOGY COMMENT (test code=MOC) PLATELET ESTIMATE (test code=PLTEST) PLATELET MORPHOLOGY (test code=PLTMORPH) HARD STICK CS 1205, RN DESTINY ([id number]) IS AWARE V.LAB. 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 Automated exposure control for dose reduction. DLP: 414 mGy-cm COMPARISON: Chest x-ray 04/03/19 FINDINGS: Statements: Lack of intravenous contrast limits evaluation of mediastinal contents. Lungs: No airspace consolidation or pleural effusion. Bibasilar subsegmental atelectasis, greater on the right. Right lower lobe and left upper lobe calcified granulomas. Central airways are patent. Eventration of the right hemidiaphragm. Cardiovascular: Cardiomegaly. No pericardial effusion. Cardiac pacemaker. Coronary artery calcification. No thoracic aortic aneurysm. Normal caliber pulmonary arteries. Mediastinum: Mildly enlarged right paratracheal and subcarinal nodes. Visualized thyroid is unremarkable. Normal esophagus. Included upper abdomen: Small hiatal hernia. Cholecystectomy. Simple bilateral renal cysts. Fat-containing 5.5 cm supraumbilical ventral hernia. Bones and superficial soft tissues: Degenerative changes of the spine and sacroiliac joints. IMPRESSION: No acute cardiothoracic process. Amy ctronically Signed by Latha Frost D.O. on 04/04/2019 at 1119 Reported and signed by: Latha Frost D.O. 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 Acct: [id number] Dis Date: Status: ADM IN PHONE #: [phone] Exam Date: 04/04/2019 1100 FAX #: [phone] Reason: sob EXAMS: CPT CODE: [id number] CT CHEST W/O CONTRAST 19740 <Continued> CC: Erendira Dinh MD; Naz Velasco NP Technologist:Norma Salas RT(R),CT; CTDI: DLP: Trnscb Date/Time: 04/04/2019 (1119) [email or web address] Orig Print D/T: S: 04/04/2019 (1122) PAGE 2 Signed Report B-TYPE NATRIURETIC PEPTIDE 2019-04-03 21:28:00* Test Item Value Reference Range Comments B-TYPE NATRIURETIC PEPTIDE (test code=BNP) 433.90 pgram/mL 0-100 [id number] 21:05:00* Test Item Value Reference Range Comments TROPONIN-I (test code=TROPI) <0.015 ng/mL 0-0.045 - XR ABDOMEN [id number] 15:06:00 FAX: Erendira Dinh MD [place]: [address] St: ADM FAX: Naz Velasco [phone] Name: OZZIE ALLEN [facility] : 1950 Age/S: 68/F [place] [facility] Unit #: [id number] Loc: V.4036 JOSE EDUARDO [place] [address] Phys: Naz Velasco NP Acct: [id number] Dis Date: Status: ADM IN PHONE #: [phone] Exam Date: 04/03/2019 1445 FAX #: [phone] Reason: pain EXAMS: CPT CODE: [id number] XR ABDOMEN 2V 21164 HISTORY: Pain. COMPARISON: CT scan from January 09, 2019. 2 views of the abdomen: No free air. Air-fluid level within stomach. No bowel obstruction. Scattered fecal material. No pathologic calcifications. IMPRESSION: No bowel obstruction. No pathologic calcifications. Bowel gas pattern is within normal limits. Electronically Signed by David Hopper on at 1500 Reported and signed by: Gardenia De Santiago CC: Erendira Dinh MD; Naz Velasco NP Technologist: AILIN RIVERA Tr nscrd Date/Time/By: 04/03/2019 (1503) : By: CalvinTH4 [facility] Print D/T: S: 04/03/2019 (8238) PAGE 1 Carleen d Report THYROID STIMULATING [id number] 14:12:00* Test Item Value Reference Range Comments THYROID STIMULATING HORMONE (test code=TSH) 1.270 uIU/mL 0.36-3.74 TSH REFERENCE RANGES: EUTHYROID: 0.35 - 4.3 mIU/mL HYPO : > 5.5 mIU/mL HYPER : < 0.35 mIU/mL [id number] 14:12:00* Test Item Value Reference Range Comments TROPONIN-I (test code=TROPI) <0.015 ng/mL 0-0.045 URINALYSIS [id number] 08:07:00* Test Item Value Reference Range Comments UA COLOR (test code=COLU) YELLOW YELLOW UA APPEARANCE (test code=APPU) Cloudy CLEAR UA GLUCOSE DIPSTICK (test code=DGLUU) NEGATIVE mg/dL NEGATIVE UA BILIRUBIN DIPSTICK (test code=BILU) 1+ (Small 0.5-1.0) NEGATIVE UA KETONE DIPSTICK (test code=KETU) NEGATIVE mg/dL NEGATIVE UA SPECIFIC GRAVITY (test code=SGU) 1.025 1.001-1.035 UA BLOOD DIPSTICK (test code=KARO) 1+ (Small) NEGATIVE UA PH DIPSTICK (test code=JOEL) 5.5 5.0-8.0 UA PROTEIN DIPSTICK (test code=PROU) 1+ mg/dL Neg-15 UA UROBILINIOGEN DIPSTICK (test code=URO) 0.2 mg/dL 0.0-0.2 UA NITRITE DIPSTICK (test code=KARLEY) NEGATIVE NEGATIVE UA LEUKOCYTE ESTERASE DIPSTICK (test code=LEUU) 2+ uL NEGATIVE UA MICROSCOPIC NEEDED? (test code=UAMICRO) YES UA WBC (test code=WBCU) >50 per HPF 0-5 UA RBC (test code=RBCU) 3-5 per HPF 0-5 UA EPITHELIAL CELLS (test code=EPIU) Moderate (5-10/hpf) per HPF Few UA BACTERIA (test code=BACU) MANY per HPF NONE Urine Source? Clean CatchDRUGS OF ABUSE SCREEN [id number] 08:07:00* Test Item Value Reference Range Comments UR MDMA (test code=MDMAQLU) NEGATIVE NEGATIVE URN COCAINE (test code=COCAURN) NEGATIVE NEGATIVE URN CANNABINOIDS (test code=CANNABURN) NEGATIVE <50 ng/mL URN AMPHETAMINE (test code=AMPHETURN) NEGATIVE NEGATIVE URN BARBITURATE (test code=BARBITURN) NEGATIVE NEGATIVE URN BENZODIAZEPINE (test code=BENZOURN) NEGATIVE NEGATIVE URN OPIATES (test code=OPIATURN) NEGATIVE NEGATIVE URN PHENCYCLIDINE (PCP) (test code=PHENCURN) NEGATIVE NEGATIVE URN METHADONE (test code=METHAURN) NEGATIVE <300 ng/mL Urine Source? Clean CatchURINALYSIS [id number] 08:04:00* Test Item Value Reference Range Comments UA COLOR (test code=COLU) YELLOW YELLOW UA APPEARANCE (test code=APPU) Cloudy CLEAR UA GLUCOSE DIPSTICK (test code=DGLUU) NEGATIVE mg/dL NEGATIVE UA BILIRUBIN DIPSTICK (test code=BILU) 1+ (Small 0.5-1.0) NEGATIVE UA KETONE DIPSTICK (test code=KETU) NEGATIVE mg/dL NEGATIVE UA SPECIFIC GRAVITY (test code=SGU) 1.025 1.001-1.035 UA BLOOD DIPSTICK (test code=KARO) 1+ (Small) NEGATIVE UA PH DIPSTICK (test code=JOEL) 5.5 5.0-8.0 UA PROTEIN DIPSTICK (test code=PROU) 1+ mg/dL Neg-15 UA UROBILINIOGEN DIPSTICK (test code=URO) 0.2 mg/dL 0.0-0.2 UA NITRITE DIPSTICK (test code=KARLEY) NEGATIVE NEGATIVE UA LEUKOCYTE ESTERASE DIPSTICK (test code=LEUU) 2+ uL NEGATIVE UA MICROSCOPIC NEEDED? (test code=UAMICRO) UA WBC (test code=WBCU) per HPF 0-5 UA RBC (test code=RBCU) per HPF 0-5 UA EPITHELIAL CELLS (test code=EPIU) per HPF Few UA BACTERIA (test code=BACU) per HPF NONE Urine Source? Clean CatchDRUGS OF ABUSE SCREEN [id number] 08:04:00* Test Item Value Reference Range Comments UR MDMA (test code=MDMAQLU) NEGATIVE NEGATIVE URN COCAINE (test code=COCAURN) NEGATIVE NEGATIVE URN CANNABINOIDS (test code=CANNABURN) NEGATIVE <50 ng/mL URN AMPHETAMINE (test code=AMPHETURN) NEGATIVE NEGATIVE URN BARBITURATE (test code=BARBITURN) NEGATIVE NEGATIVE URN BENZODIAZEPINE (test code=BENZOURN) NEGATIVE NEGATIVE URN OPIATES (test code=OPIATURN) NEGATIVE NEGATIVE URN PHENCYCLIDINE (PCP) (test code=PHENCURN) NEGATIVE NEGATIVE URN METHADONE (test code=METHAURN) NEGATIVE <300 ng/mL Urine Source? Clean CatchURINALYSIS [id number] 08:03:00* Test Item Value Reference Range Comments UA COLOR (test code=COLU) YELLOW UA APPEARANCE (test code=APPU) CLEAR UA BILIRUBIN DIPSTICK (test code=BILU) NEGATIVE UA SPECIFIC GRAVITY (test code=SGU) 1.001-1.035 UA PH DIPSTICK (test code=JOEL) 5.0-8.0 UA UROBILINIOGEN DIPSTICK (test code=URO) mg/dL 0.0-0.2 UA NITRITE DIPSTICK (test code=KARLEY) NEGATIVE UA LEUKOCYTE ESTERASE DIPSTICK (test code=LEUU) uL NEGATIVE UA MICROSCOPIC NEEDED? (test code=UAMICRO) UA WBC (test code=WBCU) per HPF 0-5 UA RBC (test code=RBCU) per HPF 0-5 UA EPITHELIAL CELLS (test code=EPIU) per HPF Few UA BACTERIA (test code=BACU) per HPF NONE Urine Source? Clean CatchDRUGS OF ABUSE SCREEN [id number] 08:03:00* Test Item Value Reference Range Comments UR MDMA (test code=MDMAQLU) NEGATIVE NEGATIVE URN COCAINE (test code=COCAURN) NEGATIVE NEGATIVE URN CANNABINOIDS (test code=CANNABURN) NEGATIVE <50 ng/mL URN AMPHETAMINE (test code=AMPHETURN) NEGATIVE NEGATIVE URN BARBITURATE (test code=BARBITURN) NEGATIVE NEGATIVE URN BENZODIAZEPINE (test code=BENZOURN) NEGATIVE NEGATIVE URN OPIATES (test code=OPIATURN) NEGATIVE NEGATIVE URN PHENCYCLIDINE (PCP) (test code=PHENCURN) NEGATIVE NEGATIVE URN METHADONE (test code=METHAURN) NEGATIVE <300 ng/mL Urine Source? Clean CatchBASIC METABOLIC [id number] 06:00:00* Test Item Value Reference Range Comments SODIUM (test code=NA) 142 mmol/L 128-145 POTASSIUM (test code=K) 4.1 mmol/L 3.5-5.1 CHLORIDE (test code=CL) 105.0 mmol/L 98-107 CARBON DIOXIDE (test code=CO2) 22.2 mmol/L 22-29 ANION GAP (test code=GAP) 19 mmol/L 10-20 GLUCOSE (test code=GLU) 102 mg/dL 70-110 BLOOD UREA NITROGEN (test code=BUN) 33 mg/dL 7-22 GLOMERULAR FILTRATION RATE (test code=GFR) 22 mL/min >=60 Estimated GFR by using Modified MDRD formula.Chronic kidney disease is defined as either kidney damageor GFR <60 mL/min/1.73 m2 for >3 months. CREATININE (test code=CREAT) 2.17 mg/dL 0.55-1.3 BUN/CREATININE RATIO (test code=BUN/CREA) 15.2 10-20 CALCIUM (test code=CA) 9.2 mg/dL 8.0-10.5 [id number] 06:00:00* Test Item Value Reference Range Comments TROPONIN-I (test code=TROPI) <0.015 ng/mL 0.00-0.056 B-TYPE NATRIURETIC [id number] 05:56:00* Test Item Value Reference Range Comments B-TYPE NATRIURETIC PEPTIDE (test code=BNP) 371 pg/mL 0-100 PROTHROMBIN [id number] 05:56:00* Test Item Value Reference Range Comments PROTHROMBIN TIME PATIENT (test code=PTP) 10.1 seconds 9.0-13.0 INTERNATIONAL NORMAL RATIO (test code=INR) 1.0 0.8-1.2 The therapeutic range for oral anticoagulant therapy formost indications is an international normalized ratio (INR)of between 2.0 and 3.0. The recommended therapeutic INRrange for various clinical situations is listed below: Clinical Situation INR range Pulmonary e mbolism treatment (2.0-3.0)Venous thrombosis treatmentVenous thrombosis prophylaxis (high risk surgery)Prevention of systemic embolism from: Acute myocardial infarction Valvular heart disease Atrial fibrillation Mechanical prosthetic heart valves (2.5-3.5) IS PATIENT ON ANTICOAGULANTS? NTHROMBOPLASTIN TIME [id number] 05:56:00* Test Item Value Reference Range Comments THROMBOPLASTIN TIME PARTIAL (test code=PTT) 25.0 seconds 25.5-34.3 Therapeutic Range for patients on Heparin Therapy is 2 to2.5 times their baseline PTT level. IS PATIENT ON ANTICOAGULANTS? NBASIC METABOLIC [id number] 05:52:00* Test Item Value Reference Range Comments SODIUM (test code=NA) 142 mmol/L 128-145 POTASSIUM (test code=K) 4.1 mmol/L 3.5-5.1 CHLORIDE (test code=CL) 105.0 mmol/L 98-107 CARBON DIOXIDE (test code=CO2) 22.2 mmol/L 22-29 ANION GAP (test code=GAP) 19 mmol/L 10-20 GLUCOSE (test code=GLU) 102 mg/dL 70-110 BLOOD UREA NITROGEN (test code=BUN) 33 mg/dL 7-22 GLOMERULAR FILTRATION RATE (test code=GFR) 22 mL/min >=60 Estimated GFR by using Modified MDRD formula.Chronic kidney disease is defined as either kidney damageor GFR <60 mL/min/1.73 m2 for >3 months. CREATININE (test code=CREAT) 2.17 mg/dL 0.55-1.3 BUN/CREATININE RATIO (test code=BUN/CREA) 15.2 10-20 CALCIUM (test code=CA) 9.2 mg/dL 8.0-10.5 [id number] 05:52:00* Test Item Value Reference Range Comments TROPONIN-I (test code=TROPI) ng/mL 0-0.045 - XR CHEST 1 [id number] 05:50:00 FAX: Florentino Alexandra [phone] [place]: [place] St: REG Name: OZZIE VILLAVICENCIO [facility] FSED : [birth year] Age/S: 68/F [address] [facility] [address] Unit #: [id number] Loc: SHARMILA [address] Phys: Florentino Alexandra MD [place], [place] [address] Acct: [id number] Dis Date: Status: REG ER PHONE #: Exam Date: 04/03/2019 5289 FAX #: Reason: CHEST PAIN EXAMS: CPT CODE: [id number] XR CHEST 1 V 11309 AFTER HOURS SERVICE ON: 04/03/2019 5:48 AM AP Portable Chest Location Code M12 HISTORY: CHEST PAIN FINDINGS: Again noted is elevation of the right hemidiaphragm and a prominent pericardial fat pad c ausing a large opacity in the right lung base without significant change f rom several prior examinations including 08/17/2017. Left lung is clear. There is no pneumothorax. Cardiac silhouette and mediastinum appear within normal limits. IMPRESSION: No acute intrath oracic findings. at 0550 Reported and signed by: Rosalia Foster M.D. CC: Florentino Alexandra MD Technologist: Sandy Ybarra Trnscrd Date/Time/By: 04/03/2019 (0550) : By: [email or web address] Orig Print D/T: S: 04/03/2019 (0553) PAGE 1 Signed Report CBC W/O [id number] 05:43:00* Test Item Value Reference Range Comments WHITE BLOOD CELL (test code=WBC) 7.4 K/mm3 4.5-12.5 RED BLOOD CELL (test code=RBC) 3.90 mill/mm3 3.7-5.2 HEMOGLOBIN (test code=HGB) 12.1 gram/dL 11.5-15.5 HEMATOCRIT (test code=HCT) 37.2 % 36.0-46.0 MEAN CELL VOLUME (test code=MCV) 95.4 fL 80-98 MEAN CELL HGB (test code=MCH) 31.0 picogram 27.0-33.0 MEAN CELL HGB CONCETRATION (test code=MCHC) 32.5 gram/dL 33.0-36.0 RED CELL DISTRIBUTION WIDTH (test code=RDW) 12.6 % 11.6-16.2 RED CELL DISTRIBUTION WIDTH SD (test code=RDW-SD) 44.2 fL 37.0-51.0 PLATELET COUNT (test code=PLT) 285 K/mm3 150-450 MEAN PLATELET VOLUME (test code=MPV) 10.5 fL 6.7-11.0 NM Myocardial SPECT Rest and [id number] 09:02:29Patient: OZZIE ALLEN Date/Time02/01/2019 11:16 CDTReason for ExamAbnormal EKGReportNUCLEAR MEDICINE GATED SPECT MYOCARDIAL PERFUSION STUDY AT REST AND STRESS PROTOCOL using Lexisc anTECHNIQUE:The study was performed employing imaging both with the patient at r est and again after the patient had completed a stress protocol. Images were re constructed in three orthogonal planes with 3D imaging reconstructions also perf ormed.COMMENT: Patient is a 68 - year-old male with chest pain hypertension. . S tudy was performed using 40 mCi of technetium 99 labeled Cardiolite.ADEQUACY OF THE STRESS: Stress was performed with IV Lexiscan protocol.LEFT VENTRICULAR PERF USION: Normal. No evidence of stress induced defects noted.RIGHT VENTRICULAR ACT IVITY: Not increased.LEFT VENTRICULAR CAVITY SIZE: Normal except for diaphragmat ic attenuation artifact.GATED FINDINGS: Post-stress LVEF 73 %.IMPRESSION:NORMAL STUDY. Final Dictated by: MD Joni, S Gelaciotated DT/TM: 9:01 amSigned by: MD Quinones S SatheeshaSigned (Electronic Signature): 02/09/2019 9:02 amBlood [id number] 18:02:14No growth at 5 days.Basic Metabolic [id number] 05:56:57* Test Item Value Reference Range Comments Sodium Level (test code=Sodium Level) 139.0 mmol/L 135.0-145.0 Potassium Level (test code=Potassium Level) 5.2 mmol/L 3.5-5.1 Chloride Level (test code=Chloride Level) 106 mmol/L 98-105 CO2 (test code=CO2) 23 mmol/L 22-29 Anion Gap (test code=Anion Gap) 10 mmol/L 7-16 BUN (test code=BUN) 41.40 mg/dL 8.00-23.00 Creatinine Level (test code=Creatinine Level) 1.50 mg/dL 0.50-0.90 BUN/Creat Ratio (test code=BUN/Creat Ratio) 28 Glucose Level (test code=Glucose Level) 107 mg/dL 70-115 Calcium Level (test code=Calcium Level) 9.0 mg/dL 8.3-10.5 Basic Metabolic [id number] 05:56:57* Test Item Value Reference Range Comments Sodium Level (test code=Sodium Level) 139.0 mmol/L 135.0-145.0 Potassium Level (test code=Potassium Level) 5.2 mmol/L 3.5-5.1 Chloride Level (test code=Chloride Level) 106 mmol/L 98-105 CO2 (test code=CO2) 23 mmol/L 22-29 Anion Gap (test code=Anion Gap) 10 mmol/L 7-16 BUN (test code=BUN) 41.40 mg/dL 8.00-23.00 Creatinine Level (test code=Creatinine Level) 1.50 mg/dL 0.50-0.90 BUN/Creat Ratio (test code=BUN/Creat Ratio) 28 Glucose Level (test code=Glucose Level) 107 mg/dL 70-115 Calcium Level (test code=Calcium Level) 9.0 mg/dL 8.3-10.5 eGFR AA (test code=eGFR AA) 42 mL/min/1.73 m2 eGFR (estimated Glomerular Filtration Rate) is an estimated value, calculated from the patient's serum creatinine using the MDRD equation. It is NOT the patient's actual GFR. The eGFR provides a more clinically useful measure of kidney disease than serum creatinine alone.This calculation takes sex and race into account, if the information is provided. If the race is not provided, and the patient is -[place], multiply by 1.212. If sex is not provided, and the patient is female, multiply by 0.742. Results for patients <18 years of age have not been validated by the MDRD study and should be interpreted with caution. eGFR Result Interpretation:eGFR > or=60 is in the Normal RangeeGFR < 60 may mean kidney diseaseeGFR < 15 may mean kidney failure Ranges recommended by the National Kidney Foundation, http://nkdep.nih.gov Basic Metabolic [id number] 05:56:57* Test Item Value Reference Range Comments Sodium Level (test code=Sodium Level) 139.0 mmol/L 135.0-145.0 Potassium Level (test code=Potassium Level) 5.2 mmol/L 3.5-5.1 Chloride Level (test code=Chloride Level) 106 mmol/L 98-105 CO2 (test code=CO2) 23 mmol/L 22-29 Anion Gap (test code=Anion Gap) 10 mmol/L 7-16 BUN (test code=BUN) 41.40 mg/dL 8.00-23.00 Creatinine Level (test code=Creatinine Level) 1.50 mg/dL 0.50-0.90 BUN/Creat Ratio (test code=BUN/Creat Ratio) 28 Glucose Level (test code=Glucose Level) 107 mg/dL 70-115 Calcium Level (test code=Calcium Level) 9.0 mg/dL 8.3-10.5 eGFR AA (test code=eGFR AA) 42 mL/min/1.73 m2 eGFR (estimated Glomerular Filtration Rate) is an estimated value, calculated from the patient's serum creatinine using the MDRD equation. It is NOT the patient's actual GFR. The eGFR provides a more clinically useful measure of kidney disease than serum creatinine alone.This calculation takes sex and race into account, if the information is provided. If the race is not provided, and the patient is -[place], multiply by 1.212. If sex is not provided, and the patient is female, multiply by 0.742. Results for patients <18 years of age have not been validated by the MDRD study and should be interpreted with caution. eGFR Result Interpretation:eGFR > or=60 is in the Normal RangeeGFR < 60 may mean kidney diseaseeGFR < 15 may mean kidney failure Ranges recommended by the National Kidney Foundation, http://nkdep.nih.gov eGFR Non-AA (test code=eGFR Non-AA) 34.33 mL/min/1.73 m2 eGFR (estimated Glomerular Filtration Rate) is an estimated value, calculated from the patient's serum creatinine using the MDRD equation. It is NOT the patient's actual GFR. The eGFR provides a more clinically useful measure of kidney disease than serum creatinine alone.This calculation takes sex and race into account, if the information is provided. If the race is not provided, and the patient is -[place], multiply by 1.212. If sex is not provided, and the patient is female, multiply by 0.742. Results for patients <18 years of age have not been validated by the MDRD study and should be interpreted with caution. eGFR Result Interpretation:eGFR > or=60 is in the Normal RangeeGFR < 60 may mean kidney diseaseeGFR < 15 may mean kidney failure Ranges recommended by the National Kidney Foundation, http://nkdep.nih.gov Complete Blood Count without [id number] 05:55:10* Test Item Value Reference Range Comments WBC (test code=WBC) 10.2 x10 4.4-10.5 RBC (test code=RBC) 3.61 x10 3.75-5.20 Hgb (test code=Hgb) 11.5 g/dL 12.2-14.8 Hct (test code=Hct) 35.8 % 36.5-44.4 MCV (test code=MCV) 99.20 fL 80.00-100.00 MCH (test code=MCH) 31.9 pg 27.0-32.5 MCHC (test code=MCHC) 32.10 g/dL 32.00-37.50 RDW CV (test code=RDW CV) 12.8 % 11.5-14.5 Platelets (test code=Platelets) 247.0 x10 140.0-440.0 MPV (test code=MPV) 10.6 fL nRBC (test code=nRBC) 0 NRBC Abs (test code=NRBC Abs) 0.00 x10 IPF (test code=IPF) 0 % C. difficile [id number] 14:23:33* Test Item Value Reference Range Comments C. difficile NAAT (test code=C. difficile NAAT) Negative Negative Internal QC (test code=Internal QC) Acceptable Thyroid Stimulating [id number] 06:04:06* Test Item Value Reference Range Comments TSH (test code=TSH) 0.964 mIU/mL 0.270-4.200 Pro B Natriuretic [id number] 06:04:06* Test Item Value Reference Range Comments NT-proBNP (test code=NT-proBNP) 1337 pg/mL 0-124 Basic Metabolic [id number] 05:58:12* Test Item Value Reference Range Comments Sodium Level (test code=Sodium Level) 139.0 mmol/L 135.0-145.0 Potassium Level (test code=Potassium Level) 5.4 mmol/L 3.5-5.1 Chloride Level (test code=Chloride Level) 103 mmol/L 98-105 CO2 (test code=CO2) 24 mmol/L 22-29 Anion Gap (test code=Anion Gap) 12 mmol/L 7-16 BUN (test code=BUN) 51.50 mg/dL 8.00-23.00 Creatinine Level (test code=Creatinine Level) 1.90 mg/dL 0.50-0.90 BUN/Creat Ratio (test code=BUN/Creat Ratio) 27 Glucose Level (test code=Glucose Level) 99 mg/dL 70-115 Calcium Level (test code=Calcium Level) 9.0 mg/dL 8.3-10.5 Lipid [id number] 05:58:12* Test Item Value Reference Range Comments Cholesterol Total (test code=Cholesterol Total) 145 mg/dL 0-200 RISK OF HEART DISEASEPublished by [place] Heart Association Analyte Optimal Borderline Increased RiskCHOL <200 200-239 >240TRIG <150 150-199 >200HDL Male >60 <40HDL Female >60 <50LDL <100 130-159 >160LDL Near optimal is 100-129 Triglycerides (test code=Triglycerides) 145 mg/dL 9-200 HDL (test code=HDL) 48 mg/dL 50-60 LDL (test code=LDL) 68 mg/dL 0-130 The equation being used in this calculation is LDL=(Chol - HDL) - (Trig / 5) VLDL (test code=VLDL) 29 mg/dL 5-40 The equation being used in this calculation is VLDL=Trig / 5 Chol/HDL (test code=Chol/HDL) 3.0 ratio 0.0-4.4 LDL/HDL Ratio (test code=LDL/HDL Ratio) 1 The equation being used in this calculation is LDL/HDL Ratio=LDL Calc/HDL Chol Basic Metabolic [id number] 05:58:12* Test Item Value Reference Range Comments Sodium Level (test code=Sodium Level) 139.0 mmol/L 135.0-145.0 Potassium Level (test code=Potassium Level) 5.4 mmol/L 3.5-5.1 Chloride Level (test code=Chloride Level) 103 mmol/L 98-105 CO2 (test code=CO2) 24 mmol/L 22-29 Anion Gap (test code=Anion Gap) 12 mmol/L 7-16 BUN (test code=BUN) 51.50 mg/dL 8.00-23.00 Creatinine Level (test code=Creatinine Level) 1.90 mg/dL 0.50-0.90 BUN/Creat Ratio (test code=BUN/Creat Ratio) 27 Glucose Level (test code=Glucose Level) 99 mg/dL 70-115 Calcium Level (test code=Calcium Level) 9.0 mg/dL 8.3-10.5 eGFR AA (test code=eGFR AA) 32 mL/min/1.73 m2 eGFR (estimated Glomerular Filtration Rate) is an estimated value, calculated from the patient's serum creatinine using the MDRD equation. It is NOT the patient's actual GFR. The eGFR provides a more clinically useful measure of kidney disease than serum creatinine alone.This calculation takes sex and race into account, if the information is provided. If the race is not provided, and the patient is -[place], multiply by 1.212. If sex is not provided, and the patient is female, multiply by 0.742. Results for patients <18 years of age have not been validated by the MDRD study and should be interpreted with caution. eGFR Result Interpretation:eGFR > or=60 is in the Normal RangeeGFR < 60 may mean kidney diseaseeGFR < 15 may mean kidney failure Ranges recommended by the National Kidney Foundation, http://nkdep.nih.gov eGFR Non-AA (test code=eGFR Non-AA) 26.13 mL/min/1.73 m2 eGFR (estimated Glomerular Filtration Rate) is an estimated value, calculated from the patient's serum creatinine using the MDRD equation. It is NOT the patient's actual GFR. The eGFR provides a more clinically useful measure of kidney disease than serum creatinine alone.This calculation takes sex and race into account, if the information is provided. If the race is not provided, and the patient is -[place], multiply by 1.212. If sex is not provided, and the patient is female, multiply by 0.742. Results for patients <18 years of age have not been validated by the MDRD study and should be interpreted with caution. eGFR Result Interpretation:eGFR > or=60 is in the Normal RangeeGFR < 60 may mean kidney diseaseeGFR < 15 may mean kidney failure Ranges recommended by the National Kid[employer] Foundation, http://nkdep.nih.gov Magnesium [id number] 05:58:12* Test Item Value Reference Range Comments Magnesium Level (test code=Magnesium Level) 2.3 mg/dL 1.7-2.5 Phosphorus [id number] 05:58:12* Test Item Value Reference Range Comments Phosphorus Level (test code=Phosphorus Level) 4.20 mg/dL 2.70-4.50 Basic Metabolic [id number] 05:58:12* Test Item Value Reference Range Comments Sodium Level (test code=Sodium Level) 139.0 mmol/L 135.0-145.0 Potassium Level (test code=Potassium Level) 5.4 mmol/L 3.5-5.1 Chloride Level (test code=Chloride Level) 103 mmol/L 98-105 CO2 (test code=CO2) 24 mmol/L 22-29 Anion Gap (test code=Anion Gap) 12 mmol/L 7-16 BUN (test code=BUN) 51.50 mg/dL 8.00-23.00 Creatinine Level (test code=Creatinine Level) 1.90 mg/dL 0.50-0.90 BUN/Creat Ratio (test code=BUN/Creat Ratio) 27 Glucose Level (test code=Glucose Level) 99 mg/dL 70-115 Calcium Level (test code=Calcium Level) 9.0 mg/dL 8.3-10.5 eGFR AA (test code=eGFR AA) 32 mL/min/1.73 m2 eGFR (estimated Glomerular Filtration Rate) is an estimated value, calculated from the patient's serum creatinine using the MDRD equation. It is NOT the patient's actual GFR. The eGFR provides a more clinically useful measure of kidney disease than serum creatinine alone.This calculation takes sex and race into account, if the information is provided. If the race is not provided, and the patient is -[place], multiply by 1.212. If sex is not provided, and the patient is female, multiply by 0.742. Results for patients <18 years of age have not been validated by the MDRD study and should be interpreted with caution. eGFR Result Interpretation:eGFR > or=60 is in the Normal RangeeGFR < 60 may mean kidney diseaseeGFR < 15 may mean kidney failure Ranges recommended by the National Kidney Foundation, http://nkdep.nih.gov eGFR Non-AA (test code=eGFR Non-AA) 26.13 mL/min/1.73 m2 eGFR (estimated Glomerular Filtration Rate) is an estimated value, calculated from the patient's serum creatinine using the MDRD equation. It is NOT the patient's actual GFR. The eGFR provides a more clinically useful measure of kidney disease than serum creatinine alone.This calculation takes sex and race into account, if the information is provided. If the race is not provided, and the patient is -[place], multiply by 1.212. If sex is not provided, and the patient is female, multiply by 0.742. Results for patients <18 years of age have not been validated by the MDRD study and should be interpreted with caution. eGFR Result Interpretation:eGFR > or=60 is in the Normal RangeeGFR < 60 may mean kidney diseaseeGFR < 15 may mean kidney failure Ranges recommended by the National Kidney Foundation, http://nkdep.nih.gov Hemoglobin [id number] 05:29:42* Test Item Value Reference Range Comments Hemoglobin A1c (test code=Hemoglobin A1c) 4.8 % 4.8-5.9 Non Diabetic 4.8-5.9%Diabetic <7.0% Complete Blood Count without [id number] 05:12:45* Test Item Value Reference Range Comments WBC (test code=WBC) 12.0 x10 4.4-10.5 RBC (test code=RBC) 3.82 x10 3.75-5.20 Hgb (test code=Hgb) 12.1 g/dL 12.2-14.8 Hct (test code=Hct) 37.7 % 36.5-44.4 MCV (test code=MCV) 98.70 fL 80.00-100.00 MCH (test code=MCH) 31.7 pg 27.0-32.5 MCHC (test code=MCHC) 32.10 g/dL 32.00-37.50 RDW CV (test code=RDW CV) 12.7 % 11.5-14.5 Platelets (test code=Platelets) 272.0 x10 140.0-440.0 MPV (test code=MPV) 10.8 fL nRBC (test code=nRBC) 0 NRBC Abs (test code=NRBC Abs) 0.00 x10 IPF (test code=IPF) 0 % Troponin [id number] 22:20:45* Test Item Value Reference Range Comments Troponin-T (test code=Troponin-T) 11.110 ng/L 0.000-14.000 The CV of the assay at 99th percentile for both male and female patient population is < 10%. A rise and fall in JUAN [place]ANCISCO with at least one value above the 99th percentile with clinical evidence of myocardial ischemia would support a diagnosis of AMI. A delta of at least 20% is recommended to access acute changes in results above the 99th percentile in serial measurements. Stable JUAN FRANCISCO levels (<20%) delta above the 99th percentile URL would support a diagnosis of chronic myocardial injury. Creatine [id number] 21:54:31* Test Item Value Reference Range Comments CK (test code=CK) 46 U/L 26-192 Blood [id number] 18:02:24No growth at 5 days.Drugs of Abuse Urine 9 2019-01-30 17:07:12* Test Item Value Reference Range Comments Amphetamine Screen Ur (test code=Amphetamine Screen Ur) Negative Negative For diagnostic purposes only. Positive results should always be assessed in conjunction with a patient's medical history. Barbiturate Screen Ur (test code=Barbiturate Screen Ur) Negative Negative Benzodiazepines Ur (test code=Benzodiazepines Ur) Negative Negative Cocaine Screen Ur (test code=Cocaine Screen Ur) Negative Negative U Methadone (test code=U Methadone) Negative Negative Opiate Screen Ur (test code=Opiate Screen Ur) Negative Negative U PCP Scrn (test code=U PCP Scrn) Negative Negative U Propoxyphene (test code=U Propoxyphene) Negative Negative Cannabinoid Screen Ur (test code=Cannabinoid Screen Ur) Negative Negative Creatine [id number] 17:06:55* Test Item Value Reference Range Comments CK (test code=CK) 57 U/L 26-192 Troponin [id number] 17:06:55* Test Item Value Reference Range Comments Troponin-T (test code=Troponin-T) 11.660 ng/L 0.000-14.000 The CV of the assay at 99th percentile for both male and female patient population is < 10%. A rise and fall in JUAN [place]ANCIS[place] with at least one value above the 99th percentile with clinical evidence of myocardial ischemia would support a diagnosis of AMI. A delta of at least 20% is recommended to access acute changes in results above the 99th percentile in serial measurements. Stable JUAN FRANCISCO levels (<20%) delta above the 99th percentile URL would support a diagnosis of chronic myocardial injury. XR Chest 1 View [id number] 16:01:05Patient: OZZIE ALLEN Date/Time01/30/2019 15:37 CDTReason for ExamChest painReportCLINICAL INFORMATION: Chest pain.Dictation Location: R 16Comparison: No priorTechnique: Portable AP 1425 hoursFINDINGS:Monitoring electrodes overlie the chest wall. Pacemaker in place via the left subclavian route. Heart size and pulmonary vessels are normal. There is slight elevation of the right hemidiaphragm. Slight nonspecific increase in interstitial lung markings. Degenerative change in the spine and shoulders.IMPRESSION: Pacemaker in place. Elevated right hemidiaphragm. No apparent acute finding. Final Dictated by: MD Stein Andrew GDictated DT/TM: 01/30/2019 3:59 pmSigned by: MD Stein Andrew GSigned (Electronic Signature): 01/30/2019 4:01 pmCT Abdomen and Pelvis w/o [id number] 14:51:12Patient: OZZIE ALLEN Date/Time01/30/2019 14:41 CDTReason for ExamAortic dissectionReportCT OF THE C HEST WITHOUT CONTRASTHISTORY: Aortic dissectionCOMPARISON: NoneTECHNIQUE: Helica l CT of the chest performed without contrast. Thin section axial and coronal tano ges were obtained.FINDINGS:The lungs are clear. There is no nodule, mass, consol idation, or effusion. Mild groundglass opacities noted at the right middle lobe. Mild bibasilar atelectasis. The central airways are patent a left-sided AICD is noted. Coronary artery calcifications are noted.There is no mediastinal adenopa thy or mass. There is no pericardial effusion. Heart size is not enlarged. Media stinal vasculature is unremarkable.The visualized aspects of the upper abdomen a re unremarkable. Degenerative changes are noted the bony thorax without blastic or lytic process. A calcified granuloma is noted at the right lung base.IMPRESSI ON:Mild right middle lobe groundglass opacity. Bibasilar atelectasis.The aorta i s normal in caliber. An aortic dissection is not well evaluated given lack of in travenous contrast. CT OF THE ABDOMEN AND PELVIS WIT HOUT CONTRASTHISTORY: Aortic dissectionTECHNIQUE:5 millimeters noncontrast enhan mariza axial images of the abdomen and pelvis were performed without PO ingestion o f radio-opaque contrast material. The images were reviewed in soft tissue, lung and bone windows. 2 mm coronal images were reformatted.COMPARISON: NoneFINDINGS: Abdomen findings:Prior cholecystectomy.The liver, adrenals, spleen, pancreas, , kidneys and lung windows are unremarkable. A midline fat-containing abdominal he rnia is noted with hernia defect measuring 1.9 cm. Simple appearing bilateral re nal cysts are identified measuring 2.7 cm on the left and 2.6 cm on the right.Pe lvis findings:No bowel obstruction. Sigmoid colon diverticulosis without evidenc e of diverticulitis. The appendix is not identified. No right lower quadrant inf lammation is identified. Prior hysterectomy. The urinary bladder is collapsed an d not well evaluated. The bones are intact.IMPRESSION:Exam Date/Time01/30/2019 14 :41 CDTReportNo acute findings. Final Dictated by: MD Mcclain Roman PDictated DT/TM: 01/30/2019 2:47 pmSigned by: MD Mcclain Roman PSigned (Electron ic Signature): 01/30/2019 2:51 pmCT Chest w/o [id number] 14:51:12 Patient: OZZIE ALLEN am Date/Time01/30/2019 14:41 CDTReason for ExamAortic dissectionReportCT OF THE C HEST WITHOUT CONTRASTHISTORY: Aortic dissectionCOMPARISON: NoneTECHNIQUE: Helica l CT of the chest performed without contrast. Thin section axial and coronal tano ges were obtained.FINDINGS:The lungs are clear. There is no nodule, mass, consol idation, or effusion. Mild groundglass opacities noted at the right middle lobe. Mild bibasilar atelectasis. The central airways are patent a left-sided AICD is noted. Coronary artery calcifications are noted.There is no mediastinal adenopa thy or mass. There is no pericardial effusion. Heart size is not enlarged. Media stinal vasculature is unremarkable.The visualized aspects of the upper abdomen a re unremarkable. Degenerative changes are noted the bony thorax without blastic or lytic process. A calcified granuloma is noted at the right lung base.IMPRESSI ON:Mild right middle lobe groundglass opacity. Bibasilar atelectasis.The aorta i s normal in caliber. An aortic dissection is not well evaluated given lack of in travenous contrast. CT OF THE ABDOMEN AND PELVIS WIT HOUT CONTRASTHISTORY: Aortic dissectionTECHNIQUE:5 millimeters noncontrast enhan mariza axial images of the abdomen and pelvis were performed without PO ingestion o f radio-opaque contrast material. The images were reviewed in soft tissue, lung and bone windows. 2 mm coronal images were reformatted.COMPARISON: NoneFINDINGS: Abdomen findings:Prior cholecystectomy.The liver, adrenals, spleen, pancreas, , kidneys and lung windows are unremarkable. A midline fat-containing abdominal he rnia is noted with hernia defect measuring 1.9 cm. Simple appearing bilateral re nal cysts are identified measuring 2.7 cm on the left and 2.6 cm on the right.Pe lvis findings:No bowel obstruction. Sigmoid colon diverticulosis without evidenc e of diverticulitis. The appendix is not identified. No right lower quadrant inf lammation is identified. Prior hysterectomy. The urinary bladder is collapsed an d not well evaluated. The bones are intact.IMPRESSION:Exam Date/Time01/30/2019 14 :41 CDTReportNo acute findings. Final Dictated by: MD Mcclain Roman PDictated DT/TM: 01/30/2019 2:47 pmSigned by: MD Mcclain Roman PSigned (Electron ic Signature): 01/30/2019 2:51 pmProthrombin Time and [id number] 14:06:12* Test Item Value Reference Range Comments Prothrombin Time (test code=Prothrombin Time) 16.0 seconds 9.8-13.4 INR (test code=INR) 1.3 ratio 0.6-1.2 Troponin [id number] 13:59:38* Test Item Value Reference Range Comments Troponin-T (test code=Troponin-T) 10.710 ng/L 0.000-14.000 The CV of the assay at 99th percentile for both male and female patient population is < 10%. A rise and fall in [place] with at least one value above the 99th percentile with clinical evidence of myocardial ischemia would support a diagnosis of AMI. A delta of at least 20% is recommended to access acute changes in results above the 99th percentile in serial measurements. Stable JUAN FRANCISCO levels (<20%) delta above the 99th percentile URL would support a diagnosis of chronic myocardial injury. Comprehensive Metabolic [id number] 13:59:32* Test Item Value Reference Range Comments Sodium Level (test code=Sodium Level) 137.0 mmol/L 135.0-145.0 Potassium Level (test code=Potassium Level) 4.8 mmol/L 3.5-5.1 Chloride Level (test code=Chloride Level) 102 mmol/L 98-105 CO2 (test code=CO2) 24 mmol/L 22-29 Anion Gap (test code=Anion Gap) 11 mmol/L 7-16 BUN (test code=BUN) 41.60 mg/dL 8.00-23.00 Creatinine Level (test code=Creatinine Level) 1.70 mg/dL 0.50-0.90 BUN/Creat Ratio (test code=BUN/Creat Ratio) 24 Glucose Level (test code=Glucose Level) 114 mg/dL 70-115 Calcium Level (test code=Calcium Level) 9.2 mg/dL 8.3-10.5 Alk Phos (test code=Alk Phos) 237 U/L 35-104 Bilirubin Total (test code=Bilirubin Total) 0.3 mg/dL 0.1-0.9 Albumin Level (test code=Albumin Level) 4.1 g/dL 3.5-5.2 Protein Total (test code=Protein Total) 6.2 g/dL 6.4-8.3 ALT (test code=ALT) 119 U/L 1-33 AST (test code=AST) 74 U/L 1-32 Globulin (test code=Globulin) 2.1 g/dL 2.9-3.1 A/G Ratio (test code=A/G Ratio) 2.0 ratio Comprehensive Metabolic [id number] 13:59:32* Test Item Value Reference Range Comments Sodium Level (test code=Sodium Level) 137.0 mmol/L 135.0-145.0 Potassium Level (test code=Potassium Level) 4.8 mmol/L 3.5-5.1 Chloride Level (test code=Chloride Level) 102 mmol/L 98-105 CO2 (test code=CO2) 24 mmol/L 22-29 Anion Gap (test code=Anion Gap) 11 mmol/L 7-16 BUN (test code=BUN) 41.60 mg/dL 8.00-23.00 Creatinine Level (test code=Creatinine Level) 1.70 mg/dL 0.50-0.90 BUN/Creat Ratio (test code=BUN/Creat Ratio) 24 Glucose Level (test code=Glucose Level) 114 mg/dL 70-115 Calcium Level (test code=Calcium Level) 9.2 mg/dL 8.3-10.5 Alk Phos (test code=Alk Phos) 237 U/L 35-104 Bilirubin Total (test code=Bilirubin Total) 0.3 mg/dL 0.1-0.9 Albumin Level (test code=Albumin Level) 4.1 g/dL 3.5-5.2 Protein Total (test code=Protein Total) 6.2 g/dL 6.4-8.3 ALT (test code=ALT) 119 U/L 1-33 AST (test code=AST) 74 U/L 1-32 Globulin (test code=Globulin) 2.1 g/dL 2.9-3.1 A/G Ratio (test code=A/G Ratio) 2.0 ratio eGFR AA (test code=eGFR AA) 36 mL/min/1.73 m2 eGFR (estimated Glomerular Filtration Rate) is an estimated value, calculated from the patient's serum creatinine using the MDRD equation. It is NOT the patient's actual GFR. The eGFR provides a more clinically useful measure of kidney disease than serum creatinine alone.This calculation takes sex and race into account, if the information is provided. If the race is not provided, and the patient is -[place], multiply by 1.212. If sex is not provided, and the patient is female, multiply by 0.742. Results for patients <18 years of age have not been validated by the MDRD study and should be interpreted with caution. eGFR Result Interpretation:eGFR > or=60 is in the Normal RangeeGFR < 60 may mean kidney diseaseeGFR < 15 may mean kidney failure Ranges recommended by the National Kidney Foundation, http://nkdep.nih.gov Lipase [id number] 13:59:32* Test Item Value Reference Range Comments Lipase Level (test code=Lipase Level) 16 U/L 13-60 Comprehensive Metabolic [id number] 13:59:32* Test Item Value Reference Range Comments Sodium Level (test code=Sodium Level) 137.0 mmol/L 135.0-145.0 Potassium Level (test code=Potassium Level) 4.8 mmol/L 3.5-5.1 Chloride Level (test code=Chloride Level) 102 mmol/L 98-105 CO2 (test code=CO2) 24 mmol/L 22-29 Anion Gap (test code=Anion Gap) 11 mmol/L 7-16 BUN (test code=BUN) 41.60 mg/dL 8.00-23.00 Creatinine Level (test code=Creatinine Level) 1.70 mg/dL 0.50-0.90 BUN/Creat Ratio (test code=BUN/Creat Ratio) 24 Glucose Level (test code=Glucose Level) 114 mg/dL 70-115 Calcium Level (test code=Calcium Level) 9.2 mg/dL 8.3-10.5 Alk Phos (test code=Alk Phos) 237 U/L 35-104 Bilirubin Total (test code=Bilirubin Total) 0.3 mg/dL 0.1-0.9 Albumin Level (test code=Albumin Level) 4.1 g/dL 3.5-5.2 Protein Total (test code=Protein Total) 6.2 g/dL 6.4-8.3 ALT (test code=ALT) 119 U/L 1-33 AST (test code=AST) 74 U/L 1-32 Globulin (test code=Globulin) 2.1 g/dL 2.9-3.1 A/G Ratio (test code=A/G Ratio) 2.0 ratio eGFR AA (test code=eGFR AA) 36 mL/min/1.73 m2 eGFR (estimated Glomerular Filtration Rate) is an estimated value, calculated from the patient's serum creatinine using the MDRD equation. It is NOT the patient's actual GFR. The eGFR provides a more clinically useful measure of kidney disease than serum creatinine alone.This calculation takes sex and race into account, if the information is provided. If the race is not provided, and the patient is -[place], multiply by 1.212. If sex is not provided, and the patient is female, multiply by 0.742. Results for patients <18 years of age have not been validated by the MDRD study and should be interpreted with caution. eGFR Result Interpretation:eGFR > or=60 is in the Normal RangeeGFR < 60 may mean kidney diseaseeGFR < 15 may mean kidney failure Ranges recommended by the National Kidney Foundation, http://nkdep.nih.gov eGFR Non-AA (test code=eGFR Non-AA) 29.71 mL/min/1.73 m2 eGFR (estimated Glomerular Filtration Rate) is an estimated value, calculated from the patient's serum creatinine using the MDRD equation. It is NOT the patient's actual GFR. The eGFR provides a more clinically useful measure of kidney disease than serum creatinine alone.This calculation takes sex and race into account, if the information is provided. If the race is not provided, and the patient is -[place], multiply by 1.212. If sex is not provided, and the patient is female, multiply by 0.742. Results for patients <18 years of age have not been validated by the MDRD study and should be interpreted with caution. eGFR Result Interpretation:eGFR > or=60 is in the Normal RangeeGFR < 60 may mean kidney diseaseeGFR < 15 may mean kidney failure Ranges recommended by the National Kidney Foundation, http://nkdep.nih.gov Pro B Natriuretic [id number] 13:58:11* Test Item Value Reference Range Comments NT-proBNP (test code=NT-proBNP) 1025 pg/mL 0-124 Complete Blood Count with [id number] 13:52:36* Test Item Value Reference Range Comments WBC (test code=WBC) 10.6 x10 4.4-10.5 RBC (test code=RBC) 3.72 x10 3.75-5.20 Hgb (test code=Hgb) 11.7 g/dL 12.2-14.8 MCV (test code=MCV) 98.70 fL 80.00-100.00 Hct (test code=Hct) 36.7 % 36.5-44.4 MCHC (test code=MCHC) 31.90 g/dL 32.00-37.50 RDW CV (test code=RDW CV) 12.7 % 11.5-14.5 MCH (test code=MCH) 31.5 pg 27.0-32.5 Platelets (test code=Platelets) 292.0 x10 140.0-440.0 MPV (test code=MPV) 10.6 fL Slide Review (test code=Slide Review) Auto Auto Result created by [email or web address] nRBC (test code=nRBC) 0 NRBC Abs (test code=NRBC Abs) 0.00 x10 IPF (test code=IPF) 0 % Automated [id number] 13:52:36* Test Item Value Reference Range Comments Neutro Auto (test code=Neutro Auto) 52.9 % 36.0-70.0 Lymph Auto (test code=Lymph Auto) 34.5 % 12.0-44.0 [place] Auto (test code=[place] Auto) 9.3 % 0.0-11.0 Eos, Auto (test code=Eos, Auto) 2.5 % 0.0-7.0 Basophil Auto (test code=Basophil Auto) 0.5 % 0.0-2.0 Neutro Absolute (test code=Neutro Absolute) 5.6 x10 1.6-7.4 Lymph Absolute (test code=Lymph Absolute) 3.65 x10 .50-4.60 [place] Absolute (test code=[place] Absolute) .99 x10 .00-1.20 Eos Absolute (test code=Eos Absolute) 0.26 x10 0.00-0.74 Baso Absolute (test code=Baso Absolute) 0.05 x10 0.00-0.21 IG [id number] 13:52:36* Test Item Value Reference Range Comments IG (test code=IG) 0.3 % 0.0-5.0 IG Abs (test code=IG Abs) 0 x10 URINALYSIS [id number] 15:00:00* Test Item Value Reference Range Comments UA COLOR (test code=COLU) YELLOW YELLOW UA APPEARANCE (test code=APPU) HAZY CLEAR UA GLUCOSE DIPSTICK (test code=DGLUU) NEGATIVE mg/dL NEGATIVE UA BILIRUBIN DIPSTICK (test code=BILU) NEGATIVE NEGATIVE UA KETONE DIPSTICK (test code=KETU) NEGATIVE mg/dL NEGATIVE UA SPECIFIC GRAVITY (test code=SGU) 1.010 1.001-1.035 UA BLOOD DIPSTICK (test code=KARO) TRACE NEGATIVE UA PH DIPSTICK (test code=JOEL) 6.0 5.0-8.0 UA PROTEIN DIPSTICK (test code=PROU) NEGATIVE mg/dL Neg-15 UA UROBILINIOGEN DIPSTICK (test code=URO) 0.2 mg/dL 0.0-0.2 UA NITRITE DIPSTICK (test code=KARLEY) NEGATIVE NEGATIVE UA LEUKOCYTE ESTERASE DIPSTICK (test code=LEUU) NEGATIVE uL NEGATIVE UA MICROSCOPIC NEEDED? (test code=UAMICRO) YES UA WBC (test code=WBCU) 3-5 per HPF 0-5 UA RBC (test code=RBCU) 0-2 per HPF 0-5 UA EPITHELIAL CELLS (test code=EPIU) Few (2-5/hpf) per HPF Few UA BACTERIA (test code=BACU) MODERATE per HPF NONE UA MUCUS (test code=MUCU) FEW per LPF NONE-FEW URINALYSIS [id number] 14:54:00* Test Item Value Reference Range Comments UA COLOR (test code=COLU) YELLOW YELLOW UA APPEARANCE (test code=APPU) HAZY CLEAR UA GLUCOSE DIPSTICK (test code=DGLUU) NEGATIVE mg/dL NEGATIVE UA BILIRUBIN DIPSTICK (test code=BILU) NEGATIVE NEGATIVE UA KETONE DIPSTICK (test code=KETU) NEGATIVE mg/dL NEGATIVE UA SPECIFIC GRAVITY (test code=SGU) 1.010 1.001-1.035 UA BLOOD DIPSTICK (test code=KARO) TRACE NEGATIVE UA PH DIPSTICK (test code=JOEL) 6.0 5.0-8.0 UA PROTEIN DIPSTICK (test code=PROU) NEGATIVE mg/dL Neg-15 UA UROBILINIOGEN DIPSTICK (test code=URO) 0.2 mg/dL 0.0-0.2 UA NITRITE DIPSTICK (test code=KARLEY) NEGATIVE NEGATIVE UA LEUKOCYTE ESTERASE DIPSTICK (test code=LEUU) NEGATIVE uL NEGATIVE UA MICROSCOPIC NEEDED? (test code=UAMICRO) UA WBC (test code=WBCU) per HPF 0-5 UA RBC (test code=RBCU) per HPF 0-5 UA EPITHELIAL CELLS (test code=EPIU) per HPF Few UA BACTERIA (test code=BACU) per HPF NONE URINALYSIS [id number] 14:54:00* Test Item Value Reference Range Comments UA COLOR (test code=COLU) YELLOW YELLOW UA APPEARANCE (test code=APPU) HAZY CLEAR UA GLUCOSE DIPSTICK (test code=DGLUU) NEGATIVE mg/dL NEGATIVE UA BILIRUBIN DIPSTICK (test code=BILU) NEGATIVE NEGATIVE UA KETONE DIPSTICK (test code=KETU) NEGATIVE mg/dL NEGATIVE UA SPECIFIC GRAVITY (test code=SGU) 1.010 1.001-1.035 UA BLOOD DIPSTICK (test code=KARO) TRACE NEGATIVE UA PH DIPSTICK (test code=JOEL) 6.0 5.0-8.0 UA PROTEIN DIPSTICK (test code=PROU) NEGATIVE mg/dL Neg-15 UA UROBILINIOGEN DIPSTICK (test code=URO) 0.2 mg/dL 0.0-0.2 UA NITRITE DIPSTICK (test code=KARLEY) NEGATIVE NEGATIVE UA LEUKOCYTE ESTERASE DIPSTICK (test code=LEUU) NEGATIVE uL NEGATIVE UA MICROSCOPIC NEEDED? (test code=UAMICRO) UA WBC (test code=WBCU) per HPF 0-5 UA RBC (test code=RBCU) per HPF 0-5 UA EPITHELIAL CELLS (test code=EPIU) per HPF Few UA BACTERIA (test code=BACU) per HPF NONE - CT ABD PELVIS [id number] 14:30:00 Name: OZZIE ALLEN [facility] FSED : 1950 Age/S: 68 / F [address] Unit #: [id number] Loc: [address] Phys: Shaneka Castanon MD [place], [place] [address] Acct: [id number] Dis Date: Status: REG ER PHONE #: Exam Date: 01/09/2019 7204 FAX #: Reason: epigastric pain EXAMS: CPT CODE: [id number] CT ABD PELVIS W/CONT [id number] REASON FOR EXAM: epigastric pain EXAM ORDER DATE: 01/09/2019 1:19 PM Ordering David: Shaneka Castanon MD PROCEDURE: - CT ABD PELVIS W/CONT COMPARISON: FINDINGS: CT images of the abdomen and pelvis were obtained with IV and without oral contrast at 5mm. Dose modulation, iterative reconstruction, and/or weight based adjustment of the MA/KV was utilized to reduce the radiation dose to as low as reasonably achievable. Intravenous contrast: 100cc of Omnipaque 370. The liver, spleen, pancreas are grossly within normal limits. The patient is status post cholecystectomy Bilateral renal cysts (3.5 cm on the right and 3 cm on the left). The urinary bladder is unremarkable. The colon, small bowel, and stomach are within normal limits without evidence of obstruction. The appendix was not seen No evidence of free air or free fluid. The patient is status post hysterectomy IMPRESSION: Small (2 cm neck) ventral hernia on the right with herniation of mesenteric fat through the hernia neck at the level of T12-L1. Second small (1.5 cm neck) midline ventral hernia above the umbilicus with herniation of mesenteric fat. No evidence of bowel strangulation or obstruction at 1439 Reported and signed by: Jose Juarez M.D. PAGE 1 Signed Report (CO NTINUED) Name: OZZIE ALLEN [facility] FSED : 1950 Age/S: 68 / F [address] Unit #: [id number] Loc: [address] Phys: Shaneka Allen MD [place], [place] [address] Acct: [id number] Dis Date: Status: REG ER P ALICIA #: Exam Date: 01/09/2019 1412 FAX #: Reason: epigastric pain EX AMS: CPT CODE: [id number] CT A BD PELVIS W/CONT 33982 <Continued> CC: Shaneka Castanon MD Technologist:SANDIP MERCER RT(R)(CT) CTDI: DLP: Trnscb Date/Time: 01/09/2019 (5310) tARIL Orig Print D/T: S: 01/09/2019 (9740) PAGE 2 Signed Report COMPREHENSIVE METABOLIC [id number] 13:46:00* Test Item Value Reference Range Comments SODIUM (test code=NA) 140 mmol/L 128-145 POTASSIUM (test code=K) 4.5 mmol/L 3.5-5.1 CHLORIDE (test code=CL) 104.0 mmol/L 98-107 CARBON DIOXIDE (test code=CO2) 23.0 mmol/L 22-29 ANION GAP (test code=GAP) 18 mmol/L 10-20 GLUCOSE (test code=GLU) 96 mg/dL 70-110 BLOOD UREA NITROGEN (test code=BUN) 22 mg/dL 7-22 CREATININE (test code=CREAT) 0.89 mg/dL 0.55-1.3 BUN/CREATININE RATIO (test code=BUN/CREA) 24.7 10-20 TOTAL PROTEIN (test code=PROT) 7.0 gram/dL 6.1-7.8 ALBUMIN (test code=ALB) 3.4 g/dL 3.3-4.4 GLOBULIN (test code=GLOB) 3.6 G/DL 1-10 ALBUMIN/GLOBULIN RATIO (test code=A/G) 0.9 0.75-1.50 CALCIUM (test code=CA) 9.5 mg/dL 8.0-10.5 BILIRUBIN TOTAL (test code=BILT) 0.70 mg/dL 0.2-1.2 SGOT/AST (test code=AST) 34 U/L 10-39 SGPT/ALT (test code=ALT) 19 U/L 10-69 ALKALINE PHOSPHATASE TOTAL (test code=ALKP) 160 U/L 50-139 [id number] 13:46:00* Test Item Value Reference Range Comments LIPASE (test code=LIP) 66 Unit/L 144-286 [id number] 13:46:00* Test Item Value Reference Range Comments TROPONIN-I (test code=TROPI) <0.015 ng/mL 0.00-0.056 COMPREHENSIVE METABOLIC [id number] 13:36:00* Test Item Value Reference Range Comments SODIUM (test code=NA) 140 mmol/L 128-145 POTASSIUM (test code=K) 4.5 mmol/L 3.5-5.1 CHLORIDE (test code=CL) 104.0 mmol/L 98-107 CARBON DIOXIDE (test code=CO2) 23.0 mmol/L 22-29 ANION GAP (test code=GAP) 18 mmol/L 10-20 GLUCOSE (test code=GLU) 96 mg/dL 70-110 BLOOD UREA NITROGEN (test code=BUN) 22 mg/dL 7-22 CREATININE (test code=CREAT) 0.89 mg/dL 0.55-1.3 BUN/CREATININE RATIO (test code=BUN/CREA) 24.7 10-20 TOTAL PROTEIN (test code=PROT) gram/dL 6.4-8.2 ALBUMIN (test code=ALB) g/dL 3.4-5.0 GLOBULIN (test code=GLOB) G/DL 1-10 ALBUMIN/GLOBULIN RATIO (test code=A/G) 0.75-1.50 CALCIUM (test code=CA) 9.5 mg/dL 8.0-10.5 BILIRUBIN TOTAL (test code=BILT) mg/dL 0.0-1.0 SGOT/AST (test code=AST) IUnit/L 15-37 SGPT/ALT (test code=ALT) IUnit/L 12-78 ALKALINE PHOSPHATASE TOTAL (test code=ALKP) IUnit/L 45-117 [id number] 13:36:00* Test Item Value Reference Range Comments LIPASE (test code=LIP) U/L 73.0-393.0 [id number] 13:36:00* Test Item Value Reference Range Comments TROPONIN-I (test code=TROPI) ng/mL 0-0.045 CBC W/AUTO [id number] 13:27:00* Test Item Value Reference Range Comments WHITE BLOOD CELL (test code=WBC) 10.2 K/mm3 4.5-12.5 RED BLOOD CELL (test code=RBC) 3.86 mill/mm3 3.7-5.2 HEMOGLOBIN (test code=HGB) 12.3 gram/dL 11.5-15.5 HEMATOCRIT (test code=HCT) 37.9 % 36.0-46.0 MEAN CELL VOLUME (test code=MCV) 98.2 fL 80-98 MEAN CELL HGB (test code=MCH) 31.9 picogram 27.0-33.0 MEAN CELL HGB CONCETRATION (test code=MCHC) 32.5 gram/dL 33.0-36.0 RED CELL DISTRIBUTION WIDTH (test code=RDW) 12.1 % 11.6-16.2 RED CELL DISTRIBUTION WIDTH SD (test code=RDW-SD) 44.0 fL 37.0-51.0 PLATELET COUNT (test code=PLT) 286 K/mm3 150-450 MEAN PLATELET VOLUME (test code=MPV) 9.7 fL 6.7-11.0 NEUTROPHIL % (test code=NT%) 58.9 % 39.0-69.0 LYMPHOCYTE % (test code=LY%) 29.7 % 25.0-55.0 MONOCYTE % (test code=MO%) 7.5 % 0.0-10.0 EOSINOPHIL % (test code=EO%) 2.9 % 0.0-5.0 BASOPHIL % (test code=BA%) 0.8 % 0.0-1.0 NEUTROPHIL # (test code=NT#) 5.99 K/mm3 1.8-7.7 LYMPHOCYTE # (test code=LY#) 3.02 K/mm3 1.0-5.0 MONOCYTE # (test code=MO#) 0.76 K/mm3 0-0.8 EOSINOPHIL # (test code=EO#) 0.29 K/mm3 0.0-0.5 BASOPHIL # (test code=BA#) 0.08 K/mm3 0.0-0.2 MANUAL DIFF REQUIRED (test code=MDIFF) NO URINALYSIS [id number] 16:51:00* Test Item Value Reference Range Comments UA COLOR (test code=COLU) LIGHT YELLOW YELLOW UA APPEARANCE (test code=APPU) CLEAR CLEAR UA GLUCOSE DIPSTICK (test code=DGLUU) NEGATIVE mg/dL NEGATIVE UA BILIRUBIN DIPSTICK (test code=BILU) NEGATIVE NEGATIVE UA KETONE DIPSTICK (test code=KETU) NEGATIVE mg/dL NEGATIVE UA SPECIFIC GRAVITY (test code=SGU) <=1.005 1.001-1.035 UA BLOOD DIPSTICK (test code=KARO) TRACE NEGATIVE UA PH DIPSTICK (test code=JOEL) 5.5 5.0-8.0 UA PROTEIN DIPSTICK (test code=PROU) NEGATIVE mg/dL Neg-15 UA UROBILINIOGEN DIPSTICK (test code=URO) 0.2 mg/dL 0.0-0.2 UA NITRITE DIPSTICK (test code=KARLEY) NEGATIVE NEGATIVE UA LEUKOCYTE ESTERASE DIPSTICK (test code=LEUU) NEGATIVE uL NEGATIVE UA MICROSCOPIC NEEDED? (test code=UAMICRO) YES UA WBC (test code=WBCU) 0-5 per HPF 0-5 IN SOME URINARY TRACT INFECTIONS THERE MAY NOT BE ENOUGHWBCs IN THE URINE TO TRIGGER AN AUTOMATIC (REFLEX) URINECULTURE. A SEPERATE ORDER FOR URINE CULTURE IS RECOMMENDEDIF THERE IS STRONG SUPPORT FOR A URINARY TRACT INFECTIONCLINICALLY. UA RBC (test code=RBCU) 0-2 per HPF 0-5 UA EPITHELIAL CELLS (test code=EPIU) Few (2-5/hpf) per HPF Few UA BACTERIA (test code=BACU) FEW per HPF NONE UA HYALINE CAST (test code=HYALU) 0-2 per LPF 0-2 Urine Source? Clean CatchURINALYSIS [id number] 16:46:00* Test Item Value Reference Range Comments UA COLOR (test code=COLU) LIGHT YELLOW YELLOW UA APPEARANCE (test code=APPU) CLEAR CLEAR UA GLUCOSE DIPSTICK (test code=DGLUU) NEGATIVE mg/dL NEGATIVE UA BILIRUBIN DIPSTICK (test code=BILU) NEGATIVE NEGATIVE UA KETONE DIPSTICK (test code=KETU) NEGATIVE mg/dL NEGATIVE UA SPECIFIC GRAVITY (test code=SGU) <=1.005 1.001-1.035 UA BLOOD DIPSTICK (test code=KARO) TRACE NEGATIVE UA PH DIPSTICK (test code=JOEL) 5.5 5.0-8.0 UA PROTEIN DIPSTICK (test code=PROU) NEGATIVE mg/dL Neg-15 UA UROBILINIOGEN DIPSTICK (test code=URO) 0.2 mg/dL 0.0-0.2 UA NITRITE DIPSTICK (test code=KARLEY) NEGATIVE NEGATIVE UA LEUKOCYTE ESTERASE DIPSTICK (test code=LEUU) NEGATIVE uL NEGATIVE UA MICROSCOPIC NEEDED? (test code=UAMICRO) UA WBC (test code=WBCU) per HPF 0-5 Urine Source? Clean Catch- CT ABD PELVIS [id number] 16:18:00 Name: OZZIE ALLEN [facility] FSED : 1950 Age/S: 68 / F [address] Unit #: [id number] Loc: [address] Phys: Christopher Moon MD [place], [place] [address] Acct: [id number] Di s Date: Status: REG ER PHONE #: Exam Date: 09/06/2018 2507 FAX #: Reason: abd pain EXAMS: CPT CODE: [id number] CT ABD PELVIS W/CONT 65318 EXAM: CT of the abdomen a nd pelvis with contrast; INFORMATION: Abdominal pain; TECHNIQUE AND FINDINGS: CT dose reduction protocol; 5 mm cuts thro ugh the abdomen and pelvis during and after intravenous infusion of contra st material. Liver and spleen of normal size and shape; no focal lesions. Status post cholecystectomy; mild dilatation of the central portions of the intrahepatic bile ducts and of the extrahepatic bile ducts. Pancre as and adrenal gland are unremarkable. Renal cysts bilaterally, unchanged compared with a study from August 07, 2018. Otherwise, the kidneys unremarkable; no hydronephrosis, no hydroureters. Multiple sigmoid diverticula but no evidence of diverticulitis or other acute bowel abnorma lities. No pelvic mass lesions. Scans through the lower chest show a small hiatal hernia. Lung windows show mild patchy infiltrative changes in the lateral basilar portion of the right middle lobe. I MPRESSION: 1. No acute abdominal or pelvic abnormalities. 2. N o change compared with a study from August 07, 2018, showing sigmoid d iverticulosis and bilateral renal cysts. 3. Right middle lobe infiltrat e. at 1618 Repo rted and signed by: Jarvis Cox M.D. CC: Rikki Moon MD Technologist:Zion Ferguson RT(R)(CT) CTDI: DLP: Trnscb Date/Time: 09/06/2018 (1618) Ayana Orig Print D/T: S: 09/06/2018 (8482) CTDI: DLP: PAGE 1 Signed Report COMPREHENSIVE METABOLIC [id number] 15:21:00* Test Item Value Reference Range Comments SODIUM (test code=NA) 141 mmol/L 128-145 POTASSIUM (test code=K) 4.1 mmol/L 3.5-5.1 CHLORIDE (test code=CL) 105.0 mmol/L 98-107 CARBON DIOXIDE (test code=CO2) 27.1 mmol/L 22-29 ANION GAP (test code=GAP) 13 mmol/L 10-20 GLUCOSE (test code=GLU) 92 mg/dL 70-110 BLOOD UREA NITROGEN (test code=BUN) 23 mg/dL 7-22 CREATININE (test code=CREAT) 1.34 mg/dL 0.55-1.3 BUN/CREATININE RATIO (test code=BUN/CREA) 17.2 10-20 TOTAL PROTEIN (test code=PROT) 6.9 gram/dL 6.1-7.8 ALBUMIN (test code=ALB) 3.3 g/dL 3.3-4.4 GLOBULIN (test code=GLOB) 3.6 G/DL 1-10 ALBUMIN/GLOBULIN RATIO (test code=A/G) 0.9 0.75-1.50 CALCIUM (test code=CA) 9.1 mg/dL 8.0-10.5 BILIRUBIN TOTAL (test code=BILT) 0.70 mg/dL 0.2-1.2 SGOT/AST (test code=AST) 21 U/L 10-39 SGPT/ALT (test code=ALT) 57 U/L 10-69 ALKALINE PHOSPHATASE TOTAL (test code=ALKP) 264 U/L 50-139 [id number] 15:21:00* Test Item Value Reference Range Comments LIPASE (test code=LIP) 63 Unit/L 144-286 CBC W/AUTO [id number] 15:07:00* Test Item Value Reference Range Comments WHITE BLOOD CELL (test code=WBC) 9.8 K/mm3 4.5-12.5 RED BLOOD CELL (test code=RBC) 3.83 mill/mm3 3.7-5.2 HEMOGLOBIN (test code=HGB) 12.0 gram/dL 11.5-15.5 HEMATOCRIT (test code=HCT) 37.4 % 36.0-46.0 MEAN CELL VOLUME (test code=MCV) 97.7 fL 80-98 MEAN CELL HGB (test code=MCH) 31.3 picogram 27.0-33.0 MEAN CELL HGB CONCETRATION (test code=MCHC) 32.1 gram/dL 33.0-36.0 RED CELL DISTRIBUTION WIDTH (test code=RDW) 13.2 % 11.6-16.2 RED CELL DISTRIBUTION WIDTH SD (test code=RDW-SD) 48.5 fL 37.0-51.0 PLATELET COUNT (test code=PLT) 271 K/mm3 150-450 MEAN PLATELET VOLUME (test code=MPV) 10.2 fL 6.7-11.0 NEUTROPHIL % (test code=NT%) 56.9 % 39.0-69.0 LYMPHOCYTE % (test code=LY%) 32.1 % 25.0-55.0 MONOCYTE % (test code=MO%) 8.5 % 0.0-10.0 EOSINOPHIL % (test code=EO%) 1.8 % 0.0-5.0 BASOPHIL % (test code=BA%) 0.5 % 0.0-1.0 NEUTROPHIL # (test code=NT#) 5.55 K/mm3 1.8-7.7 LYMPHOCYTE # (test code=LY#) 3.14 K/mm3 1.0-5.0 MONOCYTE # (test code=MO#) 0.83 K/mm3 0-0.8 EOSINOPHIL # (test code=EO#) 0.18 K/mm3 0.0-0.5 BASOPHIL # (test code=BA#) 0.05 K/mm3 0.0-0.2 MANUAL DIFF REQUIRED (test code=MDIFF) NO CHEST SINGLE (PORTABLE)2018-06-23 22:58:00 [place] [address] Patient Name: OZZIE ALLEN MR #: [id number] : 1950 Age/Sex: 68/F Req #: [id number] Adm Physician: Ordered by: CECILIA MEZA MD Report #: [id number] Location: MED/SURG Room/Bed: [facility] Procedure: [id number] D X/CHEST SINGLE (PORTABLE) Exam Date: 06/23/18 Exam T carlos: 2219 REPORT STATUS: Signed EXAMINATION: CHEST SINGLE (PORTABLE) INDICATION: post pacemak er placement [id number] COMPARISON: Chest CT 02/13/2018 FINDINGS: AP view TUBES and LINES: Left chest wall cardiac pacer with lead tips overlying the right atrium and right ventricle. LUNGS: Lungs are well inflated. Central pulmonary venous congestion. There is no evidence of pneumonia. PLEURA: Mild blunting of the right costophrenic sulcus. No le ft pleural effusion. No pneumothorax. HEART AND MEDIASTINUM: The cardiom ediastinal silhouette is unremarkable. BONES AND SOFT TISSUES: No acut e osseous lesion. Soft tissues are unremarkable. UPPER ABDOMEN: No free air under the diaphragm. IMPRESSION: Interval placement of a cardiac pacer. No pneumothorax. Central pulmonary venous congestion and small right pleural effusion. Signed by: DR. Sharan Alarcon MD on 06/23/2018 11:03 PM Dictated By: SHARAN ALARCON MD 02 Transcribed By: KATARINA on 06/23/182302 COPY TO: CECILIA QUISPE MD CT CHEST [id number] 17:04:00 [place] [address] Patient Name: OZZIE ALLEN MR #: [id number] : 1950 Age/Sex: 67/F Req #: [id number] Adm Physician: FLYNN CHAMPAGNE MD Ordered by: RENEE WASHINGTON MD Report #: [id number] Location: [facility] Room/Bed: [place] [address] Procedure: [id number] CT/C T CHEST W Exam Date: 02/13/18 Exam Time: 1613 REPORT STATUS: Signed EXAM: CT Chest WITH contrast 02/13/2018 1:53 PM INDICA TION: COMPARISON: Ventilation/perfusion scan dated 10/28/2017 TECHNIQUE: Chest was scanned utilizing a multidetector helical scanner from the lung apex through the level of the adrenal glands without administration of IV contrast. Coronal and sagittal reformations were obtained. PE protocol w as performed. IV CONTRAST: 100 mL of Isovue-370 COMPLICATIONS: None RADIATION DOSE: Total DLP: 494.87 mGy*cm Estimated effective dose: (DLP x 0.014 x size factor) mSv CTDIvol has been reviewed. It is b elow the limits set by the Radiation Protocol Committee (RPC). FINDINGS: LINES/ TUBES: None. LUNGS AND AIRWAYS: No filling defects visualized within pulmonary arteries to the subsegmental level. Evaluation of the lungs a re limited by respiratory motion. Posterior right base calcified granuloma. Th ere is also anterior left upper lobe calcified granuloma. Airways are normal. PLEURA: The pleural spaces are clear. HEART AND MEDIASTINUM: The thyro id gland is normal. No mediastinal, hilar or axillary lymphadenopathy. Nonspe cific subcentimeter mediastinal and bilateral axillary lymph nodes. Mild cardi omegaly. There is no pericardial effusion. Main pulmonary artery measures 2.7 cm. Atherosclerotic calcification of coronary arteries. UPPER ABDOMEN: C holecystectomy. Fat-containing supraumbilical ventral hernia. Small hiatal her dylan. Partially imaged probably left renal cyst. BONES: The visualized bony thorax is within normal limits. SOFT TISSUES: Unremarkable. IMPRESSION : No evidence of pulmonary embolism. Ancillary findings as above. S igned by: Dr. Cristin Perez MD on 02/13/2018 5:19 PM Dictated By: CRISTIN RAMOS MD 18 Transcri bed By: KATARINA on 02/13/181718 COPY TO: RENEE WASHINGTON MD CHEST SINGLE (PORTABLE)2018-02-13 08:49:00 [place] [address] Patient Name: OZZIE ALLEN MR #: [id number] : 1950 Age/Sex: 67/F Req #: [id number] Adm Physician: Ordered by: ROSIO GARCIA MD Report #: [id number] Location: ER Room/Bed: Procedure: [id number] DX/CHEST SINGLE (PORTABLE) Sammy m Date: 02/13/18 Exam Time: 0810 REPORT STATUS: Signed PROCEDURE: CHEST SINGLE (PORTABLE) COMPARISON: 01/29/2018. INDICAT IONS: CHEST PAIN, SHORTNESS OF BREATH FINDINGS: Unchanged right he midiaphragmatic elevation. Linear opacity in the lung bases compatible with s ubsegmental atelectasis. No new consolidation, pleural effusion, or pneumotho rax. Stable cardiomediastinal contour with mild tortuosity of the thoracic ao rta. No osseous structure lesions. CONCLUSION: Bibasilar atelectas is. Otherwise no acute cardiopulmonary abnormality. Dictated by: Erendira zapata M.D. on 02/13/2018 at 8:49 Electronically approved by: Erendira Wilkes on 02/13/2018 at 8:49 Dictated By: ERENDIRA HINOJOSA MD [facility] Signed By: ERENDIRA HINOJOSA MD on 02/13/1849 Transcribed By: ZACH on 49 COPY TO: ROSIO GARCIA MD CT ABDOMEN/PELVIS W 2018-01-29 18:33:00 [place] [address] Patient Name: OZZIE ALLEN MR #: [id number] : 1950 Age/Sex: 67/F Req #: [id number] Adm Physician: FLYNN CHAMPAGNE MD Ordered by: FLYNN CHAMPAGNE MD Report #: [id number] [facility]: [facility] Room/Bed: 289-1 Procedure: [id number] CT/CT ABDOMEN/PELVIS W Exam Date: 01/29/18 Exam Time: 1820 REPORT STATUS: Signed EXAM: CT Abdomen and Pelvis WITH contrast I NDICATION: COMPARISON: CT dated 12/16/2013 TECHNIQUE: Abdome n and pelvis were scanned utilizing a multidetector helical scanner from the l sam base to the pubic symphysis after administration of IV contrast. Coronal a nd sagittal reformations were obtained. Routine protocol was performed. Scan w as performed when during portal venous phase. IV CONTRAST: 100 mL of Isovue-370 ORAL CONTRAST: Gastroview COMPLICATIONS: None RADIATION DOSE: Total DLP: 791.56 mGy*cm Estimated effective dose: (DLP x 0.015 x size factor) mSv CTDIvol has been reviewed. It is b elow the limits set by the Radiation Protocol Committee (RPC). FINDINGS: LINES and TUBES: None. LOWER THORAX: Unremarkable. Posterior right ba se calcified granuloma. HEPATOBILIARY: No focal hepatic lesions. Intra and extrahepatic biliary dilatation. Common bile duct measures up to 1.4 cm. GALLBLADDER: Surgically absent. SPLEEN: No splenomegaly. PANCREAS: No focal masses or ductal dilatation. ADRENALS: No adrenal nodules KIDNEYS/URETERS: Kidneys enhance symmetrically. No hydronephrosis. No renal mass. 2.4 cm right upper pole cyst. 3.3 cm posterior left upper pole cyst with internal attenuation greater than simple fluid, likely hemorrhagic cyst. No stones. GI TRACT: No abnormal distention, wall thickening, or evidence of bowel obstruction. There are diverticula within the colon without evidence of diverticulitis. Small paraesophageal hernia. Appendix is normal. PELVIC ORGANS/BLADDER: Hysterectomy. A nondependent air bubble within bladder, could be due to recent instrumentation. LYMPH NODES: No lymphadenopathy. VESSELS: Unremarkable. PERITONEUM / RETROPERITONEUM: No free air or fluid. BONES: Unremarkable. SOFT TISSUES: Small fat-containing supraumbilical ventral 1hernias. Mildly elevated right hemidiaphragm. IMPRESSI ON: 1. No acute inflammatory process in the abdomen/pelvis. 2. Colonic di verticulosis without evidence of diverticulitis. 3. No CT evidence of GI blee ding. Please note that CT is not a sensitive modality to detect GI bleeding. N uclear medicine tagged RBC scan is more sensitive to detect GI bleeding. 4. Intra extrahepatic biliary dilatation could be partially due to postcholecyst ectomy reservoir effect. If clinically indicated, MRCP can be obtained for fur ther evaluation. Signed by: Dr. Cristin Perez MD on 01/29/2018 6:48 PM Dictated By: CRISTIN PEREZ MD 47 Transcribed By: KATARINA on 01/29/181847 COPY TO: Trinidad CHAMPAGNE MD CHEST SINGLE (PORTABLE)2018-01-29 12:40:00 [place] [address] Patient Name: OZZIE ALLEN MR #: [id number] : 1950 Age/Sex: 67/F Req #: [id number] Adm Physician: FLYNN BURNS MD Ordered by: FLYNN CHAMPAGNE MD Report #: [id number] Location: MED/SURG3 Room/Bed: [facility] Procedure: [id number] DX/CH EST SINGLE (PORTABLE) Exam Date: Exam Time: REPORT STATUS: Signed PROCEDURE: A single AP view of the chest. LAURA RISON: None. INDICATIONS: ABDOMINAL PAIN. NAUSEA FINDINGS: L del/tubes: None. Lungs: Interval increase in elevation of the right he midiaphragm when compared to the prior exam. Bibasilar subsegmental atelectas is. Pleura: There is no significant pleural effusion or pneumothorax. Heart and mediastinum: Enlarged cardiomediastinal silhouette on this AP v iew. Bones: No acute bony abnormality. IMPRESSION: Interval increase in elevation of the right hemidiaphragm when compared to the prior exam and decreased right lung volume. Bibasilar subsegmental atelectasis. Dictated by: Cristin Perez M.D. on 01/29/2018 at 12:40 Electronically approved by: Cristin Perez M.D. on 01/29/2018 at 12:40 Dictat ed By: CRISTIN PEREZ MD 1240 Transcribed By: ZACH on 01/29/18 1240 COPY TO: FLYNN CHAMPAGNE MD VQ LUNG SCAN VENT PERFUSION [place] [address] Patient Name: OZZIE ALLEN MR #: [id number] : 1950 Age/Sex: 67/F Req #: [id number] Adm Physician: FLYNN CHAMPAGNE MD Ordered by: RENEE WASHINGTON MD Report #: [id number] Location: [facility] Room/Bed: [place] [address] Procedure: [id number] NM/V Q LUNG SCAN VENT PERFUSION Exam Date: Exam Time: REPORT STATUS: Signed Ventilation /Perfusion Lung Study Reason for exam: 67 F with acute onset SOB; history of PE 5 years ago. Report: Xen on-133 gas 12 mCi was administered via in relation. Dynamic images of the kathy gs in the posterior projection were obtained through single breath, equilibriu m and washout phases. Distribution of tracer activity is irregular throughout the lungs. No segmental ventilation defects are present. Washout is diffuse ly delayed without air trapping Following intravenous administration of Tc -99m MAA 6.6 mCi, perfusion images of the lungs were obtained in multiple proj ections. Distribution of tracer activity appears physiologic throughout the medardo ngs. No segmental perfusion defects are seen. The cardiomediastinal silh ouette is unremarkable. Impression 1. Scan findings represent a VERY LOW probability for acute PE. 2. No lung infarcts are seen. 3. Scan findings are consistent with significant obstructive lung disease. Signed b y: Dr. Daisy Champion M.D. on 10/28/2017 4:20 PM Dictated By: DAISY CHAMPION MD 162 Transcribed By: KRIS COYLE on 10/28/17 1620 COPY TO: RENEE WASHINGTON MD CHEST 2 VIEWS [place] [address] Patient Name: OZZIE ALLEN MR #: [id number] : 11/1949 Age/Sex: 67/F Req #: [id number] Adm Physician: Ordered by: ASHTYN PURDY MD Report #: [id number] Location: ER Room/Bed: Procedure: [id number] DX/CHEST 2 VIEWS Exam Date: 10/16 10/05 Exam Time: 1999 REPORT STATUS: Signed E XAMINATION: CHEST 2 VIEWS INDICATION: COMPARISON: None FINDINGS: PA and lateral views TUBES and LINES: None. LUNGS: Lungs are moderately inflated. Lungs are clear. There is no evidence of pneumonia or pulmonary edema. PLEURA: No pleural effusion or pneumo thorax. HEART AND MEDIASTINUM: The cardiomediastinal silhouette is unremar kable. Loop recorder projects over the chest. BONES AND SOFT TISSUES: No acute osseous lesion. Soft tissues are unremarkable. UPPER ABDOMEN: No free air under the diaphragm. Elevated right hemidiaphragm. Surgical clips pro jecting over the abdomen on lateral view may represent cholecystectomy clips. IMPRESSION: No acute thoracic abnormality. Signed by: DR. Aleah Alarcon MD on 10/27/2017 8:43 PM Dictated By: SHARAN [facility] Signed By: SHARAN ALARCON MD on 10/27/172042 Transcribed By: KATARINA on 10/27/172042 COPY TO: ASHTYN PURDY MD CHEST 2 VIEWS [place] [address] Patient Name: OZZIE ALLEN MR #: [id number] : 1950 Age/Sex: 67/F Req #: [id number] Adm Physician: Ordered by: SUSAN ALY MD Report #: [id number] Location: ER Room/Bed: Procedure: [id number] DX/CHEST 2 VIEWS Exam Date: 08/29/17 Exam Time: 904 REPORT STATUS: Signed PROCEDURE: X-RAY CHEST, TWO VIEWS COMPARISON: None. INDICATIONS: RIGHT CH EST PAIN FINDINGS: LUNGS: No consolidations or edema. Calcified u pper lobe granuloma is best visualized on the lateral view. PLEURA: No pneumothorax. Focal eventration anteriorly of the right hemidiaphragm. HEART T MEDIASTINUM: The heart is within normal size-limits. BONES T SOFT TISSUES: No acute findings. CONCLUSION: No acute th oracic abnormality. Vj Dodson D.O. Dictated by: Vj leahy D.O. on 08/29/2017 at 9:31 Electronically approved by: Vj dodson D.O. on 08/29/2017 at 9:31 Dictated By: VJ DODSON DO 0 Transcribed By: IN FCE on 08/29/17930 COPY TO: SUSAN ALY MD
[2019-12-04 11:59] LABS: BASOPHILS # (AUTO) 0.1 (0.0-0.1); BASOPHILS % 0.7 % (0.0-1.0); EOSINOPHILS # (AUTO) 0.2 (0.0-0.4); EOSINOPHILS % 2.7 % (0.0-6.0); HEMATOCRIT 34.7 % (34.2-44.1); HEMOGLOBIN 11.1 g/dL (12.0-16.0); LYMPHOCYTES # (AUTO) 3.1 (1.0-3.2); LYMPHOCYTES % 38.6 % (18.0-39.1); MEAN CORPUSCULAR HEMOGLOBIN 30.2 pg (28-32); MEAN CORPUSCULAR VOLUME 94.6 fL (81-99); MONOCYTES # (AUTO) 0.9 (0.2-0.8); MONOCYTES % 11.3 % (4.4-11.3); NEUTROPHILS # (AUTO) 3.8 (2.1-6.9); NEUTROPHILS % 46.5 % (38.7-80.0); PLATELET COUNT 332 x10e3/uL (140-360); RED BLOOD COUNT 3.67 x10e6/uL (3.6-5.1); RED CELL DISTRIBUTION WIDTH 13.3 % (11.7-14.4)
[2019-12-04] MEDS ORDERED: ASPIRIN 81 MG CHEW TAB PO ONE ×2 (12:00→13:45)
[2019-12-04 12:20] LABS: ALBUMIN 3.6 g/dL (3.5-5.0); ALBUMIN/GLOBULIN RATIO 1.1 (0.8-2.0); ANION GAP 8.8 mmol/L (8-16); CALCIUM 9.9 mg/dL (8.4-10.2); CREATININE, SERUM 1.54 mg/dL (0.57-1.11); POTASSIUM 4.8 mmol/L (3.5-5.1)
[2019-12-04 12:27] LABS: CREATINE KINASE MB 1.6 ng/mL (0-5.0)
--- NOTE | 2019-12-04 12:30 | NUR ---
Patient home medications reconciled.
--- NOTE | 2019-12-04 12:54 | Diagnostic Imaging Report ---
EXAMINATION: CHEST SINGLE (PORTABLE) INDICATION: Chest pain, shortness of breath. COMPARISON: Chest radiograph 10/12/19. FINDINGS: AP view TUBES and LINES: Left chest wall cardiac pacer with lead tips overlying the right atrium and right ventricle. LUNGS/PLEURA: Lungs are well inflated. Central pulmonary venous congestion. Mild hazy opacities in the bilateral lower hemithoraces. No pneumothorax. No evidence of pulmonary edema. HEART AND MEDIASTINUM: The cardiomediastinal silhouette is unremarkable. There are atherosclerotic calcifications within the aorta. BONES AND SOFT TISSUES: No acute osseous lesion. Soft tissues are unremarkable. UPPER ABDOMEN: No free air under the diaphragm. IMPRESSION: Central vascular congestion with small bilateral pleural effusions and bibasilar opacities, likely atelectasis. Signed by: Dr. Alexia Rodriguez MD on 12/04/2019 12:51 PM
--- NOTE | 2019-12-04 13:40 | NUR ---
Patient assisted to the restroom with steady gait.
[2019-12-04] MEDS ORDERED: ONDANSETRON HCL INJ 2MG/ML 2ML 2 MG/ML VIAL IV PRN (13:45)
[2019-12-04] MEDS ORDERED: SODIUM CHLORIDE 0.9% 500ML 500 ML ONE (13:57)
[2019-12-04] MEDS ORDERED: SODIUM CHLORIDE 0.9% 500ML 500 ML IV ONE (14:00)
[2019-12-04] MEDS ORDERED: BENZONATATE 100 MG CAP PO PRN (14:15)
[2019-12-04] MEDS ORDERED: HYDROCODONE/APAP 5MG-325MG TAB PO PRN (14:15)
[2019-12-04] MEDS ORDERED: DICYCLOMINE HCL 10 MG CAP PO PRN ×2 (14:15→15:45)
[2019-12-04] MEDS ORDERED: IOPAMIDOL 370 MG/ML 200 ML INFUS..BTL INJ ONE (14:18)
[2019-12-04] MEDS ORDERED: SODIUM CHLORIDE 0.9% 50ML 50 ML ONE (14:18)
[2019-12-04] MEDS ORDERED: DICYCLOMINE HCL10 MG PO (14:53)
[2019-12-04 14:58] VITALS: BP 128/62
--- NOTE | 2019-12-04 15:00 | NUR ---
RECEIVED PATIENT FROM ER TO ROOM 100, SHE IS IN STABLE CONDITION. ORIENTED TO ROOM AND POLICIES. ADMISSION AND INITIAL PHYSICAL ASSESSMENT COMPLETED AND DOCUMENTED. CALL LIGHT WITHIN REACH, BED IN THE LOWEST POSITION.
[2019-12-04 15:06] VITALS: BP 128/62
[2019-12-04] MEDS ORDERED: OFLOXACIN5 ML OT (15:09)
--- NOTE | 2019-12-04 15:17 | Diagnostic Imaging Report ---
EXAM: CT Chest WITH contrast INDICATION: Chest pain, shortness of breath. COMPARISON: CT chest PE protocol 02/13/2018. TECHNIQUE: Chest was scanned utilizing a multidetector helical scanner from the lung apex through the level of the adrenal glands without administration of IV contrast. Coronal and sagittal reformations were obtained. PE protocol was performed. IV CONTRAST: 100 mL of Isovue-370 COMPLICATIONS: None RADIATION DOSE: Total DLP: 543.6 mGy*cm Estimated effective dose: (DLP x 0.014 x size factor) mSv CTDIvol has been reviewed. It is below the limits set by the Radiation Protocol Committee (RPC). FINDINGS: LINES/ TUBES: Left-sided pacemaker with leads terminating in the right atrial appendage and right ventricle. LUNGS AND AIRWAYS: No evidence of pulmonary embolism to level of segmental pulmonary arteries. The subsegmental pulmonary arteries are not well opacified. Central airways are patent. Calcified left upper and right lower lobe granulomas. Patchy groundglass opacities within the dependent left upper lobe on series 3, image 49. Diffuse mild bronchial wall thickening. Mild bronchiectasis with likely chronic interstitial opacities in the right middle lobe. There is a 3 mm noncalcified solid nodule in the right middle lobe on series 3, image 60, likely infectious or inflammatory. There is a 1 cm nodular area with associated volume loss within the lingula on series 3, image 69, which appears slightly more nodular in appearance compared to CT on 02/13/2018. PLEURA: The pleural spaces are clear. HEART AND MEDIASTINUM: The thyroid gland is not well evaluated. No mediastinal, hilar or axillary lymphadenopathy. Unchanged nonspecific mediastinal lymph nodes, including a 9 mm short axis paratracheal lymph node on series 2, image 43, which may be reactive. Mild cardiomegaly. There is no pericardial effusion. Main pulmonary artery measures 2.4 cm. Coronary atherosclerosis. UPPER ABDOMEN: Cholecystectomy. Fat-containing supraumbilical ventral hernia. Small hiatal hernia. Left renal cyst and partially visualized right renal cyst. BONES: The visualized bony thorax is within normal limits. SOFT TISSUES: Unremarkable. IMPRESSION: No evidence of pulmonary embolism to the level of the segmental pulmonary arteries. Findings suggestive of remote granulomatous disease. A 1 cm nodular area with associated volume loss in the lingula may represent scarring, however given the slightly more nodular appearance, a follow-up chest CT is recommended in 3 months. Patchy groundglass opacities within the dependent left upper lobe, which may represent a small focus of aspiration. Signed by: Dr. Alexia Rodriguez MD on 12/04/2019 3:14 PM
[2019-12-04] MEDS: FUROSEMIDE INJ 10 MG/ML 4 ML VIAL IV SCH ×2 (15:20→21:57)
[2019-12-04 15:37] VITALS: BP 128/62
[2019-12-04] MEDS ORDERED: CEFTRIAXONE SOD 1 GM/NS 50 ML 50 ML IV SCH (15:45)
[2019-12-04] MEDS: ACETAMINOPHEN 325 MG TAB PO PRN (15:49)
[2019-12-04 16:04] LABS: CREATINE KINASE MB 1.6 ng/mL (0-5.0)
[2019-12-04] MEDS ORDERED: SUCRALFATE 1 GM TAB PO SCH (16:30)
[2019-12-04] MEDS ORDERED: SODIUM CHLORIDE 0.9% 250ML 250 ML ONE (16:58)
[2019-12-04] MEDS ORDERED: LISINOPRIL 20 MG TAB PO SCH (17:00)
[2019-12-04] MEDS ORDERED: METOPROLOL SUCCINATE 25 MG TAB XL PO SCH (17:00)
[2019-12-04] MEDS ORDERED: ASPIRIN 81 MG CHEW TAB PO SCH (17:00)
[2019-12-04] MEDS ORDERED: PANTOPRAZOLE SOD 40 MG TABEC PO SCH (17:00)
[2019-12-04] MEDS ORDERED: HYDROCHLOROTHIAZIDE 25 MG TAB PO SCH (17:00)
[2019-12-04] MEDS: LEVOFLOXACIN 500MG/D5W 100ML 100 ML IV SCH (17:03)
[2019-12-04] MEDS: FLUTICASONE PROPIONATE NASAL SPRAY NS SCH (17:03)
[2019-12-04] MEDS: RIVAROXABAN 15 MG TABLET PO SCH (17:04)
[2019-12-04] MEDS: METOPROLOL SUCCINATE 25 MG TAB XL PO SCH (17:04)
--- NOTE | 2019-12-04 18:01 | History and Physical ---
CHIEF COMPLAINT: Chest pain. HISTORY OF PRESENT ILLNESS: This is a 69-year-old female, history of hypertension, history of acid reflux, hyperlipidemia, comes into the ED with complaints of chest pain that began since yesterday. She reports it is more substernal in nature with no radiation. She reports that it has been very constant. No recent travel. No fever. Has a nonproductive cough. She does state that her daughter is sick at home with bronchitis. No reports are being made for a virus exposure. The patient reports having some right ear pain that was being treated with eardrop. The patient is currently doing well with no complaints at this time. The patient is seen and evaluated at bedside on the medical floor, currently doing well and has been stable during my evaluation. REVIEW OF SYSTEMS: Chest pain, nonproductive cough. The rest of 14-point review of systems are reviewed with the patient and are negative. ALLERGIES: PENICILLIN, SULFA, , CODEINE, HYDRALAZINE, MORPHINE, MUSHROOM, AND PROMETHAZINE. HOME MEDICATIONS: 1. Carafate. 2. Xarelto. 3. Pravastatin. 4. Omeprazole. 5. Metoprolol. 6. Lisinopril. 7. Hydrochlorothiazide. 8. Dicyclomine. 9. Aspirin. 10. Lasix. 11. Ofloxacin ear drops. PAST MEDICAL HISTORY: 1. Hypertension. 2. Atrial fibrillation. 3. History of CAD. 4. History of irritable bowel syndrome. PAST SURGICAL HISTORY: Reports none. FAMILY HISTORY: Hypertension and diabetes. SOCIAL HISTORY: No drugs, no alcohol, does not smoke. Good social support. PHYSICAL EXAMINATION: VITAL SIGNS: Temperature is 97, pulse is 60, respiratory rate is 18, blood pressure 119/78, pulse ox 100% on room air. GENERAL: Not in acute distress. Alert and oriented x3. Cooperative on examination. HEENT: Head; normocephalic, atraumatic. Eyes; pupils are equal, round and reactive to light bilaterally. Extraocular movements intact bilaterally. NECK: Supple. Good range of motion. Throat, no evidence of erythema or exudates in the posterior pharynx. Has poor dentition. PULMONARY: Clear to auscultation bilaterally. No wheezing, rales, or rhonchi. No crackles appreciated. CARDIOVASCULAR: Positive S1 and S2. No murmurs, rubs, or gallops appreciated. ABDOMEN: Soft, nondistended, nontender to palpation. Bowel sounds present. MUSCULOSKELETAL: Strength is 5/5 throughout. No evidence of any muscle deficits on examination. No weakness appreciated. NEUROLOGIC: Cranial nerves 2 thorough 12 grossly intact. No evidence of any neurological deficits on exam. SKIN: Intact. Warm to touch. Good cap refill. PSYCHIATRIC: Normal affect and mood. EXTREMITIES: No edema. Good range of motion throughout. LABORATORY FINDINGS: Show white count 8.1, hemoglobin 11, hematocrit is 35, platelets of 332. Chemistry; sodium 137, potassium 4.8, chloride 107, bicarb 26, anion gap of 8.8, BUN 77, creatinine 1.54, glucose is 95, calcium is 9.9, total bilirubin is 0.2. AST 19, ALT 14, alkaline phosphatase 129. CK 67, troponin now is 0.039, CK-MB is 1.6. Total protein is 6.9. BNP 165. Albumin is 3.6. MICROBIOLOGY: None. IMAGING STUDIES: Chest x-ray shows central vascular congestion with small bilateral pleural effusions, bibasilar atelectasis likely atelectasis. CTA of the chest shows no evidence of pulmonary embolism pulmonary arteries. Findings suggestive of remote granulomatous disease. . Patchy ground-glass opacities within the dependent left upper lobe which may represent a small focus of aspiration. IMPRESSION: 1. Chest pain, rule out ACS, with history of coronary artery disease. 2. Right earache concerning for acute otitis media. 3. Hypertension. 4. Atrial fibrillation, on anticoagulation. PLAN: Continue rate control medications, oral Xarelto. Resume same antihypertensive medications. Start on IV Rocephin for possible acute otitis media. Dry cough is likely due to underlying . She is afebrile. White count is normal. Repeat labs in the morning. Encourage ambulation. Heart healthy diet. Xarelto for DVT prophylaxis. CONSULTANTS: Cardiology. MD ANA LAURA Kruger/MODL /[id number]
--- NOTE | 2019-12-04 18:47 | Consultation ---
DATE OF CONSULTATION: 12/04/2019 Cardiology consultation. REASON FOR CONSULTATION: Chest pain. HISTORY OF PRESENT ILLNESS: This is a 69-year-old woman with history of coronary artery disease, status post LAD and RCA PCI, permanent pacemaker, hypertension, hyperlipidemia, atrial fibrillation, COPD, and gastritis, who presents with complaints of chest pain and shortness of breath. The patient reports she began experiencing shortness of breath and chest pain around 4 p.m. yesterday. She described the chest pain as pressure, 10/10 in severity, associated with nausea. The chest pain has been constant since onset. In addition she reports she feels weak when she ambulates and short of breath when she lays flat. She denies any lower extremity edema. Cardiology is consulted for further evaluation. REVIEW OF SYSTEMS: A 12-point review of systems was performed and is negative except as per HPI. PAST MEDICAL HISTORY: 1. Coronary artery disease, status post RCA and LAD PCI. 2. Atrial fibrillation. 3. Hypertension. 4. Hyperlipidemia. 5. Permanent pacemaker. 6. Chronic obstructive pulmonary disease. 7. Gastritis. ALLERGIES: PLEASE SEE EMR. MEDICATIONS: Please see medication list. SOCIAL HISTORY: No tobacco, alcohol, or illicit drugs. FAMILY HISTORY: Noncontributory to current illness. PHYSICAL EXAMINATION: VITAL SIGNS: Temperature 97 degrees, pulse 68, respiratory rate 18, blood pressure 128/62, oxygen saturation 100% on room air. GENERAL: Well-developed and well-nourished woman, in no acute distress. HEENT: Normocephalic, atraumatic. Pupils equal. No scleral icterus. NECK: Supple. No thyromegaly or cervical lymphadenopathy. No carotid bruits. LUNGS: Clear to auscultation bilaterally. No wheezes or crackles. CARDIOVASCULAR: Normal rate, regular rhythm, 3/6 systolic murmur at the left sternal border. ABDOMEN: Soft and nontender. EXTREMITIES: No edema. NEUROLOGIC: Nonfocal exam. LABORATORY DATA: WBC 8.1, hemoglobin 11.1, hematocrit 34.7, platelets 332. Sodium 137, potassium 4.8, chloride 107, CO2 of 26, BUN 37, creatinine 1.54. Troponin 0.040. BNP 165.3. IMAGING: CT chest, no evidence of pulmonary embolism to the level of the segmental pulmonary arteries. Findings suggestive of remote granulomatous disease. Patchy ground-glass opacities within the dependent left upper lobe, which may represent a small focus of aspiration. IMPRESSION: 1. Chest pain. 2. Chronic diastolic heart failure next failure. 3. Paroxysmal atrial fibrillation. 4. Coronary artery disease status post RCA and LAD stents. 5. Hypertension. 6. Hyperlipidemia. RECOMMENDATIONS: Trend cardiac markers to rule out myocardial infarction. The patient's last echocardiogram was done in September of this year with normal LVEF, sigmoid-shaped septum with focal hypertrophy of the basal septum and an intracavitary gradient. Nuclear stress test was performed during that admission as well, which demonstrated a small mild area of ischemia versus attenuation artifact in the inferior wall. Continue home cardiac medications. The patient's BNP is actually lower than prior admissions and her creatinine is higher. I would suggest holding diuretics and MARY inhibitor temporarily until creatinine stabilizes. If the patient ruled out for myocardial infarction, no further cardiac evaluation is indicated at this time. Monitor patient on telemetry while admitted. Thank you for this consult. We will continue to follow. Renee Londono MD ABS/MODL /[id number]
--- NOTE | 2019-12-04 19:12 | NUR ---
BEDSIDE SHIFT REPORT GIVEN TO ONCOMING NURSE, PATIENT IS RESTING IN BED, NO S/S OF DISTRESS NOTED. CALL LIGHT WITHIN REACH. BED IN THE LOWEST POSITION.
[2019-12-04 20:00] VITALS: BP 104/59
[2019-12-04] MEDS: OFLOXACIN 0.3% (OTIC SOL) 5 ML BTL OT SCH (21:00)
[2019-12-04] MEDS: PRAVASTATIN 20 MG TAB PO SCH (21:57)
[2019-12-04 22:10] VITALS: BP 128/62
[2019-12-04 23:23] LABS: CREATINE KINASE MB 1.5 ng/mL (0-5.0)
--- NOTE | 2019-12-04 23:27 | NUR ---
CARDIAC MARKER DRAWN AND BROUGHT TO LAB AT 2221. RESULT ARE STILL PENDING AT THIS TIME
[2019-12-05] VITALS (11 sets, daily range): BP systolic 73–108; BP diastolic 51–90
[2019-12-05] MEDS: METOPROLOL SUCCINATE 25 MG TAB XL PO SCH ×2 (06:00→16:03)
[2019-12-05] MEDS: PANTOPRAZOLE SOD 40 MG TABEC PO SCH (06:06)
[2019-12-05] MEDS: DICYCLOMINE HCL 10 MG CAP PO SCH (06:06)
[2019-12-05] MEDS: SUCRALFATE 1 GM TAB PO SCH (06:06)
[2019-12-05 06:17] LABS: BASOPHILS # (AUTO) 0.1 (0.0-0.1); BASOPHILS % 0.8 % (0.0-1.0); EOSINOPHILS # (AUTO) 0.3 (0.0-0.4); EOSINOPHILS % 3.4 % (0.0-6.0); HEMATOCRIT 36.2 % (34.2-44.1); HEMOGLOBIN 11.6 g/dL (12.0-16.0); LYMPHOCYTES # (AUTO) 2.8 (1.0-3.2); LYMPHOCYTES % 35.1 % (18.0-39.1); MEAN CORPUSCULAR VOLUME 93.5 fL (81-99); MONOCYTES % 12.5 % (4.4-11.3); NEUTROPHILS # (AUTO) 3.7 (2.1-6.9); NEUTROPHILS % 47.8 % (38.7-80.0); PLATELET COUNT 333 x10e3/uL (140-360); RED BLOOD COUNT 3.87 x10e6/uL (3.6-5.1); RED CELL DISTRIBUTION WIDTH 13.3 % (11.7-14.4)
[2019-12-05 06:37] LABS: ANION GAP 15.4 mmol/L (8-16); CALCIUM 9.4 mg/dL (8.4-10.2); CREATININE, SERUM 1.47 mg/dL (0.57-1.11); POTASSIUM 4.4 mmol/L (3.5-5.1)
[2019-12-05 06:40] LABS: CHOL/HDL RATIO 3.7 (3.0-3.6)
[2019-12-05 07:00] LABS: THYROID STIMULATING HORMONE 1.33 uIU/mL (0.350-4.940)
[2019-12-05 07:15] LABS: CREATINE KINASE MB 1.4 ng/mL (0-5.0)
[2019-12-05] MEDS: FUROSEMIDE INJ 10 MG/ML 4 ML VIAL IV SCH (08:46)
[2019-12-05] MEDS: FLUTICASONE PROPIONATE NASAL SPRAY NS SCH ×2 (08:47→16:22)
[2019-12-05] MEDS: OFLOXACIN 0.3% (OTIC SOL) 5 ML BTL OT SCH ×2 (08:47→20:26)
--- NOTE | 2019-12-05 11:31 | NUR ---
LIVES IN APARTMENT W/ DAUGHTER EMERGENCY CONTACT: ONELIA CATES PCP: DR. FLYNN CHAMPAGNE HOME HEALTH: NONE DME: NONE DC PLAN: RETURN HOME
--- NOTE | 2019-12-05 15:49 | Progress Note ---
DATE: SUBJECTIVE: The patient reports that she is short of breath. I spoke with Cardiology and she will speak with the family and with the patient. The patient has known history of diastolic dysfunction. PHYSICAL EXAMINATION: VITAL SIGNS: Temperature is 98.6, pulse 80, respiratory rate is 16, blood pressure is 88/60, pulse ox is 96% on room air. GENERAL: Not in acute distress. Alert and oriented x3. Cooperative on examination. HEENT: Head; normocephalic, atraumatic. Eyes; pupils are equal, round, and reactive to light bilaterally. Extraocular movements intact bilaterally. Throat; no evidence of erythema or exudates in the posterior pharynx. Has poor dentition. NECK: Supple. Good range of motion. PULMONARY: Clear to auscultation bilaterally. No wheezing, no rales, no rhonchi, no crackles appreciated. CARDIOVASCULAR: Positive S1 and S2. No murmurs, rubs, or gallops appreciated. ABDOMEN: Soft, nondistended, and nontender to palpation. Bowel sounds present. MUSCULOSKELETAL: No evidence of any muscle deficits on examination. No weakness appreciated. NEUROLOGIC: Cranial nerves 2 thorough 12 grossly intact. No evidence of any neurological deficits on exam. SKIN: Intact. Warm to touch. Good cap refill. PSYCHIATRIC: Normal affect and mood. EXTREMITIES: No edema. Good range of motion throughout LABORATORY DATA: Labs show white count is 7.8, hemoglobin 11.6, hematocrit 36.2, platelets of . Chemistry; sodium 138, potassium 4.4, chloride , bicarb 24, anion gap of 15, BUN is 27, creatinine is 1.47. A1c is 5.2, calcium 9.4. Troponins were all negative. TSH 1.3. LDL 109. IMAGING STUDIES: CTA of the chest showed no evidence of any pulmonary embolism. IMPRESSION: 1. Chest pain, ruled out with negative cardiac enzymes with history of diastolic heart failure. 2. Right earache concerning for acute otitis media. 3. Atrial fibrillation, on anticoagulation. 4. Hypertension. PLAN: At this time, the patient's blood pressure is relatively low. several antihypertensive medications. This could be explaining her current symptoms of shortness of breath due to hypotension. I also discontinued the diuretics. She is on oral Xarelto. Monitor the heart rate very closely. Continue with IV antibiotics. I discussed this plan of care with Cardiology. The patient is not comfortable leaving today, which we will go ahead and monitor overnight. She is on Xarelto for DVT prophylaxis. MD ANA LAURA Kruger/MODL /[id number]
[2019-12-05] MEDS: LEVOFLOXACIN 500MG/D5W 100ML 100 ML IV SCH (16:00)
[2019-12-05] MEDS ORDERED: SODIUM CHLORIDE 0.9% 1000ML 250 ML IV ONE (16:15)
[2019-12-05] MEDS: ASPIRIN 81 MG CHEW TAB PO SCH (16:22)
[2019-12-05] MEDS: RIVAROXABAN 15 MG TABLET PO SCH (16:22)
[2019-12-05] MEDS ORDERED: LISINOPRIL 20 MG TAB PO SCH (17:00)
--- NOTE | 2019-12-05 18:00 | Progress Note ---
DATE: 12/05/2019 Cardiology Progress Note SUBJECTIVE: The patient denies chest pain. She continues to have dyspnea on exertion with walking to the restroom and states that she feels weak today. OBJECTIVE: VITAL SIGNS: Temperature 98.6 degrees, pulse 80, respiratory rate 16, blood pressure 88/60, oxygen saturation 96%. GENERAL: Elderly woman, in no acute distress. Awake and alert. LUNGS: Clear to auscultation bilaterally. No wheezes or crackles. CARDIOVASCULAR: Normal rate. Regular rhythm, 3/6 systolic murmur of the left sternal border. ABDOMEN: Soft nontender. EXTREMITIES: No edema. CARDIAC MEDICATIONS: Xarelto 50 mg p.o. daily, aspirin 81 mg p.o. daily, furosemide 40 mg IV q.12 hours, lisinopril 20 mg p.o. daily, hydrochlorothiazide 25 mg p.o. daily, metoprolol succinate 25 mg p.o. q.12 hours. LABORATORY DATA: WBC 7.83, hemoglobin 11.6, hematocrit 36.2, platelets 333. Sodium 138, potassium 4.4, chloride 103, CO2 of 24, BUN 47, and creatinine 1.47. Troponin 0.048. Triglycerides 154, cholesterol 192, LDL 109, and HDL 52. TELEMETRY: Personally reviewed and interpreted revealing normal sinus rhythm. IMPRESSION: 1. Chest pain. 2. Chronic diastolic heart failure. 3. Paroxysmal atrial fibrillation. 4. Coronary artery disease status post right coronary artery and left anterior descending artery stents. 5. Hypertension. 6. Hyperlipidemia. RECOMMENDATIONS: The patient ruled out for myocardial infarction. No further ischemic evaluation is indicated at this time. The patient's echocardiogram was reviewed. LVEF remains preserved, but patient does have diastolic dysfunction. Discussed this finding with the patient and instructed her on sodium fluid restriction. The patient is now hypotensive. Discontinue all antihypertensive therapy at this time. We will give a small amount of IV fluids. Monitor volume status closely given patient's dyspnea on exertion. Monitor patient on telemetry while admitted. Continue current cardiac medications. Resume antihypertensive therapy once blood pressure improves. Thank you for this consult. We will continue to follow. Renee Londono MD ABS/MODL /[id number]
[2019-12-05] MEDS: PRAVASTATIN 20 MG TAB PO SCH (20:26)
[2019-12-06] VITALS (12 sets, daily range): BP systolic 79–126; BP diastolic 33–80
[2019-12-06] MEDS: DICYCLOMINE HCL 10 MG CAP PO SCH (05:47)
[2019-12-06] MEDS: PANTOPRAZOLE SOD 40 MG TABEC PO SCH (05:47)
[2019-12-06] MEDS: SUCRALFATE 1 GM TAB PO SCH (05:47)
[2019-12-06] MEDS: OFLOXACIN 0.3% (OTIC SOL) 5 ML BTL OT SCH ×2 (09:00→21:30)
[2019-12-06] MEDS: FLUTICASONE PROPIONATE NASAL SPRAY NS SCH ×2 (12:20→16:49)
[2019-12-06] MEDS ORDERED: MECLIZINE HCL 12.5 MG TAB PO PRN (13:00)
[2019-12-06] MEDS ORDERED: SCOPOLAMINE 1.5 MG PATCH TOP ONE (13:00)
[2019-12-06] MEDS ORDERED: MIDODRINE 2.5 MG TAB PO ONE (13:15)
--- NOTE | 2019-12-06 14:04 | NUR ---
Nutrition Screen Note RD Recommendation for Physician: - Continue current diet Plan of Care: RD following, monitoring for tolerance and adequacy - Diet education provided 12/05 Nutrition reason for involvement: DX: CHF Primary Diagnose(s): CHF, chest pain PMH: HTN, acid reflux, HLD, afib, CAD, IBS Ht: 60 in Wt: 178.13 lb BMI: 34.8 kg/m2 IBW: [address] Assessment: (12/05) 69 YOF admitted for CHF and chest pain, seen today per dx screen. Pt with new onset diastolic HF per MD notes. Pt reports good appetite and po intake [employer], noted 75% meal intake currently. Pt denies wt loss, reports UBW of 174#. Pt denies any N/V/C/D. Pt reports she avoids pork and high fat meats 2/2 IBS. Pt denies any severe reactions to food allergies listed, no anaphylaxis reported. Pt reports that if she drinks milk she vomits, however tolerates ice cream and other dairy products, reports vomiting with broccoli, and hives if she consumes mushrooms. Pt receptive to diet education at time of visit. Pt educated on high Na foods to avoid, label reading, grocery shopping, and cooking tips. All questions and concerns addressed at time of visit. Chart reviewed. Labs and meds reviewed. Will continue to monitor. Current Diet: Cardiac diet Malnutrition Evaluation (12/06/19) The patient does not meet criteria for a specified degree of malnutrition at this time. Will re-evaluate at follow-up as appropriate. Diet Education Needs Assessment: Diet education indicated, pt receptive- materials provided 12/05. Learner(s): pt Barriers: none Cultural/Language Modifications: none Readiness: ready Method: handouts, discussion Topics: heart healthy diet- low Na, low fat, fluid, grocery shopping, cooking, meal planning, food label reading Understanding/Compliance: good Diet tolerance: tolerating po Nutrition Care Level: low Signed: Lexy Arora RD, LD, [facility]
--- NOTE | 2019-12-06 14:44 | NUR ---
pulmonary [id number] recent febrile syndrome beginning 2-3 weeks ago asthma allergies lung infiltrate, possible CAP bronchitis vs early bronchiectasis fam hx lupus / daughter GERD thanks
[2019-12-06] MEDS ORDERED: METHYLPREDNISOLONE SOD SUCC 125 MG/2ML VIAL IV SCH (14:45)
[2019-12-06] MEDS: ASPIRIN 81 MG CHEW TAB PO SCH (16:49)
[2019-12-06] MEDS: LEVOFLOXACIN 500MG/D5W 100ML 100 ML IV SCH (16:49)
[2019-12-06] MEDS: RIVAROXABAN 15 MG TABLET PO SCH (16:49)
[2019-12-06] MEDS: SALINE 0.65% NAS SOLN 1 SPRAY BTL SCH ×2 (16:49→21:30)
[2019-12-06] MEDS ORDERED: SODIUM CHLORIDE 0.9% 250ML 250 ML ONE (17:07)
--- NOTE | 2019-12-06 19:05 | NUR ---
RECEIVED REPORT FROM PREVIOUS NURSE. CALL LIGHT WITHIN REACH. PATIENT IN BED.
--- NOTE | 2019-12-06 19:08 | Progress Note ---
DATE: 12/06/2019 SUBJECTIVE: The patient denies chest pain. She continues to complain of weakness as well as dyspnea on walking to the bathroom. OBJECTIVE: VITAL SIGNS: Temperature 96.7 degrees, pulse 89, blood pressure 97/67, and oxygen saturation 100% on room air. GENERAL: Elderly woman, in no acute distress. Awake and alert. LUNGS: Clear to auscultation bilaterally. No wheezes or crackles. CARDIOVASCULAR: Normal rate. Regular rhythm, 3/6 systolic murmur at the left sternal border. ABDOMEN: Soft and nontender. EXTREMITIES: No edema. CARDIAC MEDICATIONS: 1. Xarelto 15 mg p.o. daily. 2. Aspirin 81 mg p.o. daily. LABORATORY DATA: Cholesterol 192, LDL 109, HDL 52, and triglycerides 154. Telemetry was personally reviewed and interpreted revealing normal sinus rhythm. IMPRESSION: 1. Chest pain. 2. Chronic diastolic heart failure. 3. Paroxysmal atrial fibrillation. 4. Coronary artery disease, status post RCA and LAD stents. 5. Hypertension. 6. Hyperlipidemia. RECOMMENDATIONS: The patient ruled out for myocardial infarction. No further ischemic evaluation is indicated at this time. The patient's echocardiogram was reviewed. The LVEF remains preserved. The patient does have diastolic dysfunction given hypotension, suspect she is now volume depleted. Diuretics and antihypertensive therapies have been held. Gentle fluid hydration has been provided with improvement in her blood pressure. Monitor volume status closely. Monitor the patient on telemetry while admitted. Continue current cardiac medications. Add atorvastatin. Resume antihypertensive therapy once blood pressure improves. We will continue to follow. Renee Londono MD ABS/MODL /[id number]
--- NOTE | 2019-12-06 19:24 | Consultation ---
DATE OF CONSULTATION: 12/06/2019 Pulmonary Medicine Consult. REASON FOR REFERRAL: Shortness of breath. HISTORY OF PRESENT ILLNESS: Mrs. Hurtado is a pleasant 69-year-old female with shortness of breath. The patient with history of baseline pulmonary conditions. The patient claims she had sick contact in her house, who is her daughter, who has both asthma and lupus. She was sick for about a month and is slowly getting over it. There was no defined specific diagnosis except for bronchitis for the daughter. The patient claims to have 2-3 weeks of symptoms herself. There was some associated right ear pain, nasal congestion, dry cough. She recorded 102 degrees Fahrenheit temperature toward the beginning of her illness, but no recent fevers. She has been having this shortness of breath in the interim. The patient came to emergency room due to poor responsiveness. In the emergency room, it was found that she had a CT chest demonstrating calcified granulomas of the lungs, patchy ground-glass opacities in left upper lobe and diffuse mild bronchial wall thickening, mild bronchiectasis with possible chronic interstitial opacities in right middle lobe, other noncalcified nodules up to 1 cm in size that are difficult to determine the etiology. On admit of note other findings include creatinine which was 1.54. BNP level is 165. PAST MEDICAL HISTORY: Asthma, allergies, GERD, IBS, coronary artery disease, atrial fibrillation, and hypertension. MEDICATIONS: Medication list reviewed per the chart record. Her asthma medicines were albuterol nebulize. Her allergy medicine was Flonase. ALLERGIES: PENICILLIN, SULFA, BROCCOLI, CODEINE, HYDRALAZINE, MILK, MORPHINE, MUSHROOM, AND PROMETHAZINE. SOCIAL HISTORY: No smoking. No drinking. No drugs. The patient lives with her daughter and her three grandchildren, which include two teenagers and a small baby. The patient lives with her boyfriend, who was a editorial specialist and still is working. The patient gets out of the house she says once a week to go shopping. FAMILY HISTORY: Noncontributory to this condition. REVIEW OF SYSTEMS: GENERALLY: No weight changes. OPHTHALMOLOGIC: No double vision. ENT: No thyroid condition known. PULMONARY: No hemoptysis. CARDIAC: No SD known. GASTROINTESTINAL: No constipation. GENITOURINARY: No blood in urine. NEUROLOGIC: No seizures. PSYCHIATRIC: No depression. DERMATOLOGIC: No rash. OBJECTIVE: VITAL SIGNS: Currently afebrile, vital signs noted and reviewed per the chart record. Include some blood pressures which are in the 80s. GENERALLY: No acute distress, alert, calm. HEENT: Normocephalic and atraumatic. NECK: Supple. Throat midline. LUNGS: Bilateral air entry, limited but clear. CARDIOVASCULAR: S1 and S2. No murmurs, rubs, or gallops. ABDOMINAL EXAM: Soft and nontender. EXTREMITIES: No clubbing, no cyanosis, there is trace to no edema. INTEGUMENT: No rash or purpura. LABS: Last creatinine 1.47, BUN 47. Hemoglobin A1c 5.2. Last albumin 2.6. CBCs were well without eosinophilia. IMPRESSION AND PLAN: 1. Treat for pneumonia. 2. Asthma with exacerbation. 3. Chronic allergies. 4. Gastroesophageal reflux disease. 5. Febrile syndrome started few weeks ago, likely viral versus bacterial respiratory infection. 6. Possible chronic interstitial lung disease. 7. Bronchitis versus bronchiectasis early stage. 8. Hypertension. 9. Atrial fibrillation. 10. Coronary artery disease. 11. History of irritable bowel syndrome. At this time, repeat chest x-ray. Give some steroids. Antibiotics. Allergy medicines especially for the nasal sinus congestion. The patient recommended for outpatient followup to try to distinguish between acute and chronic components of her lung condition. Ambulate her and try to assess her recovery from dyspnea. Thank you very much, Dr. Malone, for this consult. Please call for questions. Gumaro López MD GMMichael/MODL /[id number]
[2019-12-06] MEDS: ALBUTEROL/IPRATROPIUM 3 ML NEB NEB SCH (20:20)
[2019-12-06] MEDS: ATORVASTATIN 20 MG TAB PO SCH (21:30)
[2019-12-06] MEDS: PRAVASTATIN 20 MG TAB PO SCH (21:30)
[2019-12-07] VITALS (10 sets, daily range): BP systolic 80–124; BP diastolic 54–91
--- NOTE | 2019-12-07 00:08 | Diagnostic Imaging Report ---
EXAMINATION: Head CT without contrast. HISTORY:Dizziness for 2 days. Loss of hearing in right ear for one week. COMPARISON:None. TECHNIQUE: Multidetector axial images were obtained from the foramen magnum to the vertex without contrast. The images were reconstructed using brain and bone algorithms. Thin section brain images were reformatted into coronal and sagittal planes. Dose modulation, iterative reconstruction, and/or weight based adjustment of the mA/kV was utilized to reduce the radiation dose to as low as reasonably achievable. Intravenous contrast: None IMAGE QUALITY: Acceptable. FINDINGS: Skull/scalp: No lytic or blastic. lesions. No surgical changes. Parenchyma: Nonspecific few, scattered supratentorial white matter hypodensity are likely related to small vessel ischemic changes. No acute hemorrhage, mass or acute major vascular territorial infarct. Arteries: No density suggestive of thrombosis. Dural sinuses: No abnormal density suggestive of thrombosis. Ventricles: No hydrocephalus or displacement. Extra-axial spaces: No abnormal density. Brain volume: Mild generalized cerebral volume loss. Craniocervical junction: No mass, Chiari malformation, or basilar invagination. Sella: No mass. Paranasal/mastoid sinuses: Moderate mucosal thickening in the inferior aspect of right frontal sinus and anterior ethmoid sinus. Near complete opacification of right mastoid air cells. IMPRESSION: 1. No acute intracranial abnormality, particularly no acute hemorrhage, mass or acute major vascular territorial infarct. 2. Mild supratentorial white matter microvascular ischemic changes. 3. Generalized age-related cerebral volume loss. 4. Near complete opacification of right mastoid air cells may represent mastoiditis in appropriate clinical setting. Signed by: Dr. Nadira Quinones M.D. on 12/07/2019 12:04 AM
[2019-12-07] MEDS: ALBUTEROL/IPRATROPIUM 3 ML NEB NEB SCH ×4 (01:30→19:55)
--- NOTE | 2019-12-07 01:30 | NUR ---
DID HOURLY ROUNDING. PATIENT IS ASLEEP IN BED. CALL LIGHT WITHIN REACH. PATIENT IN NO PAIN OR DISTRESS.
--- NOTE | 2019-12-07 02:15 | Progress Note ---
DATE: 12/06/2019 Medicine Progress Note SUBJECTIVE: The patient states she is still very dizzy on examination. Still also complains of shortness of breath. Pulmonary has been consulted. OBJECTIVE: VITAL SIGNS: Temperature is 99.1, pulse 85, respiratory rate is 18, blood pressure is 126/68. She did have evidence of orthostatics documented in the chart. Pulse ox 98% on room air. GENERAL: In no acute distress. Alert and oriented x3. Cooperative on examination. HEENT: Head; normocephalic, atraumatic. Eyes; pupils are equal, round, and reactive to light bilaterally. Extraocular movements intact bilaterally. Throat; no evidence of erythema or exudates in the posterior pharynx. Has poor dentition. NECK: Supple. Good range of motion. PULMONARY: Clear to auscultation bilaterally. No wheezing, no rales, no rhonchi, no crackles appreciated. CARDIOVASCULAR: Positive S1 and S2. No murmurs, rubs, or gallops appreciated. ABDOMEN: Soft, nondistended, and nontender to palpation. Bowel sounds present. MUSCULOSKELETAL: Strength is 5/5 throughout. No evidence of any muscle deficits on examination. No weakness appreciated. NEUROLOGIC: Cranial nerves II through XII grossly intact. No evidence of any neurological deficits on exam. LABORATORY DATA: Show white count 7.8, hemoglobin 11.6, hematocrit was 36, platelets of 333. Chemistries reviewed and stable. TSH is 1.3. MICROBIOLOGY: None. IMAGING STUDIES: None. IMPRESSION: 1. Chest pain with negative cardiac enzyme with history of diastolic heart failure. 2. Right otitis media. 3. Atrial fibrillation, on anticoagulation. 4. Hypertension. 5. Shortness of breath. PLAN: At this time, orthostatics were collected and there was evidence of orthostasis. Normal saline bolus was given. We will hold all antihypertensive medications. Since she was complaining of shortness of breath and imaging studies were found to be negative, I did consult with Pulmonary to come and with evaluate the patient further. We are working with the patient as inpatient as she is still not ready for discharge. I did ask providing her p.r.n. meclizine for underlying dizziness. Xarelto for DVT prophylaxis. MD ANA LAURA Kruger/KECIAL /[id number]
[2019-12-07 05:21] LABS: BASOPHILS # (AUTO) 0.1 (0.0-0.1); BASOPHILS % 0.7 % (0.0-1.0); EOSINOPHILS # (AUTO) 0.3 (0.0-0.4); EOSINOPHILS % 3.4 % (0.0-6.0); HEMATOCRIT 35.1 % (34.2-44.1); HEMOGLOBIN 11.1 g/dL (12.0-16.0); LYMPHOCYTES % 41.3 % (18.0-39.1); MEAN CORPUSCULAR HEMOGLOBIN 29.5 pg (28-32); MEAN CORPUSCULAR HGB CONC 31.6 g/dL (31-35); MEAN CORPUSCULAR VOLUME 93.4 fL (81-99); MONOCYTES # (AUTO) 1.3 (0.2-0.8); NEUTROPHILS # (AUTO) 3.9 (2.1-6.9); NEUTROPHILS % 41.3 % (38.7-80.0); PLATELET COUNT 318 x10e3/uL (140-360); RED BLOOD COUNT 3.76 x10e6/uL (3.6-5.1); RED CELL DISTRIBUTION WIDTH 13.4 % (11.7-14.4)
[2019-12-07] MEDS: SUCRALFATE 1 GM TAB PO SCH (05:36)
[2019-12-07] MEDS: PANTOPRAZOLE SOD 40 MG TABEC PO SCH (05:36)
[2019-12-07] MEDS: DICYCLOMINE HCL 10 MG CAP PO SCH (05:36)
[2019-12-07 05:41] LABS: ANION GAP 9.4 mmol/L (8-16); CALCIUM 9.2 mg/dL (8.4-10.2); CREATININE, SERUM 1.72 mg/dL (0.57-1.11); POTASSIUM 4.4 mmol/L (3.5-5.1)
--- NOTE | 2019-12-07 07:12 | NUR ---
GAVE BEDSIDE SHIFT REPORT TO ONCOMING NURSE. CALL LIGHT WITHIN REACH. PATIENT IN BED
[2019-12-07] MEDS: PREDNISONE 20 MG TAB PO SCH (09:39)
[2019-12-07] MEDS: FLUTICASONE PROPIONATE NASAL SPRAY NS SCH ×2 (09:40→16:38)
[2019-12-07] MEDS: SALINE 0.65% NAS SOLN 1 SPRAY BTL SCH ×3 (09:40→21:25)
[2019-12-07] MEDS: OFLOXACIN 0.3% (OTIC SOL) 5 ML BTL OT SCH ×2 (09:41→21:25)
--- NOTE | 2019-12-07 11:00 | NUR ---
Pt. expressed no spiritual or emotional concerns at this time. Balancing Machine Operator provided hospitality and information on how to reach gas main fitter, if needed. No need to follow at this time. ELAYNE CERON Balancing Machine Operator Spiritual Care Department O: [phone]
--- NOTE | 2019-12-07 11:00 | NUR ---
Received bedside shift from off going nurse. Patient in stable condition, no s/s of distress noted. No pain voiced. Telemetry in place and working. Bed in lowest position and locked. Call light within reach. All personal within reach.
--- NOTE | 2019-12-07 11:21 | Progress Note ---
DATE: 12/07/2019 Cardiology Progress Note SUBJECTIVE: The patient denies chest pain or shortness of breath. She states she feels better today. OBJECTIVE: VITAL SIGNS: Temperature 96.7 degrees, pulse 89, respiratory rate 20, blood pressure 114/54, and oxygen saturation 99% on room air. GENERAL: Elderly woman, no acute distress. Awake and alert. LUNGS: Clear to auscultation bilaterally. No wheezes or crackles. CARDIOVASCULAR: Normal rate. Regular rhythm. 3/6 systolic murmur at the left sternal border. ABDOMEN: Soft and nontender. EXTREMITIES: No edema. CARDIAC MEDICATIONS: Atorvastatin 20 mg p.o. at bedtime, Xarelto 15 mg p.o. daily, and aspirin 81 mg p.o. daily. LABORATORY DATA: WBC 9.58, hemoglobin 11.1, hematocrit 35.1, and platelets 318. Sodium 138, potassium 4.4, chloride 106, CO2 27, BUN 59, and creatinine 1.72. TELEMETRY: Personally reviewed and interpreted revealing normal sinus rhythm. IMPRESSION: 1. Chest pain. 2. Chronic diastolic heart failure. 3. Paroxysmal atrial fibrillation. 4. Coronary artery disease, status post RCA and LAD stents. 5. Hypertension. 6. Hyperlipidemia. RECOMMENDATIONS: The patient ruled out for myocardial infarction. No further ischemic evaluation is indicated at this time. The patient's echocardiogram was reviewed. The LVEF remains preserved, but she does have diastolic dysfunction. The patient's blood pressure has improved with fluid administration, suspect hypertension was due to volume depletion. Diuretics and antihypertensive therapies remain on hold. Restart antihypertensive therapy once blood pressure improves further. Monitor volume status closely. Continue current cardiac medications otherwise. Monitor the patient on telemetry while admitted. Thank you for this consult. We will continue to follow. Renee Londono MD ABS/MODL /[id number]
--- NOTE | 2019-12-07 12:12 | Diagnostic Imaging Report ---
Chest, portable AP view History: Pneumonia Comparison: 12/04/2019 IMPRESSION: The heart is within normal limits of size. Left subclavian pacemaker is in place. Mild right basilar atelectasis. No focal consolidation, sizable pleural effusion, or pneumothorax. Signed by: Alphonse Tavarez MD on 12/07/2019 12:09 PM
[2019-12-07] MEDS ORDERED: SODIUM CHLORIDE 0.9% 1000ML 1,000 ML IV SCH (13:00)
[2019-12-07] MEDS ORDERED: ONDANSETRON HCL 4 MG ORAL DISINTEGRATING TAB PO PRN (13:15)
--- NOTE | 2019-12-07 14:39 | NUR ---
Pulmonary Medicine DATE 12/07/2019 SUBJECTIVE: feeling ok 50% of baseline RA fio2 99% satruation eating, bm yesterday REVIEW OF SYSTEMS: no rash, no chest pain OBJECTIVE: VITAL SIGNS: Vital signs noted and reviewed per the chart record. GENERALLY: No acute distress, alert HEENT: Normocephalic, atraumatic. NECK: Supple. Throat midline. LUNGS: Bilateral air entry, limited but clear. CARDIOVASCULAR: S1 and S2. No murmurs, rubs, or gallops. ABDOMINAL EXAM: Soft, nontender. EXTREMITIES: No clubbing, no cyanosis, trace to no edema. INTEGUMENT: No rash or purpura. LABS: k 4.4, cr 1.7, wbc 9.6, hct 35, plt 318 IMPRESSION AND PLAN: 1. Treat for pneumonia. 2. Asthma with exacerbation. 3. Chronic allergies. 4. Gastroesophageal reflux disease. 5. Febrile syndrome started few weeks ago, likely viral versus bacterial respiratory infection. 6. Possible chronic interstitial lung disease. 7. Bronchitis versus bronchiectasis early stage. 8. Hypertension. 9. Atrial fibrillation. 10. Coronary artery disease. 11. History of irritable bowel syndrome. Today repeat chest x-ray--> mostly clear/stable Wean steroids Antibiotics Allergy medicines, nasal sinus congestion rx Patient is recommended for outpatient followup to try to distinguish between acute and chronic components of her lung condition. Ambulate her and try to assess her recovery from dyspnea. Thank you very much, Dr. Malone, for this consult. Please call for questions.
[2019-12-07] MEDS: LEVOFLOXACIN 500MG/D5W 100ML 100 ML IV SCH (15:08)
--- NOTE | 2019-12-07 16:16 | NUR ---
Evaluating PT recommends home PT and RW upon D/C. Addendum: 12/07/19 at 1617 by iNmesh Lopez PT Amended: Links added.
[2019-12-07] MEDS: RIVAROXABAN 15 MG TABLET PO SCH (16:38)
[2019-12-07] MEDS: ASPIRIN 81 MG CHEW TAB PO SCH (16:38)
--- NOTE | 2019-12-07 19:13 | NUR ---
Completed bedside shift report with oncoming nurse. Patient in stable condition, no s/s of distress noted. No pain voiced. IV fluids running. Bed low and locked. Call light within reach. All personal items within reach.
--- NOTE | 2019-12-07 19:20 | NUR ---
RECEIVED REPORT FROM PREVIOUS NURSE. CALL LIGHT WITHIN REACH. PATIENT IN BED.
[2019-12-07] MEDS: PRAVASTATIN 20 MG TAB PO SCH (21:25)
[2019-12-07] MEDS: ATORVASTATIN 20 MG TAB PO SCH (21:25)
--- NOTE | 2019-12-07 23:00 | NUR ---
GAVE REPORT TO ONCOMING NURSE. CALL LIGHT WITHIN REACH. PATIENT IN BED.
--- NOTE | 2019-12-07 23:30 | NUR ---
received report at time. no ss of distress noted. tele in place. o2 nc noted. call waters within reach.
[2019-12-08 00:19] VITALS: BP 110/73
--- NOTE | 2019-12-08 00:43 | Progress Note ---
DATE: 12/07/2019 Medicine Progress Note SUBJECTIVE: The patient is reportedly doing much better today. During her ambulation with physical therapy, her blood pressure did drop systolically in the 80s. Her blood pressure has much improved throughout the day as I started on some IV fluids. The patient is a very poor historian. She states now that her blood pressure at home is in the upper 90s, low 100s despite me asking on several occasions earlier in the week. PHYSICAL EXAMINATION: VITAL SIGNS: Temperature is 98.7, pulse 96, respiratory rate 18, blood pressure 124/56 and pulse ox 96% on room air. GENERAL: Not in acute distress. Alert and oriented x3. Cooperative on examination. HEENT: Head is normocephalic, atraumatic. Eyes; pupils are equal, round, and reactive to light bilaterally. Extraocular movements intact bilaterally. Throat; no evidence of erythema or exudates in the posterior pharynx. Has poor dentition. NECK: Supple. Good range of motion. PULMONARY: Clear to auscultation bilaterally. No wheezing, no rales, no rhonchi, no crackles appreciated. CARDIOVASCULAR: Positive S1 and S2. No murmurs, rubs, or gallops appreciated. ABDOMEN: Soft, nondistended, and nontender to palpation. Bowel sounds present. MUSCULOSKELETAL: Strength is 5/5 throughout. No evidence of any muscle deficits on examination. No weakness appreciated. NEUROLOGIC: She is awake and oriented x3. SKIN: Intact. Warm to touch. Good cap refill. PSYCHIATRIC: Normal affect and mood. EXTREMITIES: No edema. Good range of motion throughout. LABORATORY FINDINGS: Show white count 9.5, hemoglobin 9.1, hematocrit 35, platelets of 318. Chemistry; sodium 138, potassium 4.4 chloride 103, bicarb 27, anion gap is 9.4 with BUN is 59, creatinine is 1.72, glucose is 99, calcium 9.2. TSH is 1.3. LDL of 109. IMPRESSION: 1. Chest pain atypical in nature with negative cardiac enzymes. 2. History of congestive heart failure with diastolic dysfunction. 3. Right otitis media-improved. 4. Atrial fibrillation, on anticoagulation. 5. Hypertension. 6. Dizziness-resolved. 7. Shortness of breath, likely due to possible underlying asthma in her past. PLAN: At this time, she denies any dizziness, weakness, or any other complaints. Her blood pressure did drop while working with physical therapy, but the patient is asymptomatic. She now endorses that her blood pressures at home, systolically is in the 90 and low 100. On any rate, I will hold all antihypertensive medications. Start on low-dose normal saline up to 1 L and monitor closely. Get a.m. labs repeated. As per Pulmonary, she did get the steroids. She is on Xarelto for DVT prophylaxis. It does not seem that any further workup by Pulmonary or Cardiology at this time. Chest x-ray performed showing to be within normal limits. Plan to discharge home tomorrow. MD ANA LAURA Kruger/ASHLEY /[id number]
[2019-12-08] MEDS: ACETAMINOPHEN 325 MG TAB PO PRN (03:56)
--- NOTE | 2019-12-08 04:53 | NUR ---
pt resting. no ss of distress noted. call waters within reach.
[2019-12-08] MEDS: SUCRALFATE 1 GM TAB PO SCH (05:24)
[2019-12-08] MEDS: DICYCLOMINE HCL 10 MG CAP PO SCH (05:24)
[2019-12-08] MEDS: PANTOPRAZOLE SOD 40 MG TABEC PO SCH (05:24)
[2019-12-08 05:29] VITALS: BP 110/73
[2019-12-08 05:54] LABS: BASOPHILS % 0.2 % (0.0-1.0); EOSINOPHILS % 0.2 % (0.0-6.0); HEMATOCRIT 31.3 % (34.2-44.1); HEMOGLOBIN 9.9 g/dL (12.0-16.0); LYMPHOCYTES # (AUTO) 2.5 (1.0-3.2); LYMPHOCYTES % 20.5 % (18.0-39.1); MEAN CORPUSCULAR HEMOGLOBIN 29.5 pg (28-32); MEAN CORPUSCULAR HGB CONC 31.6 g/dL (31-35); MEAN CORPUSCULAR VOLUME 93.2 fL (81-99); MONOCYTES # (AUTO) 1.2 (0.2-0.8); MONOCYTES % 9.7 % (4.4-11.3); NEUTROPHILS # (AUTO) 8.3 (2.1-6.9); NEUTROPHILS % 69.1 % (38.7-80.0); PLATELET COUNT 294 x10e3/uL (140-360); RED BLOOD COUNT 3.36 x10e6/uL (3.6-5.1); RED CELL DISTRIBUTION WIDTH 13.5 % (11.7-14.4)
[2019-12-08 06:14] LABS: ANION GAP 11.4 mmol/L (8-16); CALCIUM 9.5 mg/dL (8.4-10.2); CREATININE, SERUM 1.72 mg/dL (0.57-1.11); POTASSIUM 4.4 mmol/L (3.5-5.1)
[2019-12-08] MEDS: ALBUTEROL/IPRATROPIUM 3 ML NEB NEB SCH ×2 (07:00→13:00)
[2019-12-08 07:47] VITALS: BP 87/58
[2019-12-08 07:49] VITALS: BP 87/58
[2019-12-08] MEDS: FLUTICASONE PROPIONATE NASAL SPRAY NS SCH (08:19)
[2019-12-08] MEDS: SALINE 0.65% NAS SOLN 1 SPRAY BTL SCH (08:19)
[2019-12-08] MEDS: OFLOXACIN 0.3% (OTIC SOL) 5 ML BTL OT SCH (08:20)
[2019-12-08] MEDS: PREDNISONE 20 MG TAB PO SCH (08:20)
[2019-12-08 08:58] VITALS: BP 122/72
[2019-12-08] MEDS ORDERED: LEVAQUIN500 MG PO (11:31)
[2019-12-08] MEDS ORDERED: PREDNISONE10 MG PO (11:31)
[2019-12-08] MEDS ORDERED: PROAIR HFA INH8.5 GM PO (11:31)
[2019-12-08 11:39] VITALS: BP 124/77
--- NOTE | 2019-12-08 12:02 | NUR ---
Pulmonary Medicine DATE 12/08/2019 SUBJECTIVE: sob better again no fever BM earache still REVIEW OF SYSTEMS: no rash, no chest pain OBJECTIVE: VITAL SIGNS: Vital signs noted and reviewed per the chart record. GENERALLY: No acute distress, alert HEENT: Normocephalic, atraumatic. NECK: Supple. Throat midline. LUNGS: Bilateral air entry, limited but clear. CARDIOVASCULAR: S1 and S2. No murmurs, rubs, or gallops. ABDOMINAL EXAM: Soft, nontender. EXTREMITIES: No clubbing, no cyanosis, trace to no edema. INTEGUMENT: No rash or purpura. LABS: k 4.4, cr 1.72, wbc 11.9. hct 31, plt 294 IMPRESSION AND PLAN: 1. Treat for pneumonia. 2. Asthma with exacerbation. 3. Chronic allergies. 4. Gastroesophageal reflux disease. 5. Febrile syndrome started few weeks ago, likely viral versus bacterial respiratory infection. 6. Possible chronic interstitial lung disease. 7. Bronchitis versus bronchiectasis early stage. 8. Hypertension. 9. Atrial fibrillation. 10. Coronary artery disease. 11. History of irritable bowel syndrome. Wean steroids further Antibiotics continue for her pneumonia Allergy medicines, nasal sinus congestion rx Bronchodilators Patient is recommended for outpatient followup to try to distinguish between acute and chronic components of her lung condition. Nasal sprays Thank you very much, Dr. Malone, for this consult. Please call for questions.
--- NOTE | 2019-12-08 15:06 | NUR ---
Patient discharged home-patient off the unit @ 1442 via wheelchair accompanied by PCT to the lobby. Patient in stable condition, no s/s of distress noted. No pain voiced. IV access removed with tip intact. Telemetry removed. All personal belongings taken with the patient. Discharge teaching and instructions given to the patient. Verbalized understanding by the patient.
--- NOTE | 2019-12-08 19:17 | Progress Note ---
DATE: 12/08/2019 Cardiology Progress Note. SUBJECTIVE: The patient denies chest pain or shortness of breath. OBJECTIVE: VITALS: Temperature 98 degrees, pulse 75, respiratory rate 18, blood pressure 124/77, oxygen saturation 100% on room air. GENERAL: Elderly woman, awake and alert, in no acute distress. LUNGS: Clear to auscultation bilaterally. No wheezes or crackles. CARDIOVASCULAR: Normal rate, regular rhythm, 3/6 systolic murmur at the left sternal border. ABDOMEN: Soft and nontender. EXTREMITIES: No edema. CARDIAC MEDICATIONS: Atorvastatin 20 mg p.o. at bedtime and Xarelto 15 mg p.o. daily. LABORATORY DATA: WBC 11.96, hemoglobin 9.9, hematocrit 31.3, platelets 294. Sodium 139, potassium 4.4, chloride 107, CO2 of 25, BUN 48, creatinine 1.72. TELEMETRY: Personally reviewed, interpreted, revealing normal sinus rhythm. IMPRESSION: 1. Chest pain. 2. Gvvum-iv-nemvlhh diastolic heart failure. 3. Paroxysmal atrial fibrillation. 4. Coronary artery disease status post RCA and LAD stents. 5. Hypertension. 6. Hyperlipidemia. RECOMMENDATIONS: The patient ruled out for myocardial infarction. No further ischemic evaluation is indicated at this time. The patient's echocardiogram was reviewed. The LVEF remains preserved, but she does have diastolic dysfunction. The patient's blood pressure is improved with fluid administration. Suspect hypotension was due to volume depletion. Diuretics and antihypertensive therapies remain on hold. She was instructed to follow up with Dr. Herrera within 2 weeks to reinitiate antihypertensive therapy as blood pressure improves. Monitor volume status closely. Continue current cardiac medications. Thank you for this consult. We will continue to follow. Renee Londono MD ABS/MODL /[id number]
--- NOTE | 2019-12-08 23:13 | Discharge Summary ---
FINAL DISCHARGE DIAGNOSES: 1. Atypical chest pain. 2. History of congestive heart failure with diastolic dysfunction. 3. Right otitis media. 4. Atrial fibrillation, on anticoagulation. 5. Hypertension. 6. Dizziness, resolved, likely due to underlying orthostatic hypotension and dehydration. 7. Shortness of breath with no history of asthma. CONSULTANTS: Pulmonary and Cardiology. VITAL SIGNS: Temperature is 98, pulse is 90, respiratory rate 20, blood pressure is 124/77, pulse ox 98% on room air. LABORATORY DATA: Laboratory findings show a white count is 9.5. The patient received steroids. Hemoglobin 9.9, hematocrit is 31, and platelets of 294. Chemistry; sodium 139, potassium 4.4, chloride 107, bicarb 25, anion gap of 11, BUN is 48, creatinine 1.72, glucose 119, A1c 5.2, calcium 9.5, total bilirubin is 0.3, AST is 19, ALT is 14. Troponins are all negative. LDL 109, triglycerides 154, TSH is 1.3. MICROBIOLOGY: None. IMAGING STUDIES: Chest x-ray, central vascular congestion with small bilateral pleural effusions with bibasilar opacities with underlying atelectasis. Chest CT shows no evidence of pulmonary embolism to the level of the segmental pulmonary arteries. Findings suggestive of remote granulomatous disease. There is some nodularity area associated with volume lingula, may represent scarring. Patchy ground-glass opacities within the dependent left upper lobe, which may represent a small focus of aspiration. CT brain shows no acute intracranial abnormality. No acute hemorrhage, mass, or acute major vascular territory infarct. It shows evidence of generalized age related cerebral volume loss. Repeat chest x-ray on 12/07/2019, shows no focal consolidations of pleural effusion or pneumothorax. HOSPITAL COURSE: This is a 69-year-old female, came into the ED with complaints of underlying chest pain and shortness of breath. The patient was being treated for underlying acute otitis media as an outpatient, was continuing her treatment while she was here. In relation to her chest pain, Cardiology was consulted. Cardiac enzymes were negative. It was felt that the patient likely has atypical chest pain. She also has a history of diastolic heart failure and required IV diuretics. While here, she did receive diuretics and started to complain of dizziness and found to be orthostatic hypotension, in which diuretics were discontinued as well as her antihypertensive medications. While here, the patient was given IV fluids, normal saline due to volume depletion, in which the patient improved tremendously. Her dizziness resolved. Her shortness of breath resolved. She did have a CTA of the chest that showed no evidence of any PE. I did consult with Pulmonary and felt the patient likely has some underlying asthma leading to episodic shortness of breath. She also received steroids while here in the hospital stay. She was discharged on steroids as well as some allergy medications, nasal sinus congestion medications, as well as bronchodilators. No further workup was needed by Pulmonary. She has been cleared for discharge by Pulmonary. She is advised to follow up in 2 weeks in his office. It was also felt the patient likely has some asthma exacerbation leading to underlying shortness of breath, according to Pulmonary's note. She was discharged on steroids for as per Cardiology. No further workup was needed. Her medications in terms of her antihypertensive medications were discontinued except for the oral metoprolol that was recently increased at the Cardiology's office. While here, her blood pressures did maintain on the low side and now on discharge systolic pressure was 124 and concern was that she would get hypotensive occasionally, which will likely lead her to have a mechanical fall. At this time, the patient has been cleared for discharge by Cardiology. On the day of discharge, vital signs were stable. Labs reviewed and stable. The patient is seen and evaluated and examined thoroughly on the day of discharge with no other complaints. The patient verbalized understanding and agreed to plan of care to follow up as an outpatient with the PCP in 1 week and char house supervisor and computer numerical control programmer in 2 weeks' time. MEDICATIONS: See med reconciliation form. DISPOSITION: Home. CONDITION: Stable. DIET: Heart healthy. In the event of any worsening symptoms, the patient was advised to come back to the ED for further evaluation. Discharge summary took greater than 35 minutes. MD ANA LAURA Kruger/ASHLEY /[id number]
== END 2019-12-08 14:42 | disposition home or self-care (01) | DRG 194 ==
LOC: ER 11:42 → ERHOLD 11:48 → MED/SURG 14:36 → OBSVTOIN 12-06 14:07
PROVIDERS: ADMIT Internal Medicine; ATTEND Internal Medicine
DX: J18.9 Pneumonia, unspecified organism (principal); I50.32 Chronic diastolic (congestive) heart failure; J45.901 Unspecified asthma with (acute) exacerbation; J44.0 Chronic obstructive pulmonary disease with (acute) lower respiratory infection; H66.91 Otitis media, unspecified, right ear; R42 Dizziness and giddiness; Z79.01 Long term (current) use of anticoagulants; I11.0 Hypertensive heart disease with heart failure; I25.10 Atherosclerotic heart disease of native coronary artery without angina pectoris; Z95.5 Presence of coronary angioplasty implant and graft; Z95.0 Presence of cardiac pacemaker; E78.5 Hyperlipidemia, unspecified; K29.70 Gastritis, unspecified, without bleeding; I48.0 Paroxysmal atrial fibrillation; Z88.0 Allergy status to penicillin; Z88.2 Allergy status to sulfonamides; Z88.8 Allergy status to other drugs, medicaments and biological substances; Z91.011 Allergy to milk products; J84.10 Pulmonary fibrosis, unspecified; I95.2 Hypotension due to drugs; T46.5X5A Adverse effect of other antihypertensive drugs, initial encounter
CPT/HCPCS: 36415; 70450; 71045; 71260; 80048; 80053; 80061; 82550; 82553; 83036; 83880; 84443; 84484; 85025; 93005; 93306; 94640; 97139; 99284; G0378; J1940; J1956; J7030; J7040; J7050; J7512; Q9967

== ENCOUNTER 2020-02-10 10:20 | Observation (INO) | payer MEDICARE, OTHER ==
[2020-02-07 09:40] LABS: BASOPHILS # (AUTO) 0.1 (0.0-0.1); BASOPHILS % 0.9 % (0.0-1.0); EOSINOPHILS # (AUTO) 0.3 (0.0-0.4); EOSINOPHILS % 3.5 % (0.0-6.0); HEMATOCRIT 36.1 % (34.2-44.1); HEMOGLOBIN 11.2 g/dL (12.0-16.0); LYMPHOCYTES # (AUTO) 3.6 (1.0-3.2); LYMPHOCYTES % 41.4 % (18.0-39.1); MEAN CORPUSCULAR HEMOGLOBIN 28.8 pg (28-32); MEAN CORPUSCULAR VOLUME 92.8 fL (81-99); MONOCYTES # (AUTO) 0.8 (0.2-0.8); MONOCYTES % 9.7 % (4.4-11.3); NEUTROPHILS # (AUTO) 3.8 (2.1-6.9); NEUTROPHILS % 44.3 % (38.7-80.0); PLATELET COUNT 306 x10e3/uL (140-360); RED BLOOD COUNT 3.89 x10e6/uL (3.6-5.1); RED CELL DISTRIBUTION WIDTH 13.5 % (11.7-14.4)
[2020-02-07 10:03] LABS: ALBUMIN 3.6 g/dL (3.5-5.0); ALBUMIN/GLOBULIN RATIO 1.1 (0.8-2.0); ANION GAP 10.6 mmol/L (8-16); CALCIUM 9.6 mg/dL (8.4-10.2); CREATININE, SERUM 1.12 mg/dL (0.57-1.11); POTASSIUM 4.6 mmol/L (3.5-5.1)
[2020-02-10] VITALS (11 sets, daily range): BP systolic 109–169; BP diastolic 65–92
[~2020-02-10] VITALS: Ht 152.4 cm; Wt 81.6 kg
[~2020-02-10 10:20] MED LIST changes: +CLONIDINE HCL0.1 MG PO; +ISOSORBIDE MONO30 MG PO; +LEVAQUIN500 MG PO; +LISINOPRIL10 MG PO; +METOPROLOL TAR100 MG PO; +OFLOXACIN5 ML OT; +PROAIR HFA INH8.5 GM PO
[2020-02-10] MEDS ORDERED: DIPHENHYDRAMINE HCL 25 MG CAP ONE (10:58)
[2020-02-10] MEDS ORDERED: ALPRAZOLAM 0.5 MG TAB ONE (10:58)
[2020-02-10] MEDS ORDERED: MIDAZOLAM HCL 2 MG/2 ML VIAL ONE ×2 (11:35→13:04)
[2020-02-10] MEDS ORDERED: FENTANYL CITRATE/PF 100MCG/2 ML INJ ONE (11:35)
[2020-02-10] MEDS ORDERED: SODIUM CHLORIDE 0.9% 1000ML 1,000 ML ONE (11:36)
[2020-02-10] MEDS ORDERED: HEPARIN SOD/SOD CHLORIDE 2,000 ML ONE (11:36)
[2020-02-10] MEDS ORDERED: LIDOCAINE HCL 2% LOCAL 20 ML VIAL ONE (11:36)
[2020-02-10] MEDS ORDERED: IOPAMIDOL 370 MG/ML 200 ML INFUS..BTL INJ ONE (11:36)
[2020-02-10] MEDS ORDERED: VERAPAMIL HCL 2.5 MG/ML 2 ML VIAL ONE (11:37)
[2020-02-10] MEDS ORDERED: BIVALRIUDIN 250 MG/VIAL VIAL IV ONE (12:43)
[2020-02-10] MEDS ORDERED: SODIUM CHLORIDE 0.9% 50ML 50 ML ONE (12:43)
[2020-02-10] MEDS ORDERED: ASPIRIN 325 MG TAB ONE (13:22)
[2020-02-10] MEDS ORDERED: PRASUGREL 10 MG TAB ONE (13:22)
--- NOTE | 2020-02-10 13:35 | NUR ---
Continuation of care from Procedure room to recovery , review of procedural findings and medications given. Patient drowsy, easily aroused. maintains airway and room air saturations of 94-96%. No gross issues of pressure, pain, pallor or dysrhythmia. IV site patent with angiomax infusing to left AC 20g. patient hemodynamically stable with hemostasis right groin dressing CDI w/o s/s of bleeding s/p Mynx. patient transferred to stretcher under own strength w/o incident. transported to CCL holding room 9 - cgf procedure: coronary angiography with LAD stent Sheath puller: [facility] - Mynx 6/7fr Meds Given Intra-Procedure Sedatives Versed - 3 mg Fentanyl - 75 mcg Anticoagulants Angiomax Fluids Input - 200ml Output - 0 Contrast Isovue 370 - 160 Other Meds Effient 60mg aspirin 325mg po
--- NOTE | 2020-02-10 13:36 | NUR ---
Report hand off to Sina VIEIRA
[2020-02-10] MEDS ORDERED: ACETAMINOPHEN 325 MG TAB PO PRN (13:45)
[2020-02-10] MEDS: SODIUM CHLORIDE 0.9% 1000ML 1,000 ML IV SCH ×2 (13:45→23:59)
[2020-02-10] MEDS ORDERED: HYDRALAZINE HCL 20 MG/ML VIAL IV PRN (13:45)
[2020-02-10] MEDS ORDERED: HYDROCODONE/APAP 5MG-325MG TAB PO PRN (13:45)
[2020-02-10] MEDS ORDERED: MORPHINE SULFATE INJ 4 MG/ML INJ 1ML IV PRN (13:45)
[2020-02-10] MEDS ORDERED: ONDANSETRON HCL INJ 2MG/ML 2ML 2 MG/ML VIAL IV PRN (13:45)
--- NOTE | 2020-02-10 14:10 | NUR ---
Reassume of care. bedside report received from jose VIEIRA. Alert oriented and appropriate, PERRLA, respirations even and unlabored to room air. Pulses x4 extremities equal and strong. Cap fill brisk < 3 sec. Right groin dressing CDI w/o s/s of hematoma. Skin warm and dry integrity appears in general. IV 20g to left AC presents healthy w/o s/s of infiltration or complaint. Abdomen soft and supple. pt offered toileting, denies need to urinate or defecate. Personal affects with patient. Family not avaialble. Pt verbalizes understanding of POC. currently on bedside telemetry pack Currently w/o complaint of pain or need. Bed low and locked, side rails up x2,and call light within reach. bed requested
--- NOTE | 2020-02-10 15:10 | NUR ---
Pt assess remains unchanged. Voided 200ml clear yellow urine. keeping right leg strait. Report off to Valentin VIEIRA on MS1. Transferred on telemetry uneventful. transfer of care.
--- NOTE | 2020-02-10 15:41 | NUR ---
PATIENT RECEIVED INTO ROOM 100-1, PATIENT IS ALERT AND ORIENTED TIMES 3, PATIENT COMPLAINING OF NASAL CONGESTION, PATIENT REQUESTED MEDICATION FOR NASAL CONGESTION.
--- NOTE | 2020-02-10 19:00 | NUR ---
Received the patient in report.lyeing in the bed.iv fluid running.no pain voiced.
[2020-02-10] MEDS ORDERED: ZOLPIDEM TARTRATE 5 MG TAB PO PRN (21:00)
--- NOTE | 2020-02-10 21:00 | NUR ---
Assisted to use restroom.voided.back to bed safely.snacks provided.dressing to right groin is dry.bed locked and in lowest position.phone and call light within reach.instructed to call for assistance.
--- NOTE | 2020-02-10 22:06 | Operative Report ---
DATE OF PROCEDURE: 02/10/2020 SURGEON: Tre Herrera MD CARDIAC ROLL TENSION TESTER PROCEDURE NOTE INDICATION: Coronary artery disease, unstable angina with abnormal stress test. PROCEDURES PERFORMED: 1. Ultrasound-guided access into the right radial artery with in storage and sheath placement. 2. Conscious sedation administration, hemodynamic and neurological monitoring and recovery by medical consultant RN, supervision by MD, 65 minutes. 3. Left heart catheterization, selective coronary angiography. 4. Placement of left anterior descending artery stent. 5. Deployment right groin Mynx closure device. COMPLICATIONS: None. RECOMMENDATIONS: Triple antiplatelet therapy for 3 months followed by aspirin and Xarelto lifelong. BLOOD LOSS: Minimal. DESCRIPTION OF PROCEDURE: Access was obtained in the right radial artery using ultrasound guidance. The artery was felt to be 2 mm in size and appropriate for intervention. Groin access was then obtained. A 6-[place]an access sheath was placed. 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 LV end-diastolic pressure of 10. No gradient across the aortic valve on pullback. A decision was made to intervene on the left anterior descending artery. The patient received intravenous Angiomax, oral aspirin, and prasugrel for anticoagulation. The left main was cannulated using an XB3.0, 6-[place]an guiding catheter. A short Runthrough wire was advanced for support. Predilatation of the mid left anterior descending artery lesion was performed with a 2 mm balloon, following which a single 2.0 x 15 mm Resolute [place] stent was deployed at 16 atmospheres. Excellent end result, less than 10% residual stenosis, TA-3 flow. No complications. Wire and guide sheath removed. Right groin Mynx closure device was deployed. The patient was observed in the hospital overnight. Tre Herrera MD KSB/MODL /[id number]
[2020-02-11] VITALS: BP 158/70
[2020-02-11 04:00] VITALS: BP 150/75
[2020-02-11 05:04] LABS: BASOPHILS # (AUTO) 0.1 (0.0-0.1); BASOPHILS % 0.6 % (0.0-1.0); EOSINOPHILS # (AUTO) 0.3 (0.0-0.4); EOSINOPHILS % 2.9 % (0.0-6.0); HEMOGLOBIN 10.5 g/dL (12.0-16.0); LYMPHOCYTES # (AUTO) 2.8 (1.0-3.2); LYMPHOCYTES % 31.8 % (18.0-39.1); MEAN CORPUSCULAR HEMOGLOBIN 28.9 pg (28-32); MEAN CORPUSCULAR HGB CONC 30.9 g/dL (31-35); MEAN CORPUSCULAR VOLUME 93.7 fL (81-99); MONOCYTES # (AUTO) 0.9 (0.2-0.8); MONOCYTES % 10.7 % (4.4-11.3); NEUTROPHILS # (AUTO) 4.7 (2.1-6.9); NEUTROPHILS % 53.8 % (38.7-80.0); PLATELET COUNT 252 x10e3/uL (140-360); RED BLOOD COUNT 3.63 x10e6/uL (3.6-5.1); RED CELL DISTRIBUTION WIDTH 13.5 % (11.7-14.4)
[2020-02-11 05:16] LABS: ANION GAP 11.4 mmol/L (8-16); BLOOD UREA NITROGEN 30 mg/dL (7-26); BUN/CREATININE RATIO 34 (6-25); CARBON DIOXIDE 26 mmol/L (22-29); CHLORIDE 107 mmol/L (98-107); CREATININE, SERUM 0.88 mg/dL (0.57-1.11); EST GLOMERULAR FILTRATION RATE > 60 ML/MIN (60-); GLUCOSE 96 mg/dL (74-118); POTASSIUM 4.4 mmol/L (3.5-5.1); SODIUM 140 mmol/L (136-145)
--- NOTE | 2020-02-11 07:00 | NUR ---
Bed side shift report given to oncoming rn.stable condition.lyeing in the bed.
[2020-02-11 07:46] VITALS: BP 156/86
[2020-02-11 08:10] VITALS: BP 156/86
--- NOTE | 2020-02-11 09:40 | NUR ---
Pt. expressed no spiritual or emotional concerns at this time. Shipping Hand provided hospitality and information on how to reach veneer stapler, if needed. No need to follow at this time. ELAYNE CERON Shipping Hand Spiritual Care Department O: [phone]
--- NOTE | 2020-02-11 11:00 | NUR ---
Dressing to right groin removed. Site clean, dry, and intact.
[2020-02-11] MEDS ORDERED: ONDANSETRON HCL 4 MG ORAL DISINTEGRATING TAB PO PRN (11:15)
--- NOTE | 2020-02-11 11:30 | NUR ---
Left AC IV discontinued. No signs of infiltration noted. Placed 2x2 gauze and coban. Taken via wheelchair to personal car. AAOX4 to time, person, place, situation. Respirations even and unlabored. Discharge instructions and all personal belongings taken with patient. No rx available.
== END 2020-02-11 11:41 | disposition home or self-care (01) ==
LOC: CATH LAB 10:20 → PACU V 13:33 → MED/SURG 15:11
PROVIDERS: ADMIT Internal Medicine Interventional Cardiology; ATTEND Internal Medicine Interventional Cardiology
DX: I25.118 Atherosclerotic heart disease of native coronary artery with other forms of angina pectoris (principal); Z01.812 Encounter for preprocedural laboratory examination; Z11.59 Encounter for screening for other viral diseases; Z91.011 Allergy to milk products; Z88.5 Allergy status to narcotic agent; Z88.0 Allergy status to penicillin; Z88.2 Allergy status to sulfonamides; Z91.018 Allergy to other foods; I10 Essential (primary) hypertension; I48.0 Paroxysmal atrial fibrillation; Z95.0 Presence of cardiac pacemaker; J45.909 Unspecified asthma, uncomplicated; R07.9 Chest pain, unspecified; D64.9 Anemia, unspecified; E78.00 Pure hypercholesterolemia, unspecified
CPT/HCPCS: 93458; C9600; 36415; 80048; 80053; 85025; 87635; 92928; 99152; 99153; C1725; C1760; C1769; C1876; C1887; G0378; J0583; J2001; J2250; J3010; J7030; Q9967

== ENCOUNTER 2020-02-17 14:35 | Emergency (ER) | payer MEDICARE, OTHER ==
[~2020-02-17] VITALS: Ht 149.9 cm; Wt 86.2 kg
--- NOTE | 2020-02-17 16:44 | Diagnostic Imaging Report ---
EXAMINATION: CHEST SINGLE (PORTABLE) INDICATION: Chest pain COMPARISON: Chest radiograph 12/07/2019 FINDINGS: LINES/TUBES:Left chest pacer. LUNGS:The lungs are moderately inflated. Unchanged elevation of the right hemidiaphragm. Mild right basilar opacities. PLEURA:No pleural effusion or pneumothorax. MEDIASTINUM:The cardiomediastinal silhouette appears unchanged in size and shape. BONES/SOFT TISSUES:No acute osseous injury. ABDOMEN:No free air under the diaphragm. IMPRESSION: Mild right basilar opacities, most likely subsegmental atelectasis. Signed by: Eduardo Riley MD on 02/17/2020 4:41 PM
[2020-02-17 18:33] LABS: BASOPHILS # (AUTO) 0.1 (0.0-0.1); BASOPHILS % 0.7 % (0.0-1.0); EOSINOPHILS # (AUTO) 0.3 (0.0-0.4); EOSINOPHILS % 2.5 % (0.0-6.0); HEMATOCRIT 38.3 % (34.2-44.1); HEMOGLOBIN 11.9 g/dL (12.0-16.0); LYMPHOCYTES # (AUTO) 4.3 (1.0-3.2); LYMPHOCYTES % 39.9 % (18.0-39.1); MEAN CORPUSCULAR HEMOGLOBIN 28.7 pg (28-32); MEAN CORPUSCULAR HGB CONC 31.1 g/dL (31-35); MEAN CORPUSCULAR VOLUME 92.3 fL (81-99); MONOCYTES # (AUTO) 1.1 (0.2-0.8); MONOCYTES % 9.8 % (4.4-11.3); NEUTROPHILS # (AUTO) 5.1 (2.1-6.9); NEUTROPHILS % 46.8 % (38.7-80.0); PLATELET COUNT 336 x10e3/uL (140-360); RED BLOOD COUNT 4.15 x10e6/uL (3.6-5.1); RED CELL DISTRIBUTION WIDTH 13.9 % (11.7-14.4)
--- NOTE | 2020-02-17 19:31 | Emergency Department Note ---
History of Present Illnes History of Present Illness Chief Complaint: Chest Pain History of Present Illness This is a 69 year old female arrived ED with complaints of chest pain/shortness of breath, was seen a counter caser office and had a complete workup and was told to come to the emergency department for further workup and testing.. Historian: Patient Arrival Mode: Car Onset (how long ago): day(s) Radiation: Reports non-radiation Severity: mild Onset quality: gradual Duration (how long): day(s) Timing of current episode: intermittent Progression: waxing and waning Past Medical/Family History Physician Review I have reviewed the patient's past medical and family history. Any updates have been documented here. Past Medical History Recent Fever: No Clinical Suspicion of Infectio: No New/Unexplained Change in Ment: No Past Medical History: Hypertension, CHF Other Medical History: IBS DIVERTICULITIS Past Surgical History: Hysterectomy Other Surgery: ORTHOSCOPY OF RT KNEE,5 HERNIA REPAIRS Social History Smoking Cessation: Never Smoker Counseling Performed: No Alcohol Use: None Any Illegal Drug Use: No Other Last Tetanus: UTD Any Pre-Existing Lines (PICC,: No Review of Systems Review of Systems Constitutional: Reports no symptoms EENTM: Reports no symptoms Cardiovascular: Reports as per HPI, Reports chest pain Respiratory: Reports no symptoms Gastrointestinal: Reports no symptoms Genitourinary: Reports no symptoms Musculoskeletal: Reports no symptoms Integumentary: Reports no symptoms Neurological: Reports no symptoms Psychological: Reports no symptoms Endocrine: Reports no symptoms Hematological/Lymphatic: Reports no symptoms Physical Exam Related Data Allergies: Coded Allergies: Penicillins (Verified Allergy, Severe, THROAT CLOSES, 08/29/17) Sulfa (Sulfonamide Antibiotics) (Verified Allergy, Intermediate, ITCHING, 08/29/17) promethazine (Verified Allergy, Intermediate, SHAKING, 08/29/17) broccoli (Verified Allergy, Mild, 12/06/19) reports vomiting milk (Verified Allergy, Unknown, 08/31/17) lactose morphine (Verified Allergy, Unknown, ITCHING, 08/29/17) mushroom (Verified Allergy, Unknown, 12/06/19) hives codeine (Verified Adverse Reaction, Intermediate, VOMITING, 08/29/17) hydralazine (Verified Adverse Reaction, Unknown, VOMITING, ABDOMINAL CRAMPS, SYNCOPE, 02/01/18) Triage Vital Signs Vital Signs Date Time Temp Pulse Resp B/P (MAP) Pulse Ox O2 Delivery O2 Flow Rate FiO2 02/17/20 15:31 99.1 57 18 150/94 99 Room Air Vital signs reviewed: Yes Physical Exam CONSTITUTIONAL Constitutional: Present well-developed, Present well-nourished HENT HENT: Present normocephalic, Present atraumatic, Present oropharynx clear/moist, Present nose normal HENT L/R: Present left ext ear normal, Present right ext ear normal EYES Eyes: Reports PERRL, Reports conjunctivae normal NECK Neck: Present ROM normal PULMONARY Pulmonary: Present effort normal, Present breath sounds normal CARDIOVASCULAR Cardiovascular: Present regular rhythm, Present heart sounds normal, Present capillary refill normal, Present normal rate GASTROINTESTINAL Abdominal: Present soft, Present nontender, Present bowel sounds normal GENITOURINARY Genitourinary: Present exam deferred SKIN Skin: Present warm, Present dry MUSCULOSKELETAL Musculoskeletal: Present ROM normal NEUROLOGICAL Neurological: Present alert, Present oriented x 3, Present no gross motor or sensory deficits PSYCHOLOGICAL Psychological: Present mood/affect normal, Present judgement normal Results Laboratory Result Diagram: 02/17/201909 Laboratory Laboratory Tests Test 02/17/20 19:10 White Blood Count 10.79 x10e3/uL (4.8-10.8) Red Blood Count 4.15 x10e6/uL (3.6-5.1) Hemoglobin 11.9 g/dL (12.0-16.0) Hematocrit 38.3 % (34.2-44.1) Mean Corpuscular Volume 92.3 fL (81-99) Mean Corpuscular Hemoglobin 28.7 pg (28-32) Mean Corpuscular Hemoglobin Concent 31.1 g/dL (31-35) Red Cell Distribution Width 13.9 % (11.7-14.4) Platelet Count 336 x10e3/uL (140-360) Neutrophils (%) (Auto) 46.8 % (38.7-80.0) Lymphocytes (%) (Auto) 39.9 % (18.0-39.1) Monocytes (%) (Auto) 9.8 % (4.4-11.3) Eosinophils (%) (Auto) 2.5 % (0.0-6.0) Basophils (%) (Auto) 0.7 % (0.0-1.0) Neutrophils # (Auto) 5.1 (2.1-6.9) Lymphocytes # (Auto) 4.3 (1.0-3.2) Monocytes # (Auto) 1.1 (0.2-0.8) Eosinophils # (Auto) 0.3 (0.0-0.4) Basophils # (Auto) 0.1 (0.0-0.1) Absolute Immature Granulocyte (auto 0.03 x10e3/uL (0-0.1) Lab results reviewed: Yes Imaging Imaging results reviewed: Yes Impressions IMPRESSION: Mild right basilar opacities, most likely subsegmental atelectasis. Procedures 12 Lead ECG Interpretation ECG Interpretation : ECG: ECG 1 Erector Operator: Interpreted by ED physician Rhythm: sinus rhythm QRS axis: left ST segments normal: Yes T wave inversion: aVL Other findings: no other findings, LVH Clinical Impression: non-specific ECG Assessment & Plan Medical Decision Making MDM 69-year-old female arrived to the ED with complaints of chest pain and heaviness, seen Dr. Herrera's office and was told is not cardiac and to come to emergency department for further workup. Patient states she had a sonogram done at Dr. Herrera's office that was normal, he was concerned about a pulmonary process. Patient's oxygen saturation remained normal the ED, no tachypnea, normal chest x-ray, patient stable for discharge home. Assessment & Plan Final Impression: (1) Chest pain Depart Disposition: HOME, SELF-CARE Last Vital Signs Date Time Temp Pulse Resp B/P (MAP) Pulse Ox O2 Delivery O2 Flow Rate FiO2 02/17/20 18:33 98.6 60 16 117/77 100 02/17/20 15:31 Room Air Home Meds Active Scripts Albuterol Sulf* (PROAIR HFA INHALER*) 8.5 Gm Inh, 2 INH PO Q4HR PRN for SHORTNESS OF BREATH, #1 INH 3 Refills Prov:GENEVA REED MD, ABIM 12/08/19 Reported Medications Clonidine Hcl (CLONIDINE HCL) 0.1 Mg Tablet, 1 TAB PO PRN PRN for HIGH BLOOD PRESSURE, #60 TAB 02/08/20 Isosorbide Mononitrate (ISOSORBIDE MONONITRATE ER) 30 Mg Tab.er.24h, 30 MG PO DA JHONY, #30 TAB 02/08/20 Lisinopril (LISINOPRIL) 10 Mg Tablet, 10 MG PO DAILY, #30 TAB 02/08/20 Metoprolol Tartrate (METOPROLOL TARTRATE) 100 Mg Tablet, 100 MG PO DAILY, TAB 02/08/20 Dicyclomine Hcl (DICYCLOMINE HCL) 10 Mg Capsule, 10 MG PO DAILY PRN for Spasms 12/04/19 Sucralfate (SUCRALFATE) 1 Gm Tablet, 1 GM PO BIDAC, TAB 10/12/19 Omeprazole (OMEPRAZOLE) 40 Mg Capsule.dr, 20 MG PO DAILY 10/12/19 Aspirin (ASPIRIN) 81 Mg Tab.chew, 81 MG PO DAILY@1700 10/12/19 Rivaroxaban (XARELTO) 15 Mg Tablet, 15 MG PO Q12H 10/12/19 EDNA ANDRADE, Feb 17, 2020 19:31
[2020-02-17 20:17] LABS: BILIRUBIN,URINE NEGATIVE (NEGATIVE); CLARITY,URINE HAZY (CLEAR); COLOR,URINE YELLOW (YELLOW); KETONES,URINE NEGATIVE (NEGATIVE); LEUKOCYTE ESTERASE ,URINE MODERATE (NEGATIVE); NITRITE,URINE POSITIVE (NEGATIVE); PROTEIN,URINE DIPSTICK NEGATIVE (NEGATIVE); URINE UROBILINOGEN 0.2 mg/dL (0.2 - 1)
[2020-02-17 20:28] LABS: RBC,URINE 0-5 /HPF (0-5)
[2020-02-17 20:29] LABS: BACTERIA,URINE MANY /HPF; EPITHELIAL CELLS,URINE MANY /LPF
[2020-02-17 20:48] LABS: ALBUMIN 3.7 g/dL (3.5-5.0); ANION GAP 15.4 mmol/L (8-16); CALCIUM 9.8 mg/dL (8.4-10.2); CREATININE, SERUM 1.1 mg/dL (0.57-1.11)
[2020-02-17 20:51] LABS: POTASSIUM 5.4 mmol/L (3.5-5.1)
[2020-02-17 20:54] LABS: CREATINE KINASE MB 1.2 ng/mL (0-5.0)
== END 2020-02-17 20:55 | disposition home or self-care (01) ==
LOC: ER 14:35
DX: R07.89 Other chest pain (principal); R06.02 Shortness of breath; I10 Essential (primary) hypertension; I50.9 Heart failure, unspecified; Z87.19 Personal history of other diseases of the digestive system
CPT/HCPCS: 36415; 71045; 80053; 81001; 82550; 82553; 84484; 85025; 93005; 99284

== ENCOUNTER → 2021-07-04 | Outpatient (CLI) | payer MEDICARE | LOC: MAMMO 09:34 | PROVIDERS: ATTEND Internal Medicine | DX: Z12.31 Encounter for screening mammogram for malignant neoplasm of breast (principal) | CPT/HCPCS: 77067 ==